=== PATIENT | female | born 1945 | race Caucasian/White ===

== ENCOUNTER 2016-08-03 13:04 | Day surgery (SDC) | payer MEDICARE, OTHER, SELFPAY | END 2016-08-03 15:51 | disposition home or self-care (01) | PROVIDERS: Family Provider Internal Medicine Adolescent Medicine; Visit Provider Internal Medicine Gastroenterology | DX: K59.00 Constipation, unspecified (principal); R10.31 Right lower quadrant pain; K57.30 Diverticulosis of large intestine without perforation or abscess without bleeding; K64.0 First degree hemorrhoids | CPT/HCPCS: 45378; 96365; 96366 ==

== ENCOUNTER → 2017-04-06 08:16 | Outpatient (CLI) | payer MEDICARE, OTHER, SELFPAY ==
[2017-04-06 14:08] LABS: Alanine Aminotransferase 26 U/L (12-78); Albumin Level 3.7 gm/dL (3.4-5.0); Alkaline Phosphatase 59 U/L (46-116); Anion Gap 10.4 mEq/L (5-15); Aspartate Amino Transferase 25 U/L (15-37); Bilirubin,Total 0.5 mg/dL (0.2-1.0); Blood Urea Nitrogen 15 mg/dL (7-18); Calcium 8.7 mg/dL (8.5-10.1); Carbon Dioxide 29 mmol/L (21.0-32.0); Chloride 108 mmol/L (98-107); Chol/HDL Ratio 2.3 (1-3.5); Cholesterol 173 mg/dL (140-200); Creatinine,Serum 1.03 mg/dL (0.55-1.02); Estimated Glomerular Filt Rate 53 ml/min (>60); GFR (African American) 64 ML/MIN (>60); Globulin 3.6 gm/dl (1.3-3.2); Glucose 87 mg/dL (74-106); HDL Cholesterol 74 mg/dL (29-89); LDL Cholesterol 86 mg/dL (0-130); Potassium 4.4 mmoL/L (3.5-5.1); Sodium 143 mmol/L (136-145); Thyroid Stimulating Hormone 20.86 uIU/ml (0.358-3.740); Total Protein,Serum 7.3 gm/dL (6.4-8.2); Triglycerides 63 mg/dL (30-200); VLDL Cholesterol 13 mg/dL (0-40)
[2017-04-06 14:11] LABS: Basophils % 0.8 % (0.1-2.0); Eosinophils # 0.3 K/mm3 (0.0-0.4); Eosinophils % 5.3 % (0.1-12.0); Hematocrit 39.6 % (37.0-47.0); Hemoglobin 13.1 g/dL (12.2-16.2); Lymphocytes # 1.5 K/mm3 (0.7-4.5); Lymphocytes % 31.9 K/mm3 (10-50); Mean Corpuscular Hemoglobin 29.8 pg (27.0-31.2); Mean Corpuscular Volume 90.3 fl (81-99); Mean Platelet Volume 7.8 fl (7.4-10.4); Monocytes # 0.4 K/mm3 (0.1-1.0); Monocytes % 9.1 % (1.7-9.3); Neutrophils # 2.5 K/mm3 (1.8-7.8); Neutrophils % 52.9 % (37.0-80.0); Platelet Count 292 K/mm3 (142-424); Red Blood Count 4.38 M/mm3 (4.20-5.40); Red Cell Distribution Width 12.3 % (11.5-17.5); White Blood Count 4.8 K/mm3 (4.8-10.8)
== END ==
PROVIDERS: PCP Internal Medicine Adolescent Medicine; Visit Provider Nurse Practitioner Family
DX: I25.10 Atherosclerotic heart disease of native coronary artery without angina pectoris (principal); I10 Essential (primary) hypertension; R07.2 Precordial pain; J32.9 Chronic sinusitis, unspecified; G47.31 Primary central sleep apnea; G47.33 Obstructive sleep apnea (adult) (pediatric)
CPT/HCPCS: 36415; 80053; 80061; 83735; 84443; 85025

== ENCOUNTER → 2017-07-12 09:19 | Outpatient (CLI) | payer MEDICARE, OTHER, SELFPAY ==
[2017-07-12 14:30] LABS: Basophils % 0.7 % (0.1-2.0); Eosinophils # 0.2 K/mm3 (0.0-0.4); Eosinophils % 4.5 % (0.1-12.0); Hematocrit 36.3 % (37.0-47.0); Lymphocytes # 1.8 K/mm3 (0.7-4.5); Lymphocytes % 33.5 K/mm3 (10-50); Mean Corpuscular HGB Conc 33.1 g/dL (31.8-35.4); Mean Corpuscular Hemoglobin 29.7 pg (27.0-31.2); Mean Corpuscular Volume 89.7 fl (81-99); Monocytes # 0.4 K/mm3 (0.1-1.0); Monocytes % 8.1 % (1.7-9.3); Neutrophils # 2.9 K/mm3 (1.8-7.8); Neutrophils % 53.2 % (37.0-80.0); Platelet Count 305 K/mm3 (142-424); Red Blood Count 4.04 M/mm3 (4.20-5.40); Red Cell Distribution Width 12.3 % (11.5-17.5); White Blood Count 5.4 K/mm3 (4.8-10.8)
[2017-07-12 14:40] LABS: Alanine Aminotransferase 20 U/L (12-78); Albumin Level 3.7 gm/dL (3.4-5.0); Alkaline Phosphatase 66 U/L (46-116); Anion Gap 14.4 mEq/L (5-15); Aspartate Amino Transferase 19 U/L (15-37); Bilirubin,Total 0.3 mg/dL (0.2-1.0); Blood Urea Nitrogen 18 mg/dL (7-18); Calcium 9.5 mg/dL (8.5-10.1); Carbon Dioxide 26 mmol/L (21.0-32.0); Chloride 105 mmol/L (98-107); Chol/HDL Ratio 2.8 (1-3.5); Cholesterol 161 mg/dL (140-200); Creatinine,Serum 1.01 mg/dL (0.55-1.02); Estimated Glomerular Filt Rate 54 ml/min (>60); GFR (African American) 65 ML/MIN (>60); Globulin 3.8 gm/dl (1.3-3.2); Glucose 89 mg/dL (74-106); HDL Cholesterol 58 mg/dL (29-89); LDL Cholesterol 88 mg/dL (0-130); Potassium 4.4 mmoL/L (3.5-5.1); Sodium 141 mmol/L (136-145); Thyroid Stimulating Hormone 1.92 uIU/ml (0.358-3.740); Total Protein,Serum 7.5 gm/dL (6.4-8.2); Triglycerides 77 mg/dL (30-200); VLDL Cholesterol 15 mg/dL (0-40)
[2017-07-13 15:16] LABS: Vitamin B12 1440 pg/mL (232-1245)
== END ==
PROVIDERS: Visit Provider Internal Medicine Adolescent Medicine
DX: I10 Essential (primary) hypertension (principal); E78.5 Hyperlipidemia, unspecified; E03.9 Hypothyroidism, unspecified
CPT/HCPCS: 36415; 80053; 80061; 82607; 84443; 85025

== ENCOUNTER → 2017-07-19 07:48 | Outpatient (CLI) | payer MEDICARE, OTHER, SELFPAY ==
--- NOTE | 2017-07-19 07:52 | US_ITS ---
US gallbladder HISTORY: ITS.REASON: RUQ PAIN Ordering PHYSICIAN: Flavio Fernandez MD PATIENT AGE: 71 years Comparison: None FINDINGS: PANCREAS: Unremarkable. No obvious mass or abnormal fluid collection. No ductal dilatation LIVER: No focal liver lesions demonstrated. Homogeneous echogenicity. No intrahepatic biliary ductal dilatation evident RIGHT KIDNEY: Unremarkable. Normal size and echogenicity. No hydronephrosis GALLBLADDER: No gallstones, gallbladder wall thickening, pericholecystic fluid, or biliary dilatation. There is a fold present in the fundus of the gallbladder is normal variant IMPRESSION: Negative gallbladder/right upper quadrant ultrasound
== END ==
PROVIDERS: Family Provider Internal Medicine Adolescent Medicine; PCP Internal Medicine Adolescent Medicine; Visit Provider Internal Medicine Adolescent Medicine
DX: R10.11 Right upper quadrant pain (principal)
CPT/HCPCS: 76705

== ENCOUNTER → 2017-09-07 13:15 | Outpatient (CLI) | payer MEDICARE, OTHER, SELFPAY ==
--- NOTE | 2017-09-07 13:45 | XR_ITS ---
XR hand RT min 3V HISTORY: And 18 ITS.REASON: PAIN ORDERING PHYSICIAN: Flavio Fernandez MD PATIENT AGE: 71 years COMPARISON: None FINDINGS: There are mild osteoarthritic changes of the first metacarpal carpal joint. No other significant anomalies are evident. IMPRESSION: Mild osteoarthritis of the first metacarpal carpal joint
--- NOTE | 2017-09-07 13:45 | XR_ITS ---
EXAM: XR cervical spine 5V HISTORY: Neck pain ORDERING PHYSICIAN: Flavio Fernandez MD PATIENT AGE: 71 years FINDINGS: Normal alignment. No fracture or dislocation. Moderate degenerative disc disease is present at C5-C6 with endplate spurring. There is mild right foraminal narrowing at that level. The C6 and C7 vertebral bodies appear partially fused. No significant degenerative change evident at that level. There are mild facet hypertrophic changes at C4 and C5 and there is mild prominence of the transverse processes bilaterally at C7 right greater than left. IMPRESSION: 1. Degenerative disc disease at C5-C6 with mild right foraminal narrowing 2. 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 3. Mild facet arthritic change
--- NOTE | 2017-09-07 13:45 | XR_ITS ---
XR hand LT min 3V HISTORY: And pain ITS.REASON: ANNITA ARTHRITIS PAIN ORDERING PHYSICIAN: Flavio Fernandez MD PATIENT AGE: 71 years COMPARISON: None FINDINGS: No erosive changes are evident. No fracture or dislocation. Moderate osteoarthritic changes are present at the first metacarpocarpal joint with some mild heterotopic bone formation laterally. IMPRESSION: Moderate osteoarthritic changes of the first metacarpal carpal joint
--- NOTE | 2017-09-07 13:45 | XR_ITS ---
XR shoulder RT min 2V HISTORY: ITS.REASON: RT SHOULDER JOINT PAIN ORDERING PHYSICIAN: Flavio Fernandez MD PATIENT AGE: 71 years Comparison: None FINDINGS: No fracture or dislocation. No lytic or blastic change. There is normal mineralization. There are mild osteoarthritic changes of the acromioclavicular joint. The glenohumeral joint has an unremarkable appearance. IMPRESSION: Mild osteoarthritis of the acromioclavicular joint. Minimal subacromial narrowing
[2017-09-07 13:55] LABS: Basophils # 0.1 K/mm3 (0-0.2); Basophils % 0.6 % (0.1-2.0); Eosinophils # 0.1 K/mm3 (0.0-0.4); Eosinophils % 1.4 % (0.1-12.0); Hematocrit 41.6 % (37.0-47.0); Hemoglobin 13.2 g/dL (12.2-16.2); Lymphocytes # 1.8 K/mm3 (0.7-4.5); Lymphocytes % 24.1 K/mm3 (10-50); Mean Corpuscular HGB Conc 31.8 g/dL (31.8-35.4); Mean Corpuscular Hemoglobin 28.7 pg (27.0-31.2); Mean Corpuscular Volume 90.1 fl (81-99); Mean Platelet Volume 7.2 fl (7.4-10.4); Monocytes # 0.5 K/mm3 (0.1-1.0); Monocytes % 6.4 % (1.7-9.3); Neutrophils # 5.1 K/mm3 (1.8-7.8); Neutrophils % 67.5 % (37.0-80.0); Platelet Count 339 K/mm3 (142-424); Red Blood Count 4.61 M/mm3 (4.20-5.40); Red Cell Distribution Width 12.7 % (11.5-17.5); White Blood Count 7.6 K/mm3 (4.8-10.8)
[2017-09-07 14:54] LABS: Alanine Aminotransferase 19 U/L (12-78); Albumin Level 3.7 gm/dL (3.4-5.0); Alkaline Phosphatase 66 U/L (46-116); Aspartate Amino Transferase 18 U/L (15-37); Bilirubin,Total 0.4 mg/dL (0.2-1.0); Blood Urea Nitrogen 24 mg/dL (7-18); Carbon Dioxide 25 mmol/L (21.0-32.0); Chloride 104 mmol/L (98-107); Creatinine,Serum 1.14 mg/dL (0.55-1.02); Estimated Glomerular Filt Rate 47 ml/min (>60); GFR (African American) 57 ML/MIN (>60); Globulin 3.8 gm/dl (1.3-3.2); Glucose 96 mg/dL (74-106); Sodium 137 mmol/L (136-145); Total Protein,Serum 7.5 gm/dL (6.4-8.2)
[2017-09-07 19:30] LABS: Ferritin 49 ng/mL (8-388)
[2017-09-09 06:04] LABS: Antinuclear Antibodies, IFA Negative (.)
== END ==
PROVIDERS: PCP Internal Medicine Adolescent Medicine; Visit Provider Internal Medicine Adolescent Medicine
DX: M25.511 Pain in right shoulder (principal); M54.2 Cervicalgia; M19.041 Primary osteoarthritis, right hand; M19.042 Primary osteoarthritis, left hand
CPT/HCPCS: 36415; 72050; 73030; 73130; 80053; 82728; 85025; 86038

== ENCOUNTER → 2017-09-20 14:18 | Outpatient (CLI) | payer MEDICARE, OTHER, SELFPAY ==
--- NOTE | 2017-09-20 14:20 | MR_ITS ---
MR cervical spine wo con, MR cervical spine wo con, MR 3-d myelogram/MRCP . COMPARISON: 1718 C-spine series 5 view.. TECHNIQUE: Sagittal STIR, T1, T2, axial T1 and T2. On 1.5T Siemens wide bore MRI. 3-D MR myelogram image set obtained & performed on MRI workstation. Additional sagittal thin section T2 weighted dataset obtained from this latter acquisition as well (---76 CPT) COMPARISON :Plain film Cervical spine series September 07, 2017 ---- . FINDINGS . Cranial cervical junction appears normal. Osseous spinal canal is generous but is narrowed by the just described below C2/3 disc intact C3/4. Moderate central disc protrusion. This does impinge upon and minimally effacing cervical cord at midline. C4/5 disc intact. Neural foramen patent C5-C6. Diffuse posterior osteophytic ridging. Additional Spurring and hard disc the right additionally indents effaces cervical cord to the right... Mild/moderate foraminal encroachment bilaterally right more so than left... C6/7. Fused vertebral bodies. 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 Mildly encroach upon the foramen bilaterally T1/2 Mild developing facet arthropathy bilaterally most evident superior right C-spine at C2/C3 C3/4 3-D MR myelogram image set demonstrates the mild indentation upon the anterior aspect thecal sac C5-C6 IMPRESSION 1. . 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 C5-C6 prominent cervical spondylosis and degenerative disc changes, most evident at this level..: .Diffuse disc/osteophyte features of with additional focal spurring/hard disc to the right. Features effaces the cervical cord most evident to the right of midline. .. Mild central canal stenosis, with Bilateral foraminal encroachment. Right greater than left .3. ...C3/4. Broad-based central disc protrusion which abuts and mildly effaces cervical cord at midline .
== END ==
PROVIDERS: Family Provider Internal Medicine Adolescent Medicine; PCP Internal Medicine Adolescent Medicine; Visit Provider Internal Medicine Adolescent Medicine
DX: M54.2 Cervicalgia (principal)
CPT/HCPCS: 72141; 76376

== ENCOUNTER → 2017-10-08 10:39 | Outpatient (POV) | payer MEDICARE, OTHER, SELFPAY ==
[2017-10-08 10:57] VITALS: BP 149/68; PULSE 66; RESP 18; O2SAT 97
--- NOTE | 2017-10-08 11:29 | HMH.PMCON ---
Assessment and Plan (1) Degenerative joint disease of cervical spine Current visit: Yes Status: Acute Category: Medical Code(s): M47.812 - Spondylosis without myelopathy or radiculopathy, cervical region (2) Cervical radiculopathy due to degenerative joint disease of spine Current visit: Yes Status: Chronic Category: Medical Code(s): M47.22 - Other spondylosis with radiculopathy, cervical region We will start her on prednisone 20 mg 1 tablet twice a day for 10 days. She is leaving for [place] this week. We will seek approval for her to come off Plavix for 7 days to get a cervical epidural steroid injection. We will do this when she gets back from her trip. If she has any further problems or questions she is to call us in the pain clinic. HPI - Data of Consult Patient: new to practice Consult date: 10/08/17 Requesting Physician: Leonid Cook MD Primary Care Provider: Flavio Fernandez MD Family Provider: Flavio Fernandez MD - Consult Narrative Reason for consult: Neck pain History of present illness: Ms. Sutton is a 72 year old female who has a long history of neck pain. She has multiple bone spurs throughout the cervical spine. She has had acute onset of neck pain with radiation to both shoulders over the last few days. She is currently on Plavix we cannot do an injection. She has difficulty with any flexion or extension and limited range of motion at this point. She does have a cervical MRI which does show degenerative changes with posterior osteophyte osteophytic spurring at C5-C6. There is severe degenerative changes at C5-C6. She also has bilateral foraminal encroachment right greater than left. It is thought that this is a source of her pain. She is currently on ibuprofen and Tylenol which is not giving her much bit. CC: Leonid Cook MD [facility] History I have reviewed the patient's past medical history: Yes Medical History: Reports:: Coronary Artery Disease, Hyperlipidemia, Hypertension, Valvular Heart Disease Denies:: Cancer, Diabetes Mellitus Type 1, Diabetes Mellitus Type 2, MRSA Other Medical History: Reports: Thyroid Disease Other Surgeries: Yes: Hysterectomy-Partial, Other (bladder tuck) Amputation: No Fractures: No - *Social History Alcohol Intake: never Occupational Status: retired - Psychiatric History Expresses thoughts of harming self/others: None Suicide Plan Description: No Plan *Family Hx:: Unable to obtain Review of Systems - *Musculoskeletal Reports limited joint movement Meds Home Medications Medication Instructions Recorded Confirmed Type Albuterol Sulfate [Proair 2 puffs IH BID 10/08/17 10/08/17 History Respiclick] Aspirin [Aspir 81] 81 mg PO DAILY 10/08/17 10/08/17 History Calcium Carbonate/Vitamin D3 1 each PO BID 10/08/17 10/08/17 History [Calcium 600-Vit D3 200 Tablet] Citalopram Hydrobromide [Celexa 20 mg PO DAILY 10/08/17 10/08/17 History 20mg Tablet] Clopidogrel Bisulfate [Plavix 75mg 75 mg PO DAILY 10/08/17 10/08/17 History Tab] Fluticasone Propionate [Flonase 2 spr NS DAILY 10/08/17 10/08/17 History 50mcg nasal spray 16gm] Lansoprazole [Prevacid] 30 mg PO BID 10/08/17 10/08/17 History Levocetirizine Dihydrochloride 5 mg PO DAILY 10/08/17 10/08/17 History Levothyroxine Sodium 112 mcg PO DAILY 10/08/17 10/08/17 History [Levothyroxine 112mcg (0.112mg) Tab] Meloxicam 7.5 mg PO DAILY PRN 10/08/17 10/08/17 History Metoprolol Succinate 25 mg PO DAILY 10/08/17 10/08/17 History Montelukast Sodium [Montelukast 10 mg PO HS 10/08/17 10/08/17 History 10mg Tab] [place]-3 Fatty Acids/Fish Oil [Fish 1 each PO BID 10/08/17 10/08/17 History Oil 1,000 mg Capsule] Pravastatin Sodium [Pravachol 40mg 40 mg PO DAILY 10/08/17 10/08/17 History Tablet] raNITIdine HCl [Ranitidine HCl] 150 mg PO BID 10/08/17 10/08/17 History Allergies Allergy/AdvReac Type Severity Reaction Status Date / Time cefdinir [From OMNICEF] Allergy Intermed
--- NOTE | 2017-10-08 11:33 | P.CONS_ITS ---
Assessment and Plan (1) Degenerative joint disease of cervical spine Current visit: Yes Status: Acute Category: Medical Code(s): M47.812 - Spondylosis without myelopathy or radiculopathy, cervical region (2) Cervical radiculopathy due to degenerative joint disease of spine Current visit: Yes Status: Chronic Category: Medical Code(s): M47.22 - Other spondylosis with radiculopathy, cervical region We will start her on prednisone 20 mg 1 tablet twice a day for 10 days. She is leaving for [place] this week. We will seek approval for her to come off Plavix for 7 days to get a cervical epidural steroid injection. We will do this when she gets back from her trip. If she has any further problems or questions she is to call us in the pain clinic. HPI - Data of Consult Patient: new to practice Consult date: 10/08/17 Requesting Physician: Leonid Cook MD Primary Care Provider: Flavio Fernandez MD Family Provider: Flavio Fernandez MD - Consult Narrative Reason for consult: Neck pain History of present illness: Ms. Sutton is a 72 year old female who has a long history of neck pain. She has multiple bone spurs throughout the cervical spine. She has had acute onset of neck pain with radiation to both shoulders over the last few days. She is currently on Plavix we cannot do an injection. She has difficulty with any flexion or extension and limited range of motion at this point. She does have a cervical MRI which does show degenerative changes with posterior osteophyte osteophytic spurring at C5-C6. There is severe degenerative changes at C5-C6. She also has bilateral foraminal encroachment right greater than left. It is thought that this is a source of her pain. She is currently on ibuprofen and Tylenol which is not giving her much bit. CC: Leonid Cook MD [facility] History I have reviewed the patient's past medical history: Yes Medical History: Reports:: Coronary Artery Disease, Hyperlipidemia, Hypertension , Valvular Heart Disease Denies:: Cancer, Diabetes Mellitus Type 1, Diabetes Mellitus Type 2, MRSA Other Medical History: Reports: Thyroid Disease Other Surgeries: Yes: Hysterectomy-Partial, Other (bladder tuck) Amputation: No Fractures: No - *Social History Alcohol Intake: never Occupational Status: retired - Psychiatric History Expresses thoughts of harming self/others: None Suicide Plan Description: No Plan *Family Hx:: Unable to obtain Review of Systems - *Musculoskeletal Reports limited joint movement Meds Home Medications Medication Instructions Recorded Confirmed Type Albuterol Sulfate [Proair 2 puffs IH BID 10/08/17 10/08/17 History Respiclick] Aspirin [Aspir 81] 81 mg PO DAILY 10/08/17 10/08/17 History Calcium Carbonate/Vitamin D3 1 each PO BID 10/08/17 10/08/17 History [Calcium 600-Vit D3 200 Tablet] Citalopram Hydrobromide [Celexa 20 mg PO DAILY 10/08/17 10/08/17 History 20mg Tablet] Clopidogrel Bisulfate [Plavix 75mg 75 mg PO DAILY 10/08/17 10/08/17 History Tab] Fluticasone Propionate [Flonase 2 spr NS DAILY 10/08/17 10/08/17 History 50mcg nasal spray 16gm] Lansoprazole [Prevacid] 30 mg PO BID 10/08/17 10/08/17 History Levocetirizine Dihydrochloride 5 mg PO DAILY 10/08/17 10/08/17 History Levothyroxine Sodium 112 mcg PO DAILY 10/08/17 10/08/17 History [Levothyroxine 112mcg (0.112mg) Tab] Meloxicam 7.5 mg PO DAILY PRN 10/08/17 10/08/17 History Metoprolol Succinate 25 mg PO
[2017-10-08 13:57] LABS: Alanine Aminotransferase 21 U/L (12-78); Albumin Level 3.6 gm/dL (3.4-5.0); Albumin/Globulin Ratio 0.9 (1.1-1.8); Alkaline Phosphatase 69 U/L (46-116); Anion Gap 13.5 mEq/L (5-15); Aspartate Amino Transferase 14 U/L (15-37); Bilirubin,Total 0.4 mg/dL (0.2-1.0); Blood Urea Nitrogen 16 mg/dL (7-18); Calcium 9.2 mg/dL (8.5-10.1); Carbon Dioxide 27 mmol/L (21.0-32.0); Chloride 102 mmol/L (98-107); Chol/HDL Ratio 2.9 (1-3.5); Cholesterol 206 mg/dL (140-200); Creatinine,Serum 1.11 mg/dL (0.55-1.02); Estimated Glomerular Filt Rate 48 ml/min (>60); GFR (African American) 58 ML/MIN (>60); Globulin 3.8 gm/dl (1.3-3.2); Glucose 79 mg/dL (74-106); HDL Cholesterol 71 mg/dL (29-89); LDL Cholesterol 115 mg/dL (0-130); Potassium 4.5 mmoL/L (3.5-5.1); Sodium 138 mmol/L (136-145); Thyroid Stimulating Hormone 3.84 uIU/ml (0.358-3.740); Total Protein,Serum 7.4 gm/dL (6.4-8.2); Triglycerides 102 mg/dL (30-200); VLDL Cholesterol 20 mg/dL (0-40)
== END ==
PROVIDERS: Nurse Practitioner Family; Family Provider Internal Medicine Adolescent Medicine; PCP Internal Medicine Adolescent Medicine; Visit Provider Anesthesiology
DX: M47.22 Other spondylosis with radiculopathy, cervical region (principal); Z79.899 Other long term (current) drug therapy; Z79.1 Long term (current) use of non-steroidal anti-inflammatories (NSAID)
CPT/HCPCS: 80053; 80061; 84443; 99202

== ENCOUNTER → 2017-11-29 10:37 | Outpatient (POV) | payer MEDICARE, OTHER, SELFPAY ==
[2017-11-29 12:22] VITALS: BP 125/73; PULSE 66; RESP 18; O2SAT 98; BMI 27.7
--- NOTE | 2017-11-29 12:33 | HMH.PAINSOAP ---
[facility] Pain Management SOAP Note Subjective:: Patient is a pleasant 72-year-old white female who presents today for follow-up after her cervical epidural steroid injection. Patient did get some relief. However her pain has returned and has seemingly worsened. Patient and I had a long discussion about plan of care. Patient would like to try a combination of injection/anti-inflammatory/physical therapy prior to getting a neurosurgical consultation. Patient rates her pain a 7 out of 10 today. ROS General: no recent weight change, no fever, no sleep disturbances Respiratory: no cough, no shortness of air, no recurring pulmonary infections Cardiovascular/Peripheral Vascular: No chest pain, No palpitations, no edema, no shortness of breath. Gastrointestinal: no incontinence, normal bowel movements reported Genitourinary: no incontinence Musculoskeletal: Neck pain, back pain Psychiatric: normal mood/ affect Neurological: [denies weakness in extremities], [denies balance issues] Objective:: Physical Exam General: Alert and oriented x3, no acute distress, pleasant and cooperative, [on room air] Lungs: Resps E/U, Symmetrical chest expansion, Eyes: PERRL Musculoskeletal: Flexion and extension of cervical spine somewhat guarded secondary to pain, deep tendon reflexes normal, strength in upper and lower extremities [5/5], slightly antalgic gait noted Neurological: speech clear, 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 Plan:: We will schedule a C5-C6 cervical epidural steroid injection for the patient. Patient is on Plavix however she has permission to come off of this. We will also schedule physical therapy for her along with prescribing her some Voltaren gel. If this does not work I believe a neurosurgical consultation would be advisable This note was dictated using voice recognition software and may contain errors or omissions
--- NOTE | 2017-11-29 12:36 | P.CONS_ITS ---
[facility] Pain Management SOAP Note Subjective:: Patient is a pleasant 72-year-old white female who presents today for follow-up after her cervical epidural steroid injection. Patient did get some relief. However her pain has returned and has seemingly worsened. Patient and I had a long discussion about plan of care. Patient would like to try a combination of injection/anti-inflammatory/physical therapy prior to getting a neurosurgical consultation. Patient rates her pain a 7 out of 10 today. ROS General: no recent weight change, no fever, no sleep disturbances Respiratory: no cough, no shortness of air, no recurring pulmonary infections Cardiovascular/Peripheral Vascular: No chest pain, No palpitations, no edema, no shortness of breath. Gastrointestinal: no incontinence, normal bowel movements reported Genitourinary: no incontinence Musculoskeletal: Neck pain, back pain Psychiatric: normal mood/ affect Neurological: [denies weakness in extremities], [denies balance issues] Objective:: Physical Exam General: Alert and oriented x3, no acute distress, pleasant and cooperative, [on room air] Lungs: Resps E/U, Symmetrical chest expansion, Eyes: PERRL Musculoskeletal: Flexion and extension of cervical spine somewhat guarded secondary to pain, deep tendon reflexes normal, strength in upper and lower extremities [5/5], slightly antalgic gait noted Neurological: speech clear, 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 Plan:: We will schedule a C5-C6 cervical epidural steroid injection for the patient. Patient is on Plavix however she has permission to come off of this. We will also schedule physical therapy for her along with prescribing her some Voltaren gel. If this does not work I believe a neurosurgical consultation would be advisable This note was dictated using voice recognition software and may contain errors or omissions
== END ==
PROVIDERS: Family Provider Internal Medicine Adolescent Medicine; PCP Internal Medicine Adolescent Medicine; Visit Provider Clinical Nurse Specialist Family Health
DX: M50.10 Cervical disc disorder with radiculopathy, unspecified cervical region (principal)
CPT/HCPCS: 99213

== ENCOUNTER → 2017-12-25 11:57 | Outpatient (CLI) | payer MEDICARE, OTHER, SELFPAY ==
[2017-12-25 12:00] LABS: Adenovirus F 40/41, stool Not Detected (NotDetected); Astrovirus Not Detected (NotDetected); Campylobacter Not Detected (NotDetected); Clostridium Difficile A/B, PCR Not Detected (NotDetected); Cryptosporidium Not Detected (NotDetected); Cyclospora Cayetanesis Not Detected (NotDetected); Entamoeba histolytica Not Detected (NotDetected); Enteropathogenic E coli Not Detected (NotDetected); Enterotoxigenic E coli Not Detected (NotDetected); Giardia lamblia Not Detected (NotDetected); Norovirus Not Detected (NotDetected); Plesimonas Shigalloides, PCR Not Detected (NotDetected); Rotavirus A Not Detected (NotDetected); Salmonella, PCR Not Detected (NotDetected); Sapovirus Not Detected (NotDetected); Shiga-like toxin E coli Not Detected (NotDetected); Shigella Enterovasive E coli Not Detected (NotDetected); Vibrio Cholerae Not Detected (NotDetected); Vibrio, PCR Not Detected (NotDetected); Yersinia Entercolitica, PCR Not Detected (NotDetected)
[2017-12-25 15:09] LABS: Enteroaggregative E coli Detected (NotDetected)
== END ==
PROVIDERS: PCP Nurse Practitioner Family; Visit Provider Nurse Practitioner Family
DX: K52.9 Noninfective gastroenteritis and colitis, unspecified (principal)
CPT/HCPCS: 87507

== ENCOUNTER 2017-12-30 10:00 | Outpatient (RCR) | payer MEDICARE, OTHER, SELFPAY ==
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
== END 2018-01-03 10:11 | disposition home or self-care (01) ==
LOC: PT 10:00
PROVIDERS: Family Provider Internal Medicine Adolescent Medicine; PCP Internal Medicine Adolescent Medicine; Visit Provider Clinical Nurse Specialist Family Health
DX: M54.2 Cervicalgia (principal)
CPT/HCPCS: 97014; 97110; 97140; 97163; G0283

== ENCOUNTER → 2018-01-03 14:16 | Outpatient (POV) | payer MEDICARE, OTHER, SELFPAY ==
[2018-01-03 14:34] VITALS: BP 122/74; PULSE 74; RESP 18; O2SAT 98; BMI 31.3
--- NOTE | 2018-01-04 08:06 | HMH.PAINSOAP ---
[facility] Pain Management SOAP Note Subjective:: Patient is a pleasant 72-year-old white female who presents today follow-up after cervical epidural steroid injection. Patient states she is doing very well and has no pain. Patient is continuing her physical therapy. Patient would like to follow-up on an as-needed basis. ROS General: no recent weight change, no fever, no sleep disturbances Respiratory: no cough, no shortness of air, no recurring pulmonary infections Cardiovascular/Peripheral Vascular: No chest pain, No palpitations, no edema, no shortness of breath. Gastrointestinal: no incontinence, normal bowel movements reported Genitourinary: no incontinence Musculoskeletal: Neck pain at times Psychiatric: normal mood/ affect, Neurological: [denies weakness in extremities], [denies balance issues] Objective:: Physical Exam General: Alert and oriented x3, no acute distress, pleasant and cooperative, [on room air] Lungs: Resps E/U, Symmetrical chest expansion, Eyes: PERRL Musculoskeletal: Flexion and extension of cervical spine somewhat guarded secondary to pain, deep tendon reflexes normal, strength in upper and lower extremities [5/5], normal gait noted Neurological: speech clear, logistics lead equal, no gross sensory deficits Assessment:: Degenerative disc disease cervical spinal cervical radiculopathy Plan:: We will follow-up with the patient on an as-needed basis. At this time patient is not having any pain is doing well. Patient is going to continue her therapy. This note was dictated using voice recognition software and may contain errors or omissions
== END ==
PROVIDERS: PCP Internal Medicine Adolescent Medicine; Visit Provider Clinical Nurse Specialist Family Health
DX: M50.10 Cervical disc disorder with radiculopathy, unspecified cervical region (principal)
CPT/HCPCS: 99213

== ENCOUNTER 2018-02-07 10:00 | Outpatient (RCR) | payer MEDICARE, OTHER, SELFPAY ==
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
== END 2018-02-14 10:54 | disposition home or self-care (01) ==
LOC: PT 10:00
PROVIDERS: Visit Provider Internal Medicine Adolescent Medicine
DX: M54.5 Low back pain (principal)
CPT/HCPCS: 97012; 97014; 97110; 97140; 97163; G0283

== ENCOUNTER → 2018-05-04 08:14 | Outpatient (CLI) | payer MEDICARE, OTHER, SELFPAY ==
[2018-05-04 14:09] LABS: Basophils % 0.9 % (0.1-2.0); Eosinophils # 0.2 K/mm3 (0.0-0.4); Eosinophils % 3.6 % (0.1-12.0); Hematocrit 38.9 % (37.0-47.0); Hemoglobin 13.1 g/dL (12.2-16.2); Lymphocytes # 1.4 K/mm3 (0.7-4.5); Lymphocytes % 29.8 % (10-50); Mean Corpuscular HGB Conc 33.7 g/dL (31.8-35.4); Mean Corpuscular Hemoglobin 29.7 pg (27.0-31.2); Mean Platelet Volume 8.3 fl (7.4-10.4); Monocytes # 0.3 K/mm3 (0.1-1.0); Neutrophils # 2.7 K/mm3 (1.8-7.8); Neutrophils % 58.7 % (37.0-80.0); Platelet Count 289 K/mm3 (142-424); Red Blood Count 4.42 M/mm3 (4.20-5.40); Red Cell Distribution Width 12.8 % (11.5-17.5); White Blood Count 4.7 K/mm3 (4.8-10.8)
[2018-05-04 14:31] LABS: Alanine Aminotransferase 19 U/L (12-78); Albumin Level 3.7 gm/dL (3.4-5.0); Albumin/Globulin Ratio 0.9 (1.1-1.8); Alkaline Phosphatase 63 U/L (46-116); Anion Gap 13.5 mEq/L (5-15); Aspartate Amino Transferase 14 U/L (15-37); Bilirubin,Total 0.6 mg/dL (0.2-1.0); Blood Urea Nitrogen 19 mg/dL (7-18); Calcium 9.2 mg/dL (8.5-10.1); Carbon Dioxide 26 mmol/L (21.0-32.0); Chloride 105 mmol/L (98-107); Chol/HDL Ratio 3.3 (1-3.5); Cholesterol 170 mg/dL (140-200); Creatinine,Serum 1.13 mg/dL (0.55-1.02); Estimated Glomerular Filt Rate 47 ml/min (>60); GFR (African American) 57 ML/MIN (>60); Globulin 3.9 gm/dl (1.3-3.2); Glucose 87 mg/dL (74-106); HDL Cholesterol 51 mg/dL (29-89); LDL Cholesterol 99 mg/dL (0-130); Potassium 4.5 mmoL/L (3.5-5.1); Sodium 140 mmol/L (136-145); Thyroid Stimulating Hormone 1.23 uIU/ml (0.358-3.740); Total Protein,Serum 7.6 gm/dL (6.4-8.2); Triglycerides 102 mg/dL (30-200); VLDL Cholesterol 20 mg/dL (0-40)
== END ==
PROVIDERS: PCP Internal Medicine Adolescent Medicine; Visit Provider Nurse Practitioner Family
DX: I25.118 Atherosclerotic heart disease of native coronary artery with other forms of angina pectoris (principal); E78.00 Pure hypercholesterolemia, unspecified
CPT/HCPCS: 36415; 80053; 80061; 84443; 85025

== ENCOUNTER → 2018-08-19 11:02 | Outpatient (POV) | payer MEDICARE, OTHER, SELFPAY ==
[2018-08-19 11:40] VITALS: BP 151/88; PULSE 75; RESP 18; O2SAT 95; BMI 30.9
--- NOTE | 2018-08-19 11:43 | P.CONS_ITS ---
[facility] Pain Management SOAP Note Subjective:: This patient is a pleasant 72-year-old white female who we previously saw for neck pain with cervical radicular symptoms. She previously had a cervical epidural steroid injection which gave her good relief of her pain symptoms for almost 6 months. Her pain is starting to return in her neck with radiation down her arm. She is currently on Plavix. I believe she is a candidate for repeat cervical epidural steroid injection. We will seek approval for repeat cervical epidural steroid injection and get approval for her to come off Plavix for 7 days prior to the injection. Objective:: Alert and oriented x3 no acute distress. Patient has limited range of motion of the cervical spine. Motor strength of the upper extremities is 5/5. There is no gross sensory deficit. Assessment:: Degenerative disc disease of the cervical spine with cervical radiculopathy symptoms Plan:: We will seek approval and plan on a cervical epidural steroid injection under fluoroscopy. This patient is to be off her Plavix for 7 days prior to this injection. I have encouraged her to take Tylenol and ibuprofen to help with her pain symptoms until her injection.
== END ==
PROVIDERS: PCP Internal Medicine Adolescent Medicine; Visit Provider Anesthesiology
DX: M50.10 Cervical disc disorder with radiculopathy, unspecified cervical region (principal)
CPT/HCPCS: 99212

== ENCOUNTER → 2018-09-26 14:41 | Outpatient (POV) | payer MEDICARE, OTHER, SELFPAY ==
[2018-09-26 14:48] VITALS: BP 141/71; PULSE 65; RESP 18; O2SAT 96; BMI 30.7
--- NOTE | 2018-09-27 08:28 | P.CONS_ITS ---
[facility] Pain Management SOAP Note Subjective:: Patient is a very pleasant 73-year-old white female who presents today for follow-up after cervical epidural steroid injection. She is doing extremely well would like to follow-up on an as-needed basis. She rates her pain a 2 out of 10. Her last cervical epidural steroid injection gave her relief for 6 months. Patient's right arm pain is fully resolved ROS General: no recent weight change, no fever, no sleep disturbances Respiratory: no cough, no shortness of air, no recurring pulmonary infections Cardiovascular/Peripheral Vascular: No chest pain, No palpitations, no edema, no shortness of breath. Gastrointestinal: no incontinence, normal bowel movements reported Genitourinary: no incontinence Musculoskeletal: Neck pain, arm pain Psychiatric: normal mood/ affect Neurological: [denies weakness in extremities], [denies balance issues] Objective:: Physical Exam General: Alert and oriented x3, no acute distress, pleasant and cooperative, [on room air] Lungs: Resps E/U, Symmetrical chest expansion, Eyes: PERRL Musculoskeletal: Flexion and extension of cervical spine somewhat guarded secondary to pain, deep tendon reflexes normal, strength in upper and lower extremities [5/5], normal gait noted Neurological: speech clear, try on baster equal, no gross sensory deficits Assessment:: 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 Dr. Cook has reviewed this note and agrees with this plan of care. This note was dictated using voice recognition software and may contain errors or omissions
== END ==
PROVIDERS: PCP Internal Medicine Adolescent Medicine; Visit Provider Clinical Nurse Specialist Family Health
DX: M50.10 Cervical disc disorder with radiculopathy, unspecified cervical region (principal)
CPT/HCPCS: 99212

== ENCOUNTER → 2018-12-19 08:50 | Outpatient (CLI) | payer MEDICARE, OTHER, SELFPAY ==
[2018-12-19 14:27] LABS: Basophils # 0.1 K/mm3 (0-0.2); Basophils % 1.3 % (0.1-2.0); Eosinophils # 0.1 K/mm3 (0.0-0.4); Eosinophils % 1.8 % (0.1-12.0); Hematocrit 38.7 % (37.0-47.0); Hemoglobin 12.3 g/dL (12.2-16.2); Lymphocytes % 31.8 % (10-50); Mean Corpuscular HGB Conc 31.8 g/dL (31.8-35.4); Mean Corpuscular Hemoglobin 29.8 pg (27.0-31.2); Mean Corpuscular Volume 93.7 fl (81-99); Mean Platelet Volume 8.2 fl (7.4-10.4); Monocytes # 0.5 K/mm3 (0.1-1.0); Monocytes % 8.5 % (1.7-9.3); Neutrophils # 3.6 K/mm3 (1.8-7.8); Neutrophils % 56.7 % (37.0-80.0); Platelet Count 339 K/mm3 (142-424); Red Blood Count 4.13 M/mm3 (4.20-5.40); Red Cell Distribution Width 12.5 % (11.5-17.5); White Blood Count 6.3 K/mm3 (4.8-10.8)
[2018-12-19 15:00] LABS: Alanine Aminotransferase 10 U/L (12-78); Albumin Level 3.6 gm/dL (3.4-5.0); Alkaline Phosphatase 53 U/L (46-116); Anion Gap 13.4 mEq/L (5-15); Aspartate Amino Transferase 12 U/L (15-37); Bilirubin,Total 0.5 mg/dL (0.2-1.0); Blood Urea Nitrogen 22 mg/dL (7-18); Calcium 9.3 mg/dL (8.5-10.1); Carbon Dioxide 26 mmol/L (21.0-32.0); Chloride 104 mmol/L (98-107); Chol/HDL Ratio 3.5 (1-3.5); Cholesterol 224 mg/dL (140-200); Creatinine,Serum 1.09 mg/dL (0.55-1.02); Estimated Glomerular Filt Rate 49 ml/min (>60); GFR (African American) 59 ML/MIN (>60); Globulin 3.6 gm/dl (1.3-3.2); Glucose 84 mg/dL (74-106); HDL Cholesterol 64 mg/dL (29-89); LDL Cholesterol 137 mg/dL (0-130); Potassium 4.4 mmoL/L (3.5-5.1); Sodium 139 mmol/L (136-145); Thyroid Stimulating Hormone 2.48 uIU/ml (0.358-3.740); Total Protein,Serum 7.2 gm/dL (6.4-8.2); Triglycerides 113 mg/dL (30-200); VLDL Cholesterol 23 mg/dL (0-40)
== END ==
PROVIDERS: PCP Internal Medicine Adolescent Medicine; Visit Provider Internal Medicine Adolescent Medicine
DX: Z00.00 Encounter for general adult medical examination without abnormal findings (principal); I10 Essential (primary) hypertension; E78.5 Hyperlipidemia, unspecified; E03.9 Hypothyroidism, unspecified
CPT/HCPCS: 36415; 80053; 80061; 84443; 85025

== ENCOUNTER → 2019-01-02 13:44 | Outpatient (POV) | payer MEDICARE, OTHER, SELFPAY ==
[2019-01-02 14:12] VITALS: BP 128/71; PULSE 82; RESP 18; O2SAT 98; BMI 29.8
--- NOTE | 2019-01-03 09:34 | HMH.PAINSOAP ---
[facility] Pain Management SOAP Note Subjective:: Patient is a pleasant 73-year-old white female who presents today for follow-up after her cervical epidural steroid injection. Overall doing extremely well rating her pain a 2 out of 10. Her typical relief lasts for 3 months. She would like to set up an appointment for a cervical epidural steroid injection before [place]. Patient is not on any anticoagulation therapy. Patient is continuing a home stretching program. She is on anti-inflammatories. ROS General: no recent weight change, no fever, no sleep disturbances Respiratory: no cough, no shortness of air, no recurring pulmonary infections Cardiovascular/Peripheral Vascular: No chest pain, No palpitations, no edema, no shortness of breath. Gastrointestinal: no new onset incontinence, normal bowel movements reported Genitourinary: no new onset incontinence Musculoskeletal: Neck pain Psychiatric: normal mood/ affect Neurological: [denies new onset weakness in extremities], [denies new onset balance issues] Objective:: Physical Exam General: Alert and oriented x3, no acute distress, pleasant and cooperative, [on room air] Lungs: Resps E/U, Symmetrical chest expansion, Eyes: PERRL Musculoskeletal: Flexion and extension of cervical spine somewhat guarded secondary to pain, deep tendon reflexes normal, strength in upper and lower extremities [5/5], slightly antalgic gait noted Neurological: speech clear, 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 Been instructed to call the office if she has any issues prior to her next appointment. Dr. Cook has reviewed this note and agrees with this plan of care. This note was dictated using voice recognition software and may contain errors or omissions [facility] History I have reviewed the patient's past medical history: Yes Medical History: Reports:: Coronary Artery Disease, Hyperlipidemia, Hypertension, Valvular Heart Disease Denies:: Cancer, Diabetes Mellitus Type 1, Diabetes Mellitus Type 2, MRSA, Seizures *Have you ever received a pneumonia vaccine?: No *Have you received a flu vaccine this season?: No Other Medical History: Reports: Thyroid Disease Other Surgeries: Yes: Hysterectomy-Partial, Other (bladder tuck) Amputation: No Fractures: No - *Social History Smoking Status: Never smoker Alcohol Intake: never *Occupational Status:: other Housing: house Household Members: none *Travel in the last 8 weeks: None Family Hx:: Unable to obtain
== END ==
PROVIDERS: PCP Internal Medicine Adolescent Medicine; Visit Provider Clinical Nurse Specialist Family Health
DX: M50.10 Cervical disc disorder with radiculopathy, unspecified cervical region (principal)
CPT/HCPCS: 99212

== ENCOUNTER → 2019-03-20 09:10 | Outpatient (POV) | payer MEDICARE, OTHER, SELFPAY ==
--- NOTE | 2019-03-20 12:48 | HMH.PAINSOAP ---
[facility] Pain Management SOAP Note Subjective:: Patient is a pleasant 73-year-old white female who presents today for follow-up after cervical epidural steroid injection she states that it is helped up to 80%. She rates her pain a 5 out of 10. 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 Patient and I discussed adding gabapentin at nighttime she is interested in pursuing this. ROS General: no recent weight change, no fever, no sleep disturbances Respiratory: no cough, no shortness of air, no recurring pulmonary infections Cardiovascular/Peripheral Vascular: No chest pain, No palpitations, no edema, no shortness of breath. Gastrointestinal: no new onset incontinence, normal bowel movements reported Genitourinary: no new onset incontinence Musculoskeletal: Neck pain, arm pain, shoulder pain Psychiatric: normal mood/ affect Neurological: [denies new onset weakness in extremities], [denies new onset balance issues] Objective:: Physical Exam General: Alert and oriented x3, no acute distress, pleasant and cooperative, [on room air] Lungs: Resps E/U, Symmetrical chest expansion, Eyes: PERRL Musculoskeletal: Flexion and extension of cervical spine somewhat guarded secondary to pain, deep tendon reflexes normal, strength in upper and lower extremities [5/5], slightly antalgic gait noted Neurological: 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 I will follow-up with the patient in 2 weeks to see if this was beneficial. We will also set her up for a C5-C6 cervical epidural steroid injection. Patient has had such good relief with this. Patient is continuing a home stretching program patient is also on Plavix but has permission to be off of it a week prior to the injection. Dr. Cook has reviewed this note and agrees with this plan of care. This note was dictated using voice recognition software and may contain errors or omissions [facility] History I have reviewed the patient's past medical history: Yes Medical History: Reports:: Coronary Artery Disease, Hyperlipidemia, Hypertension, Valvular Heart Disease Denies:: Cancer, Diabetes Mellitus Type 1, Diabetes Mellitus Type 2, MRSA, Seizures *Have you ever received a pneumonia vaccine?: No *Have you received a flu vaccine this season?: No Other Medical History: Reports: Thyroid Disease Other Surgeries: Yes: Hysterectomy-Partial, Other (bladder tuck) Amputation: No Fractures: No - *Social History Smoking Status: Never smoker Alcohol Intake: never *Occupational Status:: other Housing: house Household Members: none *Travel in the last 8 weeks: None Family Hx:: Unable to obtain
== END ==
PROVIDERS: PCP Internal Medicine Adolescent Medicine; Visit Provider Clinical Nurse Specialist Family Health
DX: M50.10 Cervical disc disorder with radiculopathy, unspecified cervical region (principal); I25.10 Atherosclerotic heart disease of native coronary artery without angina pectoris; E78.5 Hyperlipidemia, unspecified; I10 Essential (primary) hypertension; Z90.710 Acquired absence of both cervix and uterus

== ENCOUNTER → 2019-04-25 08:18 | Outpatient (CLI) | payer MEDICARE, OTHER, SELFPAY ==
[2019-04-25 13:54] LABS: Alanine Aminotransferase 12 U/L (12-78); Albumin Level 4.2 g/dl (3.5-5.0); Albumin/Globulin Ratio 1.4 (1.1-1.8); Alkaline Phosphatase 49 U/L (38-126); Anion Gap 10.3 mEq/L (5-15); Aspartate Amino Transferase 23 U/L (14-36); Bilirubin,Total 0.2 mg/dl (0.2-1.3); Blood Urea Nitrogen 19 mg/dl (7-17); Carbon Dioxide 28 mmol/L (22.0-30.0); Chloride 104 mmol/L (98-107); Chol/HDL Ratio 2.2 (1-3.5); Cholesterol 137 mg/dl (140-200); Estimated Glomerular Filt Rate 54 ml/min (>60); GFR (African American) 65 ML/MIN (>60); Globulin 3.1 g/dL (1.3-3.2); Glucose 86 mg/dl (74-100); HDL Cholesterol 61 mg/dl (40-60); Potassium 4.3 mmoL/L (3.5-5.1); Sodium 138 mmol/L (136-145); Total Protein,Serum 7.3 g/dl (6.3-8.2); Triglycerides 117 mg/dl (30-150); VLDL Cholesterol 23 mg/dL (0-40)
[2019-04-25 14:05] LABS: Direct LDL Cholesterol 51.67 mg/dL (100-129)
== END ==
PROVIDERS: PCP Nurse Practitioner Family; Visit Provider Nurse Practitioner Family
DX: Z00.00 Encounter for general adult medical examination without abnormal findings (principal); E03.9 Hypothyroidism, unspecified; I10 Essential (primary) hypertension
CPT/HCPCS: 36415; 80053; 80061; 84443

== ENCOUNTER → 2019-05-03 09:59 | Outpatient (CLI) | payer MEDICARE, OTHER, SELFPAY ==
--- NOTE | 2019-05-03 10:02 | CT_ITS ---
PROCEDURE: CT ABDOMEN W CON CLINICAL HISTORY: VENTRAL HERNIA Ventral hernia, abdominal pain COMPARISON: [facility] CT CHEST W/O CONTRAST from 04/30/2015 TECHNIQUE: 75 mL Optiray 350 IV Axial images obtained with sagittal and coronal reformats. All CT scans at the facility use one or more dose reduction, viz: automated exposure control, ma/kV adjustment per patient size (including targeted exams where dose is matched to indication, i.e. head), or iterative reconstruction technique. FINDINGS: Paraseptal emphysematous changes are present in both lung bases. There is patchy density in the lingula nonspecific. Coronary artery calcifications are present. There is a small to medium-sized hiatal hernia. The liver and gallbladder have an unremarkable appearance. Nodularity is present involving the left adrenal gland measuring 1.4 by 1.1 cm not significantly changed from 04/30/2015 consistent with an adenoma. There is a small triangular-shaped area of decreased attenuation within the spleen posteriorly nonspecific approximately 7 mm. No renal or ureteral calculi are evident. There is mild cortical scarring of both kidneys. There are scattered small periaortic lymph nodes. There is some minimal ectasia of both ureters. The distal ureters are not included on the study. There is a tiny umbilical hernia containing fat. No acute bony findings. IMPRESSION: No acute finding. Tiny umbilical hernia is noted containing fat. Other nonemergent findings as described above. Dictated by: Diego Sharp MD 05/03/2019 15:56 Electronically signed by Diego Sharp MD in [place] 05/03/2019 15:56
== END ==
PROVIDERS: PCP Nurse Practitioner Family; Visit Provider Nurse Practitioner Family
DX: K43.9 Ventral hernia without obstruction or gangrene (principal)
CPT/HCPCS: 74160; Q9967

== ENCOUNTER → 2019-07-05 10:01 | Outpatient (CLI) | payer MEDICARE, OTHER, SELFPAY ==
--- NOTE | 2019-07-05 10:25 | MM_ITS ---
PROCEDURE: MM DIG SCREENING MAMM BI W/CAD DIGITAL BREAST TOMOSYNTHESIS INCLUDED Patient Age:73Y CLINICAL INDICATION: SCREENING . The no hormones, no new complaints, noncontributory family history. COMPARISON: [facility] DIGITAL MAMM-SCREEN BILATERAL from 09/07/2011 DIGMAMMS MAMMOGRAM SCREEN-FIELD CONTACT PERSON N/C from 09/14/2012 [facility] DIG MAMM-SCREEN ANNITA from 07/23/2015 [facility] DIG MAMM-SCREEN ANNITA W/CAD from 07/24/2016 TECHNIQUE: Standard CC and MLO images were obtained. R2 CAD reviewed. Bilateral digital breast tomosynthesis included. FINDINGS: Low-density breast with generalized fatty replacement. No dominant or suspicious mass I breast but no significant change The Bilateral follow-up 1 year recommended IMPRESSION: . stable bilateral mammogram. No areas of concern . Bilateral follow-up 1 year recommended Low-density breast with generalized fatty replacement. BI-RAD Category: 1 Negative FOLLOW-UP: 1YR 1 Year Follow-up the the the the the the the (A letter has been sent to the patient regarding results of the study.) Dictated by: Juanito Martin MD 07/05/2019 13:10 Electronically signed by Juanito Martin MD in [place] 07/05/2019 13:10
[2019-07-06 15:10] LABS: Covid-19 Nasal PCR Sendout Lex NOT DETECTED
== END ==
PROVIDERS: Anesthesiology; PCP Nurse Practitioner Family; Visit Provider Nurse Practitioner Family
DX: Z01.818 Encounter for other preprocedural examination (principal); Z12.31 Encounter for screening mammogram for malignant neoplasm of breast
CPT/HCPCS: 77063; 77067; U0003

== ENCOUNTER 2019-07-07 10:29 | Day surgery (SDC) | payer MEDICARE, OTHER, SELFPAY ==
[2019-07-07 11:24] VITALS: BP 117/62; PULSE 61; RESP 18; TEMP 36.3; O2SAT 97; BMI 30.6
[2019-07-07 11:59] VITALS: BP 152/87; PULSE 85; RESP 18
[2019-07-07 12:00] VITALS: BP 158/85; PULSE 85; RESP 18; O2SAT 99
--- NOTE | 2019-07-07 12:01 | HMH.PMPROC ---
- Procedure Date: 07/07/19 Time: 12:01 Anesthesiologist:: Leonid Cook MD Complications:: None Pre-procedure Diagnosis:: Degenerative disc disease of the cervical spine with cervical radiculopathy symptoms Post-procedure Diagnosis:: Same Indications for Procedure:: This patient is a pleasant 73-year-old white female who we are treating for neck pain with cervical radiculopathy symptoms. She did very well with her last cervical epidural steroid injection with 80% relief in her pain symptoms. Her pain is starting to return in her neck and down her right arm. We will do a repeat cervical epidural steroid injection under fluoroscopy today. Procedure Details:: Cervical epidural steroid injection under fluoroscopy Informed consent was obtained and the risks and benefits of the procedure was explained to the patient. The patient was taken to the procedure room placed prone on the procedure table. The neck was prepped using ChloraPrep. The skin and subcutaneous tissues were anesthetized using lidocaine. I placed a 18-gauge epidural needle into the C5-C6 interspace and advanced using [id number] to air and fluoroscopic guidance. After confirmation of needle placement in the epidural space with dye, I injected 3 mL's lidocaine 1.5% and Depo-Medrol 80 mg. The patient tolerated the procedure well with no complications. Plan and Disposition:: We will follow-up with her in 2 weeks. Will reevaluate her symptoms at that time.
[2019-07-07 12:20] VITALS: BP 143/68; PULSE 58; RESP 20; O2SAT 97
== END 2019-07-07 12:20 | disposition home or self-care (01) ==
LOC: SC.PAINP 10:30
PROVIDERS: PCP Nurse Practitioner Family; Visit Provider Anesthesiology
DX: M50.10 Cervical disc disorder with radiculopathy, unspecified cervical region (principal); I10 Essential (primary) hypertension
CPT/HCPCS: 62321; J1040; Q9966

== ENCOUNTER → 2019-07-25 11:12 | Outpatient (POV) | payer MEDICARE, OTHER, SELFPAY ==
[2019-07-25 11:40] VITALS: BP 148/78; PULSE 55; RESP 18; O2SAT 98; BMI 29.9
--- NOTE | 2019-07-25 12:27 | HMH.PAINSOAP ---
[facility] Pain Management SOAP Note Subjective:: Patient is a pleasant 73-year-old white female who presents today for follow-up after her cervical epidural steroid injection. She rates her pain a 4-10 today but states is only because she had mowed the yard yesterday. Overall she is doing extremely well with 80% relief of her cervical radicular symptoms. Patient has good relief with these injections for about 2 to 3 months. She like to go ahead and schedule her next injection. She is on Plavix and is aware and has permission to come off prior to her injection therapy. ROS General: no recent weight change, no fever, no sleep disturbances Respiratory: no cough, no shortness of air, no recurring pulmonary infections Cardiovascular/Peripheral Vascular: No chest pain, No palpitations, no edema, no shortness of breath. Gastrointestinal: no new onset incontinence, normal bowel movements reported Genitourinary: no new onset incontinence Musculoskeletal: Neck pain, arm pain at times Psychiatric: normal mood/ affect Neurological: [denies new onset weakness in extremities], [denies new onset balance issues] Objective:: Physical Exam General: Alert and oriented x3, no acute distress, pleasant and cooperative, [on room air] Lungs: Resps E/U, Symmetrical chest expansion, Eyes: PERRL Musculoskeletal: Flexion and extension of cervical spine somewhat guarded secondary to pain, deep tendon reflexes normal, strength in upper and lower extremities [5/5], normal gait noted Neurological: 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 Patient understands she needs to be off of her Plavix prior to this. Patient's been instructed to call the office if she has any issues prior to her next appointment. Dr. Cook has reviewed this note and agrees with this plan of care. This note was dictated using voice recognition software and may contain errors or omissions [facility] History I have reviewed the patient's past medical history: Yes Medical History: Reports:: Coronary Artery Disease, Hyperlipidemia, Hypertension, Valvular Heart Disease Denies:: Cancer, Diabetes Mellitus Type 1, Diabetes Mellitus Type 2, MRSA, Seizures *Have you ever received a pneumonia vaccine?: Yes *Have you received a flu vaccine this season?: Yes Other Medical History: Reports: Thyroid Disease Other Surgeries: Yes: Hysterectomy-Partial, Other (bladder tuck) Amputation: No Fractures: No - *Social History Smoking Status: Never smoker Alcohol Intake: never *Occupational Status:: other Housing: house Household Members: none *Travel in the last 8 weeks: None Family Hx:: Unable to obtain
== END ==
PROVIDERS: PCP Internal Medicine Adolescent Medicine; Visit Provider Clinical Nurse Specialist Family Health
DX: M50.10 Cervical disc disorder with radiculopathy, unspecified cervical region (principal)
CPT/HCPCS: 99212

== ENCOUNTER 2019-09-29 08:54 | Day surgery (SDC) | payer MEDICARE, OTHER, SELFPAY ==
[2019-09-29 09:13] VITALS: BP 129/59; PULSE 62; RESP 18; TEMP 36.5; O2SAT 96; BMI 26.9
--- NOTE | 2019-09-29 09:45 | HMH.PMPROC ---
- Procedure Date: 09/29/19 Time: 09:46 Anesthesiologist:: Leonid Cook MD Complications:: None Pre-procedure Diagnosis:: Degenerative disc disease of cervical spine with cervical radiculopathy symptoms Post-procedure Diagnosis:: Same Indications for Procedure:: This patient is a pleasant 74-year-old white female who we are treating for neck pain with cervical radiculopathy symptoms. She has been off her Plavix for 1 week. She is done well with previous cervical epidural steroid injections with 80% relief in her pain symptoms. We will do a repeat cervical epidural steroid injection under fluoroscopy today. Procedure Details:: Cervical epidural steroid injection under fluoroscopy Informed consent was obtained and the risks and benefits of the procedure was explained to the patient. The patient was taken to the procedure room placed prone on the procedure table. The neck was prepped using ChloraPrep. The skin and subcutaneous tissues were anesthetized using lidocaine. I placed a 18-gauge epidural needle into the C5-C6 interspace and advanced using [id number] to air and fluoroscopic guidance. After confirmation of needle placement in the epidural space with dye, I injected 3 mL's lidocaine 1.5% and Depo-Medrol 80 mg. The patient tolerated the procedure well with no complications. Plan and Disposition:: We will follow-up with her in 2 weeks. Will reevaluate her symptoms at that time. She did have some increasing radicular symptoms into her right arm after the procedure. I assured her that this will be better over the next few hours.
[2019-09-29 09:48] VITALS: BP 138/75; PULSE 58; RESP 18; O2SAT 98
[2019-09-29 09:49] VITALS: BP 140/77; PULSE 62; RESP 18
[2019-09-29 10:00] VITALS: BP 125/68; PULSE 57; RESP 20; O2SAT 96
== END 2019-09-29 10:01 | disposition home or self-care (01) ==
LOC: SC.PAINP 08:56
PROVIDERS: PCP Internal Medicine Adolescent Medicine; Visit Provider Anesthesiology
DX: M50.10 Cervical disc disorder with radiculopathy, unspecified cervical region (principal); I10 Essential (primary) hypertension; J45.909 Unspecified asthma, uncomplicated; K75.9 Inflammatory liver disease, unspecified; F32.9 Major depressive disorder, single episode, unspecified; D64.9 Anemia, unspecified; Z90.710 Acquired absence of both cervix and uterus; Z87.448 Personal history of other diseases of urinary system; Z88.8 Allergy status to other drugs, medicaments and biological substances; Z79.82 Long term (current) use of aspirin; Z79.899 Other long term (current) drug therapy
CPT/HCPCS: 62321; J1040; Q9966

== ENCOUNTER → 2019-10-16 09:35 | Outpatient (POV) | payer MEDICARE, OTHER, SELFPAY ==
[2019-10-16 10:11] VITALS: BP 132/72; PULSE 85; RESP 18; TEMP 36.6; O2SAT 99; BMI 27.9
--- NOTE | 2019-10-16 10:49 | P.CONS_ITS ---
[facility] Pain Management SOAP Note Subjective:: Patient is a pleasant 74-year-old white female who we are treating for neck pain. Patient states that she is doing better since her last injection her she rates her pain a 5 out of 10. Patient wants to discuss other options in regards to pain management. I discussed potential differing injections and implantable therapies however she does seem to have arthritic type pains in her neck. Her radiculopathy has subsided. We discussed Voltaren gel use she would like to move forward with this. ROS General: no recent weight change, no fever, no sleep disturbances Respiratory: no cough, no shortness of air, no recurring pulmonary infections Cardiovascular/Peripheral Vascular: No chest pain, No palpitations, no edema, no shortness of breath. Gastrointestinal: no new onset incontinence, normal bowel movements reported Genitourinary: no new onset incontinence Musculoskeletal: Neck pain, arm pain Psychiatric: normal mood/ affect Neurological: [denies new onset weakness in extremities], [denies new onset balance issues] Objective:: Physical Exam General: Alert and oriented x3, no acute distress, pleasant and cooperative, [on room air] Lungs: Resps E/U, Symmetrical chest expansion, Eyes: PERRL Musculoskeletal: Flexion and extension of cervical spine somewhat guarded secondary to pain, deep tendon reflexes normal, strength in upper and lower extremities [5/5], slightly ntalgic gait noted Neurological: speech clear, 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 I will follow-up with her in 3 weeks reassess her symptoms at that time she has been instructed to call the office if she has any issues prior to her next appointment. Dr. Cook has reviewed this note and agrees with this plan of care. This note was dictated using voice recognition software and may contain errors or omissions [facility] History I have reviewed the patient's past medical history: Yes Medical History: Reports:: Coronary Artery Disease, Hyperlipidemia, Hypertension, Valvular Heart Disease Denies:: Cancer, Diabetes Mellitus Type 1, Diabetes Mellitus Type 2, MRSA, Seizures *Have you ever received a pneumonia vaccine?: Yes *Have you received a flu vaccine this season?: Yes Other Medical History: Reports: Anemia, Thyroid Disease Other Surgeries: Yes: Hysterectomy-Partial, Other (bladder tuck) Amputation: No Fractures: No - *Social History Smoking Status: Never smoker Alcohol Intake: never *Occupational Status:: other Housing: house Household Members: none *Travel in the last 8 weeks: None Family Hx:: Unable to obtain
== END ==
PROVIDERS: PCP Internal Medicine Adolescent Medicine; Visit Provider Clinical Nurse Specialist Family Health
DX: M50.10 Cervical disc disorder with radiculopathy, unspecified cervical region (principal)
CPT/HCPCS: 99212

== ENCOUNTER → 2019-11-09 10:13 | Outpatient (POV) | payer MEDICARE, OTHER, SELFPAY ==
[2019-11-09 10:44] VITALS: BP 132/77; PULSE 85; RESP 18; TEMP 36.8; O2SAT 98; BMI 28.7
--- NOTE | 2019-11-09 12:30 | HMH.PAINSOAP ---
[facility] Pain Management SOAP Note Subjective:: Patient is a 74-year-old white female who presents today for follow-up. She has been treated for chronic neck pain. Patient did undergo a cervical epidural steroid injection. She says that she feels that her last injection worsened her pain rather than help her pain. Patient is complaining primarily of right shoulder pain. She says she is also having bilateral hand pain that is waking her up at night. She was given Voltaren gel at her last visit, however, she says that she gets dizzy when putting this on her neck. Patient I did discuss the medication and I am unsure that it is actually the medication causing her to have numbness and tingling. She has tried putting the medication on her hands and says she did not develop any numbness, tingling, or dizziness with the medication when placed on her hands. She does report that it did give her some relief as well her hands. She does rate her pain a 7 out of 10 today. She does not have imaging of her shoulder. Patient says that her right shoulder pain is worse with movement of her right arm. Review of Systems General: No recent weight changes, no fever, no sleep disturbances Respiratory: No cough, no shortness of air, no recurring pulmonary infections Cardiovascular/peripheral vascular: No chest pain, no palpitations, no edema, no shortness of breath Gastrointestinal: No new onset incontinence, normal bowel movements reported Genitourinary: No new onset incontinence Musculoskeletal: Right shoulder pain, bilateral hand pain Psychiatric: Normal mood/affect Neurological: [Denies weakness in extremities], [denies balance issues] Objective:: Physical exam General: Alert and oriented x3, no acute distress, pleasant and cooperative, [on room air] Lungs: Respirations even and unlabored, symmetrical chest expansion Eyes: PERRL Musculoskeletal: Flexion and extension of cervical spine somewhat guarded secondary to pain, deep tendon reflexes normal, strength in upper and lower extremities [5/5], [abnormal gait noted] Neurological: 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 She has not had any imaging of her right shoulder. She did get some relief with the Voltaren gel to her bilateral hands. She still has some of the medication. I have advised her to continue to use medication on her hands. She does not want to proceed with any type of injective therapy until we get the results back from the CT scan. When she completes the imaging, we will see her back in the clinic to go over the CT scan and discuss a further plan of care. Patient has been instructed to contact clinic if she has any concerns before her next appointment. The patient and I specifically discussed risk factors for COVID19. These risks include, but are not limited to age greater than 60, heart or lung disease, diabetes, immunosuppression, and travel. We also discussed NSAIDs may worsen COVID19 infection or symptoms. Patient should not use NSAIDs to treat COVID19 signs or symptoms. Patient was also informed that any type of corticosteroid of any form (oral or injection) will decrease the patient's immune system response and may increase the likelihood of COVID19 infection and symptoms[address]. Cook has reviewed this note and agrees with this plan of care. This note was dictated using voice recognition software and make contain errors or omissions. [facility] History I have reviewed the patient's past medical history: Yes Medical History: Reports:: Coronary Artery Disease, Hyperlipidemia, Hypertension, Valvular Heart Disease Denies:: Cancer, Diabetes Mellitus Type 1, Diabetes Mellitus Type 2, MRSA, Seizures *Have you ever received a pneumonia vaccine?: Yes *Have you received a flu vaccine this season?: Yes Other Medical History: Reports: Anemia, Thyroid Disea
== END ==
PROVIDERS: PCP Internal Medicine Adolescent Medicine; Visit Provider Clinical Nurse Specialist Family Health
DX: M25.511 Pain in right shoulder (principal); M79.642 Pain in left hand; M79.641 Pain in right hand
CPT/HCPCS: 99212

== ENCOUNTER → 2019-11-14 09:19 | Outpatient (CLI) | payer MEDICARE, OTHER, SELFPAY ==
--- NOTE | 2019-11-14 09:22 | CT_ITS ---
PROCEDURE: CT SHOULDER RT WO CON CLINICAL HISTORY: RIGHT SHOULDER PAIN pain in r shoulder neck spurs right hand numbness drawing COMPARISON: CR SHOULDCMRT XR shoulder RT min 2V from 09/07/2017 TECHNIQUE: Axial images obtained with sagittal and coronal reformats. All CT scans at the facility use one or more dose reduction, viz: automated exposure control, ma/kV adjustment per patient size (including targeted exams where dose is matched to indication, i.e. head), or iterative reconstruction technique. FINDINGS: No acute fracture or dislocation is evident. Are mild hypertrophic changes of the acromioclavicular joint with minimal periarticular calcification. No significant subacromial stenosis. There are minimal osteoarthritic changes of the AC joint and acromioclavicular joint. No abnormal fluid collections are evident. Cannot adequately evaluate the integrity of the rotator cuff without intra-articular contrast. No soft tissue masses or bony destructive lesions evident. 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 Cannot adequately evaluate the integrity of the rotator cuff without intra-articular contrast Dictated by: Diego Sharp MD 11/15/2019 13:01 Diego Sharp MD in [place] 11/15/2019 13:01
== END ==
PROVIDERS: PCP Internal Medicine Adolescent Medicine; Visit Provider Clinical Nurse Specialist Family Health
DX: M25.511 Pain in right shoulder (principal)
CPT/HCPCS: 73200

== ENCOUNTER → 2019-11-20 09:14 | Outpatient (POV) | payer MEDICARE, OTHER, SELFPAY ==
[2019-11-20 09:41] VITALS: BP 132/85; PULSE 74; RESP 18; TEMP 36.8; O2SAT 98; BMI 27.4
--- NOTE | 2019-11-20 09:52 | HMH.PAINSOAP ---
[facility] Pain Management SOAP Note Subjective:: Patient is a pleasant 74-year-old white female who presents today for follow-up after a right shoulder CT. Patient rates her pain today a 5 out of 10 mostly in her right shoulder. Patient has difficulty with raising it. Her imaging did show AC arthritis along with arthritis in the joint. Patient is interested in getting some injections in this area. Patient is utilizing Voltaren gel which does help somewhat. ROS General: no recent weight change, no fever, no sleep disturbances Respiratory: no cough, no shortness of air, no recurring pulmonary infections Cardiovascular/Peripheral Vascular: No chest pain, No palpitations, no edema, no shortness of breath. Gastrointestinal: no new onset incontinence, normal bowel movements reported Genitourinary: no new onset incontinence Musculoskeletal: Right shoulder pain, neck pain, arm pain Psychiatric: normal mood/ affect Neurological: [denies new onset weakness in extremities], [denies new onset balance issues] Objective:: Physical Exam General: Alert and oriented x3, no acute distress, pleasant and cooperative, [on room air] Lungs: Resps E/U, Symmetrical chest expansion, Eyes: PERRL Musculoskeletal: Flexion and extension of cervical spine somewhat guarded secondary to pain, deep tendon reflexes normal, strength in upper and lower extremities [5/5], antalgic gait noted he Neurological: speech clear, junior oracle dba equal, no gross sensory deficits Assessment:: Degenerative disc disease cervical spine cervical radiculopathy right shoulder osteoarthritis right AC osteoarthritis Plan:: We will plan a right AC joint and right intra-articular shoulder joint injection for the patient given her symptomology I do believe this would benefit her. Dr. Cook has reviewed this note and agrees with this plan of care. This note was dictated using voice recognition software and may contain errors or omissions [facility] History I have reviewed the patient's past medical history: Yes Medical History: Reports:: Coronary Artery Disease, Hyperlipidemia, Hypertension, Valvular Heart Disease Denies:: Cancer, Diabetes Mellitus Type 1, Diabetes Mellitus Type 2, MRSA, Seizures *Have you ever received a pneumonia vaccine?: Yes *Have you received a flu vaccine this season?: Yes Other Medical History: Reports: Anemia, Thyroid Disease Other Surgeries: Yes: Hysterectomy-Partial, Other (bladder tuck) Amputation: No Fractures: No - *Social History Smoking Status: Never smoker Alcohol Intake: never *Occupational Status:: other Housing: house Household Members: none *Travel in the last 8 weeks: None Family Hx:: Unable to obtain
== END ==
PROVIDERS: PCP Internal Medicine Adolescent Medicine; Visit Provider Clinical Nurse Specialist Family Health
DX: M50.10 Cervical disc disorder with radiculopathy, unspecified cervical region (principal); M19.011 Primary osteoarthritis, right shoulder
CPT/HCPCS: 99212

== ENCOUNTER 2019-12-01 09:56 | Day surgery (SDC) | payer MEDICARE, OTHER, SELFPAY ==
[2019-12-01 10:04] VITALS: BP 129/87; PULSE 69; RESP 18; TEMP 36.1; O2SAT 95; BMI 28.3
--- NOTE | 2019-12-01 10:43 | HMH.PMPROC ---
- Procedure Date: 12/01/19 Time: 10:43 Anesthesiologist:: Leonid Cook MD Complications:: None Pre-procedure Diagnosis:: Right shoulder pain with right AC joint arthritis and degenerative changes throughout the right shoulder Post-procedure Diagnosis:: Same Indications for Procedure:: This patient is a pleasant 74-year-old white female who we are treating for AC joint arthritis in the right shoulder. She does have degenerative changes we will do a right shoulder injection today with suprascapular nerve block. Procedure Details:: Right shoulder AC joint injection with suprascapular nerve block Informed consent was obtained and the risk and benefits of the procedure were explained to the patient. Patient was taken the procedure room. The right shoulder was prepped using ChloraPrep. A 25-gauge needle was used to inject 10 mL bupivacaine 0.25% and Depo-Medrol 40 mg into the acromioclavicular joint as well as over the suprascapular nerve on the right side. Patient tolerated the procedure well with no complications. Plan and Disposition:: We will follow-up with her in 2 weeks. Will reevaluate symptoms at that time.
[2019-12-01 10:46] VITALS: BP 125/52; PULSE 85
[2019-12-01 10:47] VITALS: BP 128/59; PULSE 86; RESP 18; O2SAT 98
[2019-12-01 10:53] VITALS: BP 136/80; PULSE 58; RESP 18; O2SAT 95
== END 2019-12-01 10:54 | disposition home or self-care (01) ==
PROVIDERS: PCP Internal Medicine Adolescent Medicine; Visit Provider Anesthesiology
DX: M19.011 Primary osteoarthritis, right shoulder (principal); I10 Essential (primary) hypertension; Z88.1 Allergy status to other antibiotic agents; I25.10 Atherosclerotic heart disease of native coronary artery without angina pectoris; E78.5 Hyperlipidemia, unspecified; J45.909 Unspecified asthma, uncomplicated; Z79.82 Long term (current) use of aspirin; Z79.899 Other long term (current) drug therapy
CPT/HCPCS: 20610; 77002; J1040

== ENCOUNTER → 2019-12-21 09:11 | Outpatient (POV) | payer MEDICARE, OTHER, SELFPAY ==
[2019-12-21 09:13] VITALS: BP 122/78; PULSE 79; RESP 18; O2SAT 98; BMI 28.1
--- NOTE | 2019-12-21 09:45 | HMH.PAINSOAP ---
[facility] Pain Management SOAP Note Subjective:: Patient is a 74-year-old white female who presents today for follow-up after a right shoulder injection. She is being treated for chronic right AC joint arthritis and degenerative changes throughout her right shoulder. Patient has 0 out of 10 pain today. She says she is doing excellent following her injection. She does report to have had some pain initially after the injection up to 3 days. She says gradually after the third day her pain became better. She says she is much more functional and able to use her arm without pain. Review of Systems General: No recent weight changes, no fever, no sleep disturbances Respiratory: No cough, no shortness of air, no recurring pulmonary infections Cardiovascular/peripheral vascular: No chest pain, no palpitations, no edema, no shortness of breath Gastrointestinal: No new onset incontinence, normal bowel movements reported Genitourinary: No new onset incontinence Musculoskeletal: Denies right shoulder pain Psychiatric: Normal mood/affect Neurological: [Denies weakness in extremities], [denies balance issues] Objective:: Physical exam General: Alert and oriented x3, no acute distress, pleasant and cooperative, [on room air] Lungs: Respirations even and unlabored, symmetrical chest expansion Eyes: PERRL Musculoskeletal: Flexion and extension of spine normal, deep tendon reflexes normal, strength in upper and lower extremities [5/5], [abnormal gait noted] Neurological: Speech clear, fisheries officer equal, no gross sensory deficit Assessment:: Right shoulder pain with right AC joint arthritis and degenerative changes throughout right shoulder Plan:: Overall, the patient is doing well following her injection. Her pain is a 0 out of 10 today. The patient would like to follow-up with us as needed. She has been instructed to contact clinic if she has any concerns in the future. The patient and I specifically discussed risk factors for COVID19. These risks include, but are not limited to age greater than 60, heart or lung disease, diabetes, immunosuppression, and travel. We also discussed NSAIDs may worsen COVID19 infection or symptoms. Patient should not use NSAIDs to treat COVID19 signs or symptoms. Patient was also informed that any type of corticosteroid of any form (oral or injection) will decrease the patient's immune system response and may increase the likelihood of COVID19 infection and symptoms[address] Dr. Cook has reviewed this note and agrees with this plan of care. This note was dictated using voice recognition software and make contain errors or omissions. [facility] History I have reviewed the patient's past medical history: Yes Medical History: Reports:: Coronary Artery Disease, Hyperlipidemia, Hypertension, Valvular Heart Disease Denies:: Cancer, Diabetes Mellitus Type 1, Diabetes Mellitus Type 2, MRSA, Seizures *Have you ever received a pneumonia vaccine?: Yes *Have you received a flu vaccine this season?: Yes Other Medical History: Reports: Anemia, Thyroid Disease. Denies: Blood Transfusion Reaction Other Surgeries: Yes: Hysterectomy-Partial, Other (bladder tuck) Amputation: No Fractures: No - *Social History Smoking Status: Never smoker Alcohol Intake: never *Occupational Status:: other Housing: house Household Members: spouse *Travel in the last 8 weeks: None Family Hx:: Unable to obtain
== END ==
PROVIDERS: PCP Internal Medicine Adolescent Medicine; Visit Provider Clinical Nurse Specialist Family Health
DX: M19.011 Primary osteoarthritis, right shoulder
CPT/HCPCS: 99212

== ENCOUNTER → 2020-07-12 10:54 | Outpatient (CLI) | payer MEDICARE, OTHER, SELFPAY ==
--- NOTE | 2020-07-12 10:54 | MM_ITS ---
PROCEDURE INFORMATION: Exam: MG Screening 3D Mammography Exam date and time: 07/12/2020 10:54 AM Age: 74 years old Clinical indication: Encounter for screening mammogram for malignant neoplasm of breast; Additional info: Routine screening mammogram TECHNIQUE: Imaging protocol: Screening tomosynthesis and 2D mammography including computer-aided detection (CAD) when performed. COMPARISON: 1. MG MM DIG SCREENING MAMM BI W/CAD 07/05/2019 10:26 AM 2. MG DMSB DIG MAMM-SCREEN ANNITA W/CAD 07/24/2016 3:46 PM 3. MG DMSB DIG MAMM-SCREEN ANNITA 07/23/2015 4:50 PM FINDINGS: MAMMOGRAPHY: Breast composition: The breasts are almost entirely fatty. Mass: No new suspicious masses. Architectural distortion: No suspicious distortion. Calcifications: No suspicious calcifications. Asymmetric density: None. Skin thickening: None. Axillary adenopathy: None. IMPRESSION: No mammographic evidence of malignancy. Annual screening is recommended unless otherwise clinically indicated. ASSESSMENT: BI-RADS Category 1: Negative
== END ==
PROVIDERS: PCP Internal Medicine Adolescent Medicine; Visit Provider Nurse Practitioner Obstetrics & Gynecology
DX: Z12.31 Encounter for screening mammogram for malignant neoplasm of breast (principal)
CPT/HCPCS: 77063; 77067

== ENCOUNTER → 2020-08-26 18:08 | Outpatient (CLI) | payer MEDICARE, OTHER, SELFPAY ==
[2020-08-26 19:08] LABS: Alanine Aminotransferase 10 U/L (12-78); Albumin Level 4.3 g/dl (3.5-5.0); Albumin/Globulin Ratio 1.3 (1.1-1.8); Alkaline Phosphatase 63 U/L (38-126); Anion Gap 12.8 mEq/L (5-15); Aspartate Amino Transferase 25 U/L (14-36); Bilirubin,Total 0.7 mg/dl (0.2-1.3); Blood Urea Nitrogen 17 mg/dl (7-17); Calcium 9.1 mg/dl (8.4-10.2); Carbon Dioxide 25 mmol/L (22.0-30.0); Chloride 103 mmol/L (98-107); Chol/HDL Ratio 2.8 (1-3.5); Cholesterol 139 mg/dl (140-200); Estimated Glomerular Filt Rate 48 ml/min (>60); GFR (African American) 58 ML/MIN (>60); Globulin 3.2 g/dL (1.3-3.2); Glucose 88 mg/dl (74-100); HDL Cholesterol 49 mg/dl (40-60); Potassium 4.8 mmoL/L (3.5-5.1); Sodium 136 mmol/L (136-145); Total Protein,Serum 7.5 g/dl (6.3-8.2); Triglycerides 157 mg/dl (30-150); VLDL Cholesterol 31 mg/dL (0-40)
[2020-08-26 19:19] LABS: Direct LDL Cholesterol 48.63 mg/dL (100-129)
[2020-08-26 19:38] LABS: Thyroid Stimulating Hormone 0.14 uIU/mL (0.465-4.68)
== END ==
PROVIDERS: Visit Provider Internal Medicine Adolescent Medicine
DX: I10 Essential (primary) hypertension (principal); E03.9 Hypothyroidism, unspecified
CPT/HCPCS: 80053; 80061; 84443

== ENCOUNTER → 2020-12-20 17:49 | Outpatient (CLI) | payer MEDICARE, OTHER, SELFPAY ==
[2020-12-20 18:12] LABS: Basophils # 0.1 K/mm3 (0-0.2); Basophils % 1.1 % (0.1-2.0); Eosinophils # 0.1 K/mm3 (0.0-0.4); Eosinophils % 1.7 % (0.1-12.0); Hematocrit 40.8 % (37.0-47.0); Lymphocytes # 1.7 K/mm3 (0.7-4.5); Lymphocytes % 30.8 % (10-50); Mean Corpuscular HGB Conc 31.8 g/dL (31.8-35.4); Mean Corpuscular Hemoglobin 29.6 pg (27.0-31.2); Mean Corpuscular Volume 92.9 fl (81-99); Monocytes # 0.5 K/mm3 (0.1-1.0); Monocytes % 8.3 % (1.7-9.3); Neutrophils # 3.2 K/mm3 (1.8-7.8); Neutrophils % 58.1 % (37.0-80.0); Platelet Count 382 K/mm3 (142-424); Red Blood Count 4.39 M/mm3 (4.20-5.40); Red Cell Distribution Width 12.9 % (11.5-17.5); White Blood Count 5.6 K/mm3 (4.8-10.8)
[2020-12-20 18:17] LABS: Alanine Aminotransferase 11 U/L (12-78); Albumin Level 3.9 g/dl (3.5-5.0); Albumin/Globulin Ratio 1.1 (1.1-1.8); Alkaline Phosphatase 62 U/L (38-126); Anion Gap 13.4 mEq/L (5-15); Aspartate Amino Transferase 21 U/L (14-36); Bilirubin,Total 0.3 mg/dl (0.2-1.3); Blood Urea Nitrogen 14 mg/dl (7-17); Calcium 9.2 mg/dl (8.4-10.2); Carbon Dioxide 26 mmol/L (22.0-30.0); Chloride 106 mmol/L (98-107); Chol/HDL Ratio 2.3 (1-3.5); Cholesterol 131 mg/dl (140-200); Estimated Glomerular Filt Rate 70 ml/min (>60); GFR (African American) 84 ML/MIN (>60); Globulin 3.4 g/dL (1.3-3.2); Glucose 93 mg/dl (74-100); HDL Cholesterol 56 mg/dl (40-60); Potassium 4.4 mmoL/L (3.5-5.1); Sodium 141 mmol/L (136-145); Total Protein,Serum 7.3 g/dl (6.3-8.2); Triglycerides 113 mg/dl (30-150); VLDL Cholesterol 23 mg/dL (0-40)
[2020-12-20 18:28] LABS: Direct LDL Cholesterol 44.89 mg/dL (100-129)
[2020-12-20 18:46] LABS: Thyroid Stimulating Hormone 0.05 uIU/mL (0.465-4.68)
== END ==
PROVIDERS: Visit Provider Nurse Practitioner Family
DX: Z00.00 Encounter for general adult medical examination without abnormal findings (principal); I10 Essential (primary) hypertension; E03.9 Hypothyroidism, unspecified; Z86.79 Personal history of other diseases of the circulatory system; Z86.39 Personal history of other endocrine, nutritional and metabolic disease
CPT/HCPCS: 80053; 80061; 84443; 85025

== ENCOUNTER → 2021-01-06 09:08 | Outpatient (CLI) | payer MEDICARE, OTHER, SELFPAY ==
--- NOTE | 2021-01-06 09:15 | XR_ITS ---
PROCEDURE: XR DEXA AXIAL SKELETON CLINICAL HISTORY: POST MENOAPUSAL COMPARISON: No exams were available for comparison FINDINGS: The right hip BMD is 0.720 with a T-score of -1.2. The left hip BMD is 0.711 with a T-score of -1.9. The lumbar spine BMD is 1.005 with a T-score of -0.4. IMPRESSION: This patient is considered osteopenic according to the World Health Organization criteria. Bone density is between 10 and 25 percent below young normal. Fracture risk is moderate. Treatment is advised. Based on these results a follow-up exam is recommended in 2 year. Dictated by: Diego Sharp MD 01/06/2021 13:08 Diego Sharp MD in [place] 01/06/2021 13:08
== END ==
PROVIDERS: PCP Internal Medicine Adolescent Medicine; Visit Provider Nurse Practitioner Family
DX: Z13.820 Encounter for screening for osteoporosis (principal); Z78.0 Asymptomatic menopausal state
CPT/HCPCS: 77080

== ENCOUNTER → 2021-07-21 15:48 | Outpatient (CLI) | payer MEDICARE, OTHER, SELFPAY ==
--- NOTE | 2021-07-21 15:48 | MM_ITS ---
PROCEDURE INFORMATION: Exam: MG Bilateral Screening 3D Mammography Exam date and time: 07/21/2021 3:57 PM Age: 75 years old Clinical indication: Screening examination. No family history of breast cancer. TECHNIQUE: Imaging protocol: Bilateral Screening tomosynthesis and 2D mammography including computer-aided detection (CAD) when performed. COMPARISON: 1. MG MM DIG SCREENING MAMM BI W/CAD 07/12/2020 10:58 AM 2. MG MM DIG SCREENING MAMM BI W/CAD 07/05/2019 10:26 AM 3. MG DMSB DIG MAMM-SCREEN ANNITA W/CAD 07/24/2016 3:46 PM 4. MG DMSB DIG MAMM-SCREEN ANNITA 07/23/2015 4:50 PM FINDINGS: MAMMOGRAPHY: Breast composition: The breasts are almost entirely fatty. Mass: None. Architectural distortion: None. Calcifications: No suspicious calcifications. Asymmetric density: None. Skin thickening: None. Axillary adenopathy: None. IMPRESSION: No mammographic evidence of malignancy. Annual screening is recommended unless otherwise clinically indicated. ASSESSMENT: BI-RADS Category 1: Negative
== END ==
PROVIDERS: PCP Internal Medicine Adolescent Medicine; Visit Provider Nurse Practitioner Obstetrics & Gynecology
DX: Z12.31 Encounter for screening mammogram for malignant neoplasm of breast (principal)
CPT/HCPCS: 77063; 77067

== ENCOUNTER → 2021-09-03 07:14 | Outpatient (CLI) | payer MEDICARE, OTHER, SELFPAY | PROVIDERS: PCP Family Medicine; Visit Provider Family Medicine | DX: N39.0 Urinary tract infection, site not specified (principal); B96.20 Unspecified Escherichia coli [E. coli] as the cause of diseases classified elsewhere | CPT/HCPCS: 87086; 87088; 87186 ==

== ENCOUNTER → 2022-06-22 23:26 | Outpatient (CLI) | payer MEDICARE, OTHER, SELFPAY ==
[2022-06-22 17:40] LABS: Basophils # 0.1 K/mm3 (0-0.2); Basophils % 0.8 % (0.1-2.0); Eosinophils # 0.1 K/mm3 (0.0-0.4); Eosinophils % 1.6 % (0.1-12.0); Hematocrit 39.5 % (37.0-47.0); Hemoglobin 12.8 g/dL (12.2-16.2); Lymphocytes # 2.1 K/mm3 (0.7-4.5); Lymphocytes % 26.6 % (10-50); Mean Corpuscular HGB Conc 32.5 g/dL (31.8-35.4); Mean Corpuscular Hemoglobin 29.1 pg (27.0-31.2); Mean Corpuscular Volume 89.6 fl (81-99); Mean Platelet Volume 8.5 fl (7.4-10.4); Monocytes # 0.6 K/mm3 (0.1-1.0); Monocytes % 7.6 % (1.7-9.3); Neutrophils # 4.9 K/mm3 (1.8-7.8); Neutrophils % 63.4 % (37.0-80.0); Platelet Count 344 K/mm3 (142-424); Red Blood Count 4.41 M/mm3 (4.20-5.40); Red Cell Distribution Width 13.7 % (11.5-17.5); White Blood Count 7.8 K/mm3 (4.8-10.8)
[2022-06-22 17:43] LABS: Alanine Aminotransferase 14 U/L (12-78); Albumin Level 4.2 g/dl (3.5-5.0); Albumin/Globulin Ratio 1.1 (1.1-1.8); Alkaline Phosphatase 50 U/L (38-126); Anion Gap 10.5 mEq/L (5-15); Aspartate Amino Transferase 24 U/L (14-36); Bilirubin,Total 0.5 mg/dl (0.2-1.3); Blood Urea Nitrogen 20 mg/dl (7-17); Calcium 8.7 mg/dl (8.4-10.2); Carbon Dioxide 26 mmol/L (22.0-30.0); Chloride 106 mmol/L (98-107); Chol/HDL Ratio 3.2 (1-3.5); Cholesterol 174 mg/dl (140-200); Estimated Glomerular Filt Rate 48 ml/min (>60); GFR (African American) 58 ML/MIN (>60); Globulin 3.7 g/dL (1.3-3.2); Glucose 96 mg/dl (74-100); HDL Cholesterol 54 mg/dl (40-60); Potassium 4.5 mmoL/L (3.5-5.1); Sodium 138 mmol/L (136-145); Total Protein,Serum 7.9 g/dl (6.3-8.2); Triglycerides 106 mg/dl (30-150); VLDL Cholesterol 21 mg/dL (0-40)
[2022-06-22 17:54] LABS: Direct LDL Cholesterol 73.71 mg/dL (100-129)
[2022-06-22 18:13] LABS: Thyroid Stimulating Hormone 4.96 uIU/mL (0.465-4.68)
== END ==
PROVIDERS: PCP Family Medicine; Visit Provider Family Medicine
DX: I10 Essential (primary) hypertension (principal); E03.9 Hypothyroidism, unspecified; Z00.00 Encounter for general adult medical examination without abnormal findings
CPT/HCPCS: 80053; 80061; 84443; 85025

== ENCOUNTER → 2022-07-31 10:29 | Outpatient (CLI) | payer MEDICARE, OTHER, SELFPAY ==
--- NOTE | 2022-07-31 10:30 | MM_ITS ---
PROCEDURE INFORMATION: Exam: MG Bilateral Screening 3D Mammography Exam date and time: 07/31/2022 10:29 AM Age: 76 years old Clinical indication: Screening. No family history of breast cancer. TECHNIQUE: Imaging protocol: Bilateral Screening tomosynthesis and 2D mammography including computer-aided detection (CAD) when performed. COMPARISON: 1. MG MM DIG SCREENING MAMM BI W/CAD 07/21/2021 3:57 PM 2. MG MM DIG SCREENING MAMM BI W/CAD 07/12/2020 10:58 AM 3. MG MM DIG SCREENING MAMM BI W/CAD 07/05/2019 10:26 AM 4. MG DMSB DIG MAMM-SCREEN ANNITA W/CAD 07/24/2016 3:46 PM FINDINGS: MAMMOGRAPHY: Breast composition: The breasts are almost entirely fatty. Mass: None. Architectural distortion: None. Calcifications: No suspicious calcifications. Asymmetric density: None. Skin thickening: None. Axillary adenopathy: None. IMPRESSION: No mammographic evidence of malignancy. Annual screening is recommended unless otherwise clinically indicated. ASSESSMENT: BI-RADS Category 1: Negative
== END ==
PROVIDERS: PCP Family Medicine; Visit Provider Nurse Practitioner Obstetrics & Gynecology
DX: Z12.31 Encounter for screening mammogram for malignant neoplasm of breast (principal)
CPT/HCPCS: 77063; 77067

== ENCOUNTER 2022-09-01 19:26 | Inpatient (IN) | payer MEDICARE, OTHER, SELFPAY ==
[2022-09-01] VITALS (8 sets, daily range): BP systolic 101–116; BP diastolic 51–60; PULSE 62–70; RESP 16–20; TEMP 36.7; O2SAT 92–95; BMI 28.1; BMI 28.2
--- NOTE | 2022-09-01 19:46 | ECG_ITS ---
APPROVED REPORT Exam: Resting ECG HR:68 bpm ECG Measurements Heart Rate 68 AXES MO 191 P 19 QRSd 88 QRS -2 QT 374 T 15 QTc 392 Conclusion SINUS RHYTHM NONSPECIFIC T-WAVE ABNORMALITY BORDERLINE ECG UNCONFIRMED REPORT Electronically signed by : Flavio Fernandez MD 09/03/2022 21:19:12
--- NOTE | 2022-09-01 19:47 | XR_ITS ---
PROCEDURE INFORMATION: Exam: XR Chest Exam date and time: 09/01/2022 8:12 PM Age: 76 years old Clinical indication: Other: Weakness TECHNIQUE: Imaging protocol: Radiologic exam of the chest. Views: 1 view. COMPARISON: CR Chest 10/02/2018 8:19 PM FINDINGS: Lungs: Volumes are moderately diminished, greater on the right where the right hemidiaphragm. There is a new hazy opacity involving the inferolateral left lower lobe with blunting of the left lateral costophrenic angle. Pleural spaces: No right effusion. Small left effusion is new. Negative for pneumothorax. Heart/Mediastinum: Heart/. Mediastinum: Borderline heart pulmonary vasculature is within range of normal.. Calcified paratracheal lymph nodes indicate prior granulomatous disease Bones/joints: There is no evidence of acute fracture. Degenerative changes involve the AC joints bilaterally. IMPRESSION: New left lower lobe pleuroparenchymal opacities suggesting pleuroparenchymal process. Correlate clinically. Findings could reflect pneumonia with parapneumonic effusion. Recommend short-term follow-up to ensure resolution. Postobstructive atelectasis not excluded.
--- NOTE | 2022-09-01 19:47 | XR_ITS ---
PROCEDURE INFORMATION: Exam: XR Pelvis Exam date and time: 09/01/2022 8:12 PM Age: 76 years old Clinical indication: Other: Weakness; Additional info: Possible fall TECHNIQUE: Imaging protocol: Radiologic exam of the pelvis. Views: 1 or 2 view. COMPARISON: CT ABDOMEN W CON 05/03/2019 10:19 AM FINDINGS: Bones/joints: There is no evidence of acute fracture or dislocation. There are mild degenerative changes of the sacroiliac joints. There is mild diffuse osteopenia. Enthesopathic changes involve the iliac crests bilaterally. Mild degenerative changes involve the lumbosacral spine. Soft tissues: No significant soft tissue edema. No subcutaneous emphysema or radiopaque foreign bodies. IMPRESSION: No acute posttraumatic osseous injury.
[2022-09-01 19:55] LABS: Basophils % 0.2 % (0.1-2.0); Eosinophils % 0.3 % (0.1-12.0); Hematocrit 34.2 % (37.0-47.0); Hemoglobin 11.1 g/dL (12.2-16.2); Lymphocytes # 0.8 K/mm3 (0.7-4.5); Lymphocytes % 7.5 % (10-50); Mean Corpuscular HGB Conc 32.4 g/dL (31.8-35.4); Mean Corpuscular Hemoglobin 28.4 pg (27.0-31.2); Mean Corpuscular Volume 87.5 fl (81-99); Mean Platelet Volume 7.7 fl (7.4-10.4); Monocytes # 0.7 K/mm3 (0.1-1.0); Monocytes % 6.6 % (1.7-9.3); Neutrophils # 8.9 K/mm3 (1.8-7.8); Neutrophils % 85.5 % (37.0-80.0); Platelet Count 284 K/mm3 (142-424); Red Blood Count 3.91 M/mm3 (4.20-5.40); Red Cell Distribution Width 13.2 % (11.5-17.5); White Blood Count 10.4 K/mm3 (4.8-10.8)
[2022-09-01 19:57] LABS: Alanine Aminotransferase 16 U/L (12-78); Alkaline Phosphatase 53 U/L (38-126); Anion Gap 15.1 mEq/L (5-15); Aspartate Amino Transferase 29 U/L (14-36); Bilirubin,Total 0.7 mg/dl (0.2-1.3); Blood Urea Nitrogen 23 mg/dl (7-17); Calcium 8.2 mg/dl (8.4-10.2); Carbon Dioxide 22 mmol/L (22.0-30.0); Chloride 97 mmol/L (98-107); Creatine Kinase 119 U/L (30-135); Creatinine Clearance Estimated 42 mL/min (50-200); Estimated Glomerular Filt Rate 40 ml/min (>60); GFR (African American) 48 ML/MIN (>60); Globulin 3.9 g/dL (1.3-3.2); Glucose 138 mg/dl (74-100); Magnesium 1.9 mg/dl (1.6-2.3); Potassium 4.1 mmoL/L (3.5-5.1); Sodium 130 mmol/L (136-145); Total Protein,Serum 7.9 g/dl (6.3-8.2)
[2022-09-01 20:06] LABS: MANUAL DIFFERENTIAL MANUAL DIFFERENTIAL (MANUAL DIFF)
[2022-09-01 20:14] LABS: Troponin I < 0.01 ng/ml (0.00-0.034)
--- NOTE | 2022-09-01 20:19 | PC.NURSE ---
Pt returned from RAD via stretcher
[2022-09-01 20:32] LABS: Lymphocytes % 14 % (10-50); Monocytes % 2 % (2-9); Neutrophils % 83 % (42-76); Platelet Estimate Normal; RBC Morphology Normal; Total Cells Counted 100
--- NOTE | 2022-09-01 20:53 | PC.NURSE ---
Pt ambulatory to bathroom x1 person assist. Urine sample collected at this time.
[2022-09-01 20:55] LABS: Microscopic, Urine URINE MICROSCOPIC (MICROSCOPIC)
--- NOTE | 2022-09-01 21:00 | HMH.EDWEAK ---
Discharge Plan Disposition Patient Disposition: Admitted Chief Complaint: Weakness Prescriptions Prescriptions: No Action omega-3 fatty acids-fish oil 300 mg-500 mg capsule 300-500 mg capsule 1 cap PO BID albuterol sulfate [Ventolin HFA] 90 mcg/actuation HFA aerosol inhaler 2 puff IH Q4-6H PRN (Reason: bronchospasm) 90 Days Qty: 6.7 0RF lansoprazole 30 mg capsule,delayed release(DR/EC) 30 mg PO DAILY 90 Days Qty: 90 0RF gabapentin 100 mg capsule 100 mg PO DAILY Qty: 90 1RF alendronate 35 mg tablet 35 mg PO WEEKLY 90 Days Qty: 13 0RF levothyroxine 112 mcg tablet 112 mcg PO DAILY 90 Days Qty: 90 0RF citalopram 20 mg tablet See Rx Instructions .ROUTE .COMPLEX Qty: 90 0RF Dose Instruction: TAKE 1 TABLET DAILY Rx Instructions: TAKE 1 TABLET DAILY montelukast 10 mg tablet See Rx Instructions .ROUTE .COMPLEX Qty: 90 0RF Dose Instruction: TAKE 1 TABLET NIGHTLY AT BEDTIME FOR ALLERGIES Rx Instructions: TAKE 1 TABLET NIGHTLY AT BEDTIME FOR ALLERGIES metoprolol succinate 25 mg tablet extended release 24 hr See Rx Instructions .ROUTE .COMPLEX Qty: 45 0RF Dose Instruction: TAKE 1/2 TABLET DAILY FOR BLOOD PRESSURE Rx Instructions: TAKE 1/2 TABLET DAILY FOR BLOOD PRESSURE clopidogrel 75 mg tablet See Rx Instructions .ROUTE .COMPLEX Qty: 90 0RF Dose Instruction: TAKE 1 TABLET DAILY FOR BLOOD THINNER Rx Instructions: TAKE 1 TABLET DAILY FOR BLOOD THINNER isosorbide mononitrate 30 mg tablet extended release 24 hr See Rx Instructions .ROUTE .COMPLEX Qty: 90 0RF Dose Instruction: TAKE 1 TABLET DAILY Rx Instructions: TAKE 1 TABLET DAILY turmeric root extract 500 MG capsule 500 mg PO DAILY diclofenac sodium 100 GM gel 100 g TP TID PRN (Reason: pain) Qty: 1 1RF calcium carbonate-vitamin D3 1 EACH tablet 1 each PO BID aspirin 81 MG tablet,delayed release (DR/EC) 81 mg PO DAILY Referrals Follow up/Referrals: Osvaldo Ozuna MD [Primary Care Provider] - See instructions Clinical Impressions Clinical Impression: Acute UTI (urinary tract infection), Acute delirium Discharge ED Provider: Елена (ED)[facility] General Chief complaint: Weakness Stated complaint: Weakness Time Seen by Provider: 09/01/22 20:45 Mode of Arrival: EMS Source of Information: Patient and EMS Limitations: No Limitations Description of Symptoms (Recalled from ER Triage Doc. by RN): pt arrives EMS from home, where family found the pt on the floor. pt reports she did not fall but she was very lethargic and sat down and went to sleep. pt denies any pain. pt states she has been really weak over the last three days. pt c/o excessive thirst, diarrhea, and chills. pt states she was treated one week ago for a UTI. pts FS is 142. pt was given 4mg of zofran in route. History of Present Illness HPI Narrative: pt found on floor by family around 1700 did not known how she got there but aware of her being at [facility]- reports fever/chills yesterday and diarrhea and treated for uti last week MD Complaint: generalized weakness Onset (ago): hour(s) Duration: intermittent Location: generalized Migration: none Severity: moderate Related Data Home Medications Medication Instructions Recorded Confirmed aspirin 81 mg tablet,delayed 81 mg PO DAILY heart health 10/08/17 07/20/22 release calcium carbonate 600 mg-vitamin 1 each PO BID Supplement 10/08/17 07/20/22 D3 5 mcg (200 unit) tablet turmeric root extract 500 mg 500 mg PO DAILY Supplement 09/29/19 07/20/22 capsule omega-3 fatty acids-fish oil 300 1 cap PO BID 09/02/21 07/20/22 mg-500 mg capsule (Fish Oil) alendronate 35 mg tablet 35 mg PO WEEKLY osteoporosis 09/01/22 09/01/22 citalopram 20 mg tablet See Rx Instructions .Route 09/01/22 09/01/22 .COMPLEX Depression clopidogrel 75 mg tablet See Rx Instructions .Route 09/01/22 09/01/22 .COM
[2022-09-01 21:02] LABS: Appearance,Urine CLOUDY (Clear); Blood, Urine 2+ (Negative); Color,Urine DK YELLOW (Yellow); Glucose,Urine (UA) Negative (Negative); Ketones,Urine Negative (Negative); Leukocyte Esterase,Urine 2+ (Negative); Nitrate,Urine POSITIVE (Negative); PH,Urine 5.5 (5.0-8.5); Protein,Urine 1+ (Negative)
--- NOTE | 2022-09-01 21:02 | PC.NURSE ---
Dr. Christiansen at BS.
[2022-09-01 21:04] LABS: Bilirubin,Urine 1+ (Negative)
[2022-09-01 21:06] LABS: Bacteria,Urine 2+ /lpf; WBC,Urine TNTC #/hpf (0-3)
--- NOTE | 2022-09-01 21:09 | CT_ITS ---
PROCEDURE INFORMATION: Exam: CT Chest Without Contrast; Diagnostic Exam date and time: 09/01/2022 9:28 PM Age: 76 years old Clinical indication: Other: Abnormal chest xray; Additional info: Abn cxr TECHNIQUE: Imaging protocol: Diagnostic computed tomography of the chest without contrast. Radiation optimization: All CT scans at this facility use at least one of these dose optimization techniques: automated exposure control; mA and/or kV adjustment per patient size (includes targeted exams where dose is matched to clinical indication); or iterative reconstruction. REPORTING DATA: Count of CT and Cardiac NM exams in prior 12 months: This patient has received 0 known CTs and 0 known cardiac nuclear medicine studies in the 12 months prior to the current study. COMPARISON: CR XR CHEST PORTABLE 09/01/2022 8:12 PM FINDINGS: Lungs: Centrilobular and paraseptal emphysema. Small right upper lobe calcified granuloma. 5.5 mm right apical pleural-based solid pulmonary nodule. Few additional scattered smaller micro nodules. Lower lobe predominant subpleural reticulation. Posterior dependent and subsegmental atelectasis. No focal airspace consolidation. Pleural spaces: Unremarkable. No pneumothorax. No pleural effusion. Heart: Unremarkable. No cardiomegaly. No pericardial effusion. Coronary arteries: Heavy coronary artery calcifications. Lymph nodes: Calcified right paratracheal and right hilar lymph nodes compatible with sequela from prior granulomatous process. Vasculature: Mild to moderate atherosclerotic changes of the thoracic aorta without aneurysmal dilatation. Diaphragm: Moderate to large hiatal hernia. Pancreas: Fatty infiltrative changes of the pancreas. Adrenal glands: Nodular thickening of the left adrenal gland measuring less than 10 Hounsfield units suggestive of the presence of lipid rich adrenal adenomas. Bones/joints: Unremarkable. No acute fracture. Soft tissues: Unremarkable. IMPRESSION: 1. No acute pulmonary findings. 2. Pulmonary emphysema. Lower lobe predominant subpleural reticulation may indicate concurrent interstitial lung disease. 3. Several scattered micronodules measuring up to 5.5 mm. For patients at low risk (minimal or absent history of smoking and of other known risk factors), no routine follow-up is indicated. For patients at high risk (history of smoking or of other known risk factors), consider optional CT Chest at 12 months. (Reference: Morena) COMMENTS: Consistent with the [employer]'s Incidental Findings Committee white paper (J Am Robert Radiol 2017): For any incidental adrenal lesion greater than or equal to 1 cm but less than or equal to 4 cm classified in this report as benign, likely benign, or containing fat (including classification as an adenoma or myelolipoma), no follow-up imaging is recommended per consensus recommendations based on imaging criteria. Further lab evaluation could be pursued if warranted based on clinical findings. REFERENCES: Morena Garcia, et al. Guidelines for Management of Incidental Pulmonary Nodules Detected on CT Images: From the Fleischner Society 2017. Radiology. 2017;284(1):228-243.
--- NOTE | 2022-09-01 21:10 | PC.NURSE ---
verbal orders received, orders placed.
--- NOTE | 2022-09-01 21:12 | PC.NURSE ---
covid swab sent to lab
--- NOTE | 2022-09-01 21:16 | PC.NURSE ---
Cultures and lactic obtained and sent to lab
[2022-09-01 21:17] LABS: Coronavirus 19, PCR Not Detected (NotDetected); Influenza A, PCR Not Detected (NotDetected); Influenza B, PCR Not Detected (NotDetected)
--- NOTE | 2022-09-01 21:17 | PC.NURSE ---
s/w hospitalist for admission
--- NOTE | 2022-09-01 21:20 | PC.NURSE ---
Pt provided with bottle of water
--- NOTE | 2022-09-01 21:20 | PC.NURSE ---
PATIENT ADMITTED TO 202 OBSERVATION TO SERVICE OF HOSPITALIST WITH DX OF UTI.
--- NOTE | 2022-09-01 21:25 | PC.NURSE ---
Pt gone to RAD for CT
[2022-09-01 21:31] LABS: Lactic Acid 1.2 mmol/L (0.7-2.1)
[2022-09-01 21:32] LABS: NT Pro Brain Natriuretic Pep. 823 pg/mL (0-450)
--- NOTE | 2022-09-01 21:32 | PC.NURSE ---
Pt returned from RAD
--- NOTE | 2022-09-01 21:46 | PC.NURSE ---
Hospitalist at bedside
[2022-09-01 21:48] LABS: T4 (Thyroxine) 7.2 ug/dl (5.53-11.0)
[2022-09-01 22:02] LABS: Thyroid Stimulating Hormone 9.68 uIU/mL (0.465-4.68)
--- NOTE | 2022-09-01 22:26 | EXP.HP ---
History of Present Illness *Admission Date: 09/01/22 *Reason for visit:: Weakness. UTI *History of present illness: This is a 76 years old female with past medical history of hypertension, hypothyroidism, DAVID, osteoporosis, chronic pain, cervical radiculopathy, and chronic UTI, that has arrives via EMS from home, where family found her on the floor. pt reported she cannot recall if she did did fall but denies any pain, she stated was very lethargic and sat down and went to sleep, however cannot confirm this. pt stated she has been really weak over the last three days. pt c/o excessive thirst, diarrhea, and chills. She does report having fever yesterday, she took some Tylenol, pt states she was treated one week ago for a UTI. Daughter found her on this afternoon and called EMS. At ER pts FS is 142. Patient is alert and oriented x4 able to communicate. Denies any symptoms. Initial evaluation including UA chest and pelvic x-ray, CT of the chest. Findings discussed with the ER doctor. Concerning for complicated UTI. Vital signs are stable, afebrile. Patient will be admitted for further management and treatment. [facility] Disclaimer: The information contained in this section may have been updated after the patient was seen, as this information can be updated by other users. Medical History (Updated 09/01/22 @ 23:10 by Christian Verdin APRN) Acute cystitis with hematuria Angina at rest Cervical radiculopathy due to degenerative joint disease of spine Degenerative joint disease of cervical spine Hypothyroidism (acquired) DAVID (obstructive sleep apnea) Osteopenia after menopause Urinary urgency Surgical History History of appendectomy History of bladder surgery History of hysterectomy History of removal of ovarian cyst Previous back surgery Family History Mother Stroke Social History Smoking Status: Never smoker second hand exposure: No alcohol intake: never substance use type: denies use current occupational status: other Travel in the last 8 weeks: Outside the [facility] ([place]) household members: spouse housing: house current occupational exposures/hazards: No caffeine: Yes Review of Systems Review of Systems Review of systems:: pertinent systems reviewed and negative unless documented below Meds Home Medications and Allergies Home Medications Medication Instructions Recorded Confirmed Type aspirin 81 mg tablet,delayed 81 mg PO DAILY heart health 10/08/17 09/01/22 History release calcium carbonate 600 mg-vitamin 1 each PO BID Supplement 10/08/17 09/01/22 History D3 5 mcg (200 unit) tablet gabapentin 100 mg capsule 100 mg PO DAILY Pain #90 caps 05/20/22 09/01/22 Rx levothyroxine 112 mcg tablet 112 mcg PO DAILY hypothyroid 90 08/28/22 09/01/22 Rx days #90 tabs alendronate 35 mg tablet 35 mg PO WEEKLY osteoporosis 09/01/22 09/01/22 History citalopram 20 mg tablet 20 mg PO DAILY Depression 09/01/22 09/02/22 History clopidogrel 75 mg tablet 75 mg PO DAILY 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 09/01/22 09/02/22 History isosorbide mononitrate 30 mg 30 mg PO DAILY Hypertension 09/01/22 09/02/22 History tablet,extended release 24 hr lansoprazole 30 mg capsule,delayed 30 mg PO DAILY Acid Reflux 09/01/22 09/01/22 History release metoprolol succinate 25 mg 12.5 mg PO DAILY Hypertension 09/01/22 09/02/22 History tablet,extended release 24 hr montelukast 10 mg tablet 10 mg PO HS allergies 09/01/22 09/02/22 History albuterol sulfate 90 mcg/actuation 2 puff inhalation Q4HP PRN 09/02/22 09/02/22 History aerosol inhaler (Ventolin HFA) Shortness Of Breath New Prescriptions to Start Prescriptions: Allergies Allergy/AdvReac Type Severity Reaction Status Date / Time cefdinir [From [employer]] Allergy Intermediate I-RASH Verified 05
--- NOTE | 2022-09-01 22:44 | PC.NURSE ---
PT ARRIVED TO FLOOR AT THIS TIME
[2022-09-01 23:37] LABS: Troponin I < 0.01 ng/ml (0.00-0.034)
[2022-09-02 02:44] LABS: Troponin I 0.03 ng/ml (0.00-0.034)
[2022-09-02 04:00] VITALS: BP 109/55; PULSE 92; RESP 20; TEMP 37.3; O2SAT 90; BMI 28.2
[2022-09-02 06:24] LABS: Basophils % 0.1 % (0.1-2.0); Eosinophils % 0.1 % (0.1-12.0); Hematocrit 31.8 % (37.0-47.0); Hemoglobin 10.2 g/dL (12.2-16.2); Lymphocytes # 0.8 K/mm3 (0.7-4.5); Mean Corpuscular HGB Conc 32.1 g/dL (31.8-35.4); Mean Corpuscular Hemoglobin 27.9 pg (27.0-31.2); Mean Corpuscular Volume 86.9 fl (81-99); Mean Platelet Volume 7.9 fl (7.4-10.4); Monocytes # 0.9 K/mm3 (0.1-1.0); Monocytes % 6.8 % (1.7-9.3); Neutrophils # 10.9 K/mm3 (1.8-7.8); Platelet Count 243 K/mm3 (142-424); Red Blood Count 3.66 M/mm3 (4.20-5.40); Red Cell Distribution Width 13.2 % (11.5-17.5); White Blood Count 12.6 K/mm3 (4.8-10.8)
[2022-09-02 06:27] LABS: MANUAL DIFFERENTIAL MANUAL DIFFERENTIAL (MANUAL DIFF)
[2022-09-02 06:34] LABS: Alanine Aminotransferase 14 U/L (12-78); Albumin Level 3.3 g/dl (3.5-5.0); Alkaline Phosphatase 50 U/L (38-126); Anion Gap 12.2 mEq/L (5-15); Aspartate Amino Transferase 26 U/L (14-36); Bilirubin,Total 0.6 mg/dl (0.2-1.3); Blood Urea Nitrogen 18 mg/dl (7-17); Calcium 7.6 mg/dl (8.4-10.2); Carbon Dioxide 20 mmol/L (22.0-30.0); Chloride 102 mmol/L (98-107); Creatinine Clearance Estimated 46 mL/min (50-200); Estimated Glomerular Filt Rate 43 ml/min (>60); GFR (African American) 53 ML/MIN (>60); Globulin 3.4 g/dL (1.3-3.2); Glucose 128 mg/dl (74-100); Potassium 3.2 mmoL/L (3.5-5.1); Sodium 131 mmol/L (136-145); Total Protein,Serum 6.7 g/dl (6.3-8.2)
[2022-09-02 06:51] LABS: Anisocytosis 1+; Hypochromasia 1+; Lymphocytes % 8 % (10-50); Monocytes % 3 % (2-9); Neutrophils % 89 % (42-76); Platelet Estimate Normal; Total Cells Counted 100
--- NOTE | 2022-09-02 07:26 | HMH.PHAINT1 ---
Pharmacy Intervention Comments: MEDICATION RECONCILIATION COMPLETED ON PATIENT USING EXTERNAL FILL HISTORY FROM PHARMACY AND LIST FROM PCP OFFICE. -TRANG KOEHLER, EUGENIAD
[2022-09-02 07:37] VITALS: BP 122/55; PULSE 77; RESP 17; TEMP 36.7; O2SAT 91
--- NOTE | 2022-09-02 09:22 | EXP.ACUTE.PN ---
Subjective *Date: 09/02/22 *Time: 13:04 Interval history: Patient feeling little bit better this morning. Does not fully remember why she is at the hospital. Tolerating p.o. intake. In the bedside chair on exam. No fever. Complains of urgency and frequency of urination prior to admission Medical Exam Vital signs and Labs for Last 24 Hours: Vital Signs Temp Pulse Pulse Resp BP BP Pulse Ox 09/02/22 07:37 98.1 F 77 17 122/55 L 91 L 09/02/22 04:00 99.2 F 92 H 20 109/55 L 90 L 09/01/22 23:34 98.1 F 65 20 107/56 L 92 L 09/01/22 23:10 98.1 F 69 16 101/58 L 09/01/22 21:39 66 107/57 L 94 L 09/01/22 21:00 62 107/54 L 95 09/01/22 20:30 62 106/56 L 94 L 09/01/22 20:00 69 109/51 L 93 L 09/01/22 19:30 67 114/60 93 L 09/01/22 19:34 98.1 F 70 16 116/52 L 93 L Intake and Output 09/01/22 09/02/22 09/02/22 23:59 07:59 15:59 Intake Total 1000 / 1000 992 / 992 Balance 1000 / 1000 992 / 992 Intake: Intake, Oral Amount 240 / 240 Intake, Total IV Amount 1000 / 1000 752 / 752 0.9 % Sodium Chloride 1000ML 1, 752 / 752 000 ml @ 125 mls/hr IV .Q8H [facility] Rx#:[id number] Other: Weight 75.024 kg 75.024 kg Patient Weight 09/02/22 23:59 Weight 75.024 kg Laboratory Results - last 24 hr 09/01/22 19:30: WBC 10.4, RBC 3.91 L, Hgb 11.1 L, Hct 34.2 L, MCV 87.5, MCH 28.4, MCHC 32.4, RDW 13.2, Plt Count 284, MPV 7.7, Neut % (Auto) 85.5 H, Lymph % (Auto) 7.5 L, [place] % (Auto) 6.6, Eos % (Auto) 0.3, Baso % (Auto) 0.2, Neut # (Auto) 8.9 H, Lymph # (Auto) 0.8, [place] # (Auto) 0.7, Eos # (Auto) 0.0, Baso # (Auto) 0.0, Total Counted 100, Neutrophils % (Manual) 83 H, Band Neutrophils % 1.0, Lymphocytes % (Manual) 14, Monocytes % (Manual) 2, Platelet Estimate Normal, RBC Morphology Normal, Sodium 130 L, Potassium 4.1, Chloride 97 L, Carbon Dioxide 22, Anion Gap 15.1 H, BUN 23 H, Creatinine 1.30 H, Estimated Creat Clear 42, Estimated GFR 40 L, Est GFR ( Amer) 48 L, Glucose 138 H, Calcium 8.2 L, Magnesium 1.9, Total Bilirubin 0.7, AST 29, ALT 16, Alkaline Phosphatase 53, Total Creatine Kinase 119, Troponin I < 0.01, NT-Pro-B Natriuret Pep 823 H, Total Protein 7.9, Albumin 4.0, Globulin 3.9 H, Albumin/Globulin Ratio 1.0 L, TSH 9.68 H, Thyroxine (T4) 7.2 09/01/22 20:50: Urine Color Dk yellow, Urine Appearance Cloudy, Urine pH 5.5, Ur Specific [place] 1.020, Urine Protein 1+, Urine Glucose (UA) Negative, Urine Ketones Negative, Urine Blood 2+, Urine Nitrate Positive, Urine Bilirubin 1+ A, Urine Urobilinogen 2.0, Ur Leukocyte Esterase 2+ A, Urine RBC 10-20, Urine WBC Tntc, Ur Squamous Epith Cells 3-5, Urine Bacteria 2+ 09/01/22 21:10: SARS-CoV-2 (PCR) Not detected, Influenza A Untype (PCR) Not detected, Influenza Type B (PCR) Not detected 09/01/22 21:14: Lactate 1.2 09/01/22 22:58: Troponin I < 0.01 09/02/22 02:20: Troponin I 0.03 09/02/22 06:00: WBC 12.6 H, RBC 3.66 L, Hgb 10.2 L, Hct 31.8 L, MCV 86.9, MCH 27.9, MCHC 32.1, RDW 13.2, Plt Count 243, MPV 7.9, Neut % (Auto) 87.0 H, Lymph % (Auto) 6.0 L, [place] % (Auto) 6.8, Eos % (Auto) 0.1, Baso % (Auto) 0.1, Neut # (Auto) 10.9 H, Lymph # (Auto) 0.8, [place] # (Auto) 0.9, Eos # (Auto) 0.0, Baso # (Auto) 0.0, Total Counted 100, Neutrophils % (Manual) 89 H, Lymphocytes % (Manual) 8 L, Monocytes % (Manual) 3, Platelet Estimate Normal, Hypochromasia 1+, Anisocytosis 1+, Sodium 131 L, Potassium 3.2 L D, Chloride 102, Carbon Dioxide 20 L, Anion Gap 12.2, BUN 18 H, Creatinine 1.20 H, Estimated Creat Clear 46, Estimated GFR 43 L, Est GFR ( Amer) 53 L, Glucose 128 H, Calcium 7.6 L, Total Bilirubin 0.6, AST 26, ALT 14, Alkaline Phosphatase 50, Total Protein 6.7, Albumin 3.3 L D, Globulin 3.4 H, Albumin/Globulin Ratio 1.0 L I & O for Labs for Last 24 Hours: Intake & Output 08/30/22 08/31/22 09/01/22 09/02/22 23:59 23:59 23:59 23:59 Intake Total 1000 / 1000 992 / 992 Balance 1000 / 999 992 / 992 Weight 75.024 kg 75.024
--- NOTE | 2022-09-02 09:47 | HMH.PTEV ---
Physical Therapy Evaluation Rehab PT IP Evaluation Start: 09/02/22 07:04 Freq: ONCE Status: Active Protocol: Document 09/02/22 09:30 JENNIFFER (Rec: 09/02/22 09:46 JENNIFFER [id number]) Subjective/History History History Pt is a 76 y/o female who arrived to [facility] via EMS from home on 09/01/22 where family found her on the floor. Pt reported she cannot recall if she did did fall but denies any pain, she stated was very lethargic and sat down and went to sleep, however cannot confirm this.Initial evaluation including UA chest and pelvic x-ray, CT of the chest. Findings discussed with the ER doctor. Concerning for complicated UTI . Vital signs are stable, afebrile. Medical History: hypertension, hypothyroidism, DAVID, osteoporosis, chronic pain, cervical radiculopathy, & chronic UTI Subjective Subjective Pt reports she lives alone in a single-story home without steps to enter. Pt reports she has family close by that come and check on her often. Pt reports prior to hospitalization she was independent with all ADLs and ambulation. Pt states she has a cane and a walker at home but does not use them. Pt reports she is unsure if she fell at home. Pt states I still feel weak. Rehab PT IP Eval Objective Appearance Patient Behavior Appropriate,Cooperative Patient Orientation Person,Place,Name,Birthday, Situation Difficulty following instructions none Speech Pattern Clear,Appropriate,Coherent Ambulation Patient Able to Ambulate Yes Ambulation Observation IP General Gait Pattern Observation Wide Based Gait Ambulation Distance (feet) 35 Ambulation Assistive Device None Ambulation Ability Contact Guard/Hand Hold Balance Ability to Arise Able, uses arms to help Sittin
--- NOTE | 2022-09-02 09:58 | HMH.OTEV ---
OT Inpatient Evaluation Rehab OT IP Evaluation Start: 09/02/22 07:04 Freq: ONCE Status: Active Protocol: Document 09/02/22 09:52 [facility] (Rec: 09/02/22 09:58 [facility] [id number]) Rehab OT IP Assessment Subjective History Pt oriented x4 on arrival. Pt agreeable to engage in therapy evaluation. Pt admitted on 09/01/22 due to UTI. Prior to being in the hospital, pt lived at home alone. Pt claims she is independent with all ADLs and IADLs. Pt does not use a walker or a cane during ambulation. Pt still drives. Pt has a past medical history of: Acute cystitis with hematuria Angina at rest Cervical radiculopathy due to degenerative joint disease of spine Degenerative joint disease of cervical spine Hypothyroidism (acquired) DVAID (obstructive sleep apnea) Osteopenia after menopause Urinary urgency Subjective I just feel a little weak now . Objective Patient Orientation Person,Place,Birthday Upper Extremity Gross ROM WFL Bed Mobility bed mobility-scooting,bed mobility - supine/sit,bed mobility - rolling Assist Level Supervision/Stand by Transfer Training Sit/Stand Transfer Assist Level Supervision/Stand by Chair Transfer Ability Supervision/Stand by Chair Transfer Technique Sit to/from Ambulatory Chair Transfer Assistive Devices None Lower Body Dressing Ability Standby Assistance Rehab OT IP prob,goals,plan Problems Date of Evaluation: 09/02/22 Rehab Potential Rehab Potential Innapropriate for Skilled Therapy Discharge Plan OT Discharge Plan At this time, pt appears to be at her baseline with functional transfers and ADL independence. Pt can return home once medically stable per physician. Home health evaluation as needed. Eval Complex
[2022-09-02 11:21] LABS: Adenovirus F 40/41, stool Not Detected (NotDetected); Astrovirus Not Detected (NotDetected); Campylobacter Not Detected (NotDetected); Clostridium Difficile A/B, PCR Not Detected (NotDetected); Cryptosporidium Not Detected (NotDetected); Cyclospora Cayetanesis Not Detected (NotDetected); Entamoeba histolytica Not Detected (NotDetected); Enteroaggregative E coli Not Detected (NotDetected); Enteropathogenic E coli Not Detected (NotDetected); Enterotoxigenic E coli Not Detected (NotDetected); Giardia lamblia Not Detected (NotDetected); Norovirus Not Detected (NotDetected); Plesimonas Shigalloides, PCR Not Detected (NotDetected); Rotavirus A Not Detected (NotDetected); Salmonella, PCR Not Detected (NotDetected); Sapovirus Not Detected (NotDetected); Shiga-like toxin E coli Not Detected (NotDetected); Shigella Enterovasive E coli Not Detected (NotDetected); Vibrio Cholerae Not Detected (NotDetected); Vibrio, PCR Not Detected (NotDetected); Yersinia Entercolitica, PCR Not Detected (NotDetected)
[2022-09-02 15:29] VITALS: BP 103/53; PULSE 61; RESP 17; TEMP 36.6; O2SAT 92
--- NOTE | 2022-09-02 15:53 | PC.NURSE ---
A&OX4. TOLERATING RA WELL. PT UP WITH STANDBY ASSIST TO CHAIR AND BATHROOM, DOING VERY WELL. PT HAS HAD ADEQUATE U/O AND STOOL SAMPLE WAS COLLECTED WELL. PT HAS C/O FEELING VERY TIRED, HAS RESTED T/O SHIFT. FAMILY HAS BEEN IN AND OUT. HOME MEDS LOCKED IN DRAWER. NO C/O DIZZINESS OR PAIN NOTED THUS FAR. VSS.
[2022-09-02 20:00] VITALS: BP 96/50; PULSE 66; RESP 18; TEMP 36.6; O2SAT 90
[2022-09-03 04:00] VITALS: BP 140/54; PULSE 82; RESP 18; TEMP 37.6; O2SAT 92; BMI 29.2
[2022-09-03 06:27] LABS: Anion Gap 10.9 mEq/L (5-15); Blood Urea Nitrogen 16 mg/dl (7-17); Calcium 7.6 mg/dl (8.4-10.2); Carbon Dioxide 21 mmol/L (22.0-30.0); Chloride 109 mmol/L (98-107); Creatinine Clearance Estimated 52 mL/min (50-200); Estimated Glomerular Filt Rate 48 ml/min (>60); GFR (African American) 58 ML/MIN (>60); Glucose 121 mg/dl (74-100); Potassium 3.9 mmoL/L (3.5-5.1); Sodium 137 mmol/L (136-145)
[2022-09-03 06:38] LABS: Basophils % 0.2 % (0.1-2.0); Eosinophils % 0.3 % (0.1-12.0); Hematocrit 31.7 % (37.0-47.0); Hemoglobin 10.3 g/dL (12.2-16.2); Lymphocytes % 13.7 % (10-50); Mean Corpuscular HGB Conc 32.4 g/dL (31.8-35.4); Mean Corpuscular Hemoglobin 28.3 pg (27.0-31.2); Mean Corpuscular Volume 87.2 fl (81-99); Mean Platelet Volume 8.1 fl (7.4-10.4); Monocytes # 0.6 K/mm3 (0.1-1.0); Monocytes % 7.5 % (1.7-9.3); Neutrophils # 5.8 K/mm3 (1.8-7.8); Neutrophils % 78.2 % (37.0-80.0); Platelet Count 241 K/mm3 (142-424); Red Blood Count 3.64 M/mm3 (4.20-5.40); Red Cell Distribution Width 13.2 % (11.5-17.5); White Blood Count 7.5 K/mm3 (4.8-10.8)
[2022-09-03 07:53] VITALS: BP 157/88; PULSE 88; RESP 22; TEMP 37; O2SAT 93
[2022-09-03 08:00] VITALS: O2SAT 97
--- NOTE | 2022-09-03 09:58 | EXP.ACUTE.PN ---
Subjective *Date: 09/03/22 *Time: 11:04 Interval history: Patient stable this morning. Having some heartburn. No dima emesis. No diarrhea. Improved alertness. Afebrile and on room air. Medical Exam Vital signs and Labs for Last 24 Hours: Vital Signs Temp Pulse Resp BP Pulse Ox 09/03/22 08:00 97 09/03/22 07:53 98.6 F 88 22 157/88 H 93 L 09/03/22 04:00 99.6 F 82 18 140/54 L 92 L 09/02/22 20:00 97.9 F 66 18 96/50 L 90 L 09/02/22 15:29 97.9 F 61 17 103/53 L 92 L Intake and Output 09/02/22 09/03/22 09/03/22 23:59 07:59 15:59 Intake Total 240 / 1472 1625 / 1625 Output Total 1 / 600 / 800 200 / 800 Balance 239 / 1471 1025 / 825 -200 / 825 Intake: Intake, Oral Amount 240 / 720 240 / 240 Intake, Total IV Amount 1385 / 1385 0.9 % Sodium Chloride 1000ML 1, 1385 / 1385 000 ml @ 125 mls/hr IV .Q8H [facility] Rx#:[id number] Output: Output, Urine Amount / 600 / 800 200 / 800 Other: Number of Unmeasured Voids 200 Number of Bowel Movements 1 1 Weight 77.564 kg Patient Weight 09/03/22 23:59 Weight 77.564 kg Laboratory Results - last 24 hr 09/01/22 20:50: Urine Color Dk yellow, Urine Appearance Cloudy, Urine pH 5.5, Ur Specific [place] 1.020, Urine Protein 1+, Urine Glucose (UA) Negative, Urine Ketones Negative, Urine Blood 2+, Urine Nitrate Positive, Urine Bilirubin 1+ A, Urine Urobilinogen 2.0, Ur Leukocyte Esterase 2+ A, Urine RBC 10-20, Urine WBC Tntc, Ur Squamous Epith Cells 3-5, Urine Bacteria 2+ 09/02/22 11:15: Stl Aeromonas (PCR) Not detected, Stl C. cayetanensis PCR Not detected, Stool Rotavirus (PCR) Not detected, Stl Adenov F 40/41 PCR Not detected, Stool Astrovirus (PCR) Not detected, Stool Campylobacter PCR Not detected, Stl C.difficile Tox PCR Not detected, Stool Cryptosporidium PCR Not detected, Stl E.coli Shiga Tox PCR Not detected, Stool E coli O157 PCR Not detected, Stl Enterotoxigenic E PCR Not detected, Stool EPEC (PCR) Not detected, Stool EAEC (PCR) Not detected, Stl E. histolytica PCR Not detected, Stool Giardia Lamblia PCR Not detected, Stool Salmonella PCR Not detected, Stool Sapovirus (PCR) Not detected, Stl P. shigelloides PCR Not detected, Stl Shigella/EIEC PCR Not detected, St Y.enterocolitica PCR Not detected, Stool Vibrio (PCR) Not detected, Stl Vibrio cholerae PCR Not detected, Stl Norovirus GI/GII PCR Not detected 09/03/22 05:53: WBC 7.5 D, RBC 3.64 L, Hgb 10.3 L, Hct 31.7 L, MCV 87.2, MCH 28.3, MCHC 32.4, RDW 13.2, Plt Count 241, MPV 8.1, Neut % (Auto) 78.2, Lymph % (Auto) 13.7, [place] % (Auto) 7.5, Eos % (Auto) 0.3, Baso % (Auto) 0.2, Neut # (Auto) 5.8, Lymph # (Auto) 1.0, [place] # (Auto) 0.6, Eos # (Auto) 0.0, Baso # (Auto) 0.0, Sodium 137, Potassium 3.9 D, Chloride 109 H, Carbon Dioxide 21 L, Anion Gap 10.9, BUN 16, Creatinine 1.10 H, Estimated Creat Clear 52, Estimated GFR 48 L, Est GFR ( Amer) 58 L, Glucose 121 H, Calcium 7.6 L I & O for Labs for Last 24 Hours: Intake & Output 08/31/22 09/01/22 09/02/22 09/03/22 23:59 23:59 23:59 23:59 Intake Total 1000 / 1000 1472 / 1472 1625 / 1625 Output Total 800 / 800 Balance 1000 / 1000 1471 / 1471 825 / 825 Weight 75.024 kg 75.024 kg 77.564 kg Microbiology Reports for the Last 24 Hours: Microbiology 09/01/22 21:14 Blood Blood Culture - Preliminary Gram Negative Rods 09/01/22 21:14 Blood Blood Culture - Preliminary Gram Negative Rods 09/01/22 20:50 Urine,Clean Catch Urine Culture - Preliminary Gram Negative Rods Constitutional: Present no acute distress and average body habitus Head: Present atraumatic and normocephalic ENT: Present normal exam Neck: Present normal inspection Respiratory: Present normal respiratory effort; Absent rhonchi, wheezes or crackles Cardiac: Present Reg Rate and Rhythm GI: Present tenderness (Epigastric) and normal bowel sounds; Absent
--- NOTE | 2022-09-03 10:44 | SW/DCPLANNER ---
Addendum entered by Deanna Funes 09/07/22 09:39: Susy aranda/ [facility] stated that services will begin today 09/07/22. Addendum entered by Deanna Funes 09/04/22 09:16: Patient information/order has been faxed to [facility]. Original Note: I spoke with this patient regarding plans once medically stable for discharge. PT/OT evaluated patient yesterday and stated she is safe to return home. At this time once patient is medically stable for discharge she prefers to return home w/ home health services through [facility]. I will arrange home health at time of discharge. Discharge date is unknown at this time.
--- NOTE | 2022-09-03 11:17 | PC.NURSE ---
TECH NOTE; PT AMBULATED HALF LENGTH OF THE HALLWAY TWICE, ACTIVITY TOLERATED WELL. K DEEPTHI, SRNA
--- NOTE | 2022-09-03 11:29 | HMH.IPREAS ---
Rehab IP Re-assessment Rehab IP Re-assessment Start: 09/03/22 11:25 Freq: Status: Active Protocol: Document 09/03/22 11:26 PHORNE (Rec: 09/03/22 11:29 PHORNE [id number]) E-signed By Florencio Colon, PT Subjective Subjective Subjective Pt is a 76 y/o female who arrived to [facility] via EMS from home on 09/01/22 where family found her on the floor. Pt reported she cannot recall if she did did fall but denies any pain, she stated was very lethargic and sat down and went to sleep, however cannot confirm this.Initial evaluation including UA chest and pelvic x-ray, CT of the chest. Findings discussed with the ER doctor. Concerning for complicated UTI . Vital signs are stable, afebrile. Pt states, That medicine they gave me is making me go to the bathroom all the time. Pt reports feeling weak currently, but agrees to ambulation. Rehab IP PT Reassessment Eval Objective Appearance Patient Behavior Appropriate Patient Orientation Person,Place,Birthday Difficulty following instructions none Speech Pattern Clear,Appropriate,Coherent Ambulation Patient Able to Ambulate Yes Ambulation Observation IP General Gait Pattern Observation No Deviations/Normal Ambulation Distance (feet) 150 Ambulation Assistive Device Rolling Walker Ambulation Ability Independent Balance Ability to Arise Able, uses arms to help Sitting Balance Steady, safe Standing Balance Steady, wide stance Dynamic Sitting Balance Ability Good Dynamic Standing Balance Ability Good Transfers Bed Transfer Ability Independent Chair Transfer Ability Independent Sit to Stand Bed Transfer Ability Independent Sit to Stand Chair Transfer Ability Independent ROM All Extremities PT ROM Status WFL MMT All Extremities PT MMT WFL Rehab IP PT Reassessment of problems, goals, plan Problems Date of Evaluation: 09/03/22 Discharge Plan PT Discharge Plan Pt remains at baseline for all mobility at this time despite reporting feeling weak. She
[2022-09-03 11:35] VITALS: BMI 29.2
[2022-09-03 15:28] VITALS: BP 107/57; PULSE 68; RESP 18; TEMP 37.2; O2SAT 92
[2022-09-03 20:00] VITALS: BP 114/57; PULSE 68; RESP 18; TEMP 36.7; O2SAT 95
--- NOTE | 2022-09-03 22:23 | PC.NURSE ---
pt stated she took a shower today and doesn't want another one this evening. bed alarm turned off and pt educated to use call light for assistance getting up or needing to ambulate to the bathroom, assist x1. last bm per pt was 09/03/22. A&Ox4. RA. took pills whole. has home meds in drawer. 20g LAC patent. tolerated IV abx well. pt now resting in bed watching tv.
[2022-09-04 04:00] VITALS: BP 140/70; PULSE 67; RESP 18; TEMP 37.3; O2SAT 94; BMI 29.5
--- NOTE | 2022-09-04 06:01 | PC.NURSE ---
pt up in recliner for breakfast.
[2022-09-04 06:27] LABS: Basophils % 0.5 % (0.1-2.0); Eosinophils # 0.1 K/mm3 (0.0-0.4); Eosinophils % 1.1 % (0.1-12.0); Hematocrit 33.4 % (37.0-47.0); Lymphocytes # 1.2 K/mm3 (0.7-4.5); Lymphocytes % 21.1 % (10-50); Mean Corpuscular HGB Conc 32.9 g/dL (31.8-35.4); Mean Corpuscular Hemoglobin 28.5 pg (27.0-31.2); Mean Corpuscular Volume 86.7 fl (81-99); Mean Platelet Volume 7.7 fl (7.4-10.4); Monocytes # 0.5 K/mm3 (0.1-1.0); Monocytes % 8.2 % (1.7-9.3); Neutrophils # 4.1 K/mm3 (1.8-7.8); Neutrophils % 69.1 % (37.0-80.0); Platelet Count 292 K/mm3 (142-424); Red Blood Count 3.85 M/mm3 (4.20-5.40); Red Cell Distribution Width 13.4 % (11.5-17.5); White Blood Count 5.9 K/mm3 (4.8-10.8)
[2022-09-04 06:34] LABS: Alanine Aminotransferase 18 U/L (12-78); Albumin Level 3.5 g/dl (3.5-5.0); Albumin/Globulin Ratio 0.9 (1.1-1.8); Alkaline Phosphatase 47 U/L (38-126); Anion Gap 8.5 mEq/L (5-15); Aspartate Amino Transferase 31 U/L (14-36); Bilirubin,Total 0.4 mg/dl (0.2-1.3); Blood Urea Nitrogen 12 mg/dl (7-17); Calcium 7.9 mg/dl (8.4-10.2); Carbon Dioxide 25 mmol/L (22.0-30.0); Chloride 108 mmol/L (98-107); Creatinine Clearance Estimated 48 mL/min (50-200); Estimated Glomerular Filt Rate 43 ml/min (>60); GFR (African American) 53 ML/MIN (>60); Globulin 3.8 g/dL (1.3-3.2); Glucose 100 mg/dl (74-100); Potassium 3.5 mmoL/L (3.5-5.1); Sodium 138 mmol/L (136-145); Total Protein,Serum 7.3 g/dl (6.3-8.2)
--- NOTE | 2022-09-04 07:09 | EXP.DC.SUM ---
General Admission date:: 09/02/22 Discharge date: 09/04/22 HPI HPI HPI: This is a 76 years old female with past medical history of hypertension, hypothyroidism, DAVID, osteoporosis, chronic pain, cervical radiculopathy, and chronic UTI, that has arrives via EMS from home, where family found her on the floor. pt reported she cannot recall if she did did fall but denies any pain, she stated was very lethargic and sat down and went to sleep, however cannot confirm this. pt stated she has been really weak over the last three days. pt c/o excessive thirst, diarrhea, and chills. She does report having fever yesterday, she took some Tylenol, pt states she was treated one week ago for a UTI. Daughter found her on this afternoon and called EMS. At ER pts FS is 142. Patient is alert and oriented x4 able to communicate. Denies any symptoms. Initial evaluation including UA chest and pelvic x-ray, CT of the chest. Findings discussed with the ER doctor. Concerning for complicated UTI. Vital signs are stable, afebrile. Patient will be admitted for further management and treatment. Hospital Course Hospital Course Hospital Course: Ms. Sutton is a 76 years old female with past medical history of hypertension, hypothyroidism, DAVID, osteoporosis, chronic pain, cervical radiculopathy, and chronic UTI, that has arrives via EMS from home, where family found her on the floor. Found to have UTI complicated by confusion/encephalopathy and hyponatremia. Blood cultures returned positive for E. coli bacteremia. We will transition oral antibiotics to complete 10-day course. Stable for discharge home. Back to baseline function. PT evaluated during admission, patient is back to independent level of function. Problems addressed as follows: -Gram-negative bacteremia -Complicated UTI Complicated acute urinary tract infection with fever, without organ dysfunction on presentation. Cultures were obtained. Blood culture returned positive for E. coli. Urine culture positive for same pathogen. Both sensitive to levofloxacin. Given bacteremia with gram-negative rods, will complete 10 days of antibiotic therapy renally dosed. Defervescence of symptoms during hospitalization. Stable for discharge home. No fever since day of admission. -Heart failure with preserved ejection fraction -Hypertension Slightly elevated BNP on admission. Obtained echo showing preserved action fraction and grade 2 diastolic dysfunction. Responded well to diuretics while she was admitted. Plan to continue her home metoprolol, isosorbide, Plavix and aspirin. We will add Lasix 40 mg daily to maintain euvolemic fluid status. Will need repeat CBC and CMP in 1 week. -CKD: Chronic kidney disease stage III. Creatinine was 1.1 to 1.3 for the last 3 months. Remained at baseline during hospitalization. -Hypothyroidism: TSH elevated at 9.6 on admission. Increased her levothyroxine from 112mcg to 125 mcg. Plan to continue levothyroxine to 125 mcg daily -Mild anemia: Hemoglobin stable during admission. Hemoglobin 10.3 most likely related to chronic kidney disease. -Chronic pain; cervical radiculopathy, osteopenia: Continue home calcium supplement -GERD: Protonix 40 mg daily Stable for discharge home with close follow-up and labs in the coming week. Exam Data for Last 24 hours Vital signs and Labs for Last 24 Hours: Temp Pulse Resp BP Pulse Ox O2 Del Method O2 Flow Rate 99.2 F 67 18 140/70 94 L Room Air 97 09/04/22 04:00 09/04/22 04:00 09/04/22 04:00 09/04/22 04:00 09/04/22 04:00 09/04/22 06:16 09/03/22 10:34 Laboratory Results - last 24 hr 09/04/22 06:08: WBC 5.9, RBC 3.85 L, Hgb 11.0 L, Hct 33.4 L, MCV 86.7, MCH 28.5, MCHC 32.9, RDW 13.4, Plt Count 292, MPV 7.7, Neut % (Auto) 69.1, Lymph % (Auto) 21.1, [place] % (Auto) 8.2, Eos % (Auto) 1.1, Baso % (Auto) 0.5, Neut # (Auto) 4.1, Lymph # (Auto) 1.2, [place] # (Auto) 0.5, Eos # (Auto) 0.1, Baso # (Auto) 0.0, Sodium 138, Potassium 3.5,
[2022-09-04 07:54] VITALS: O2SAT 97
[2022-09-04 08:00] VITALS: BP 136/69; PULSE 74; RESP 18; TEMP 36.7; O2SAT 95
--- NOTE | 2022-09-04 08:36 | PC.NURSE ---
COURTESY TECH NOTE; ROUNDED ON PT 0730, PT DENIED NEED FOR DRINK. ASSISTED PT TO RESTROOM STANDBY ASSIST, ACTIVITY TOLERATED WELL, ASSISTED PT TO REPOSITION IN CHAIR. CALL LIGHT WITHIN REACH, NO FURTHER REQUESTS AT THIS TIME NURY LERMA
--- NOTE | 2022-09-04 09:41 | HMH.PHAINT1 ---
Pharmacy Intervention Comments: Patient discharged and counseled on new medication and medication change. - Furosemide 40mg ( told to watch for increase in urination frequency ) - Levofloxacin 750mg ( told to watch for nausea and diarrhea ) - Switch from levothyroxine 112mcg to the 125mcg ( told to monitor for any changes in appetite, increased heart rate, and tremors )
--- NOTE | 2022-09-07 12:59 | CARE MANAGER ---
Spoke with patient for post-discharge phone interview, no issues noted at this time.
== END 2022-09-04 10:02 | disposition home or self-care (01) | DRG 690 ==
LOC: ER 21:21 → 2ND 21:26
PROVIDERS: Nurse Practitioner Family; Admitting Provider Internal Medicine Adolescent Medicine; Emergency Provider Emergency Medicine; PCP Family Medicine; Visit Provider Internal Medicine Adolescent Medicine
DX: N39.0 Urinary tract infection, site not specified (principal); E87.1 Hypo-osmolality and hyponatremia; I13.0 Hypertensive heart and chronic kidney disease with heart failure and stage 1 through stage 4 chronic kidney disease, or unspecified chronic kidney disease; I50.30 Unspecified diastolic (congestive) heart failure; R78.81 Bacteremia; R29.6 Repeated falls; R79.89 Other specified abnormal findings of blood chemistry; N18.31 Chronic kidney disease, stage 3a; E03.9 Hypothyroidism, unspecified; D63.1 Anemia in chronic kidney disease; M47.22 Other spondylosis with radiculopathy, cervical region; M85.80 Other specified disorders of bone density and structure, unspecified site; K21.9 Gastro-esophageal reflux disease without esophagitis; G47.33 Obstructive sleep apnea (adult) (pediatric); I12.9 Hypertensive chronic kidney disease with stage 1 through stage 4 chronic kidney disease, or unspecified chronic kidney disease; G89.29 Other chronic pain
CPT/HCPCS: 36415; 71045; 71250; 72170; 80048; 80053; 81001; 82550; 83605; 83735; 83880; 84436; 84443; 84484; 85007; 85025; 87040; 87077; 87086; 87088; 87186; 87507; 87636; 93005; 93041; 93306; 97161; 97164; 97165; 99285; G0378; J1956

== ENCOUNTER 2022-11-13 22:19 | Emergency (ER) | payer MEDICARE, OTHER, SELFPAY ==
[2022-11-13 22:21] VITALS: BP 145/68; PULSE 86; RESP 16; TEMP 36.8; O2SAT 96; BMI 27.9
--- NOTE | 2022-11-13 22:34 | ECG_ITS ---
APPROVED REPORT Exam: Resting ECG HR:79 bpm ECG Measurements Heart Rate 79 AXES MS 175 P 37 QRSd 81 QRS 14 QT 280 T 34 QTc 314 Conclusion SINUS RHYTHM NONSPECIFIC T-WAVE ABNORMALITY BORDERLINE ECG UNCONFIRMED REPORT Electronically signed by : Flavio Fernandez MD 11/15/2022 15:07:47
--- NOTE | 2022-11-13 22:39 | XR_ITS ---
PROCEDURE INFORMATION: Exam: XR Chest Exam date and time: 11/13/2022 11:03 PM Age: 77 years old Clinical indication: Shortness of breath; Additional info: SOA TECHNIQUE: Imaging protocol: Radiologic exam of the chest. Views: 1 view. COMPARISON: CT CHEST WO CON 09/01/2022 9:28 PM FINDINGS: Lungs: Unremarkable. No consolidation. Pleural spaces: Unremarkable. No pleural effusion. No pneumothorax. Heart/Mediastinum: Mild cardiomegaly. Bones/joints: Unremarkable. IMPRESSION: No acute radiographic findings identified.
[2022-11-13 22:47] LABS: Basophils % 0.5 % (0.1-2.0); Eosinophils # 0.1 K/mm3 (0.0-0.4); Hematocrit 36.9 % (37.0-47.0); Hemoglobin 11.9 g/dL (12.2-16.2); Lymphocytes % 20.2 % (10-50); Mean Corpuscular HGB Conc 32.3 g/dL (31.8-35.4); Mean Corpuscular Hemoglobin 27.5 pg (27.0-31.2); Mean Platelet Volume 7.7 fl (7.4-10.4); Monocytes # 0.9 K/mm3 (0.1-1.0); Monocytes % 9.4 % (1.7-9.3); Neutrophils # 6.8 K/mm3 (1.8-7.8); Neutrophils % 69.1 % (37.0-80.0); Platelet Count 339 K/mm3 (142-424); Red Blood Count 4.34 M/mm3 (4.20-5.40); White Blood Count 9.8 K/mm3 (4.8-10.8)
[2022-11-13 22:49] LABS: Chloride 100 mmol/L (98-107); Potassium 3.6 mmoL/L (3.5-5.1); Sodium 132 mmol/L (136-145)
[2022-11-13 22:52] LABS: Alanine Aminotransferase 17 U/L (12-78); Alkaline Phosphatase 59 U/L (38-126); Anion Gap 12.6 mEq/L (5-15); Aspartate Amino Transferase 26 U/L (14-36); Bilirubin,Total 0.9 mg/dl (0.2-1.3); Blood Urea Nitrogen 8 mg/dl (7-17); Carbon Dioxide 23 mmol/L (22.0-30.0); Creatinine Clearance Estimated 53 mL/min (50-200); Estimated Glomerular Filt Rate 60 ml/min (>60); GFR (African American) 73 ML/MIN (>60)
[2022-11-13 22:53] LABS: Calcium 9.6 mg/dl (8.4-10.2); Glucose 122 mg/dl (74-100); Lactic Acid 0.8 mmol/L (0.7-2.1)
[2022-11-13 23:05] LABS: Troponin I < 0.01 ng/ml (0.00-0.034)
--- NOTE | 2022-11-13 23:07 | CT_ITS ---
PROCEDURE INFORMATION: Exam: CTA Abdomen and Pelvis With Contrast Exam date and time: 11/13/2022 11:26 PM Age: 77 years old Clinical indication: Abdominal pain; Acute; Additional info: Abd pain radiating to back TECHNIQUE: Imaging protocol: Computed tomographic angiography of the abdomen and pelvis with contrast. Exam focused on the arteries. 3D rendering (Not supervised by radiologist): MIP and/or 3D reconstructed images were created by the technologist. Radiation optimization: All CT scans at this facility use at least one of these dose optimization techniques: automated exposure control; mA and/or kV adjustment per patient size (includes targeted exams where dose is matched to clinical indication); or iterative reconstruction. Contrast material: ISOVUE; Contrast volume: 100 ml; Contrast route: INTRAVENOUS (IV); REPORTING DATA: Count of CT and Cardiac NM exams in prior 12 months: This patient has received [address] and 0 known cardiac nuclear medicine studies in the 12 months prior to the current study. COMPARISON: CT ABDOMEN W CON 05/03/2019 10:19 AM FINDINGS: Aorta: No aortic aneurysm. No aortic dissection. Atherosclerotic calcification. Celiac trunk and mesenteric arteries: No occlusion. Approximately 50% stenosis along ostium with poststenotic dilatation. No significant superior mesenteric arterial stenosis. Atherosclerotic calcification at origin. Renal arteries: No occlusion or significant stenosis. Atherosclerotic calcification at origin. Right iliac arteries: No occlusion or significant stenosis. Atherosclerotic calcification. Left iliac arteries: No occlusion or significant stenosis. Atherosclerotic calcification. Liver: Mild fatty liver infiltration. Gallbladder and bile ducts: Unremarkable. No calcified stones. No ductal dilation. Pancreas: Unremarkable. No mass. No ductal dilation. Spleen: Unremarkable. No splenomegaly. Adrenal glands: Unremarkable. No mass. Kidneys and ureters: Unremarkable. No solid mass. No hydronephrosis. Stomach and bowel: Sigmoid colonic diverticula without pericolonic fat stranding. Appendix: No evidence of appendicitis. Intraperitoneal space: Unremarkable. No free air. No significant fluid collection. Lymph nodes: Unremarkable. No enlarged lymph nodes. Urinary bladder: Eccentrically thickened anterior urinary bladder wall with mild pericystic fat stranding (series 3 image 12). Reproductive: Unremarkable as visualized. Bones/joints: No acute fracture. Soft tissues: Unremarkable. IMPRESSION: 1. 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 2. Eccentric anterior urinary bladder wall thickening with focal pericystic fat stranding suggesting focal cystitis. Can not exclude eccentric urinary bladder wall mass. 3. Mild fatty liver infiltration. 4. Sigmoid colonic diverticulosis.
--- NOTE | 2022-11-13 23:07 | CT_ITS ---
PROCEDURE INFORMATION: Exam: CTA Chest With Contrast Exam date and time: 11/13/2022 11:26 PM Age: 77 years old Clinical indication: Pain; Chest pressure; Additional info: Chest pain radiating to back TECHNIQUE: Imaging protocol: Computed tomographic angiography of the chest with contrast. Exam focused on the arteries. 3D rendering (Not supervised by radiologist): MIP and/or 3D reconstructed images were created by the technologist. Radiation optimization: All CT scans at this facility use at least one of these dose optimization techniques: automated exposure control; mA and/or kV adjustment per patient size (includes targeted exams where dose is matched to clinical indication); or iterative reconstruction. Contrast material: ISOVUE; Contrast volume: 100 ml; Contrast route: INTRAVENOUS (IV); REPORTING DATA: Count of CT and Cardiac NM exams in prior 12 months: This patient has received [address] and 0 known cardiac nuclear medicine studies in the 12 months prior to the current study. COMPARISON: CT CHEST WO CON 09/01/2022 9:28 PM FINDINGS: Pulmonary arteries: Normal. No pulmonary emboli. Aorta: Atherosclerotic calcification of thoracic aorta. No aortic dissection. No aortic aneurysm. Lungs: Underlying interstitial lung markings. Underlying mild bronchiectasis. Underlying paraseptal emphysematous changes with prominent bullae in both posterior lower lobes. Pleural spaces: Unremarkable. No pneumothorax. No pleural effusion. Heart: Unremarkable. No cardiomegaly. No pericardial effusion. Coronary arteries: Atherosclerotic calcification of coronary arteries. Lymph nodes: Enlarged mediastinal and perihilar lymph nodes. Largest discrete mediastinal lymph node measures 2.1 x 2.8 cm in subcarinal region. Left perihilar lymph measures up to 1.1 x 1.6 cm. Right perihilar lymph node measures up to 1.5 x 1.6 cm. No axillary lymphadenopathy. Diaphragm: Moderate to moderately large hiatal hernia. Bones/joints: Unremarkable. No acute fracture. Soft tissues: Unremarkable. IMPRESSION: 1. No central or segmental pulmonary embolism by CT criteria. 2. Etiology indeterminate mediastinal and perihilar lymphadenopathy. 3. Underlying emphysematous changes. 4. Hiatal hernia.
--- NOTE | 2022-11-13 23:27 | HMH.EDGENADL ---
Discharge Plan Disposition Patient Disposition: Home, Self-Care Condition: Good Prescriptions Prescriptions: No Action sulfamethoxazole-trimethoprim 400-80 mg tablet 1 tab PO BID cranberry extract 250 mg capsule 250 mg PO DAILY Rx Instructions: administer with a meal cholecalciferol (vitamin D3) [Vitamin D3] 25 mcg (1,000 unit) capsule 25 mcg PO DAILY bisacodyl [Dulcolax (bisacodyl)] 5 mg tablet,delayed release (DR/EC) 5 mg PO HS PRN alprazolam [Xanax] 0.25 mg tablet 0.25 - 0.75 mg PO TID PRN (Reason: anxiety) Qty: 90 0RF gabapentin 100 mg capsule 100 mg PO DAILY Qty: 90 1RF ondansetron 4 mg tablet,disintegrating 4 mg PO BID PRN (Reason: nausea and vomiting) 5 Days Qty: 10 2RF lansoprazole 30 mg capsule,delayed release(DR/EC) 30 mg PO BID 30 Days Qty: 60 2RF levothyroxine [Synthroid] 125 mcg tablet 125 mcg PO DAILYDM 90 Days Qty: 90 0RF isosorbide mononitrate 30 mg tablet extended release 24 hr 30 mg PO DAILY clopidogrel 75 mg tablet 75 mg PO DAILY alendronate 35 mg tablet 35 mg PO WEEKLY citalopram 20 mg tablet 20 mg PO DAILY montelukast 10 mg tablet 10 mg PO HS metoprolol succinate 25 mg tablet extended release 24 hr 12.5 mg PO DAILY albuterol sulfate [Ventolin HFA] 90 mcg/actuation HFA aerosol inhaler 2 puff IH Q4HP PRN (Reason: Shortness Of Breath) furosemide 40 mg Tablet 40 mg PO DAILY 30 Days Qty: 30 0RF aspirin 81 MG tablet,delayed release (DR/EC) 81 mg PO DAILY Referrals Follow up/Referrals: Osvaldo Ozuna MD [Primary Care Provider] - See instructions Activity Restrictions/Add. Instructions Additional Instructions/Restrictions: Please follow-up with your primary care provider. Please return to the emergency department if you develop any new or worsening symptoms or become concerned for your health. Your CT scan showed some enlarged lymph nodes in the chest. I am not certain what the cause of these lymph nodes are, we do not see any obvious infection or mass as the cause. I recommend that you have repeat imaging in the future to follow this up. Clinical Impressions Clinical Impression: Abdominal pain, Weakness, Lymph nodes enlarged, Celiac artery stenosis Discharge ED Provider: Hola Gonzalez General Adult HPI General Chief complaint: Weakness Stated complaint: cough,congestion, back pain Time Seen by Provider: 11/13/22 22:58 Mode of Arrival: Wheelchair Source of Information: Patient Limitations: No Limitations Description of Symptoms (Recalled from ER Triage Doc. by RN): pt states on wednesday she had vomitting and diaherra. today pt began SOA and coughing and episodes of chest tightness radiating to back. History of Present Illness HPI narrative: 77-year-old female history of GERD, frequent UTIs, hypertension presents with multiple complaints. She reports that she feels generally weak and had onset of epigastric pain/nausea with pain radiating to back this morning. She reports that she had some nausea, vomiting, diarrhea earlier this week but has not had the symptoms for the last few days. She reports no active chest pain at the moment. Reports no cardiac history. She denies any current urinary symptoms. She reports that she has had multiple episodes of UTI and bacteremia as result. She has been on Bactrim for UTI prophylaxis for the last month or so and was just taken off of that medication yesterday. Patient also reports mild congestion and cough for the last couple of days with elevated temperature, no true fever. Related Data Home Medications Medication Instructions Recorded Confirmed aspirin 81 mg tablet,delayed 81 mg PO DAILY heart health 10/08/17 10/07/22 release alendronate 35 mg tablet 35 mg PO WEEKLY osteoporosis 09/01/22 10/07/22 citalopram 20 mg tablet 20 mg PO DAILY Depression 09/01/22 10/07/22 clopidogrel 75 mg tablet 75 mg PO DAILY platelet inhibitor
[2022-11-13 23:28] LABS: Lipase 59 U/L (23-300); Magnesium 1.7 mg/dl (1.6-2.3)
[2022-11-13 23:41] LABS: Troponin I < 0.01 ng/ml (0.00-0.034)
[2022-11-14] VITALS: BP 131/73; PULSE 76; RESP 22; O2SAT 90
--- NOTE | 2022-11-14 00:12 | PC.NURSE ---
Pt up and ambulated with minimal assistance to the bathroom. CR
[2022-11-14 00:30] VITALS: BP 137/82; PULSE 80; RESP 24; O2SAT 91
--- NOTE | 2022-11-14 00:30 | PC.NURSE ---
in room talking with patient at this time
[2022-11-14 00:54] LABS: Appearance,Urine CLEAR (Clear); Bilirubin,Urine Negative (Negative); Blood, Urine 1+ (Negative); Color,Urine YELLOW (Yellow); Glucose,Urine (UA) Negative (Negative); Ketones,Urine Negative (Negative); Leukocyte Esterase,Urine 1+ (Negative); Microscopic, Urine URINE MICROSCOPIC (MICROSCOPIC); Nitrate,Urine Negative (Negative); Protein,Urine Negative (Negative); Specific Gravity, Urine <= 1.005 (1.005-1.030); Urobilinogen,Urine 0.2 EU/dl (0.2)
[2022-11-14 01:00] VITALS: BP 115/67; PULSE 71; RESP 20; O2SAT 96
[2022-11-14 01:09] LABS: Bacteria,Urine Trace /lpf; Squamous Epithelial Cell,Urine Occasional #/hpf (0-5); WBC,Urine Occasional #/hpf (0-3)
--- NOTE | 2022-11-14 01:24 | PC.NURSE ---
in room talking with patient at this time.
[2022-11-14 01:44] VITALS: BP 115/59; PULSE 69; RESP 18; TEMP 36.6; O2SAT 97
== END 2022-11-14 01:40 | disposition home or self-care (01) ==
PROVIDERS: Emergency Medicine; Emergency Provider Emergency Medicine; PCP Family Medicine
DX: R10.13 Epigastric pain (principal); R07.89 Other chest pain; R53.1 Weakness; M54.9 Dorsalgia, unspecified; I77.4 Celiac artery compression syndrome; E03.9 Hypothyroidism, unspecified; G47.33 Obstructive sleep apnea (adult) (pediatric); M85.80 Other specified disorders of bone density and structure, unspecified site
CPT/HCPCS: 71045; 71275; 74174; 80053; 81001; 83605; 83690; 83735; 84484; 85025; 87040; 87086; 93005; 96374; 96375; 99285; J2405; Q9967

== ENCOUNTER 2023-06-25 16:40 | Outpatient (CLI) | payer MEDICARE, OTHER, SELFPAY ==
[2023-06-25 16:54] LABS: Basophils # 0.1 K/mm3 (0-0.2); Basophils % 1.7 % (0.1-2.0); Eosinophils # 0.3 K/mm3 (0.0-0.4); Eosinophils % 6.6 % (0.1-12.0); Hematocrit 37.1 % (37.0-47.0); Hemoglobin 11.7 g/dL (12.2-16.2); Lymphocytes # 1.6 K/mm3 (0.7-4.5); Lymphocytes % 30.4 % (10-50); Mean Corpuscular HGB Conc 31.5 g/dL (31.8-35.4); Mean Corpuscular Hemoglobin 27.8 pg (27.0-31.2); Mean Corpuscular Volume 88.4 fl (81-99); Mean Platelet Volume 8.6 fl (7.4-10.4); Monocytes # 0.4 K/mm3 (0.1-1.0); Monocytes % 8.5 % (1.7-9.3); Neutrophils # 2.7 K/mm3 (1.8-7.8); Neutrophils % 52.9 % (37.0-80.0); Platelet Count 316 K/mm3 (142-424); Red Blood Count 4.19 M/mm3 (4.20-5.40); Red Cell Distribution Width 13.8 % (11.5-17.5); White Blood Count 5.1 K/mm3 (4.8-10.8)
[2023-06-25 17:57] LABS: Chol/HDL Ratio 3.4 (1-3.5); Cholesterol 211 mg/dl (140-200); HDL Cholesterol 62 mg/dl (40-60); Magnesium 1.9 mg/dl (1.6-2.3); Triglycerides 102 mg/dl (30-150); VLDL Cholesterol 20 mg/dL (0-40)
[2023-06-25 18:08] LABS: Direct LDL Cholesterol 97.68 mg/dL (100-129)
[2023-06-25 18:16] LABS: Free T4 (Free Thyroxine) 1.95 ng/dl (0.78-2.19)
[2023-06-25 18:28] LABS: Thyroid Stimulating Hormone 0.23 uIU/mL (0.465-4.68)
[2023-06-25 19:04] LABS: Vitamin B12 253 pg/mL (239-931)
[2023-07-05 15:31] LABS: 1,25 Dihydroxy Vitamin D 27 pg/mL (.); 1,25-Dihydroxy, Vitamin D-2 <10 pg/mL (.); 1,25-Dihydroxy, Vitamin D-3 27 pg/mL (.)
== END 2023-06-25 23:59 | disposition home or self-care (01) ==
LOC: LAB.DROPOF 16:41
PROVIDERS: PCP Family Medicine; Visit Provider Family Medicine
DX: E55.9 Vitamin D deficiency, unspecified (principal); R53.83 Other fatigue; I10 Essential (primary) hypertension; E78.5 Hyperlipidemia, unspecified; Z68.29 Body mass index [BMI] 29.0-29.9, adult
CPT/HCPCS: 80061; 82607; 82652; 82746; 83735; 84439; 84443; 85025

== ENCOUNTER 2023-08-09 18:56 | Outpatient (CLI) | payer MEDICARE, OTHER, SELFPAY ==
[2023-08-09 20:49] LABS: Thyroid Stimulating Hormone 2.25 uIU/mL (0.465-4.68)
== END 2023-08-09 23:59 | disposition home or self-care (01) ==
LOC: LAB.DROPOF 18:59
PROVIDERS: PCP Family Medicine; Visit Provider Family Medicine
DX: E03.9 Hypothyroidism, unspecified (principal)
CPT/HCPCS: 84443

== ENCOUNTER 2023-08-13 14:25 | Outpatient (CLI) | payer MEDICARE, OTHER, SELFPAY ==
--- NOTE | 2023-08-13 14:26 | MM_ITS ---
PROCEDURE INFORMATION: Exam: MG Bilateral Screening 3D Mammography Exam date and time: 08/13/2023 2:15 PM Age: 77 years old Clinical indication: Screening. No family history of breast cancer. TECHNIQUE: Imaging protocol: Bilateral Screening tomosynthesis and 2D mammography including computer-aided detection (CAD) when performed. COMPARISON: 1. MG MM DIG SCREENING MAMM BI W/CAD 07/31/2022 10:29 AM 2. MG MM DIG SCREENING MAMM BI W/CAD 07/21/2021 3:57 PM 3. MG MM DIG SCREENING MAMM BI W/CAD 07/12/2020 10:58 AM 4. MG MM DIG SCREENING MAMM BI W/CAD 07/05/2019 10:26 AM FINDINGS: MAMMOGRAPHY: Breast composition: The breasts are almost entirely fatty. Mass: None. Architectural distortion: None. Calcifications: No suspicious calcifications. Asymmetric density: None. Skin thickening: None. Axillary adenopathy: None. IMPRESSION: No mammographic evidence of malignancy. Annual screening is recommended unless otherwise clinically indicated. ASSESSMENT: BI-RADS Category 1: Negative
== END 2023-08-13 23:59 | disposition home or self-care (01) ==
LOC: RAD 14:26
PROVIDERS: PCP Family Medicine; Visit Provider Family Medicine
DX: Z12.31 Encounter for screening mammogram for malignant neoplasm of breast (principal)
CPT/HCPCS: 77063; 77067

== ENCOUNTER 2023-11-10 10:10 | Outpatient (CLI) | payer MEDICARE, OTHER, SELFPAY ==
[2023-11-10 17:19] LABS: Thyroid Stimulating Hormone 3.52 uIU/mL (0.465-4.68)
== END 2023-11-10 23:59 | disposition home or self-care (01) ==
LOC: LAB.DROPOF 11-11 09:14
PROVIDERS: PCP Family Medicine; Visit Provider Family Medicine
DX: E05.90 Thyrotoxicosis, unspecified without thyrotoxic crisis or storm (principal)
CPT/HCPCS: 84443

== ENCOUNTER 2023-12-10 08:47 | Outpatient (CLI) | payer MEDICARE, OTHER, SELFPAY ==
--- NOTE | 2023-12-10 08:47 | FL_ITS ---
FINAL REPORT CLINICAL HISTORY: difficulty swallowing pills get caught in throat lots of drainage sleeps with cpap dap:773.16 uGym 54.23 mGy 1:36 min FINDINGS: ESOPHAGRAM HISTORY: Difficulty swallowing PROCEDURE: The patient ingested barium. Spot and overhead films were obtained. FINDINGS: There is marked esophageal dysmotility. There is gastroesophageal reflux to the mid esophagus. There is a large hiatal hernia. There is narrowing above the level of the hiatal hernia but a barium tablet passes through this without delay. IMPRESSION: 1. Large hiatal hernia. 2. Marked esophageal dysmotility and gastroesophageal reflux. 3. Mild narrowing of the distal esophagus just above the level of the hiatal hernia but a 13 mm barium tablet passes through this region. Fluoroscopy time: 1 minute 36 seconds Radiation exposure in Reference air Kerma: 54.23 mGy Fluoro dose: 773.16 DAP in uGym2 Films reviewed , interpreted and dictated by Dr. Eduardo Transcribed by Eh Draper PA-C. Reviewed, Interpreted and Dictated by Alvarado Eduardo III, MD Transcribed by DAVID Khalil Authenticated and [facility]
--- NOTE | 2023-12-10 08:47 | CT_ITS ---
FINAL REPORT TECHNIQUE: Thin section axial CT images of the facial bones and sinuses were obtained without contrast. Coronal reformatted images were also obtained.This study was performed with techniques to keep radiation doses as low as reasonably achievable, (ALARA). Individualized dose reduction techniques using automated exposure control or adjustment of mA and/or kV according to the patient''''s size were employed. CLINICAL HISTORY: hx sinus surgery FINDINGS: There is mild mucosal thickening in the maxillary sinuses. No fluid levels are identified. The ostiomeatal units have an unremarkable appearance. There is no significant deviation of the nasal septum. No fracture or acute bony abnormality is identified. IMPRESSION: Maxillary sinus disease. Reviewed, Interpreted and Dictated by Alvarado Eduardo III, MD Transcribed by Roshni Pittman Authenticated and [facility]
[2023-12-10] MEDS: BARIUM SULFATE (E-Z-HD 340GM);135ML BOTTLE 135 ML PO (09:18)
[2023-12-10] MEDS: BARIUM SULFATE(LIQUID E-Z-PAQUE);355ML BOTTLE 355 ML PO (09:18)
== END 2023-12-10 23:59 | disposition home or self-care (01) ==
LOC: RAD 08:47
PROVIDERS: PCP Family Medicine; Visit Provider Nurse Practitioner
DX: R09.81 Nasal congestion (principal); R13.10 Dysphagia, unspecified
CPT/HCPCS: 70486; 74220

== ENCOUNTER 2024-02-09 10:47 | Day surgery (SDC) | payer MEDICARE, OTHER, SELFPAY ==
[2024-02-09 11:14] VITALS: BP 135/70; PULSE 52; RESP 18; TEMP 36.2; O2SAT 96; BMI 28.1
[2024-02-09] MEDS: LACTATED RINGERS 1000ML 1,000 ML 25 ML IV (11:25)
--- NOTE | 2024-02-09 12:20 | EXP.HP ---
History of Present Illness *Admission Date: 02/09/24 *Reason for visit:: Swallowing difficulty *History of present illness: Mrs. Sutton is an 78-year-old female who is here for diagnostic/therapeutic upper endoscopy secondary to dysphagia. The examination is deemed medically necessary for EGD. The patient has been seen, interviewed and examined prior to the procedure by both myself and the anesthesia provider. [facility] Disclaimer: The information contained in this section may have been updated after the patient was seen, as this information can be updated by other users. Medical History Esophageal dysmotility Hiatal hernia Maxillary sinusitis Cough Sinus congestion Dry mouth DAVID (obstructive sleep apnea) Hypothyroidism (acquired) Angina at rest Acute cystitis with hematuria Osteopenia after menopause Urinary urgency Cervical radiculopathy due to degenerative joint disease of spine Degenerative joint disease of cervical spine Surgical History History of sinus surgery History of appendectomy History of removal of ovarian cyst History of bladder surgery Previous back surgery History of hysterectomy Family History (Updated 02/09/24 @ 11:16 by Ariana Kenney RN) Mother Stroke Other Cancer Heart attack Social History (Updated 02/09/24 @ 11:17 by Ariana Kenney RN) Smoking Status: Never smoker second hand exposure: No alcohol intake: never substance use type: denies use current occupational status: retired Travel in the last 8 weeks: None ([place]) household members: spouse housing: house current occupational exposures/hazards: No caffeine: No Other Medical History Have you received the Flu Vaccine for this season: No Have you received the Pneumonia Vaccine: Yes Review of Systems Review of Systems Review of systems (narrative): Negative *Cardiovascular Comments: Negative *Gastrointestinal Comments: Negative *Genitourinary Comments: Negative *Musculoskeletal Comments: Negative *Neurologic Comments: Negative Meds Home Medications and Allergies Home Medications ?Medication ?Instructions ?Recorded ?Confirmed ?Type aspirin 81 mg tablet,delayed 81 mg PO DAILY heart health 10/08/17 02/09/24 History release albuterol sulfate 90 mcg/actuation 2 puff inhalation Q4HP PRN 09/02/22 02/09/24 History aerosol inhaler (Ventolin HFA) Shortness Of Breath bisacodyl 5 mg tablet,delayed 5 mg PO HS PRN . 10/07/22 02/09/24 History release (Dulcolax (bisacodyl)) cholecalciferol (vitamin D3) 25 25 mcg PO DAILY 10/07/22 02/09/24 History mcg (1,000 unit) capsule (Vitamin D3) cranberry extract 250 mg capsule 250 mg PO DAILY 10/07/22 02/09/24 History triamcinolone acetonide 0.1 % 1 applic topical DAILY itching #60 11/16/22 02/09/24 Rx lotion mL ondansetron 4 mg disintegrating 4 mg PO BID PRN nausea and 02/16/23 02/09/24 Rx tablet vomiting 5 days #10 tabs nitroglycerin 0.4 mg sublingual 0.4 mg buccal DAILY PRN CHEST PAIN 06/25/23 02/09/24 History tablet clopidogrel 75 mg tablet 75 mg PO DAILY platelet inhibitor 10/20/23 02/09/24 Rx #90 tabs levothyroxine 125 mcg tablet See Rx Instructions .Route 10/20/23 02/09/24 Rx .COMPLEX #90 tabs levocetirizine 5 mg tablet (Xyzal) 5 mg PO DAILY #30 tabs 12/14/23 02/09/24 Rx citalopram 20 mg tablet (Celexa) 40 mg (2 x 20 mg) PO DAILY 90 days 01/24/24 02/09/24 Rx #180 tabs isosorbide mononitrate 30 mg 30 mg PO DAILY Hypertension 90 01/24/24 02/09/24 Rx tablet,extended release 24 hr days #90 tabs metoprolol succinate 25 mg 12.5 mg (1/2 x 25 mg) PO DAILY 01/24/24 02/09/24 Rx tablet,extended release 24 hr Hypertension 90 days #45 tabs New Prescriptions to Start Prescriptions: Allergies Allergy/AdvReac Type Severity Reaction Status Date / Time cefdinir (From OMNICEF) Allergy Intermediate I-RASH Verified 02/09/24 11:08 sulfamethoxazole (From Allergy Rash Verified 02/09/24 11:08 ) trimethoprim (From ) Allergy Rash Verified 02/09/24 11:08 Exam Data for Last 24 hours Vital signs and Labs for Last 24 Hours: Temp Pulse Resp BP Pulse Ox O2 Del Method 97.2 F L 52 L 18 135/70 96 Room Air 02/09/24 11:14 02/09/24 11:14 02/09/24 11:14 02/09/24 11:14 02/09/24 11:14 02/09/24 11:14 I & O for Last 24 hours: Intake & Output 02/06/24 02/07/24 02/08/24 02/09/24 23:59 23:59 23:59 23:59 Weight 164 lb *Routine HEENT Exam Head: Present normocephalic Eye: Present EOMI and PERRL ENT: Present mucous membranes moist *Routine Neck Exam Neck: Present supple *Routine Respiratory Exam Respiratory: Present CTA bilaterally *Routine Cardiovascular Exam Cardiovascular: Present RRR *Routine Abdominal Exam Abdominal: Present soft and normoactive bowel sounds; Absent tenderness *Routine Rectal Exam Rectal:: deferred *Routine Genitalia Exam Genitalia:: deferred *Routine Extremities Exam Extremities: Absent cyanosis, clubbing or edema *Routine Skin Exam Skin: Present warm; Absent rash *Routine Neurological Exam Neurological: Present alert and oriented X3 Assessment and Plan *Assessment and plan (1) Dysphagia: Status: Acute Qualifiers: Dysphagia type: unspecified Qualified Code(s): R13.10 - Dysphagia, unspecified Category: Medical Code(s): R13.10 - Dysphagia, unspecified (2) Hiatal hernia: Status: Acute Category: Medical Code(s): K44.9 - Diaphragmatic hernia without obstruction or gangrene (3) Large hiatal hernia: Status: Acute Category: Medical Code(s): K44.9 - Diaphragmatic hernia without obstruction or gangrene Plan A/P: 1. Dysphagia with GERD. Her barium swallow showed a large hiatal hernia and the dysphagia with barium findings is the preprocedural diagnosis. The patient will be anesthetized/sedated using MAC sedation. The patient has been seen and examined. Cardiac and lung assessment prior to the examination is stable. Proceed with planned diagnostic EGD
[2024-02-09 12:26] VITALS: O2SAT 96
--- NOTE | 2024-02-09 12:43 | HMH.PROCNOTE ---
[facility] Procedure Note Date: 02/09/24 Time: 12:48 Procedure Note:: Upper Endoscopy Procedure Report: Esophagogastroduodenoscopy with cold biopsies and TTS balloon dilation Endoscopost: Troy Barbour II, MD Referring Physician: Osvaldo Ozuna MD Date of Procedure: February 09, 2024 Equipment: Olympus GIF 190 standard upper endoscope Sedation: MAC sedation Indications: Mrs. Sutton is an 78-year-old female with dysphagia to mostly solids but sometimes to liquids. She does get bloating, belching, gassiness and upper abdominal discomfort. She does report some hoarseness and coughing. She reports early satiety. She is on omeprazole twice daily. She did see ENT and had a barium swallow which showed a large hiatal hernia with esophageal dysmotility. A barium tablet at that time passed readily into the stomach. There appeared to be some narrowing of the distal esophagus. She has never had an upper endoscopy. She does report chronic constipation and takes MiraLAX as needed. Procedure: Prior to the procedure, a history and physical exam was performed, and patient's medications and allergies were reviewed. The risks, benefits and alternatives of the sedation and procedure were discussed with the patient. All questions were answered and informed consent was obtained. The patient was brought to the procedure room. Patient identification and proposed procedure were verified by the physician and the nurse. The patient was placed in a left lateral decubitus position and the scope was passed under direct vision. Throughout the procedure, the patient's blood pressure, pulse, and oxygen saturations were monitored continuously. The upper GI endoscopy was accomplished without difficulty. The patient tolerated the procedure well. Findings: The scope was passed directly into the upper esophagus and advanced to the third portion of the duodenum. The post bulbar duodenum and duodenal bulb were normal with normal mucosa and conniventes. The scope was withdrawn through a normal duodenal bulb and pylorus into the stomach. There was some mild linear reactive gastropathy of the antrum and body. The body and fundus were normal. Upon retroflexion there was a large hiatal hernia with paraesophageal component to this hiatal hernia. The diaphragmatic hiatus was at 39 cm from the incisors. The top of the gastric folds and Z-line were at 31 cm from the incisors leaving an 8 cm hiatal hernia/paraesophageal hernia. The scope was then withdrawn into the esophagus. There was no evidence of reflux esophagitis or Ordoñez's. There was no Schatzki's ring or stricturing. There were strong tertiary contractions and evidence of moderate esophageal dysmotility. The entire esophagus was dilated to 60 Upper Sorbian/20 mm with a TTS hydrostatic balloon. There was only some resistance at the cricopharyngeus. The remainder of the esophageal mucosa was normal. Impression: 1. Cricopharyngeal spasm status post dilation to 20 mm 2. Large hiatal hernia (8 cm)/paraesophageal hernia with nonerosive GERD and moderate esophageal dysmotility 3. Mild linear reactive gastropathy Plan: I will follow-up the biopsies. Certainly if her dyspepsia and swallowing difficulties persist, I would consider minimally invasive repair of the hiatal hernia. A paraesophageal hernia refers to larger portions of the stomach that are pushed up into the chest. Sometimes with paraesophageal hernia, there is torsion of the stomach with resulting stomach obstruction (i.e. gastric volvulus) which can lead to a medical emergency. The stomach may turn or twist, causing very bad pain. Not all paraesophageal hernias need to be repaired but we recommend surgical repair when persons have ongoing dyspeptic symptoms because of the potential for increased risk. I would recommend that she continue a fiber bowel regimen on a long-term daily maintenance basis. We will discuss additional treatment options.
[2024-02-09 12:46] VITALS: BP 90/56; PULSE 51; RESP 16; TEMP 36.4; O2SAT 92
[2024-02-09 12:56] VITALS: BP 97/56; PULSE 56; RESP 16; O2SAT 93
[2024-02-09 13:05] VITALS: BP 113/73; PULSE 53; RESP 16; O2SAT 94
[2024-02-09 13:16] VITALS: BP 137/74; PULSE 56; RESP 16; O2SAT 95
== END 2024-02-09 13:21 | disposition home or self-care (01) ==
PROVIDERS: PCP Family Medicine; Visit Provider Internal Medicine Gastroenterology
PROC: 0DJ08ZZ Inspection of Upper Intestinal Tract, Via Natural or Artificial Opening Endoscopic (ICD-10-PCS; CPT 43235; principal; 2024-02-09 12:30)
DX: R13.10 Dysphagia, unspecified (principal); K44.9 Diaphragmatic hernia without obstruction or gangrene; R10.10 Upper abdominal pain, unspecified; R68.81 Early satiety; K22.4 Dyskinesia of esophagus; K31.9 Disease of stomach and duodenum, unspecified; K21.9 Gastro-esophageal reflux disease without esophagitis; J39.2 Other diseases of pharynx
CPT/HCPCS: 43239; 43249; 88305; C1726; J7120

== ENCOUNTER 2024-05-22 13:55 | Outpatient (CLI) | payer MEDICARE, OTHER, SELFPAY | END 2024-05-22 23:59 | disposition home or self-care (01) | LOC: LAB.DROPOF 05-24 13:56 | PROVIDERS: PCP Family Medicine; Visit Provider Family Medicine | DX: Z11.4 Encounter for screening for human immunodeficiency virus [HIV] (principal); Z11.59 Encounter for screening for other viral diseases | CPT/HCPCS: 86803; 87389 ==

== ENCOUNTER 2024-05-22 17:49 | Outpatient (CLI) | payer MEDICARE, OTHER, SELFPAY ==
[2024-05-22 20:02] LABS: Basophils # 0.1 K/mm3 (0-0.2); Eosinophils # 0.2 K/mm3 (0.0-0.4); Eosinophils % 2.9 % (0.1-12.0); Hematocrit 40.1 % (37.0-47.0); Lymphocytes # 2.4 K/mm3 (0.7-4.5); Lymphocytes % 29.1 % (10-50); Mean Corpuscular HGB Conc 32.4 g/dL (31.8-35.4); Mean Corpuscular Hemoglobin 28.9 pg (27.0-31.2); Mean Corpuscular Volume 89.1 fl (81-99); Mean Platelet Volume 10.1 fl (7.4-10.4); Monocytes # 0.8 K/mm3 (0.1-1.0); Neutrophils # 4.8 K/mm3 (1.8-7.8); Neutrophils % 57.5 % (37.0-80.0); Platelet Count 346 K/mm3 (142-424); Red Cell Distribution Width 13.2 % (11.5-17.5); White Blood Count 8.3 K/mm3 (4.8-10.8)
[2024-05-22 20:48] LABS: Albumin Level 4.6 g/dl (3.5-5.0); Chloride 104 mmol/L (98-107); Potassium 5.3 mmoL/L (3.5-5.1); Sodium 133 mmol/L (136-145)
[2024-05-22 20:51] LABS: Alanine Aminotransferase 15 U/L (12-78); Albumin/Globulin Ratio 1.3 (1.1-1.8); Alkaline Phosphatase 56 U/L (38-126); Anion Gap 12.3 mEq/L (5-15); Aspartate Amino Transferase 27 U/L (14-36); Bilirubin,Total 0.8 mg/dl (0.2-1.3); Blood Urea Nitrogen 18 mg/dl (7-17); Calcium 10.1 mg/dl (8.4-10.2); Carbon Dioxide 22 mmol/L (22.0-30.0); Estimated Glomerular Filt Rate 48 ml/min (>60); GFR (African American) 58 ML/MIN (>60); Globulin 3.5 g/dL (1.3-3.2); Glucose 94 mg/dl (74-100); Total Protein,Serum 8.1 g/dl (6.3-8.2)
[2024-05-22 21:14] LABS: HIV Combo NEGATIVE (Negative)
[2024-05-22 21:38] LABS: Hepatitis C Ab Qual. W/ RFX NEGATIVE (Negative)
[2024-05-23 11:14] LABS: Chol/HDL Ratio 3.1 (1-3.5); Cholesterol 155 mg/dl (140-200); HDL Cholesterol 50 mg/dl (40-60); Triglycerides 142 mg/dl (30-150); VLDL Cholesterol 28 mg/dL (0-40)
[2024-05-23 14:46] LABS: Free T4 (Free Thyroxine) 1.68 ng/dl (0.78-2.19)
[2024-06-03 02:20] LABS: 1,25 Dihydroxy Vitamin D 28 pg/mL (.); 1,25-Dihydroxy, Vitamin D-2 <10 pg/mL (.); 1,25-Dihydroxy, Vitamin D-3 27 pg/mL (.)
== END 2024-05-22 23:59 | disposition home or self-care (01) ==
LOC: LAB.DROPOF 17:50
PROVIDERS: Family Medicine; PCP Nurse Practitioner Family; Visit Provider Nurse Practitioner Family
DX: E03.9 Hypothyroidism, unspecified (principal); I25.10 Atherosclerotic heart disease of native coronary artery without angina pectoris; E55.9 Vitamin D deficiency, unspecified
CPT/HCPCS: 80053; 80061; 82652; 84439; 84443; 85025; 86803; 87389

== ENCOUNTER 2024-07-03 12:31 | Outpatient (CLI) | payer MEDICARE, OTHER, SELFPAY ==
--- OUTSIDE RECORDS SUMMARY | 2024-07-03 12:32 | XMS_ITS | Data Portability ---
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 Plan of Treatment Reminders Order Date Submit Date Provider Last Modified By Organization Details Last Modified Time Details Appointments None recorded. Lab urinalysis panel, auto 2022 023 [facility], [address], [place], [address], 3 17:22:54 urinalysis panel, auto 2022 023 [facility], [address], [address], [place], [address], 3 09:50:50 urinalysis panel, auto 2022 023 [facility], [address], [address], [place], [address], 3 10:19:34 Referral None recorded. Procedures None recorded. Surgeries None recorded. Imaging None recorded. Medication Orders Bactrim 400 mg-80 mg tablet 2022 023 [facility], [address] [place], [address], 3 09:51:42 Bactrim 400 mg-80 mg tablet 2022 023 [facility], [address] [place], [address], 3 10:20:14 Patient TargetsNo targets recorded. Patient InstructionsNo instructions recorded. Reason for Referral None Reported. Results Created Date Observation Date Name Description Value Unit Range Abnormal Flag Note LastModifiedBy Organization Detail LastModifiedTime 09/16/19 23 09/15/2022 urina lysis panel , auto Unknown Analyte Clean Catch Not Available [facility] [address] [place] [address] [address], [place], [address], 09/15/2022 10:09:17 09/16/19 23 09/15/2022 urina lysis panel , auto Unknown Analyte Yellow Not Available [facility] [address], [place], [address], 09/15/2022 10:09:17 09/16/19 23 09/15/2022 urina lysis panel , auto Unknown Analyte Clear Not Available [facility] [address], [place], [address], 09/15/2022 10:09:17 09/16/19 23 09/15/2022 urina lysis panel , auto Unknown Analyte 1.010 Not Available [facility] [address] [place] [address] [address], [address], 09/15/2022 10:09:17 09/16/19 23 09/15/2022 urina lysis panel , auto Unknown Analyte 6.0 Not Available [facility] [address], [place], [address], 09/15/2022 10:09:17 09/16/19 23 09/15/2022 urina lysis panel , auto Unknown Analyte Negati ve Not Available [facility] [address], [place], [address], 09/15/2022 10:09:17 09/16/19 23 09/15/2022 urina lysis panel , auto Unknown Analyte Negati ve Not Available [facility] [address], [place], [address], 09/15/2022 10:09:17 09/16/19 23 09/15/2022 urina lysis panel , auto Unknown Analyte Negati ve Not Available [facility] [address], [place], [address], 09/15/2022 10:09:17 09/16/19 23 09/15/2022 urina lysis panel , auto Unknown Analyte Normal Not Available [facility] [address], [place], [address], 09/15/2022 10:09:17 09/16/19 23 09/15/2022 urina lysis panel , auto Unknown Analyte Negati ve Not Available [facility] [address], [place], [address], 09/15/2022 10:09:17 09/16/19 23 09/15/2022 urina lysis panel , auto Unknown Analyte Normal Not Available [facility] [address], [place], [address], 09/15/2022 10:09:17 09/16/19 23 09/15/2022 urina lysis panel , auto Unknown Analyte Negati ve Not Available [facility] [address], [place], [address], 09/15/2022 10:09:17 09/16/19 23 09/15/2022 urina lysis panel , auto Unknown Analyte Negati ve Not Available [facility] [address], [place], [address], 09/15/2022 10:09:17 10/15/19 23 10/14/2022 urina lysis panel , auto Unknown Analyte Clean Catch Not Available [facility] [address], [place], [address], 10/14/2022 09:37:57 10/15/19 23 10/14/2022 urina lysis panel , auto Unknown Analyte Yellow Not Available [facility] [address], [place], [address], 10/14/2022 09:37:57 10/15/19 23 10/14/2022 urina lysis panel , auto Unknown Analyte Clear Not Available [facility] [address], [place], [address], 10/14/2022 09:37:57 10/15/19 23 10/14/2022 urina lysis panel , auto Unknown Analyte 1.010 Not Available [facility] [address], [place], [address], 10/14/2022 09:37:57 10/15/19 23 10/14/2022 urina lysis panel , auto Unknown Analyte 6.0 Not Available [facility] [address], [place], [address], 10/14/2022 09:37:57 10/15/19 23 10/14/2022 urina lysis panel , auto Unknown Analyte Negati ve Not Available [facility] [address], [place], [address], 10/14/2022 09:37:57 10/15/1910/14/2022 urina lysis panel , auto Unknown Analyte Negati ve Not Available [facility] [address], [place], [address], 10/14/2022 09:37:57 10/15/19 23 10/14/2022 urina lysis panel , auto Unknown Analyte Negati ve Not Available [facility] [address], [place], [address], 10/14/2022 09:37:57 10/15/19 23 10/14/2022 urina lysis panel , auto Unknown Analyte Normal Not Available [facility] [address], [place], [address], 10/14/2022 09:37:57 10/15/19 23 10/14/2022 urina lysis panel , auto Unknown Analyte Negati ve Not Available [facility] [address], [place], [address], 10/14/2022 09:37:57 10/15/19 23 10/14/2022 urina lysis panel , auto Unknown Analyte Normal Not Available [facility] [address], [place], [address], 10/14/2022 09:37:57 10/15/19 23 10/14/2022 urina lysis panel , auto Unknown Analyte Negati ve Not Available [facility] [address], [place], [address], 10/14/2022 09:37:57 10/15/1910/14/2022 urina lysis panel , auto Unknown Analyte Negati ve Not Available [facility] [address], [place], [address], 10/14/2022 09:37:57 11/13/1911/12/2022 urina lysis panel , auto Unknown Analyte Clean Catch Not Available [facility] [address], [place], [address], 11/12/2022 17:08:25 11/13/19 23 11/12/2022 urina lysis panel , auto Unknown Analyte Yellow Not Available [facility] [address], [place], [address], 11/12/2022 17:08:25 11/13/19 23 11/12/2022 urina lysis panel , auto Unknown Analyte Clear Not Available [facility] [address], [place], [address], 11/12/2022 17:08:25 11/13/19 23 11/12/2022 urina lysis panel , auto Unknown Analyte 1.010 Not Available [facility] [address], [place], [address], 11/12/2022 17:08:25 11/13/19 23 11/12/2022 urina lysis panel , auto Unknown Analyte 1.003- 1.035 Not Available [facility] [address], [place], [address], 11/12/2022 17:08:25 11/13/19 23 11/12/2022 urina lysis panel , auto Unknown Analyte 6.0 Not Available [facility] [address], [place], [address], 11/12/2022 17:08:25 11/13/19 23 11/12/2022 urina lysis panel , auto Unknown Analyte 5.0-8. 0 Not Available [facility] [address], [place], [address], 11/12/2022 17:08:25 11/13/19 23 11/12/2022 urina lysis panel , auto Unknown Analyte Negati ve Not Available [facility] [address], [place], [address], 11/12/2022 17:08:25 11/13/19 23 11/12/2022 urina lysis panel , auto Unknown Analyte Negati ve Not Available [facility] [address], [place], [address], 11/12/2022 17:08:25 11/13/19 23 11/12/2022 urina lysis panel , auto Unknown Analyte Negati ve Not Available [facility] [address], [place], [address], 11/12/2022 17:08:25 11/13/19 23 11/12/2022 urina lysis panel , auto Unknown Analyte Negati ve Not Available [facility] [address], [place], [address], 11/12/2022 17:08:25 11/13/19 23 11/12/2022 urina lysis panel , auto Unknown Analyte Negati ve Not Available [facility] [address], [place], [address], 11/12/2022 17:08:25 11/13/19 23 11/12/2022 urina lysis panel , auto Unknown Analyte Negati ve Not Available [facility] [address], [place], [address], 11/12/2022 17:08:25 11/13/19 23 11/12/2022 urina lysis panel , auto Unknown Analyte Normal Not Available [facility] [address], [place], [address], 11/12/2022 17:08:25 11/13/19 23 11/12/2022 urina lysis panel , auto Unknown Analyte Normal Not Available [facility] [address], [place], [address], 11/12/2022 17:08:25 11/13/19 23 11/12/2022 urina lysis panel , auto Unknown Analyte Negati ve Not Available [facility] [address], [place], [address], 11/12/2022 17:08:25 11/13/19 23 11/12/2022 urina lysis panel , auto Unknown Analyte Negati ve Not Available [facility] [address], [place], [address], 11/12/2022 17:08:25 11/13/19 23 11/12/2022 urina lysis panel , auto Unknown Analyte Normal Not Available [facility] [address], [place], [address], 11/12/2022 17:08:25 11/13/19 23 11/12/2022 urina lysis panel , auto Unknown Analyte Normal 1 mg/dl Not Available [facility] [address], [place], [address], 11/12/2022 17:08:25 11/13/19 23 11/12/2022 urina lysis panel , auto Unknown Analyte Negati ve Not Available [facility] [address], [place], [address], 11/12/2022 17:08:25 11/13/19 23 11/12/2022 urina lysis panel , auto Unknown Analyte Negati ve Not Available [facility] [address], [place], [address], 11/12/2022 17:08:25 11/13/19 23 11/12/2022 urina lysis panel , auto Unknown Analyte Negati ve Not Available [facility] [address], [place], [address], 11/12/2022 17:08:25 11/13/19 23 11/12/2022 urina lysis panel , auto Unknown Analyte Negati ve Not Available [facility] [address], [place], [address], 11/12/2022 17:08:25 Result Notes None recorded. Problems No Known Problems Procedures Surgical History Date Name Laterality Status Provider Name and Address Organization Details Recorded Time 09/16/19 23 Post Void Residual; Catheter completed Vanna Kohli [facility] 09/15/2022 10:09:27 Hysterectomy completed Vanna Kohli [facility] 09/15/2022 10:07:17 Tubal Ligation completed Vanna Kohli [facility] 09/15/2022 10:07:26 Neck Surgery completed Vanna Kohli [facility] 09/15/2022 10:07:33 Imaging Results None recorded. Procedure Notes None recorded. Medical Equipment None Reported. Allergies Allergen ID Allergen Name Allergen Category Reaction Reaction Severity Criticality Documentation Date Start Date Code Code System Note Provider Name and Address Organization Details Recorded Time 667843 Omnicef medicatio n Not available Not available Not available 09/15/2022 17457 RxNorm Vanna Kohli [facility] 10:05:39 Medications Name Sig Start Date Stop Date Status Note LastModified by Organization Details LastModified Time furosemide 40 mg tablet Take 1 tablet every day by oral route. active Not Available Not Available No t Available citalopram 40 mg tablet Take 1 tablet every day by oral route. active Not Available Not Available No t Available isosorbide mononitrate ER 30 mg tablet,exte nded release 24 hr Take 1 tablet every day by oral route. active Not Available Not Available No t Available clopidogrel 75 mg tablet Take 1 tablet every day by oral route. active Not Available Not Available No t Available alprazolam 0.25 mg tablet Take 1 tablet 3 times a day by oral route as needed. active Not Available Not Available No t Available citalopram 20 mg tablet Take 1 tablet every day by oral route. 10/14 completed Not Available Not Available Not Available Bactrim 400 mg-80 mg tablet Take 1 tablet every day by oral route. 2022 active Not Available Not Available Not Avai lable Vitamin D3 25 mcg (1,000 unit) capsule Take 1 capsule every day by oral route. active Not Available Not Available No t Available Angel Low Dose Aspirin active Not Available Not Available Not Available levothyroxi ne 125 mcg capsule Take 1 capsule every day by oral route. active Not Available Not Available No t Available metoprolol succinate ER 25 mg capsule sprinkle, ext. release 24 hr Take 0.5 capsules every day by oral route. active Not Available Not Available No t Available Vitals Date Recorded Body height Body mass index (BMI) Body weight Provider Name and Address Organization Details Last Updated DateTime 09/15/2022 162.56 cm 27.6 kg/m2 34315.37 g Vanna Kohli [facility] 09/15/2022 09:53:37 Date Recorded Body height Body mass index (BMI) Body weight Provider Name and Address Organization Details Last Updated DateTime 10/14/2022 162.56 cm 27.6 kg/m2 07042.37 g Vanna Kohli [facility] 10/14/2022 09:36:46 Date Recorded Body height Body mass index (BMI) Body weight Provider Name and Address Organization Details Last Updated DateTime 11/12/2022 162.56 cm 27.6 kg/m2 14536.37 g Celeste Pierre [facility] 11/12/2022 17:08:18 Social History Question Answer Notes LastModified by Organizat ion Details LastModified Time Tobacco Smoking Status Never Smoker Vanna Kohli [facility] 09/15/2022 10:06:46 What Is Your Level Of Alcohol Consumption? None [email or web address] Information not available 09/15/2022 Are You Currently Employed? No Retired [email or web address] Information not available 09/15/2022 What Is Your Relationship Status? [email or web address] Information not available 09/15/2022 Has Tobacco Cessation Counseling Been Provided? No Information not available 09/15/2022 Do You Or Have You Ever Used Any Other Forms Of Tobacco Or Nicotine? No [email or web address] Information not available 09/15/2022 Sex: Unknown Functional Status None recorded. Mental Status None recorded. Family History Nothing Reported. Medical History Condition Response Depression Y Anxiety Disorder Y Asthma Y Hepatitis Y Allergies/Hayfever Y False Teeth Y Anemia Y Sleep Apnea Y Heart Disease Y Gynecological HistoryNo gynecological history recorded. Obstetrics History GPAL:G 0 P 0 0 0 0 Past Encounters Encounter ID Performer Location Encounter Start Date Encounter Closed Date Diagnosis/Indication Diagnosis SNOMED-CT Code Diagnosis ICD10 Code Diagnosis Note [id number] QM[place] [address] 06/01/2016 14:36:52 06/01/2016 14:36:52 [id number] WALI GALAN MD [facility] [address] [address] 09/15/2022 09:13:14 09/15/2022 10:15:33 Recurrent urinary tract infection 900605870 N39.0 [id number] WALI GALAN MD [facility] [address] [place] [address] 10/14/2022 09:09:02 10/14/2022 09:35:01 Recurrent urinary tract infection 111518758 N39.0 [id number] WALI GALAN MD [facility] [address] [facility] [address] [address] 11/12/2022 16:54:44 11/13/2022 05:04:49 Urinary tract infectious disease 32227103 N39.0 Health Concerns Section Related Observation LastModified by Organization Detai ls LastModified Time None Recorded Concern Status LastModified by Organization Details LastModified Time None Recorded Advance Directives Directive None Recorded Payers Encounter Date Sequence Insurance Name Policy Number Policy Villegas Covered Member ID Villegas Member ID Guarantor Name 09/15/2022 1 MEDICARE-[employer] (MEDICARE) Macey Rush Herman [id number] 2 Macey Rush Herman 10/14/2022 1 [place] Macey S Herman [id number] 2 Macey Rush Herman 11/12/2022 1 [place] Macey Sutton [id number] 2 Macey Sutton Notes Date Note Type Note Provider Name and Address Organization Details Recorded Time 09/15/2022 text/html 77-year-old femtomeka martinez who was recently hospitalized for urosepsis. Has been having problems with recurrent urinary tract infections during the last few years. This time she presented with passing out and a lot of confusion. Sometimes she gets some dysuria. There is been no gross hematuria. She voids with a good stream and feels like she empties her bladder completely. CT scan in the hospital was normal. Postvoid residual is 50 mL and the urine is clear today. We will try to suppress this with low-dose antibiotics WALI GALAN MD [address] [place] [address], [address], [facility] 09/15/2022 10:20:36 10/14/2022 text/html She has been taking the Bactrim twice daily. She is asymptomatic. There is no sign of recurrent bladder infection. There is no back or abdominal pain. There is no hematuria or dysuria. She is emptying her bladder without any difficulty. We will cut this back to a daily dose WALI GALAN MD [address] [place] [address] [place], [address], [facility] 10/14/2022 09:51:10 11/12/2022 text/html She has been taking 1 antibiotic daily. She is asymptomatic. She does not have any dysuria. There is no back or abdominal pain. There is no frequency or urgency she has been having little bit of itching periodically and wonders if it could be from the antibiotic. There is no rash. We will stop the medication at this time. If the symptoms return we will give her something besides Bactrim MD [place], [address], [facility] 11/12/2022 17:23:11 OBGyn Episode No OBEpisode recorded.
[2024-07-03 12:44] LABS: Adenovirus F 40/41, stool Not Detected (NotDetected); Astrovirus Not Detected (NotDetected); Campylobacter Not Detected (NotDetected); Clostridium Difficile A/B, PCR Not Detected (NotDetected); Cryptosporidium Not Detected (NotDetected); Cyclospora Cayetanesis Not Detected (NotDetected); Entamoeba histolytica Not Detected (NotDetected); Enteroaggregative E coli Not Detected (NotDetected); Enteropathogenic E coli Not Detected (NotDetected); Enterotoxigenic E coli Not Detected (NotDetected); Giardia lamblia Not Detected (NotDetected); Norovirus Not Detected (NotDetected); Plesimonas Shigalloides, PCR Not Detected (NotDetected); Rotavirus A Not Detected (NotDetected); Salmonella, PCR Not Detected (NotDetected); Sapovirus Not Detected (NotDetected); Shiga-like toxin E coli Not Detected (NotDetected); Shigella Enterovasive E coli Not Detected (NotDetected); Vibrio Cholerae Not Detected (NotDetected); Vibrio, PCR Not Detected (NotDetected); Yersinia Entercolitica, PCR Not Detected (NotDetected)
== END 2024-07-03 23:59 | disposition home or self-care (01) ==
LOC: LAB 12:31
PROVIDERS: PCP Family Medicine; Visit Provider Nurse Practitioner Family
DX: K52.9 Noninfective gastroenteritis and colitis, unspecified (principal); R19.4 Change in bowel habit; R15.2 Fecal urgency; R15.9 Full incontinence of feces
CPT/HCPCS: 87506

== ENCOUNTER 2024-08-28 10:39 | Outpatient (CLI) | payer MEDICARE, OTHER, SELFPAY ==
[2024-08-28 19:45] LABS: Basophils # 0.1 K/mm3 (0-0.2); Basophils % 1.1 % (0.1-2.0); Eosinophils # 0.2 Kmm3 (0.0-0.4); Hematocrit 37.3 % (37.0-47.0); Immature Granulocytes # 0.04 10^3uL; Immature Granulocytes % 0.6 %; Lymphocytes # 1.8 K/mm3 (0.7-4.5); Lymphocytes % 27.4 % (10-50); Mean Corpuscular HGB Conc 32.2 g/dL (31.8-35.4); Mean Corpuscular Hemoglobin 28.6 pg (27.0-31.2); Mean Platelet Volume 10.1 fl (7.4-10.4); Monocytes # 0.6 K/mm3 (0.1-1.0); Monocytes % 9.7 % (1.7-9.3); Neutrophils # 3.8 K/mm3 (1.8-7.8); Neutrophils % 58.2 % (37.0-80.0); Nucleated Red Blood Cells # 0 10^3/uL; Nucleated Red Blood Cells % 0 %; Platelet Count 317 K/mm3 (142-424); Red Blood Count 4.19 M/mm3 (4.20-5.40); Red Cell Distribution Width 13.9 % (11.5-17.5); Red Cell Distribution Width-SD 45.1 fL; White Blood Count 6.6 K/mm3 (4.8-10.8)
[2024-08-28 20:39] LABS: Albumin Level 4.3 g/dl (3.5-5.0); Chloride 101 mmol/L (98-107); Potassium 5.2 mmoL/L (3.5-5.1); Sodium 137 mmol/L (136-145)
[2024-08-28 20:41] LABS: Blood Urea Nitrogen 15 mg/dl (7-17); Estimated Glomerular Filt Rate 53 ml/min (>60); GFR (African American) 65 ML/MIN (>60)
[2024-08-28 20:42] LABS: Alanine Aminotransferase 13 U/L (12-78); Albumin/Globulin Ratio 1.2 (1.1-1.8); Alkaline Phosphatase 52 U/L (38-126); Aspartate Amino Transferase 28 U/L (14-36); Bilirubin,Total 0.5 mg/dl (0.2-1.3); Globulin 3.6 g/dL (1.3-3.2); Glucose 66 mg/dl (74-100); Total Protein,Serum 7.9 g/dl (6.3-8.2)
[2024-08-28 20:59] LABS: Anion Gap 16.2 mEq/L (5-15)
[2024-08-28 21:00] LABS: Carbon Dioxide 25 mmol/L (22.0-30.0)
--- OUTSIDE RECORDS SUMMARY | 2024-08-30 10:44 | XMS_ITS | Clinical Summary ---
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 Name Role Phone Osvaldo Ozuna MD Primary Care Provider Reina vailable Social History Tobacco Use Types Packs/Day Years Used Date Smoking Tobacco: Never Assessed Comments Unknown Sex and Gender Information Value Date Recorded Sex Assigned at Not on file Legal Sex Female 8:22 PM EDT Gender Identity Not on file Sexual Orientation Not on file Last Filed Vital Signs Vital Sign Reading Time Taken Comments Blood Pressure 107/57 09/02/2022 8:12 AM EDT Pulse - - Temperature - - Respiratory Rate - - Oxygen Saturation - - Inhaled Oxygen Concentration - - Weight 74.8 kg (165 lb) 09/02/2022 8:12 AM EDT Height 162.6 cm (5' 4 ) 09/02/2022 8:12 AM EDT Body Mass Index 28.32 09/02/2022 8:12 AM EDT Plan of Treatment Health Maintenance Due Date Last Done Comments [facility]-Bone Density Scan 1943 [facility]-Depression Screening 1945 [facility]-Infant/Child/Adol SDOH Screenings 1945 [facility]- SDOH Screenings 09/08/1961 [facility]-Adult SDOH Screenings 09/08/1961 [facility]-DTaP,Tdap,and Td Vaccines (1 - Tdap) 09/08/1962 [facility]-Zoster Vaccines (1 of 2) 09/08/1993 [facility]-RSV Vaccine: 60+ Years or (1 - 1-dose 75+ series) 09/08/2018 HUR-TURGH-39 Vaccine ( - season) 2023 12/12/2020, 05/23/2020, 04/25/2020 [facility]-Influenza Vaccine (Season Ended) 2024 12/18/2021, 12/01/2016 [facility]-Pneumococcal Vaccine: 50+ Years Completed 12/20/2020, 10/08/2017, 01/13/2007 HPV Vaccines Aged Out No longer eligi ble based on patient's age to complete this topic [facility]-HIB Vaccines Aged Out No longer e ligible based on patient's age to complete this topic [facility]-Hepatitis A Vaccines Aged Out No longer eligible based on patient's age to complete this topic [facility]-IPV Vaccines Aged Out No longer e ligible based on patient's age to complete this topic [facility]-Rotavirus Vaccines Aged Out No lo nger eligible based on patient's age to complete this topic Insurance MEDICARE Care Teams Lumber Sorter Relationship Specialty Start Date End Date Osvaldo Ozuna MD PCP - General Family Medicine 09/03/22
--- OUTSIDE RECORDS SUMMARY | 2024-08-30 10:44 | XMS_ITS | Data Portability ---
Author Organization LINETTE HELIO Malhotra [place] [facility] Address [address] [address] [place] [address] Care Team Providers Care Global Program Manager Name Role Phone ANNIE JASMINE Primary Care Provider [phone] Assessment No assessment recorded. Plan of Treatment Reminders Order Date Submit Date Provider Last Modified By Organization Details Last Modified Time Details Appointments None recorded. Lab urinalysis panel, auto 2022 023 [facility], [address], [place], [address], 3 17:22:54 urinalysis panel, auto 2022 023 [facility], [address], [address], [place], [address], 3 09:50:50 urinalysis panel, auto 2022 023 [facility], [address], [address], [place], [address], 3 10:19:34 Referral None recorded. Procedures None recorded. Surgeries None recorded. Imaging None recorded. Medication Orders Bactrim 400 mg-80 mg tablet 2022 023 [facility], [address], [place], [address], 09:51:42 Bactrim 400 mg-80 mg tablet 2022 023 [facility], [address] [place], [address], 10:20:14 Patient TargetsNo targets recorded. Patient InstructionsNo instructions recorded. Reason for Referral None Reported. Results Created Date Observation Date Name Description Value Unit Range Abnormal Flag Note LastModifiedBy Organization Detail LastModifiedTime 09/16/1909/15/2022 urina lysis panel , auto Unknown Analyte Clean Catch Not Available [facility] [address], [place], [address], 09/15/2022 10:09:17 09/16/19 23 09/15/2022 urina lysis panel , auto Unknown Analyte Yellow Not Available [facility] [address] [place] [address] [address], [place], [address], 09/15/2022 10:09:17 09/16/19 23 09/15/2022 urina lysis panel , auto Unknown Analyte Clear Not Available [facility] [address] [place] [address] [address], [place], [address], 09/15/2022 10:09:17 09/16/19 23 09/15/2022 urina lysis panel , auto Unknown Analyte 1.010 Not Available [facility] [address], [address], 09/15/2022 10:09:17 09/16/19 23 09/15/2022 urina lysis panel , auto Unknown Analyte 6.0 Not Available [facility] [place] [address], [place], [address], 09/15/2022 10:09:17 09/16/19 23 09/15/2022 urina lysis panel , auto Unknown Analyte Negati ve Not Available [facility] [address], [place], [address], 09/15/2022 10:09:17 09/16/19 23 09/15/2022 urina lysis panel , auto Unknown Analyte Negati ve Not Available [facility] [address], [place], [address], 09/15/2022 10:09:17 09/16/19 23 09/15/2022 urina lysis panel , auto Unknown Analyte Negati ve Not Available [facility] [address], [place], [address], 09/15/2022 10:09:17 09/16/19 23 09/15/2022 urina lysis panel , auto Unknown Analyte Normal Not Available [facility] [address], [place], [address], 09/15/2022 10:09:17 09/16/19 23 09/15/2022 urina lysis panel , auto Unknown Analyte Negati ve Not Available [facility] [address], [place], [address], 09/15/2022 10:09:17 09/16/19 23 09/15/2022 urina lysis panel , auto Unknown Analyte Normal Not Available [facility] [address], [place], [address], 09/15/2022 10:09:17 09/16/19 23 09/15/2022 urina lysis panel , auto Unknown Analyte Negati ve Not Available [facility] [address], [place], [address], 09/15/2022 10:09:17 09/16/19 23 09/15/2022 urina lysis panel , auto Unknown Analyte Negati ve Not Available [facility] [address], [place], [address], 09/15/2022 10:09:17 10/15/19 23 10/14/2022 urina lysis panel , auto Unknown Analyte Clean Catch Not Available [facility] [address], [place], [address], 10/14/2022 09:37:57 10/15/19 23 10/14/2022 urina lysis panel , auto Unknown Analyte Yellow Not Available [facility] [address], [place], [address], 10/14/2022 09:37:57 10/15/19 23 10/14/2022 urina lysis panel , auto Unknown Analyte Clear Not Available [facility] [address], [place], [address], 10/14/2022 09:37:57 10/15/19 23 10/14/2022 urina lysis panel , auto Unknown Analyte 1.010 Not Available [facility] [address], [place], [address], 10/14/2022 09:37:57 10/15/19 23 10/14/2022 urina lysis panel , auto Unknown Analyte 6.0 Not Available [facility] [address], [place], [address], 10/14/2022 09:37:57 10/15/19 23 10/14/2022 urina lysis panel , auto Unknown Analyte Negati ve Not Available [facility] [address], [place], [address], 10/14/2022 09:37:57 10/15/19 23 10/14/2022 urina lysis panel , auto Unknown Analyte Negati ve Not Available [facility] [address], [place], [address], 10/14/2022 09:37:57 10/15/19 23 10/14/2022 urina lysis panel , auto Unknown Analyte Negati ve Not Available [facility] [address], [place], [address], 10/14/2022 09:37:57 10/15/19 23 10/14/2022 urina lysis panel , auto Unknown Analyte Normal Not Available [facility] [address], [place], [address], 10/14/2022 09:37:57 10/15/1910/14/2022 urina lysis panel , auto Unknown Analyte Negati ve Not Available [facility] [address], [place], [address], 10/14/2022 09:37:57 10/15/19 23 10/14/2022 urina lysis panel , auto Unknown Analyte Normal Not Available [facility] [address], [place], [address], 10/14/2022 09:37:57 10/15/19 23 10/14/2022 urina lysis panel , auto Unknown Analyte Negati ve Not Available [facility] [address], [place], [address], 10/14/2022 09:37:57 10/15/1910/14/2022 urina lysis panel , auto Unknown Analyte Negati ve Not Available [facility] [address], [place], [address], 10/14/2022 09:37:57 11/13/19 23 11/12/2022 urina lysis panel , auto Unknown Analyte Clean Catch Not Available [facility] [address], [place], [address], 11/12/2022 17:08:25 11/13/19 23 11/12/2022 urina lysis panel , auto Unknown Analyte Yellow Not Available [facility] [address], [place], [address], 11/12/2022 17:08:25 11/13/19 23 11/12/2022 urina lysis panel , auto Unknown Analyte Clear Not Available [facility] [address], [place], [address], 11/12/2022 17:08:25 11/13/19 23 11/12/2022 urina lysis panel , auto Unknown Analyte 1.010 Not Available [facility] [address], [place], [address], 11/12/2022 17:08:25 11/13/19 23 11/12/2022 urina lysis panel , auto Unknown Analyte 1.003- 1.035 Not Available [facility] [address], [place], [address], 11/12/2022 17:08:25 11/13/19 23 11/12/2022 urina lysis panel , auto Unknown Analyte 6.0 Not Available [facility] [address], [place], [address], 11/12/2022 17:08:25 11/13/19 23 11/12/2022 urina lysis panel , auto Unknown Analyte 5.0-8. 0 Not Available [facility] [address], [place], [address], 11/12/2022 17:08:25 11/13/19 23 11/12/2022 urina lysis panel , auto Unknown Analyte Negati ve Not Available [facility] [address], [place], [address], 11/12/2022 17:08:25 11/13/19 23 11/12/2022 urina lysis panel , auto Unknown Analyte Negati ve Not Available [facility] [address], [place], [address], 11/12/2022 17:08:25 11/13/19 23 11/12/2022 urina lysis panel , auto Unknown Analyte Negati ve Not Available [facility] [address], [place], [address], 11/12/2022 17:08:25 11/13/19 23 11/12/2022 urina lysis panel , auto Unknown Analyte Negati ve Not Available [facility] [address], [place], [address], 11/12/2022 17:08:25 11/13/19 23 11/12/2022 urina lysis panel , auto Unknown Analyte Negati ve Not Available [facility] [address], [place], [address], 11/12/2022 17:08:25 11/13/19 23 11/12/2022 urina lysis panel , auto Unknown Analyte Negati ve Not Available [facility] [address], [place], [address], 11/12/2022 17:08:25 11/13/19 23 11/12/2022 urina lysis panel , auto Unknown Analyte Normal Not Available [facility] [address], [place], [address], 11/12/2022 17:08:25 11/13/19 23 11/12/2022 urina lysis panel , auto Unknown Analyte Normal Not Available [facility] [address], [place], [address], 11/12/2022 17:08:25 11/13/19 23 11/12/2022 urina lysis panel , auto Unknown Analyte Negati ve Not Available [facility] [address], [place], [address], 11/12/2022 17:08:25 11/13/19 23 11/12/2022 urina lysis panel , auto Unknown Analyte Negati ve Not Available [facility] [address], [place], [address], 11/12/2022 17:08:25 11/13/19 23 11/12/2022 urina lysis panel , auto Unknown Analyte Normal Not Available [facility] [address], [place], [address], 11/12/2022 17:08:25 11/13/19 23 11/12/2022 urina lysis panel , auto Unknown Analyte Normal 1 mg/dl Not Available [facility] [address], [place], [address], 11/12/2022 17:08:25 11/13/19 23 11/12/2022 urina lysis panel , auto Unknown Analyte Negati ve Not Available [facility] [address], [place], [address], 11/12/2022 17:08:25 11/13/19 23 11/12/2022 urina lysis panel , auto Unknown Analyte Negati ve Not Available [facility] [address], [place], [address], 11/12/2022 17:08:25 11/13/19 23 11/12/2022 urina lysis panel , auto Unknown Analyte Negati ve Not Available [facility] [address], [place], [address], 11/12/2022 17:08:25 11/13/19 23 11/12/2022 urina lysis panel , auto Unknown Analyte Negati ve Not Available [facility] [address], [place], [address], 11/12/2022 17:08:25 Result Notes None recorded. Problems No Known Problems Procedures Surgical History Date Name Laterality Status Provider Name and Address Organization Details Recorded Time 09/16/19 23 Post Void Residual; Catheter completed Vanna Kohli [facility] 09/15/2022 10:09:27 Hysterectomy completed Vanna Kohli [facility] 09/15/2022 10:07:17 Tubal Ligation completed Vanna Kohli [facility] 09/15/2022 10:07:26 Neck Surgery completed Vanna Kohli [facility] 09/15/2022 10:07:33 Imaging Results None recorded. Procedure Notes None recorded. Medical Equipment None Reported. Allergies Allergen ID Allergen Name Allergen Category Reaction Reaction Severity Criticality Documentation Date Start Date Code Code System Note Provider Name and Address Organization Details Recorded Time [id number] Omnicef medicatio n Not available Not available Not available 09/15/2022 81009 RxNorm Vanna Kohli [facility] 3 10:05:39 Medications Name Sig Start Date Stop [...] Updated DateTime 09/15/2022 162.56 cm 27.6 kg/m2 45646.37 g Vanna Kohli [facility] 09/15/2022 09:53:37 Date Recorded Body height Body mass index (BMI) Body weight Provider Name and Address Organization Details Last Updated DateTime 10/14/2022 162.56 cm 27.6 kg/m2 95396.37 g Vanna Kohli [facility] 10/14/2022 09:36:46 Date Recorded Body height Body mass index (BMI) Body weight Provider Name and Address Organization Details Last Updated DateTime 11/12/2022 162.56 cm 27.6 kg/m2 24051.37 g Celeste Pierre [facility] 11/12/2022 17:08:18 Social History Question Answer Notes LastModified by Apportable Details LastModified Time Tobacco Smoking Status [facility]22 10:06:46 What Is Your Relationship Status? [email or web address] Information not available 09/15/2022 Has Tobacco Cessation Counseling Been Provided? No [email or web address] Information not available 09/15/2022 Sex: Unknown Functional Status Question Answer Note LastModified by Organizat ion Details LastModified Time Do you or have you ever used any other forms of tobacco or nicotine? No [email or web address] Information not available 09/15/2022 What is your level of alcohol consumption? None Information not available 09/15/2022 Are you currently employed? No Retired [email or web address] Information not available 09/15/2022 Mental Status None recorded. Family History Nothing [...] SNOMED-CT Code Diagnosis ICD10 Code Diagnosis Note [id number] QM_[facility] [address] 06/01/2016 14:36:52 06/01/2016 14:36:52 [id number] MD NOELLE WOODARD [facility] [address] [place] [address] 09/15/2022 09:13:14 09/15/2022 10:15:33 Recurrent urinary tract infection [id number] N39.0 [id number] WALI GALAN MD [facility] [address] [place] [address] 10/14/2022 09:09:02 10/14/2022 09:35:01 Recurrent urinary tract infection [id number] N39.0 [id number] WALI GALAN MD [facility] [address] [place] [address] 11/12/2022 16:54:44 11/13/2022 05:04:49 Urinary tract infectious disease [id number] N39.0 Health Concerns Section Related Observation LastModified by Organization Detai ls LastModified Time None Recorded Concern Status LastModified by Organization Details LastModified Time None Recorded Advance Directives Directive None Recorded Payers Insurance Date Sequence Insurance Name Policy Number Policy Villegas Covered Member ID Villegas Member ID Guarantor Name 10/31/2022 2 UNSPECIFIED REMIT PAYOR Macey Sutton 02/24/2023 2 [employer] - PLAN F (MEDICARE SUPPLEMENT) Macey Sutton [id number] Macey Sutton 11/14/2022 2 FAMILY LIFE (MEDICARE SUPPLEMENT) Macey Sutton [id number] Macey Sutton 11/12/2022 1 MEDICARE-MD (MEDICARE) Macey Sutton [id number] Macey Sutton Notes Date Note Type Note [...] this with low-dose antibiotics WALI GALAN MD [address] [place] [address], [address], [facility] 09/15/2022 10:20:36 10/14/2022 text/html She has been taking the Bactrim twice daily. She is asymptomatic. There is no sign of recurrent bladder infection. There is no back or abdominal pain. There is no hematuria or dysuria. She is emptying her bladder without any difficulty. We will cut this back to a daily dose WALI GALAN MD [address] [place] [address] [place], [address], [facility] 10/14/2022 09:51:10 11/12/2022 text/html She [...] we will give her something besides Bactrim WALI GALAN MD [address] [place], [address], [facility] 11/12/2022 17:23:11 OBGyn Episode No OBEpisode recorded.
== END 2024-08-28 23:59 | disposition home or self-care (01) ==
LOC: LAB.DROPOF 08-30 10:40
PROVIDERS: PCP Family Medicine; Visit Provider Family Medicine
DX: E03.9 Hypothyroidism, unspecified (principal)
CPT/HCPCS: 80053; 84443; 85025

== ENCOUNTER 2024-09-06 13:50 | Outpatient (CLI) | payer MEDICARE, OTHER, SELFPAY ==
--- OUTSIDE RECORDS SUMMARY | 2024-09-06 13:53 | XMS_ITS | Clinical Summary ---
Author Organization [facility] Address [address] [place] [address] Care Team Providers Care Health Science Instructor Name Role Phone Osvaldo Ozuna MD Primary [...] or (1 - 1-dose 75+ series) 09/08/2018 [id number] Vaccine (4 - 2023- season) 2023 12/12/2020, 05/23/2020, 04/25/2020 [facility]-Influenza Vaccine (#1) 10/30/202412/18, 12/01/2016 [facility]-Pneumococcal Vaccine: 50+ Years Completed 12/20/2020, [...] complete this topic Insurance MEDICARE Care Teams Health Science Instructor Relationship Specialty Start Date End Date Osvaldo Ozuna MD PCP - General Family Medicine 09/03/22
--- OUTSIDE RECORDS SUMMARY | 2024-09-06 13:53 | XMS_ITS | Data Portability ---
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 Plan of Treatment Reminders Order Date Submit Date Provider Last Modified By Organization Details Last Modified Time Details Appointments None recorded. Lab urinalysis panel, auto 2022 023 [facility], [address], [address], [place], [address], 3 17:22:54 urinalysis panel, auto 2022 023 [facility], [address], [address], [place], [address], 3 09:50:50 urinalysis panel, auto 2022 023 [facility], [address], [address], [place], [address], 3 10:19:34 Referral None recorded. Procedures None recorded. Surgeries None recorded. Imaging None recorded. Medication Orders Bactrim 400 mg-80 mg tablet 2022 023 [facility], [address], [place], [address], 09:51:42 Bactrim 400 mg-80 mg tablet 2022 023 [facility], [address] [place], [address], 10:20:14 Patient TargetsNo targets recorded. Patient InstructionsNo instructions recorded. Reason for Referral None Reported. Results Created Date Observation Date Name Description Value Unit Range Abnormal Flag Note LastModifiedBy Organization Detail LastModifiedTime 09/16/1909/15/2022 urina lysis panel , auto Unknown Analyte Clean Catch Not Available [facility] [address], [place], [address], 09/15/2022 10:09:17 09/16/19 23 09/15/2022 urina lysis panel , auto Unknown Analyte Yellow Not Available [facility] [address] [place] [address] [address], [place], [address], 09/15/2022 10:09:17 09/16/19 23 09/15/2022 urina lysis panel , auto Unknown Analyte Clear Not Available [facility] [address] [place] [address] [address], [place], [address], 09/15/2022 10:09:17 09/16/19 23 09/15/2022 urina lysis panel , auto Unknown Analyte 1.010 Not Available [facility] [address], [address], 09/15/2022 10:09:17 09/16/19 23 09/15/2022 urina lysis panel , auto Unknown Analyte 6.0 Not Available [facility] [place] [address], [place], [address], 09/15/2022 10:09:17 09/16/19 23 09/15/2022 urina lysis panel , auto Unknown Analyte Negati ve Not Available [facility] [address], [place], [address], 09/15/2022 10:09:17 09/16/19 23 09/15/2022 urina lysis panel , auto Unknown Analyte Negati ve Not Available [facility] [address], [place], [address], 09/15/2022 10:09:17 09/16/19 23 09/15/2022 urina lysis panel , auto Unknown Analyte Negati ve Not Available Critical [facility] hospital[facility] [address], [place], [address], 09/15/2022 10:09:17 09/16/19 23 09/15/2022 urina lysis panel , auto Unknown Analyte Normal Not Available [facility] [address], [place], [address], 09/15/2022 10:09:17 09/16/19 23 09/15/2022 urina lysis panel , auto Unknown Analyte Negati ve Not Available [facility] [address], [place], [address], 09/15/2022 10:09:17 09/16/19 23 09/15/2022 urina lysis panel , auto Unknown Analyte Normal Not Available [facility] [address], [place], [address], 09/15/2022 10:09:17 09/16/19 23 09/15/2022 urina lysis panel , auto Unknown Analyte Negati ve Not Available Critical [facility] hospital[facility] [address], [place], [address], 09/15/2022 10:09:17 09/16/19 23 09/15/2022 urina lysis panel , auto Unknown Analyte Negati ve Not Available [facility] [address], [place], [address], 09/15/2022 10:09:17 10/15/19 23 10/14/2022 urina lysis panel , auto Unknown Analyte Clean Catch Not Available [facility] [address], [place], [address], 10/14/2022 09:37:57 10/15/19 23 10/14/2022 urina lysis panel , auto Unknown Analyte Yellow Not Available [facility] [address], [place], [address], 10/14/2022 09:37:57 10/15/19 23 10/14/2022 urina lysis panel , auto Unknown Analyte Clear Not Available [facility] [address], [place], [address], 10/14/2022 09:37:57 10/15/19 23 10/14/2022 urina lysis panel , auto Unknown Analyte 1.010 Not Available [facility] [address], [place], [address], 10/14/2022 09:37:57 10/15/19 23 10/14/2022 urina lysis panel , auto Unknown Analyte 6.0 Not Available [facility] [address], [place], [address], 10/14/2022 09:37:57 10/15/19 23 10/14/2022 urina lysis panel , auto Unknown Analyte Negati ve Not Available [facility] [address], [place], [address], 10/14/2022 09:37:57 10/15/19 23 10/14/2022 urina lysis panel , auto Unknown Analyte Negati ve Not Available [facility] [address], [place], [address], 10/14/2022 09:37:57 10/15/19 23 10/14/2022 urina lysis panel , auto Unknown Analyte Negati ve Not Available [facility] [address], [place], [address], 10/14/2022 09:37:57 10/15/19 23 10/14/2022 urina lysis panel , auto Unknown Analyte Normal Not Available [facility] [address], [place], [address], 10/14/2022 09:37:57 10/15/1910/14/2022 urina lysis panel , auto Unknown Analyte Negati ve Not Available [facility] [address], [place], [address], 10/14/2022 09:37:57 10/15/19 23 10/14/2022 urina lysis panel , auto Unknown Analyte Normal Not Available [facility] [address], [place], [address], 10/14/2022 09:37:57 10/15/19 23 10/14/2022 urina lysis panel , auto Unknown Analyte Negati ve Not Available [facility] [address], [place], [address], 10/14/2022 09:37:57 10/15/1910/14/2022 urina lysis panel , auto Unknown Analyte Negati ve Not Available [facility] [address], [place], [address], 10/14/2022 09:37:57 11/13/19 23 11/12/2022 urina lysis panel , auto Unknown Analyte Clean Catch Not Available [facility] [address], [place], [address], 11/12/2022 17:08:25 11/13/19 23 11/12/2022 urina lysis panel , auto Unknown Analyte Yellow Not Available [facility] [address], [place], [address], 11/12/2022 17:08:25 11/13/19 23 11/12/2022 urina lysis panel , auto Unknown Analyte Clear Not Available [facility] [address], [place], [address], 11/12/2022 17:08:25 11/13/19 23 11/12/2022 urina lysis panel , auto Unknown Analyte 1.010 Not Available [facility] [address], [place], [address], 11/12/2022 17:08:25 11/13/19 23 11/12/2022 urina lysis panel , auto Unknown Analyte 1.003- 1.035 Not Available [facility] [address], [place], [address], 11/12/2022 17:08:25 11/13/19 23 11/12/2022 urina lysis panel , auto Unknown Analyte 6.0 Not Available [facility] [address], [place], [address], 11/12/2022 17:08:25 11/13/19 23 11/12/2022 urina lysis panel , auto Unknown Analyte 5.0-8. 0 Not Available [facility] [address], [place], [address], 11/12/2022 17:08:25 11/13/19 23 11/12/2022 urina lysis panel , auto Unknown Analyte Negati ve Not Available [facility] [address], [place], [address], 11/12/2022 17:08:25 11/13/19 23 11/12/2022 urina lysis panel , auto Unknown Analyte Negati ve Not Available [facility] [address], [place], [address], 11/12/2022 17:08:25 11/13/19 23 11/12/2022 urina lysis panel , auto Unknown Analyte Negati ve Not Available [facility] [address], [place], [address], 11/12/2022 17:08:25 11/13/19 23 11/12/2022 urina lysis panel , auto Unknown Analyte Negati ve Not Available [facility] [address], [place], [address], 11/12/2022 17:08:25 11/13/19 23 11/12/2022 urina lysis panel , auto Unknown Analyte Negati ve Not Available [facility] [address], [place], [address], 11/12/2022 17:08:25 11/13/19 23 11/12/2022 urina lysis panel , auto Unknown Analyte Negati ve Not Available [facility] [address], [place], [address], 11/12/2022 17:08:25 11/13/19 23 11/12/2022 urina lysis panel , auto Unknown Analyte Normal Not Available [facility] [address], [place], [address], 11/12/2022 17:08:25 11/13/19 23 11/12/2022 urina lysis panel , auto Unknown Analyte Normal Not Available [facility] [address], [place], [address], 11/12/2022 17:08:25 11/13/19 23 11/12/2022 urina lysis panel , auto Unknown Analyte Negati ve Not Available [facility] [address], [place], [address], 11/12/2022 17:08:25 11/13/19 23 11/12/2022 urina lysis panel , auto Unknown Analyte Negati ve Not Available [facility] [address], [place], [address], 11/12/2022 17:08:25 11/13/19 23 11/12/2022 urina lysis panel , auto Unknown Analyte Normal Not Available [facility] [address], [place], [address], 11/12/2022 17:08:25 11/13/19 23 11/12/2022 urina lysis panel , auto Unknown Analyte Normal 1 mg/dl Not Available [facility] [address], [place], [address], 11/12/2022 17:08:25 11/13/19 23 11/12/2022 urina lysis panel , auto Unknown Analyte Negati ve Not Available [facility] [address], [place], [address], 11/12/2022 17:08:25 11/13/19 23 11/12/2022 urina lysis panel , auto Unknown Analyte Negati ve Not Available [facility] [address], [place], [address], 11/12/2022 17:08:25 11/13/19 23 11/12/2022 urina lysis panel , auto Unknown Analyte Negati ve Not Available [facility] [address], [place], [address], 11/12/2022 17:08:25 11/13/19 23 11/12/2022 urina lysis panel , auto Unknown Analyte Negati ve Not Available [facility] [address], [place], [address], 11/12/2022 17:08:25 Result Notes None recorded. Problems No Known Problems Procedures Surgical History Date Name Laterality Status Provider Name and Address Organization Details Recorded Time 09/16/19 23 Post Void Residual; Catheter completed Vanna Kohli [facility] 09/15/2022 10:09:27 Hysterectomy completed Vanna Kohli [facility] 09/15/2022 10:07:17 Tubal Ligation completed Vanna Kohli [facility] 09/15/2022 10:07:26 Neck Surgery completed Vanna Kohli [facility] 09/15/2022 10:07:33 Imaging Results None recorded. Procedure Notes None recorded. Medical Equipment None Reported. Allergies Allergen ID Allergen Name Allergen Category Reaction Reaction Severity Criticality Documentation Date Start Date Code Code System Note Provider Name and Address Organization Details Recorded Time [id number] Omnicef medicatio n Not available Not available Not available 09/15/2022 27631 RxNorm Vanna Kohli [facility] 3 10:05:39 Medications Name Sig Start Date [...] Updated DateTime 09/15/2022 162.56 cm 27.6 kg/m2 58265.37 g Vanna Kohli [facility] 09/15/2022 09:53:37 Date Recorded Body height Body mass index (BMI) Body weight Provider Name and Address Organization Details Last Updated DateTime 10/14/2022 162.56 cm 27.6 kg/m2 98211.37 g Vanna Kohli [facility] 10/14/2022 09:36:46 Date Recorded Body height Body mass index (BMI) Body weight Provider Name and Address Organization Details Last Updated DateTime 11/12/2022 162.56 cm 27.6 kg/m2 65136.37 g Celeste Pierre [facility] 11/12/2022 17:08:18 Social History Question Answer Notes LastModified by [employer] Details LastModified Time Tobacco Smoking Status [facility] 10:06:46 What Is Your Relationship Status? [email or web address] Information not available 09/15/2022 Has Tobacco Cessation Counseling Been Provided? No [email or web address] Information not available 09/15/2022 Sex: Unknown Functional Status Question Answer Note LastModified by Organizat ion Details LastModified Time Do you or have you ever used any other forms of tobacco or nicotine? No Information not available 09/15/2022 What is your level of alcohol consumption? None [email or web address] Information not available 09/15/2022 Are you currently employed? No Retired [email or web address] Information not available 09/15/2022 Mental Status None recorded. Family History Nothing Reported. Medical History Condition Response Allergies/Hayfever Y Anxiety Disorder Y Anemia Y False Teeth Y Sleep Apnea Y Hepatitis Y Heart Disease Y Depression Y Asthma Y Gynecological HistoryNo gynecological history recorded. Obstetrics History GPAL:G 0 P 0 0 0 0 Past Encounters Encounter ID Performer Location Encounter Start Date Encounter Closed Date Diagnosis/Indication Diagnosis SNOMED-CT Code Diagnosis ICD10 Code Diagnosis Note [id number] [place] [address] 06/01/2016 14:36:52 06/01/2016 14:36:52 [id number] MD NOELLE WO[facility]ARD [facility] [address] [place] [address] 09/15/2022 09:13:14 09/15/2022 10:15:33 Recurrent urinary tract infection 801946815 N39.0 [id number] AWLI GALAN MD [facility] [address] [place] [address] 10/14/2022 09:09:02 10/14/2022 09:35:01 Recurrent urinary tract infection 850954771 N39.0 [id number] WALI GALAN MD [facility] [address] [facility] [address] [address] 11/12/2022 16:54:44 11/13/2022 05:04:49 Urinary tract infectious disease 87899113 N39.0 Health Concerns Section Related Observation LastModified by Organization Detai ls LastModified Time None Recorded Concern Status LastModified by Organization Details LastModified Time None Recorded Advance Directives Directive None Recorded Payers Insurance Date Sequence Insurance Name Policy Number Policy Villegas Covered Member ID Villegas Member ID Guarantor Name 10/31/2022 2 UNSPECIFIED REMIT PAYOR Macey Sutton 02/24/2023 2 [employer] (MEDICARE SUPPLEMENT) Macey Sutton [id number] Macey Sutton 11/14/2022 2 [employer] (MEDICARE SUPPLEMENT) Macey Sutton [id number] Macey Sutton 11/12/2022 1 [place] Macey Sutton [id number] Macey Sutton Notes Date Note Type Note [...] this with low-dose antibiotics WALI GALAN MD [address] [place] [address], [address], [facility] 09/15/2022 10:20:36 10/14/2022 text/html She has been taking the Bactrim twice daily. She is asymptomatic. There is no sign of recurrent bladder infection. There is no back or abdominal pain. There is no hematuria or dysuria. She is emptying her bladder without any difficulty. We will cut this back to a daily dose WALI GALAN MD [address] [place] [address] [place], [address], [facility] 10/14/2022 09:51:10 11/12/2022 text/html She has been [...] her something besides Bactrim WALI GALAN MD [address] [place], [address], [facility] 11/12/2022 17:23:11 OBGyn Episode No OBEpisode recorded.
--- NOTE | 2024-09-06 14:15 | MM_ITS ---
PROCEDURE INFORMATION: Exam: MG Bilateral Screening 3D Mammography Exam date and time: 09/06/2024 2:29 PM Age: 78 years old Clinical indication: Screening examination TECHNIQUE: Imaging protocol: Bilateral Screening tomosynthesis and 2D mammography including computer-aided detection (CAD) when performed. COMPARISON: 1. MG MM DIG SCREENING MAMM BI W/CAD 08/13/2023 2:15 PM 2. MG MM DIG SCREENING MAMM BI W/CAD 07/31/2022 10:29 AM FINDINGS: MAMMOGRAPHY: Breast composition: There are scattered areas of fibroglandular density. Mass: None. Architectural distortion: None. Calcifications: No suspicious calcifications. Asymmetric density: None. Skin thickening: None. Axillary adenopathy: None. IMPRESSION: No mammographic evidence of malignancy. Annual screening is recommended unless otherwise clinically indicated. ASSESSMENT: BI-RADS Category 1: Negative.
== END 2024-09-06 23:59 | disposition home or self-care (01) ==
LOC: RAD 13:51
PROVIDERS: PCP Family Medicine; Visit Provider Family Medicine
DX: Z12.31 Encounter for screening mammogram for malignant neoplasm of breast (principal); R92.323 Mammographic fibroglandular density, bilateral breasts
CPT/HCPCS: 77063; 77067

== ENCOUNTER 2024-10-04 19:35 | Outpatient (CLI) | payer MEDICARE, OTHER, SELFPAY ==
--- OUTSIDE RECORDS SUMMARY | 2024-10-04 19:39 | XMS_ITS | Clinical Summary ---
[facility] Organization [facility] Address [address] [place] [address] Care Team Providers Care Casino Worker Name Role Phone Osvaldo Ozuna MD Primary Care Provider +1- [phone] Allergies Active Allergy Reactions Criticality Noted Date Comments Cefdinir Unknown - Low Severity Low 12/10/2022 Medications metoprolol succinate XL (TOPROL-XL) 25 MG 24 hr tablet 1 tablet. Takes 1/2 pill nightly 3 Active ondansetron ODT (ZOFRAN-ODT) 4 MG disintegrating tablet 3 Active Cholecalciferol (Vitamin D3) 25 MCG (1000 UT) chewable tablet Chew 2 capsules Daily. Active citalopram (CeleXA) 20 MG tablet Take 2 tablets by mouth Daily. Takes 2 tablets nightly 3 Active clopidogrel (PLAVIX) 75 MG tablet Take 1 tablet every day by oral route. Active isosorbide mononitrate (IMDUR) 30 MG 24 hr tablet Take 1 tablet every day by oral route. Active bisacodyl (DULCOLAX) 5 MG EC tablet Take 1 tablet by mouth Daily As Needed for Constipation . Active aspirin 81 MG EC tablet Take 1 tablet by mouth Daily. Active Cranberry 250 MG capsule Take 1 tablet by mouth Daily. Active nitroglycerin (NITROSTAT) 0.4 MG SL tabletIndications:C oronary artery disease involving resighini coronary artery of resighini heart without angina pectoris 1 under the tongue as needed for angina, may repeat q5mins for up three doses 100 tablet 4 Active Synthroid 125 MCG tablet 4 Active rosuvastatin (CRESTOR) 5 MG tabletIndications:C oronary artery disease involving resighini coronary artery of resighini heart without angina pectoris Take 1 tablet by mouth Daily. 30 tablet 11 4 Active esomeprazole (nexIUM) 20 MG capsule Take 1 capsule by mouth Every Morning Before Breakfast. 5 Active Active Problems Problem Noted Date Diagnosed Date Bilateral carotid artery stenosis 07/08/2023 Assessment & Plan (07/08/2023 4:45 PM EDT): Noted history of bilateral carotid stenosis that was mild in 2019. She has had no follow-up in 5 years. Plan: Carotid duplex for further evaluation Acute recurrent frontal sinusitis 06/17/2023 Assessment & Plan (06/17/2023 4:33 PM EDT): She also has complaints of sinus drainage, tenderness worse on the right frontal. Her post nasal drip causes a cough at night, but no chest congestion. Drainage has turned green about 3 days ago. She denies any fever. She reports she had some similar to this back in October and responded well to antibiotics and a steroid injection. Plan: Azithromycin and follow-up with her PCP if not improved Fatigue 06/17/2023 Assessment & Plan (11/11/2023 12:02 PM EDT): She reports that her fatigue is stable and she thinks somewhat improved. She reports that she was able to can 200 jars of corn and her endurance was better than last year. She reports she continues to work with her PCP on her thyroid and vitamin D levels and had blood work to recheck those yesterday. She feels like this is much better. She completed a nuclear stress test June 2023 for further evaluation of her fatigue and increased shortness of air but this study showed no evidence of ischemia. She is encouraged to continue to watch the symptom and follow-up if worsening or increase in symptoms. Assessment & Plan (07/08/2023 4:40 PM EDT): She reports that her main complaint is just increased fatigue over the last 6 months. She is getting tired doing housework such as mopping or sweeping or walking 150 feet to the mailbox. She completed labs at her PCP and she reports that her vitamin D level and TSH level was low. Her PCP adjusted her thyroid medication and her vitamin D supplement. PCP is following this. She has completed a nuclear stress test. This is low risk with no evidence of ischemia. Assessment & Plan (06/17/2023 4:42 PM EDT): She reports an increase in fatigue x 6 months. She is getting so tired doing her housework such as mopping or sweeping or walking 150 feet to the mailbox that she will have to stop Plan: Check labs Check a nuclear stress test Coronary artery disease invo lving resighini coronary artery of resighini heart without angina pectoris 12/10/2022 Assessment & Plan (05/18/2024 4:46 PM EDT): She has a known history of CAD with angioplasty to the LAD. This artery was too small to stent. She reports that other than being 78-year-old fatigue and shortness of air that she relates more to allergies and congestion that she has been feeling very well. The symptoms are stable and not worsening or increasing. Last nuclear stress test June 2023 no evidence of ischemia. Overall low risk study. She is on medical management for her CAD and we plan to continue the following: -Aspirin -Plavix -Isosorbide mono -Metoprolol -Low-dose statin as this is all she can tolerate Orders given for labs CBC CMP and lipids Assessment & Plan (11/11/2023 12:09 PM EDT): Known history of CAD seen on heart cath in 2014. She had a angioplasty to the LAD. The artery was too small to stent. She reports that her complaint of fatigue and shortness of air are stable and may be slightly improved. Symptoms stable to slightly improved. Last nuclear stress test was completed in June 2023 and this had no evidence of ischemia. Overall low risk study. She is to continue on her medical management: -Aspirin -Plavix -Isosorbide mono -Metoprolol -Statin has been restarted. She is tolerating a low-dose. Assessment & Plan (07/08/2023 4:44 PM EDT): Known history of coronary artery disease. Last heart cath was 2014 with stent angioplasty to the LAD. This artery was too small to stent. She has had an increased complaint of fatigue and shortness of air x 6 months. Nuclear stress test completed for further evaluation and this is a low risk study with no evidence of ischemia. PCP completed labs. Noted CBC and CMP and lipids are within normal limits. LDL noted 97 with a goal of less than 100. She is to continue on her medical management: -Aspirin -Plavix -I Sorbide mono -Metoprolol -We discussed why she is not on a statin. She reports that in the past Lipitor caused musculoskeletal pain. She reports she was on Crestor but she cannot remember why she stopped this medication. We are going to restart a statin at a low dose. Follow-up for coronary artery disease in about 4 months Assessment & Plan (06/17/2023 4:42 PM EDT): Known history of coronary artery disease. CAD: [facility] 09/2014 showing severe one- vessel disease 70% LAD with angioplasty (artery too small for stent) Her last nuclear stress test was 05/10/2018 showing no reversible ischemia. She has an increased complaint of fatigue and shortness of air x 6 months. She is on medical management including: -Aspirin -Plavix -Isorbide mono -Metoprolol Noted she is not on any statin therapy. Noted she has not completed recent fasting lipids and she is given an order today. Plan: Nuclear stress test for further evaluation for possible anginal equivalent. She is unable to ambulate the treadmill due to shortness of air and fatigue. Check labs Follow-up after testing Assessment & Plan (12/10/2022 5:00 PM EDT): Known history of coronary artery disease. Her symptoms are stable. She is on medical management including: -Aspirin -Plavix -Isosorbide mono -Metoprolol Plan to continue medical management of coronary artery disease. Noted that there is not a statin on her medication list. We will check with PCP to see if he is prescribing statin therapy and check for her last lipid profile. She reports that was completed at her family doctor's office. We will revisit this after reviewing her note and labs. Plan 6-month follow-up visit or sooner for any increase of symptoms. Central sleep apnea 12/10/2022 Assessment & Plan (05/18/2024 4:43 PM EDT): Known history of severe sleep apnea. Baseline AHI 30 that increases to 45 in supine position. He has been ordered an ASV device. Unfortunately she has had a skin cancer removed from the end of her nose and she cannot tolerate a mask. She reports that she has tried a few times to get her mask back on but this area is very tender and painful. We discussed risk of untreated sleep apnea We discussed if possible to restart her use back. We discussed if she is not able to restart her PAP if she would want to consider an inspire device but she reports she is not interested in any surgery at the age of 78. No she is encouraged lateral sleep position, head of bed elevated and restart if possible Assessment & Plan (11/11/2023 12:10 PM EDT): Baseline AHI is 30 that increased to 45 in supine position. This is severe sleep apnea. She is on an ASV device. Download is reviewed with good control and good compliance. She is benefiting from her ASV device. We plan to continue ASV. She reports that she is very dry at night and noted that her humidifier is set on a level 3. She is advised to contact her DME company for assistance to adjusting her humidifier to a level 4. She is encouraged not to run the device out of water. Patient verbalized understanding. She has a current prescription for her supplies at her DME of choice. Assessment & Plan (06/17/2023 4:34 PM EDT): Baseline AHI is 30/45 supine. This is severe sleep apnea. She is on ASV device. Download is reviewed with good control and good compliance. She is benefiting from the ASV device with plan to continue ASV. Prescription for PAP supplies from the DME of her choice. Assessment & Plan (12/10/2022 4:59 PM EDT): Baseline AHI is 30/45 supine. This is severe sleep apnea. She is on an ASV device. Download is reviewed with good control and good compliance. She is benefiting from ASV device and we plan to continue ASV. Prescription for PAP supplies from the DME of her choice. Immunizations Immunization Administration Dates Next Due 31-influenza Vac Quardvalent Preservativ 017 COVID-19 (MODERNA) 1st,2nd,3 rd Dose Monovalent 12/12/2020,05/23/2020,04/25/2020 Fluzone High-Dose 65+YRS 12/20/2020,11/22/2019 Fluzone High-Dose 65+yrs 12/18/2021 Pneumococcal Conjugate 13-Valent (PCV13) 021 Pneumococcal Polysaccharide (PPSV23) 10/08/2017, 01/13/2007 Family History Medical History Relation Name Comments Heart failure Father Stroke Mother Relation Name Status Comments Brother 1 Alive Brother 2 4 Father (Age 70) Mother (Age 86) Sister 1 Alive Sister 2 (Age 3) Sister 3 (Age 0) Sister 4 Alive Social History Tobacco Use Types Packs/Day Years Used Date Smoking Tobacco: Former Cigarettes 0.3 10 1 983 - 1992 Passive Smoke Exposure: Past Smokeless Tobacco: Never Tobacco Cessation:Counseling Given: No Alcohol Use Standard Drinks/Week Comments Never 0 (1 standard drink = 0.6 oz pur e alcohol) Comments Unknown Sex and Gender Information Value Date Recorded Sex Assigned at Not on file Legal Sex Female 10:06 AM EDT Gender Identity Not on file Sexual Orientation Not on file Last Filed Vital Signs Vital Sign Reading Time Taken Comments Blood Pressure 112/64 05/18/2024 11:30 AM EDT Pulse 67 05/18/2024 11:30 AM EDT Temperature - - Respiratory Rate - - Oxygen Saturation 96% 11/11/2023 9:49 AM EDT Inhaled Oxygen Concentration - - Weight 76 kg (167 lb 8 oz) 05/18/2024 11:30 AM E DT Height 162.6 cm (5' 4 ) 11/11/2023 9:49 AM EDT Body Mass Index 28.75 11/11/2023 9:49 AM EDT Plan of Treatment Upcoming Encounters Date Type Department Care Team (Late st Contact Info) Description 11/23/2024 11:15 AM EDT Office Visit [facility] [address] [place] [address] Senora, Britney W, SUPERVISOR COMPONENT ASSEMBLER [address] [place] [address] [place] [address] Health Maintenance Due Date Last Done Comments DXA SCAN 1945 TDAP/TD VACCINES (1 - Tdap) 09/08/1962 ZOSTER VACCINE (1 of 2) 09/08/1993 RSV Vaccine - Adults (1 - 1- dose 75+ series) 09/08/2018 ANNUAL WELLNESS VISIT 08/20/2022 COVID-19 Vaccine (4 - 2023-2 5 season) 2023 12/12/2020, 05/23/2020, 04/25/2020 INFLUENZA VACCINE 11/29/2024 12/28/2023, , 12/18/2021, Additional history exists Pneumococcal Vaccine 50+ Completed 021, 10/08/2017, 01/13/2007 Insurance MEDICARE A & B Member Subscriber Plan / Payer (Ef fective 2005-Present) Name:Macey Sutton Member ID:[id number] Relation to Subscriber:Self Name:SuttonLetysy Subscriber ID:[id number] Payer ID:[id number] Group ID:Not on file Type:Not on file Address: [facility] [id number] [place] [id number] [facility] Care Teams Casino Worker Relationship Specialty Start Date End Date Osvaldo Ozuna MD [address] [place] [address] PCP - General Family Medicine 10/21/22
--- OUTSIDE RECORDS SUMMARY | 2024-10-04 19:39 | XMS_ITS | Clinical Summary ---
Author Organization [facility] Address [address] [place] [address] Care Team Providers Care Seo Strategist Name Role Phone Osvaldo Ozuna MD Primary [...] [facility]-Bone Density Scan 1945 [facility]-Depression Screening 1945 [facility]-/Child/Adol SDOH Screenings 1945 [facility]- SDOH Screenings 09/08/1961 [facility]-Adult SDOH Screenings 09/08/1961 [facility]-DTaP,Tdap,and Td Vaccines (1 - Tdap) 09/08/1962 [facility]-Zoster Vaccines (1 of 2) 09/08/1993 [facility]-RSV Vaccine: 60+ Years or (1 - 1-dose 75+ series) 09/08/2018 [id number] Vaccine (4 - 2023- season) 2023 12/12/2020, [...] complete this topic Insurance MEDICARE Care Teams Seo Strategist Relationship Specialty Start Date End Date Osvaldo Ozuna MD PCP - General Family Medicine 09/03/22
[2024-10-04 21:43] LABS: Thyroid Stimulating Hormone 10.60 uIU/mL (0.465-4.68)
== END 2024-10-04 23:59 | disposition home or self-care (01) ==
LOC: LAB.DROPOF 19:37
PROVIDERS: PCP Family Medicine; Visit Provider Family Medicine
DX: E03.9 Hypothyroidism, unspecified (principal)
CPT/HCPCS: 84443

== ENCOUNTER 2024-12-25 11:37 | Outpatient (CLI) | payer MEDICARE, OTHER, SELFPAY ==
[2024-12-25 19:44] LABS: Thyroid Stimulating Hormone 0.23 uIU/mL (0.465-4.68)
--- OUTSIDE RECORDS SUMMARY | 2024-12-26 11:32 | XMS_ITS | Clinical Summary ---
Author Organization [facility] Address [address] [place] [address] Care Team Providers Care Engineering Librarian Name Role Phone Osvaldo Ozuna MD Primary [...] or (1 - 1-dose 75+ series) 09/08/2018 [id number] Vaccine (4 - 2024- season) 2024 12/12/2020, 05/23/2020, 04/25/2020 [facility]-Influenza Vaccine (#1) 10/30/202412/18, [...] complete this topic Insurance MEDICARE Care Teams Engineering Librarian Relationship Specialty Start Date End Date Osvaldo Ozuna MD PCP - General Family Medicine 09/03/22
--- OUTSIDE RECORDS SUMMARY | 2024-12-26 11:32 | XMS_ITS | Clinical Summary ---
Author Organization [facility] Address [address] [place] [address] Care Team Providers Care Elementary Classroom Teacher Name Role Phone Osvaldo Ozuna MD Primary Care Provider +1- [phone] Allergies Active Allergy Reactions Criticality Noted Date [...] MG SL tabletIndications:C oronary artery disease involving mechoopda coronary artery of mechoopda heart without angina pectoris 1 under the tongue as needed for angina, may repeat q5mins for up three doses 100 tablet 4 Active Synthroid 125 MCG tablet 4 Active esomeprazole (nexIUM) 20 MG capsule Take 1 capsule by mouth Every Morning Before Breakfast. 5 Active rosuvastatin (CRESTOR) 5 MG tabletIndications:C oronary artery disease involving mechoopda coronary artery of mechoopda heart without angina pectoris Take 1 tablet by mouth Daily. 90 tablet 3 5 Active Active Problems Problem Noted Date Diagnosed Date Bilateral carotid artery stenosis 07/08/2023 Assessment & Plan (07/08/2023 4:45 PM EDT): Noted history of bilateral carotid stenosis that was mild in 2018. She has had no follow-up in 5 [...] stress test Coronary artery disease invo lving mechoopda coronary artery of mechoopda heart without angina pectoris 12/10/2022 Assessment & [...] Known history of coronary artery disease. CAD: [facility] 09/2014 showing severe one- vessel disease [...] supplies from the DME of her choice. Encounters Date Type Department Care Team Description 12/05/[address] [facility] [address] [place] [address] Britney Schmidt APRN SEIVERS - SCHEDULING 10/25/[address] [facility] [address] [place] [address] Haleigh Brito APRN Med Refill from Last 3 Months Immunizations Immunization Administration Dates Next Due 31-influenza [...] Care Team (Late st Contact Info) Description 12/28/2024 12:30 PM EDT Office Visit [facility] [address] [place] [address] Kathy Dobson, X RAY PHYSICIAN [address] [place] [address] 03/08/2025 11:30 AM EST Office Visit [facility] [address] [place] [address] Britney Schmidt, X RAY PHYSICIAN [address] [place] [address] Health Maintenance Due Date Last Done Comments DXA SCAN 1943 TDAP/TD VACCINES (1 - Tdap) 09/08/1962 ZOSTER VACCINE (1 of 2) 09/08/1993 RSV Vaccine - Adults (1 - 1- dose 75+ series) 09/08/2018 ANNUAL WELLNESS VISIT 08/20/2022 INFLUENZA VACCINE 09/29/2024 12/28/2023, , 12/18/2021, Additional history exists COVID-19 Vaccine (4 - 2024-2 6 season) 2024 12/12/2020, 05/23/2020, 04/25/2020 Pneumococcal Vaccine 50+ Completed 021, 10/08/2017, 01/13/2007 Insurance MEDICARE A & B [employer] Care Teams Elementary Classroom Teacher Relationship Specialty Start Date End Date Osvaldo Ozuna MD [address] [place] [address] PCP - General Family Medicine 10/21/22
--- OUTSIDE RECORDS SUMMARY | 2024-12-26 11:32 | XMS_ITS | Encounter Summary ---
[facility] Address [address] [place] [id number] Care Team Providers Care Naturopathic Oncology Provider Name Role Phone Osvaldo Ozuna MD Primary Care Provider +1- [phone] Reason for Visit * Reason Onset Date Comments SEIVERS - SCHEDULING 12/05/2024 Encounter Details Date Type Department Care Team (Late st Contact Info) Description 12/05/2024 Telephone [facility] [address] [place] [address] SeBritney melendez, DIRECTOR DRUG SAFETY [address] [place] [id number] SEIVERS - SCHEDULING Social History Tobacco Use Types Packs/Day Years Used Date Smoking Tobacco: Former Cigarettes 0.3 10 983 - 1992 Passive Smoke Exposure: Past Smokeless Tobacco: Never Alcohol Use Standard Drinks/Week Comments Never 0 (1 standard drink = 0.6 oz pur e alcohol) Comments Unknown Sex and Gender Information Value Date Recorded Sex Assigned at Not on file Legal Sex Female 10:06 AM EDT Gender Identity Not on file Sexual Orientation Not on file documented as of this encounter Miscellaneous Notes * Telephone Encounter - Lenora Machado RegSched Rep - 12/05/2024 10:11 AM EDT Caller: Macey Sutton Relationship to patient: Self Best call back number: Telephone Information: Chief complaint: NO CARDIAC SYMPTOMS, HIATAL HERNIA IS BOTHERING HER. WOULD LIKE TO BE CHECKED OUT BY CARDIO. Type of visit: FOLLOW UP Requested date: DEC 26- If rescheduling, when is the original appointment: 11/23, PT CANCELLED AND WAS UNABLE TO MAKE IT. Additional notes:SCHEDULED FIRST AVAILABLE AND ADDED TO THE WAIT LIST. FIRST AVAILABLE ISNT UNTIL 02/05. WILLING TO SEE ANYONE IN OFFICE. documented in this encounter Plan of Treatment Upcoming Encounters Date Type Department Care Team (Late st Contact Info) Description 12/28/2024 12:30 PM EDT Office Visit [facility] [address] [place] [address] Kathy Dobson, DIRECTOR DRUG SAFETY [address] [place], [place] [id number] 03/08/2025 11:30 AM EST Office Visit [facility] [address] [place] [address] Britney Schmidt, DIRECTOR DRUG SAFETY [address] [place] [address] [place] [address] documented as of this encounter Visit Diagnoses Not on filedocumented in this encounter Care Teams Naturopathic Oncology Provider Relationship Specialty Start Date End Date Osvaldo Ozuna MD [address] [place] [address] PCP - General Family Medicine 10/21/22 documented as of this encounter
== END 2024-12-25 23:59 ==
LOC: LAB.DROPOF 12-26 11:26
PROVIDERS: PCP Family Medicine; Visit Provider Family Medicine
DX: E03.9 Hypothyroidism, unspecified (principal)
CPT/HCPCS: 84443

== ENCOUNTER 2025-02-14 15:36 | Emergency (ER) | payer MEDICARE, OTHER, SELFPAY ==
--- OUTSIDE RECORDS SUMMARY | 2024-12-28 11:30 | XMS_ITS | Encounter Summary ---
[facility] Address [address] [place] [address] Care Team Providers Care Executive Director Global Brand Marketing Name Role Phone Osvaldo Ozuna MD Primary Care Provider [phone] Reason for Referral * Diagnostic Imaging (Routine) - Closed Specialty Diagnoses / Procedures Referred By Contac t Referred To Contact Diagnoses Diastolic dysfunction Procedures Adult Transthoracic Echo Complete W/ Cont if Necessary Per Protocol Kathy Dobson APRN [address] [place] [address] Phone: tel: fax: [facility] [address] [place] [address] Phone: tel: fax: Referral ID Status Reason Start Date Expiration Date Visits Re quested Visits Authorized [id number] Closed 12/28/2024 03/29/2026 1 1 Reason for Visit * Reason Comments Coronary Artery Disease Sleep Apnea Has not used PAP mac lori in months Encounter Details Date Type Department Care Team (Late st Contact Info) Description 12/28/2024 12:30 PM EDT Office Visit [facility] [address] [place] [address] [place] [address] Kathy Dobson APRN [address] [place] [address] Coronary artery disease involving shoalwater coronary artery of shoalwater heart without angina pectoris (Primary Dx); Central sleep apnea; Mixed hyperlipidemia; Diastolic dysfunction Social History Tobacco Use Types Packs/Day Years Used Date Smoking Tobacco: Former Cigarettes 0.3 10 1992 Passive Smoke Exposure: Past Smokeless Tobacco: Never Alcohol Use Standard Drinks/Week Comments Never 0 (1 standard drink = 0.6 oz pur e alcohol) Comments Unknown Sex and Gender Information Value Date Recorded Sex Assigned at Not on file Legal Sex Female 10:06 AM EDT Gender Identity Not on file Sexual Orientation Not on file documented as of this encounter Last Filed Vital Signs Vital Sign Reading Time Taken Comments Blood Pressure 116/70 12/28/2024 12:15 PM EDT Pulse 67 12/28/2024 12:15 PM EDT Temperature - - Respiratory Rate - - Oxygen Saturation 93% 12/28/2024 12:15 PM EDT Inhaled Oxygen Concentration - - Weight 75.3 kg (166 lb) 12/28/2024 12:15 PM EDT Height 162.6 cm (5' 4 ) 12/28/2024 12:15 PM EDT Body Mass Index 28.49 12/28/2024 12:15 PM EDT documented in this encounter Progress Notes * Kathy Dobson APRN - 12/28/2024 12:30 PM EDTAssociated Problem(s): Coronary artery disease involving shoalwater coronary artery of shoalwater heart with out angina pectoris {Coronary Artery Disease (OPTIONAL):71646} * Kathy Dobson APRN - 12/28/2024 12:30 PM EDTAssociated Problem(s): Central sleep apnea * Kathy Dobson APRN - 12/28/2024 12:30 PM EDTAssociated Problem(s): Mixed hyperlipidemia {Hyperlipidemia A/P Block (Optional):7524016434} * Kathy Dobson APRN - 12/28/2024 12:30 PM EDTAssociated Problem(s): Diastolic dysfunction Orders: Adult Transthoracic Echo Complete W/ Cont if Necessary Per Protocol; Future * Kathy Dobson APRN - 12/28/2024 12:30 PM EDTAssociated Order(s): ECG 12 Lead Post-Procedure Diagnose(s): Coronary artery disease involving shoalwater coronary artery of shoalwater heart without angina pectoris Images from the original note were not included. [facility] Provider Note Date: 12/28/2024 Name: Macey Sutton : 1945 PCP: Osvaldo Ozuna MD Chief Complaint Patient presents with Coronary Artery Disease Sleep Apnea Has not used PAP machine in months Subjective History of Present Illness History of Present Illness The patient is an 79-year-old female for follow up of CAD, Central Sleep Apnea, and Hyperlipidemia.She is accompanied by her daughter. Patient reports she seen a surgeon Dr Rajiv Avina on Wednesday at the [facility] regarding her hiatal hernia. She reports experiencing chest discomfort associated with her hernia, which also exacerbates her shortness of breath. The hernia is located at the diaphragm, causing choking sensations and difficulty swallowing her food. Unable to use her PAP device at this time r/t hernia, stateswhen she lies down hernia pushes up more and causes her breathing difficulty. She has not required the use of nitroglycerin for chest pain. There is no swelling in the lower extremities or dizziness reported. She has not yet received a scheduled date for her surgery. She reports persistent stomach discomfort, which is exacerbated after eating. States the hiatal hernia is making her miserable. Sleep and cardiac history: Sleep apnea AHI 30/45 supine on 04/16/2011 Titration study 06/20/2013 did not fully correct on BiPAP. Last titration study 09/25/2020 with complex sleep titrated to ASV OFF: Current sleep apnea therapy: ASV device minimum EPAP 8 maximum EPAP 15, minimum pressure support 0 and maximum pressure support 15 CAD: [facility] 09/2014 showing severe one-vessel disease 70% LAD with angioplasty (artery too small for stent) Nuclear stress test 07/01/23 no evidence of ischemia PAD: Bilateral lower extremity arterial duplex 2018-waveforms triphasic to biphasic with right CHLOE 1.04 and left CHLOE 1.01 Last echo: 09/02/22 @ [facility]. ECHO 02/02/2022 EF 55 to 60%, mild Aortic regurg and MR, mild elevated RSVP, abnormal diastolic function 05/12/2018 bilateral carotid duplex mild Allergies Allergen Reactions Cefdinir Unknown - Low Severity Current Outpatient Medications: aspirin 81 MG EC tablet, Take 1 tablet by mouth Daily., Disp: , Rfl: Cholecalciferol (Vitamin D3) 25 MCG (1000 UT) chewable tablet, Chew 2 capsules Daily., Disp: , Rfl: citalopram (CeleXA) 20 MG tablet, Take 2 tablets by mouth Daily. Takes 2 tablets nightly, Disp: , Rfl: clopidogrel (PLAVIX) 75 MG tablet, Take 1 tablet every day by oral route., Disp: , Rfl: Cranberry 250 MG capsule, Take 1 tablet by mouth Daily., Disp: , Rfl: esomeprazole (nexIUM) 20 MG capsule, Take 1 capsule by mouth Every Morning Before Breakfast., Disp:, Rfl: isosorbide mononitrate (IMDUR) 30 MG 24 hr tablet, Take 1 tablet every day by oral route., Disp: , Rfl: levocetirizine (XYZAL) 5 MG tablet, Take 1 tablet by mouth Every Evening., Disp: , Rfl: metoprolol succinate XL (TOPROL-XL) 25 MG 24 hr tablet, 1 tablet. Takes 1/2 pill nightly, Disp: , Rfl: nitroglycerin (NITROSTAT) 0.4 MG SL tablet, 1 under the tongue as needed for angina, may repeat q5mins for up three doses, Disp: 100 tablet, Rfl: 0 ondansetron ODT (ZOFRAN-ODT) 4 MG disintegrating tablet, , Disp: , Rfl: rosuvastatin (CRESTOR) 5 MG tablet, Take 1 tablet by mouth Daily., Disp: 90 tablet, Rfl: 3 Synthroid 125 MCG tablet, , Disp: , Rfl: Past Medical History: Diagnosis Date Asthma Central sleep apnea Coronary artery disease GERD (gastroesophageal reflux disease) Hyperlipidemia Hypertension Hypothyroidism Mitral stenosis Restless leg syndrome Sleep apnea Past Surgical History: Procedure Laterality Date APPENDECTOMY BLADDER SUSPENSION CATARACT EXTRACTION HYSTERECTOMY NECK SURGERY NOSE SURGERY N/A skin cancer Family History Problem Relation Name Age of Onset Stroke Mother Heart failure Father Social History Socioeconomic History Marital status: Number of children: 4 Tobacco Use Smoking status: Former Current packs/day: 0.00 Average packs/day: 0.3 packs/day for 10.0 years (2.5 ttl pk-yrs) Types: Cigarettes Start date: 1982 Quit date: 1992 Years since quittin.8 Passive exposure: Past Smokeless tobacco: Never Vaping Use Vaping status: Never Used Substance and Sexual Activity Alcohol use: Never Drug use: Never Sexual activity: Defer Objective Vital Signs: BP 116/70 Pulse 67 Ht 162.6 cm (64 ) Wt 75.3 kg (166 lb) SpO2 93% BMI 28.49 kg/m?? Estimated body mass index is 28.49 kg/m?? as calculated from the following: Height as of this encounter: 162.6 cm (64 ). Weight as of this encounter: 75.3 kg (166 lb). Physical Exam Constitutional: Appearance: Normal appearance. She is well-developed. HENT: Head: Normocephalic and atraumatic. Nose: Nose normal. Mouth/Throat: Mouth: Mucous membranes are moist. Eyes: General: No scleral icterus. Pupils: Pupils are equal, round, and reactive to light. Neck: Vascular: No carotid bruit. Cardiovascular: Rate and Rhythm: Normal rate and regular rhythm. Pulses: Normal pulses. Radial pulses are 2+ on the right side and 2+ on the left side. Dorsalis pedis pulses are 2+ on the right side and 2+ on the left side. Posterior tibial pulses are 2+ on the right side and 2+ on the left side. Heart sounds: Normal heart sounds. No murmur heard. Pulmonary: Effort: Pulmonary effort is normal. Breath sounds: Normal breath sounds. No wheezing or rhonchi. Abdominal: General: Bowel sounds are normal. Musculoskeletal: Right lower leg: No edema. Left lower leg: No edema. Skin: General: Skin is warm and dry. Capillary Refill: Capillary refill takes less than 2 seconds. Coloration: Skin is not cyanotic. Nails: There is no clubbing. Neurological: Mental Status: She is alert and oriented to person, place, and time. Motor: No weakness. Gait: Gait normal. Psychiatric: Mood and Affect: Mood normal. Behavior: Behavior normal. Behavior is cooperative. Thought Content: Thought content normal. Cognition and Memory: Memory normal. ECG 12 Lead Date/Time: 12/28/2024 12:51 PM Performed by: Kathy Dobson APRN Authorized by: Kathy Dobson APRN Comparison: compared with previous ECG from 07/18/2024 Comparison to previous ECG: Sinus rhythm, nonspecific T wave abnormality Rhythm: sinus rhythm Rate: normal BPM: 60 QRS axis: normal Other findings: T wave abnormality Clinical impression: non-specific ECG Comments: Sinus rhythm, nonspecific T wave abnormality Results Labs - Cholesterol levels: 04/2024, Normal Assessment and Plan Assessment & Plan Coronary artery disease involving shoalwater coronary artery of shoalwater heart without angina pectoris Central sleep apnea Mixed hyperlipidemia Diastolic dysfunction Orders: Adult Transthoracic Echo Complete W/ Cont if Necessary Per Protocol; Future Assessment & Plan Coronary Artery Disease - EKG updated and reviewed - Continue medical management with aspirin 81 mg daily, Plavix 75 mg daily, Imdur 30 mg daily, metoprolol 25 mg daily, and rosuvastatin 5 mg daily 2. Central Sleep Apnea - Patient unable to wear her PAP device r/t hiatal hernia. 3. Mixed Hyperlipidemia - Lipid panel on 05/22/2024 revealed LDL 61, cholesterol 155, triglycerides 142 - Continue rosuvastatin 5 mg daily 4. Diastolic Dysfunction - Last echo on 09/02/2022 revealed abnormal diastolic dysfunction. Will update echo Follow-up: Follow up in 6 months. Recommendations: Report if any new/changing symptoms immediately, Sleep risks reviewed (driving, medical, sleep , sedating agents), and Sleep hygiene discussed Follow Up Return in about 6 months (around 06/28/2025) for Next scheduled follow up. Patient or patient community engagement representative verbalized consent for the use of Ambient Listening during the visit with Kathy Dobson APRN for chart documentation. 12/28/2024 12:40 EDT Kathy Dobson APRN Cardiology and Sleep Psychiatric 12/28/2024 Please note that this explicitly excludes time spent on other separate billable services such as performing procedures or test interpretation, when applicable. documented in this encounter Plan of Treatment Upcoming Encounters Date Type Department Care Team (Late st Contact Info) Description 02/20/2025 10:00 AM EST Office Visit [facility] [address] [place] [address] Kathy Dobson APRN [address] [place] [address] documented as of this encounter Procedures Procedure Name Priority Date/Time Associated Diagnosis Comments ECG 12-LEAD Routine 12/28/2024 Coronary artery disease involving shoalwater coronary artery of shoalwater heart without angina pectoris documented in this encounter Results * ECHO COMPLETE W/ DOPPLER AND COLOR FLOW (01/01/2025 9:15 AM EST) EF(MOD-bp) 59.5 % LVIDd 4.9 cm LVIDs 3.4 cm IVSd 0.94 cm LVPWd 1.12 cm FS 29.7 % IVS/LVPW 0.84 cm ESV(cubed) 40.4 ml LV Sys Vol (BSA corrected) 16.9 cm2 EDV(cubed) 116.2 ml LV Noe Vol (BSA corrected) 45.0 cm2 LV mass(C)d 181.8 grams LVOT area 3.8 cm2 LVOT diam 2.20 cm EDV(MOD-sp2) 69.3 ml EDV(MOD-sp4) 81.4 ml ESV(MOD-sp2) 32.1 ml ESV(MOD-sp4) 30.5 ml SV(MOD-sp2) 37.2 ml SV(MOD-sp4) 50.9 ml SVi(MOD-SP2) 20.6 ml/m2 SVi(MOD-SP4) 28.2 ml/m2 SVi (LVOT) 46.9 ml/m2 EF(MOD-sp2) 53.7 % EF(MOD-sp4) 62.5 % MV E max guicho 65.2 cm/sec MV A max guicho 78.4 cm/sec MV dec time 0.25 sec MV E/A 0.83 IVRT 153.0 ms LA ESV Index (BP) 23.2 ml/m2 Med Peak E' Guicho 5.2 cm/sec Lat Peak E' Guicho 6.0 cm/sec TR max guicho 268.0 cm/sec Avg E/e' ratio 11.64 SV(LVOT) 84.8 ml RVIDd 2.8 cm RV Base 3.4 cm RV Mid 3.4 cm RV Length 6.3 cm TAPSE (>1.6) 1.98 cm RV S' 12.7 cm/sec LA dimension (2D) 3.4 cm LV V1 max 103.0 cm/sec LV V1 max PG 4.2 mmHg LV V1 mean PG 2.00 mmHg LV V1 VTI 22.3 cm Ao pk guicho 117.0 cm/sec Ao max PG 5.5 mmHg Ao mean PG 3.0 mmHg Ao V2 VTI 26.5 cm ROMEO(I,D) 3.2 cm2 Dimensionless Index 0.84 (DI) AI P1/2t 1,312 msec MV max PG 3.9 mmHg MV mean PG 1.00 mmHg MV V2 VTI 44.5 cm MV P1/2t 79.9 msec MVA(P1/2t) 2.8 cm2 MVA(VTI) 1.90 cm2 MV dec slope 254.5 cm/sec2 TR max PG 28.7 mmHg RVSP(TR) 31.7 mmHg RAP systole 3.0 mmHg PA V2 max 84.1 cm/sec Ao root diam 3.6 cm Sinus 3.7 cm Ascending aorta 3.5 cm Anatomical Region Laterality Modality Ultrasound Narrative 01/01/2025 5:20 PM EST Left ventricular systolic function is normal. Calculated left ventricular EF = 59.5% Left ventricular ejection fraction appears to be 56 - 60%. Left ventricular diastolic function is consistent with (grade I) impaired relaxation. Estimated right ventricular systolic pressure from tricuspid regurgitation is normal (<35 mmHg). Left Ventricle Left ventricular systolic function is normal. Calculated left ventricular EF = 59.5% Left ventricular ejection fraction appears to be 56 - 60%. Normal left ventricular cavity size and wall thickness noted. All left ventricular wall segments contract normally. Left ventricular diastolic function is consistent with (grade I) impaired relaxation. Right Ventricle Normal right ventricular cavity size, wall thickness, systolic function and septal motion noted. Left Atrium Normal left atrial size and volume noted. Right Atrium Normal right atrial cavity size noted. Mitral Valve Mild mitral annular calcification is present. There is mild calcification of the mitral valve posterior leaflet(s). Mild mitral valve regurgitation is present. No significant mitral valve stenosis is present. Tricuspid Valve The tricuspid valve is structurally normal with no significant stenosis present. Mild tricuspid valve regurgitation is present. Estimated right ventricular systolic pressure from tricuspid regurgitation is normal (<35 mmHg). Aortic Valve The aortic valve is abnormal in structure. The aortic valve exhibits sclerosis. There is mild calcification of the aortic valve. The aortic valve appears trileaflet. Trace to mild aortic valve regurgitation is present. No aortic valve stenosis is present. Pulmonic Valve The pulmonic valve is structurally normal with no significant stenosis present. There is trace to mild pulmonic valve regurgitation present. Pericardium The pericardium is normal. There is no evidence of pericardial effusion. . Greater Vessels No dilation of the aortic root is present. No dilation of the sinuses of Valsalva is present. No dilation of the proximal aorta is present. No dilation of the ascending aorta is present. The aortic arch not well visualized. The descending aorta not well visualized. The inferior vena cava is normally sized. Normal IVC inspiratory collapse of greater than 50% noted. The main pulmonary artery is grossly normal. Study Quality The study is technically difficult for diagnosis. The quality of the study is limited with poor acoustic windows. Sinus bradycardia was the predominant rhythm observed during the procedure. Wall Scoring Score Index: 1.00 The left ventricular wall motion is normal. us Kathy Dobson APRN CV ECHO ORDERABLES Final R esult * ECG 12-LEAD (12/28/2024) Narrative 12/28/2024 Kathy Dobson APRN 12/28/2024 12:54 PM ECG 12 Lead Date/Time: 12/28/2024 12:51 PM Performed by: Kathy Dobson APRN Authorized by: Kathy Dobson APRN Comparison: compared with previous ECG from 07/18/2024 Comparison to previous ECG: Sinus rhythm, nonspecific T wave abnormality Rhythm: sinus rhythm Rate: normal BPM: 60 QRS axis: normal Other findings: T wave abnormality Clinical impression: non-specific ECG Comments: Sinus rhythm, nonspecific T wave abnormality Procedure Note Kathy Dobson APRN - 12/28/2024 12:30 PM EDT Images from the original note were not included. [facility] Provider Note Date: 12/28/2024 Name: Macey Sutton : 1945 PCP: Osvaldo Ozuna MD Chief Complaint Patient presents with Coronary Artery Disease Sleep Apnea Has not used PAP machine in months Subjective History of Present Illness History of Present Illness The patient is an 79-year-old female for follow up of CAD, Central SleepApnea, and Hyperlipidemia. She is accompanied by her daughter. Patient reports she seen a surgeon Dr Rajiv Avina on Wednesday [facility] her [facility]atal [facility]. She reportsexperiencing chest discomfort associated with her hernia, which alsoexacerbates her shortness of breath. The hernia is located at thediaphragm, causing choking sensations and difficulty swallowing her food.Unable to use her PAP device at this time r/t hernia, states when she liesdown hernia pushes up more and causes her breathing difficulty. She hasnot required the use of nitroglycerin for chest pain. There is no swellingin the lower extremities or dizziness reported. She has not yet received a scheduled date for her surgery. She reportspersistent stomach discomfort, which is exacerbated after eating. Statesthe hiatal hernia is making her miserable. Sleep and cardiac history: Sleep apnea AHI 30/45 supine on 04/16/2011 Titration study 06/20/2013 did not fully correct on BiPAP. Last titrationstudy 09/25/2020 with complex sleep titrated to ASV OFF: Current sleep apnea therapy: ASV device minimum EPAP 8 maximum EPAP15, minimum pressure support 0 and maximum pressure support 15 CAD: [facility] 09/2014 showing severe one-vessel disease 70% LAD with angioplasty(artery too small for stent) Nuclear stress test 07/01/23 no evidence of ischemia PAD: Bilateral lower extremity arterial duplex 2019-waveforms triphasic tobiphasic with right CHLOE 1.04 and left CHLOE 1.01 Last echo: 09/02/22 @ [facility]. ECHO 02/02/2022 EF 55 to 60%, mild Aortic regurg and MR, mild elevatedRSVP, abnormal diastolic function 05/12/2018 bilateral carotid duplex mild Allergies Allergen Reactions Cefdinir Unknown - Low Severity Current Outpatient Medications: aspirin 81 MG EC tablet, Take 1 tablet by mouth Daily., Disp: , Rfl: Cholecalciferol (Vitamin D3) 25 MCG (1000 UT) chewable tablet, Chew 2capsules Daily., Disp: , Rfl: citalopram (CeleXA) 20 MG tablet, Take 2 tablets by mouth Daily. Takes 2tablets nightly, Disp: , Rfl: clopidogrel (PLAVIX) 75 MG tablet, Take 1 tablet every day by oralroute., Disp: , Rfl: Cranberry 250 MG capsule, Take 1 tablet by mouth Daily., Disp: , Rfl: esomeprazole (nexIUM) 20 MG capsule, Take 1 capsule by mouth EveryMorning Before Breakfast., Disp: , Rfl: isosorbide mononitrate (IMDUR) 30 MG 24 hr tablet, Take 1 tablet everyday by oral route., Disp: , Rfl: levocetirizine (XYZAL) 5 MG tablet, Take 1 tablet by mouth EveryEvening., Disp: , Rfl: metoprolol succinate XL (TOPROL-XL) 25 MG 24 hr tablet, 1 tablet. Takes1/2 pill nightly, Disp: , Rfl: nitroglycerin (NITROSTAT) 0.4 MG SL tablet, 1 under the tongue as neededfor angina, may repeat q5mins for up three doses, Disp: 100 tablet, Rfl:0 ondansetron ODT (ZOFRAN-ODT) 4 MG disintegrating tablet, , Disp: , Rfl: rosuvastatin (CRESTOR) 5 MG tablet, Take 1 tablet by mouth Daily., Disp:90 tablet, Rfl: 3 Synthroid 125 MCG tablet, , Disp: , Rfl: Past Medical History: Diagnosis Date Asthma Central sleep apnea Coronary artery disease GERD (gastroesophageal reflux disease) Hyperlipidemia Hypertension Hypothyroidism Mitral stenosis Restless leg syndrome Sleep apnea Past Surgical History: Procedure Laterality Date APPENDECTOMY BLADDER SUSPENSION CATARACT EXTRACTION HYSTERECTOMY NECK SURGERY NOSE SURGERY N/A skin cancer Family History Problem Relation Name Age of Onset Stroke Mother Heart failure Father Social History Socioeconomic History Marital status: Number of children: 4 Tobacco Use Smoking status: Former Current packs/day: 0.00 Average packs/day: 0.3 packs/day for 10.0 years (2.5 ttl pk-yrs) Types: Cigarettes Start date: 1982 Quit date: 1992 Years since quittin.8 Passive exposure: Past Smokeless tobacco: Never Vaping Use Vaping status: Never Used Substance and Sexual Activity Alcohol use: Never Drug use: Never Sexual activity: Defer Objective Vital Signs: BP 116/70 Pulse 67 Ht 162.6 cm (64 ) Wt 75.3 kg (166 lb) UpR851% BMI 28.49 kg/m Estimated body mass index is 28.49 kg/m as calculated from thefollowing: Height as of this encounter: 162.6 cm (64 ). Weight as of this encounter: 75.3 kg (166 lb). Physical Exam Constitutional: Appearance: Normal appearance. She is well-developed. HENT: Head: Normocephalic and atraumatic. Nose: Nose normal. Mouth/Throat: Mouth: Mucous membranes are moist. Eyes: General: No scleral icterus. Pupils: Pupils are equal, round, and reactive to light. Neck: Vascular: No carotid bruit. Cardiovascular: Rate and Rhythm: Normal rate and regular rhythm. Pulses: Normal pulses. Radial pulses are 2+ on the right side and 2+ on the left side. Dorsalis pedis pulses are 2+ on the right side and 2+ on the leftside. Posterior tibial pulses are 2+ on the right side and 2+ on the leftside. Heart sounds: Normal heart sounds. No murmur heard. Pulmonary: Effort: Pulmonary effort is normal. Breath sounds: Normal breath sounds. No wheezing or rhonchi. Abdominal: General: Bowel sounds are normal. Musculoskeletal: Right lower leg: No edema. Left lower leg: No edema. Skin: General: Skin is warm and dry. Capillary Refill: Capillary refill takes less than 2 seconds. Coloration: Skin is not cyanotic. Nails: There is no clubbing. Neurological: Mental Status: She is alert and oriented to person, place, and time. Motor: No weakness. Gait: Gait normal. Psychiatric: Mood and Affect: Mood normal. Behavior: Behavior normal. Behavior is cooperative. Thought Content: Thought content normal. Cognition and Memory: Memory normal. ECG 12 Lead Date/Time: 12/28/2024 12:51 PM Performed by: Kathy Dobson APRN Authorized by: Kathy Dobson APRN Comparison: compared with previousECG from 07/18/2024 Comparison to previous ECG: Sinus rhythm, nonspecific T wave abnormality Rhythm: sinus rhythm Rate: normal BPM: 60 QRS axis: normal Other findings: T wave abnormality Clinical impression: non-specific ECG Comments: Sinus rhythm, nonspecific T wave abnormality Results Labs - Cholesterol levels: 04/2024, Normal Assessment and Plan Assessment & Plan Coronary artery disease involving shoalwater coronary artery of sho[place] heartwithout angina pectoris Central sleep apnea Mixed hyperlipidemia Diastolic dysfunction Orders: Adult Transthoracic Echo Complete W/ Cont if Necessary Per Protocol;Future Assessment & Plan Coronary Artery Disease - EKG updated and reviewed - Continue medical management with aspirin 81 mg daily, Plavix 75 mgdaily, Imdur 30 mg daily, metoprolol 25 mg daily, and rosuvastatin 5 mgdaily 2. Central Sleep Apnea - Patient unable to wear her PAP device r/t hiatal hernia. 3. Mixed Hyperlipidemia - Lipid panel on 05/22/2024 revealed LDL 61, cholesterol 155, [id number] - Continue rosuvastatin 5 mg daily 4. Diastolic Dysfunction - Last echo on 09/02/2022 revealed abnormal diastolic dysfunction. Willupdate echo Follow-up: Follow up in 6 months. Recommendations: Report if any new/changing symptoms immediately, Sleeprisks reviewed (driving, medical, sleep , sedating agents), and Sleephygiene discussed Follow Up Return in about 6 months (around 06/28/2025) for Next scheduled followup. Patient or patient community engagement representative verbalized consent for the use ofAmbient Listening during the visit with Kathy Dobson APRN for chartdocumentation. 12/28/2024 12:40 EDT Kathy Dobson APRN Cardiology and Sleep [facility] 12/28/2024 Please note that this explicitly excludes time spent on other separatebillable services such as performing procedures or test interpretation,when applicable. Kathy Dobson APRN ECG ORDERABLES Final Resu lt documented in this encounter Visit Diagnoses Diagnosis Coronary artery disease involving shoalwater coronary artery of shoalwater heart without angina pectoris- Primary Central sleep apnea Unspecified sleep apnea Mixed hyperlipidemia Diastolic dysfunction Unspecified heart disease Diastolic dysfunction Unspecified heart disease documented in this encounter Care Teams Executive Director Global Brand Marketing Relationship Specialty Start Date End Date Osvaldo Ozuna MD [address] [place] [address] PCP - General Family Medicine 10/21/22 documented as of this encounter
--- OUTSIDE RECORDS SUMMARY | 2025-01-01 08:30 | XMS_ITS | Encounter Summary ---
[facility] Organization [facility] Address [address] [place] [address] Care Team Providers Care Banquet Set Up Person Name Role Phone Osvaldo Ozuna MD Primary Care Provider [phone]- [phone] Reason for Visit * Diagnostic Imaging (Routine) - Closed Specialty Diagnoses / Procedures Referred By Contac t Referred To Contact Diagnoses Diastolic dysfunction Procedures Adult Transthoracic Echo Complete W/ Cont if Necessary Per Protocol Kathy Dobson APRN [address] [place] [address] Phone: tel: fax: [facility] [address] [place] [address] Phone: tel: fax: Referral ID Status Reason Start Date Expiration Date Visits Re quested Visits Authorized [id number] Closed 12/28/2024 03/29/2026 1 1 Encounter Details Date Type Department Care Team (Latest Contact Info) Description 01/01/2025 8:30 AM EST Ancillary Procedure [address] [place] [address] Diastolic dysfunction Social History Tobacco Use Types Packs/Day Years Used Date Smoking Tobacco: Former Cigarettes 0.3 10 1 - 1992 Passive Smoke Exposure: Past Smokeless [...] Sign Reading Time Taken Comments Blood Pressure 115/62 01/01/2025 8:27 AM EST Pulse - - Temperature - - Respiratory Rate - - Oxygen Saturation - - Inhaled Oxygen Concentration - - Weight 75.3 kg (166 lb) 01/01/2025 8:27 AM EST Height 162.6 cm (5' 4 ) 01/01/2025 8:27 AM EST Body Mass Index 28.49 01/01/2025 8:27 AM EST documented in this encounter Plan of Treatment Upcoming Encounters Date Type Department Care Team (Late st Contact Info) Description 02/20/2025 10:00 AM EST Office Visit [facility] [address] [place] [address] Kathy Dobson APRN [address] [place] [address] documented as of this encounter Procedures Procedure Name Priority Date/Time Associated Diagnosis Comments ECHO COMPLETE W/ DOPPLER AND COLOR FLOW Routine 01/01/2025 9:15 AM EST Diastolic dysfunction documented in this encounter Results * ECHO [...] The left ventricular wall motion is normal. Kathy Dobson APRN CV ECHO ORDERABLES Final R esult documented in this encounter Visit Diagnoses Diagnosis Diastolic dysfunction Unspecified heart disease documented in this encounter Care Teams Banquet Set Up Person Relationship Specialty Start Date End Date Osvaldo Ozuna MD [address] [place] [address] PCP - General Family Medicine 10/21/22 documented as of this encounter
--- OUTSIDE RECORDS SUMMARY | 2025-02-13 09:30 | XMS_ITS | Encounter Summary ---
Author Organization [facility] Address [address] [place] [address] Care Team Providers Care Manager Clinic Name Role Phone Osvaldo Ozuna MD Primary Care Provider Reina vailable Reason for Referral * Imaging (Routine) - Authorized Specialty Diagnoses / Procedures Referred By Zahira moon Referred To Contact Radiology Diagnoses Hiatal hernia Procedures [place] Upper GI Zahida Villareal APRN [address] [address] Phone: tel: fax: Referral ID Status Reason Start Date Expiration Date Visits Requested Visits Authorized [id number] Authorized Perform Procedure 08/15/2026 1 1 Reason for Visit * Reason Comments New Patient * Consultation (Routine) - Closed Specialty Diagnoses / Procedures Referred By Zahira moon Referred To Contact General Surgery Diagnoses Diaphragmatic hernia without obstruction or gangrene Referral ID Status Reason Start Date Expiration Date Visits Re quested Visits Authorized [id number] Closed 12/27/2024 06/28/2026 1 1 Encounter Details Date Type Department Care Team (Late st Contact Info) Description 02/13/2025 9:30 AM EST Office Visit [facility] General Surgery [address] [place] [address] Zahida Villareal APRN [address] [facility] [address] [place] [address] Hiatal hernia (Primary Dx); Coronary artery disease involving ely shoshone coronary artery of ely shoshone heart without angina pectoris; Platelet inhibition due to Plavix; Dizziness; Near syncope Social History Tobacco Use Types Packs/Day Years Used Date Smoking Tobacco: Never Passive Smoke Exposure: Never Smokeless Tobacco: Never Tobacco Cessation:Counseling Given: Not Answered Comments Unknown Sex and Gender Information Value Date Recorded Sex Assigned at Not on file Legal Sex Female 8:22 PM EDT Gender Identity Not on file Sexual Orientation Not on file documented as of this encounter Last Filed Vital Signs Vital Sign Reading Time Taken Comments Blood Pressure 131/78 02/13/2025 9:36 AM EST Pulse 65 02/13/2025 9:36 AM EST Temperature 36.4 C (97.5 F) 02/13/2025 9:36 AM EST Respiratory Rate 16 02/13/2025 9:36 AM EST Oxygen Saturation 98% 02/13/2025 9:36 AM EST Inhaled Oxygen Concentration - - Weight 75.5 kg (166 lb 6.4 oz) 02/13/2025 9:36 A M EST Height 159.8 cm (5' 2.9 ) 02/13/2025 9:36 AM EST Body Mass Index 29.57 02/13/2025 9:36 AM EST documented in this encounter Functional Status * Calculated C-SSRS Risk Score (Lifetime/Recent) Answer Date of Assessment Author No Risk Indicated 02/13/2025 9:35 AM EST Chastity Sherman * Question Answer Date of Assessment Author 1. Wish to be (Past 1 Month) No 025 9:35 AM EST Chastity Terrazas 2. Non-Specific Active Suici jia Thoughts (Past 1 Month) No 02/13/2025 9:35 AM EST Jamal Terrazas 6. Suicidal Behavior (Lifetime) No 9:35 AM EST Chastity Terrazas documented as of this encounter Miscellaneous Notes * Progress Notes - Zahida Villareal APRN - 02/13/2025 9:30 AM EST Subjective Reason for Visit: Chief Complaint Patient presents with New Patient Macey Sutton is a 79 y.o. female presenting in Consultation for hiatal hernia from Dominique Kimbrough APRN for surgical consult with Dr. Avina Ms. Sutton presents with a hiatal hernia that was diagnosed several years ago. Her primary complaints today are excessive abdominal gas, severe abdominal bloating, bowel issues including constipation and mucus in stool, occasional dysphagia with solids, and epigastric pain. She reports last week she had an episode of severe epigastric pain, dysphagia, and shortness of air after eating a hamburger. The symptoms dissipated a few hours later after having a bowel movement. Additional symptoms include nausea, vomiting, and chronic cough. She denies dysphagia with liquids. She currently takes Nexium 20 mg daily with moderate relief of acid reflux and heartburn. Additional medical history includes hypertension, hyperlipidemia, CAD with angioplasty to LAD 2015 (artery too small to stent), PAD, asthma, chronic anticoagulation with clopidogrel, tricuspid regurgitation, hypothyroidism, esophageal dysmotility, DAVID. The patient reports that in the last 2 months she has had 2 near syncopal episodes which have resulted in falls. She has not been evaluated for either of these episodes. Past Surgical History: Prior Surgical History for Hiatal Hernia or Reflux: no Currently experiencing heartburn, regurgitation, epigastric pain, solid dysphagia, and bloating. Denies liquid dysphagia. 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 Body mass index is 29.57 kg/m??. Non-smoker Medical/Surgical/Social/Family History Past Medical History[1] Surgical History[2] Social History[3] Family History[4] Family History[5] Current Medications[6] Allergies Cefdinir Review of Systems Constitutional: Positive for appetite change. Negative for unexpected weight change. HENT: Positive for trouble swallowing. Respiratory: Positive for apnea (intolerant to CPAP) and shortness of breath (worse over last 4 months). Cardiovascular: Positive for chest pain (epigastric). CAD Gastrointestinal: Positive for abdominal pain, constipation, nausea and vomiting. Negative for diarrhea. Neurological: Positive for dizziness (near sycopal episode 1 month ago) and light-headedness. Negative for seizures. Hematological: Plavix 02/13/2025 10:42 AM GERD Questionnaire Patient Status: New patient Have you had surgery in the past for hiatal hernia or reflux? N Heartburn Y Severity 5 Regurgitation Y Severity 7 Trouble swallowing solid foods Y Severity 7 Trouble swallowing liquids N Painful swallowing N Nausea Y Severity 8 Vomiting Y Severity 5 Bloating Y Severity 8 Epigastric/abdominal pain Y Severity 8 Hoarseness N Chronic Cough Y Severity 8 Diarrhea N Constipation Y Severity 7 Are you currently taking any antacid medications (proton pump inhibitors, H2 blockers, [id number] preparations)? Y Med 1. Nexium 20 mg Med 1 - Frequency of use Daily Med 2. Iberogast Med 2 - Frequency of use Twice/day Please select the type of diet you are currently eating or write in if none of the types of diets listed apply to you: Regular diet with no restrictions Do you drink carbonated beverages (Coke, Sprite, etc.)? N How often do you usually have a bowel movement? Every other day Do you use medications or other products to maintain bowel function, such as stool softeners, laxatives, suppositories? Y If yes, please write in product(s) used and frequency of use. Fiber therapy, digestive enzymes, Objective Visit Vitals BP 131/78 (BP Location: Right arm, Patient Position: Sitting) Pulse 65 Temp 36.4 ??C (97.5 ??F) (Temporal) Ht 1.598 m (5' 2.9 ) Wt 75.5 kg (166 lb 6.4 oz) SpO2 98% BMI 29.57 kg/m?? Physical Exam Constitutional: well developed, well nourished, and in no acute distress Eyes: equal, round, and reactive Ears, Nose, Throat: normal atraumatic, no neck masses Respiratory: Normal Effort, Normal Rate Abdomen: Non-distended. soft Genitourinary: not indicated Musculoskeletal: normal strength, tone, and muscle mass, no deformities Psychiatric: oriented to time, place and person, mood and affect are within normal limits Skin: [place], warm, well perfused Assessment/Plan Problem List Items Addressed This Visit Nervous Dizziness Respiratory Hiatal hernia - Primary Relevant Medications esomeprazole (NexIUM) [address] capsule Other Relevant Orders [place] Upper GI Circulatory Coronary artery disease involving ely shoshone coronary artery of ely shoshone heart without angina pectoris Relevant Medications clopidogrel (Plavix) 75 MG tablet isosorbide mononitrate ER (Imdur) 30 MG 24 hr tablet Metoprolol Succinate 25 MG capsule extended-release 24 hour sprinkle Near syncope Hematologic Platelet inhibition due to Plavix Relevant Medications clopidogrel (Plavix) 75 MG tablet Patient is a 79 y.o. female presenting with a hiatal hernia. Primary symptoms include excessive abdominal gas, severe abdominal bloating, bowel issues including constipation and mucus in stool, occasional dysphagia with solids, and epigastric pain. She also endorses nausea, vomiting, and chronic cough. She denies dysphagia with liquids. She currently takes Nexium 20 mg daily with moderate relief of heartburn and regurgitation. Due to a significant cardiac history and reports of recent near syncopal episodes, the patient willneed further evaluation with Cardiology. She will need cardiac clearance/risk stratification and instructions for holding Plavix. Today we have discussed the pathophysiology of Hiatal Hernia and reviewed the patient's known anatomy in drawings. We have discussed the need to evaluated the esophageal muscle function, esophageal length, determine if acid is refluxing into esophagus and evaluated the patient's anatomy with endoscopy. I will start with an upper GI to determine the size of the hernia and to assess for esophageal narrowing. I will call the patient's daughter to discuss results and any additional testing that is needed. We will then proceed with EGD and manometry, pH testing, and gastric emptying study if appropriate. I spent 55 minutes performing the following components of the encounter (on the day of the encounter): reviewing history, examining the patient, reviewing imaging and/or labs, communicating with other health gericare aide teacher, and entering clinical information in the EHR. Please note: This record may have been prepared using [employer] Direct voice recognition software. As a result, errors may occur in the text. When identified, these pathology secretary/transcriptionist errors have been corrected. While every attempt is made to correct errors during dictation, errors may still exist. [1] Past Medical History: Diagnosis Date Abnormal cardiac valve Acid reflux Hyperlipidemia Hypertension Thyroid disorder [2] Past Surgical History: Procedure Laterality Date BLADDER REPAIR CERVICAL SPINE SURGERY HYSTERECTOMY TUBAL LIGATION [3] Social History Tobacco Use Smoking status: Never Passive exposure: Never Smokeless tobacco: Never Vaping Use Vaping status: Never Used [4] Family History Problem Relation Name Age of Onset Stroke Mother Heart disease Father Cancer Sister Heart attack Brother [5] Family History Problem Relation Name Age of Onset Stroke Mother Heart disease Father Cancer Sister Heart attack Brother [6] Current Outpatient Medications Medication Sig Dispense Refill aspirin 81 MG EC tablet Take 1 tablet by mouth daily. cetirizine (ZyrTEC) 10 MG tablet Take 1 tablet by mouth daily. Cholecalciferol 25 MCG (1000 UT) chewable tablet Chew 2 capsules. citalopram (CeleXA) 20 MG tablet clopidogrel (Plavix) 75 MG tablet Take 1 tablet by mouth. CRANBERRY PO Take 1 tablet by mouth daily. esomeprazole (NexIUM) [address] capsule Take 1 capsule by mouth daily before breakfast. isosorbide mononitrate ER (Imdur) 30 MG 24 hr tablet Take 1 tablet by mouth. lactase (Lactaid) 3000 units tablet Take 1 tablet by mouth 3 times a day with meals. Metoprolol Succinate 25 MG capsule extended-release 24 hour sprinkle Take 0.5 capsules every day byoral route. Misc Natural Products (IBEROGAST PO) Take by mouth. polycarbophil (Fibercon) 625 MG tablet Take by mouth daily. rosuvastatin (Crestor) 5 MG tablet Take 1 tablet by mouth daily. Synthroid 125 MCG tablet No current facility-administered medications for this visit. documented in this encounter Plan of Treatment Upcoming Encounters Date Type Department Care Team (Late st Contact Info) Description 02/20/2025 10:30 AM EST Appointment [facility] Radiology [address] [place] [address] Scheduled Orders Name Type Priority Associated Diagnoses Orde r Schedule [place] Upper GI Imaging Routine Hiatal hernia Expected: 02/13/2025 (Approximate), Expires: 08/17/2026 documented as of this encounter Visit Diagnoses Diagnosis Hiatal hernia- Primary Diaphragmatic hernia without mention of obstruction or gangrene Coronary artery disease involving ely shoshone coronary artery of ely shoshone heart without angina pectoris Platelet inhibition due to Plavix Dizziness Dizziness and giddiness Near syncope documented in this encounter Additional Health Concerns Assessment Noted Time A fall risk assessment has been complete d for the patient 02/13/2025 9:35 AM EST A Body Mass Index follow-up plan has been documented for the patient 02/13/2025 10:49 AM EST documented as of this encounter Care Teams Manager Clinic Relationship Specialty Start Date End Date Osvaldo Ozuna MD PCP - General Family Medicine 09/03/22 documented as of this encounter
[2025-02-14] VITALS (7 sets, daily range): BP systolic 119–146; BP diastolic 57–112; PULSE 63–77; RESP 20; TEMP 36.7–36.8; O2SAT 90–96; BMI 27.8
--- NOTE | 2025-02-14 16:01 | ED_ITS ---
<Statement entered by Diana Perez DO - 02/14/25 21:09> I was consulted by the DNAIEL, and we discussed the complexity of the problems being addressed. I approved the treatment and management plan for this patient's care in the emergency department, thus performing a substantive portion of the medical decision making. Diana Perez DO Discharge Plan Disposition Patient Disposition: Home, Self-Care Condition: Good Prescriptions Prescriptions: No Action nitroglycerin 0.4 mg tablet, sublingual 0.4 mg buccal DAILY PRN (Reason: CHEST PAIN ) rosuvastatin 5 mg tablet 5 mg PO DAILY cetirizine [Zyrtec] 5 mg tablet 5 mg PO DAILY Qty: 30 3RF digestive enzymes Capsule 1 cap PO DAILY Rx Instructions: administer with food; swallow whole; do not crush/chew/dissolve/break/cut calcium polycarbophil [Fiber Laxative (ca polycarbo)] 625 mg tablet 1,250 mg PO DAILY Women's Daily Multivitamin 18-400 mg-mcg tablet 1 tab PO DAILY guaifenesin [Mucinex] 600 mg tablet extended release 12hr 600 mg PO BID Qty: 60 2RF Flonase Sensimist 27.5 mcg/actuation spray,suspension 2 spray intranasal DAILY Qty: 27.3 0RF Rx Instructions: into each nostril cranberry extract 250 mg capsule 250 mg PO DAILY Rx Instructions: administer with a meal cholecalciferol (vitamin D3) [Vitamin D3] 25 mcg (1,000 unit) capsule 25 mcg PO DAILY clopidogrel 75 mg tablet See Rx Instructions .ROUTE .COMPLEX Qty: 90 3RF Dose Instruction: TAKE 1 TABLET DAILY FOR 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 Rx Instructions: TAKE 1 TABLET DAILY FOR 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 metoprolol succinate 25 mg tablet extended release 24 hr 12.5 mg PO DAILY 90 Days Qty: 45 2RF citalopram 20 mg tablet See Rx Instructions .ROUTE .COMPLEX Qty: 180 3RF Dose Instruction: TAKE 2 TABLETS DAILY Rx Instructions: TAKE 2 TABLETS DAILY isosorbide mononitrate 30 mg tablet extended release 24 hr See Rx Instructions .ROUTE .COMPLEX Qty: 90 3RF Dose Instruction: TAKE 1 TABLET DAILY FOR HYPERTENSION Rx Instructions: TAKE 1 TABLET DAILY FOR HYPERTENSION levothyroxine 125 mcg tablet 125 mcg PO DAILY Qty: 90 3RF esomeprazole magnesium 20 mg capsule,delayed release(DR/EC) 20 mg PO DAILY 90 Days Qty: 90 0RF aspirin 81 MG tablet,delayed release (DR/EC) 81 mg PO DAILY Referrals Follow up/Referrals: Osvaldo Ozuna MD [Primary Care Provider, Internal Medicine] - See instructions Kandi Saavedra MD [Physician, Pulmonology] - See instructions Alvarado Mitchell MD [Staff Physician, General Surgery] - See instructions Activity Restrictions/Add. Instructions Additional Instructions/Restrictions: Please return to the emergency department with any worsening signs or symptoms. Please keep your follow-up with your cash register operator, general surgery team, PCP and animal laboratory helper as stated above. Please continue to take all your at home medication as prescribed. Clinical Impressions Clinical Impression: Hiatal hernia Instructions Patient Instructions: DI for Acute Abdominal Pain Print Language Print Language: Swiss Discharge ED Provider: Diana Perez General Adult HPI General Chief complaint: Abdominal Pain Stated complaint: abdominal pain Time Seen by Provider: 02/14/25 15:40 Mode of Arrival: Ambulatory Source of Information: Patient Description of Symptoms (Recalled from ER Triage Doc. by RN): patient presents to the ED for ongoing nausea and vomiting. patients abdomen looks swollen compared to normal, accoridng to family at baseline. patient stated she hasnt had a good bowel movement at home in days . she has a history of a hiataal diagnosed in 2023 by [facility]. History of Present Illness HPI narrative: 79-year-old female presents to the emergency department with abdominal pain, concern for hernia , has been going on for multiple months, patient saw general surgery clinic yesterday in [facility], states that they were not concerned about it , told that she had a hiatal hernia that was diagnosed in 2023 via endoscopy by GI physician at [facility]. Patient states that this is at the request of her PCP, patient states I try to get into my family doctors but could not. I told them what was going on and they requested that I get a CT scan ., Patient admits to nausea at times, no vomiting, does have history of constipation last bowel movement was this morning, denies any urinary symptomatology, denies any hematuria melena hematochezia hematemesis or hemoptysis, denies any fever chills chest pain, does have some shortness of breath and lightheadedness when ambulating, at times, patient states this been going on for quite some time is undergoing cardiology evaluation prior to possible surgical intervention for hiatal hernia for this. Patient denies no diarrhea. Other past medical history is consistent with GERD, CKD, hypothyroidism, degenerative disc disease, MDD/ALFRED, hyperlipidemia, prior surgical history of total hysterectomy, tubal ligation. Initial triage vitals are unremarkable. Please note that above description of symptoms, in this electronic medical record under categorization of recalled from ER triage doctor by RN are reflective of an initial nursing assessment, however, is not reflective of my full history and physical exam that was personally taken and clarified. Consequentially, this preceding description of symptoms, which may include the patient's categorized chief complaint in the EMR, do not reflect my personal clinical impression, and the ultimate description of history of present illness and patient stated complaints should be deferred to this section of the note. Unless stated otherwise or congruent with this section of the note, additional signs, symptoms, or incongruence should be interpreted as inaccurate with my clinical impression. Onset (ago): month(s) Related Data Home Medications ?Medication ?Instructions ?Recorded ?Confirmed aspirin 81 mg tablet,delayed 81 mg PO DAILY heart heal th 10/08/17 02/14/25 release cholecalciferol (vitamin D3) 25 25 mcg PO DAILY 02/14/25 mcg (1,000 unit) capsule (Vitamin D3) cranberry extract 250 mg capsule 250 mg PO DAILY 10/0702/14/25 nitroglycerin 0.4 mg sublingual 0.4 mg buccal DAILY ID N CHEST PAIN 06/25/23 01/22/25 tablet rosuvastatin 5 mg tablet 5 mg PO DAILY 03/16/2401/22 calcium polycarbophil 625 mg 1,250 mg PO DAILY 5 02/14/25 tablet (Fiber Laxative (calcium polycarbophil)) digestive enzymes 1 cap PO DAILY 09/19/2401/29 multivitamin-ferrous 1 tab PO DAILY 09/19/2412/31 fumarate-folic acid 18 mg-400 mcg tablet (Women's Daily Multivitamin) Previous Rx's ?Medication ?Instructions ?Recorded clopidogrel 75 mg tablet See Rx Instructions .Route 0 09/27/24 .COMPLEX #90 tabs metoprolol succinate 25 mg 12.5 mg (1/2 x 25 mg) PO DA GAYLA 10/03/24 tablet,extended release 24 hr Hypertension 90 days #45 tabs cetirizine 5 mg tablet (Zyrtec) 5 mg PO DAILY #30 tabs 10/16/24 citalopram 20 mg tablet See Rx Instructions .Route 1 .COMPLEX #180 tabs isosorbide mononitrate 30 mg See Rx Instructions .Rout e 12/25/24 tablet,extended release 24 hr .COMPLEX #90 tabs levothyroxine 125 mcg tablet 125 mcg PO DAILY #90 tabs 12/26/24 esomeprazole magnesium 20 mg 20 mg PO DAILY 90 days #9 0 caps 01/11/25 capsule,delayed release fluticasone furoate 27.5 2 spray intranasal DAILY #27 .3 mL 01/22/25 mcg/actuation nasal spray,suspension (Flonase Sensimist) guaifenesin 600 mg tablet, 600 mg PO BID #60 tabs 12/31 06/23 extended release 12 hr (Mucinex) Allergies Allergy/AdvReac Type Severity Reaction Status Date / Time cefdinir (From OMNICEF) Allergy Intermediate I-RASH Verified 01/22/25 10:50 sulfamethoxazole (From Allergy Rash Verified 01/22/25 10:50 Septra) trimethoprim (From Septra) Allergy Rash Verified 01/22/25 10:50 PFSH PFSH Disclaimer: The information contained in this section may have been updated after the patient was seen, as this information can be updated by other users. Medical History (Updated 02/14/25 @ 19:05 by DAVID Sánchez) Post-nasal drainage Chronic sinusitis Chronic GERD Esophageal dysmotility Hiatal hernia Maxillary sinusitis Cough Sinus congestion Dry mouth DAVID (obstructive sleep apnea) Hypothyroidism (acquired) Angina at rest Acute cystitis with hematuria Osteopenia after menopause Urinary urgency Cervical radiculopathy due to degenerative joint disease of spine Degenerative joint disease of cervical spine Surgical History History of sinus surgery History of appendectomy History of removal of ovarian cyst History of bladder surgery Previous back surgery History of hysterectomy Family History Mother Stroke Other Cancer Heart attack Social History Smoking Status: Never smoker second hand exposure: No alcohol intake: never substance use type: denies use current occupational status: retired Travel in the last 8 weeks?: None ([place]) household members: spouse housing: house current occupational exposures/hazards: No caffeine: No Have you lived/traveled outside US in past 30 days?: No Contact w/someone who lives/traveled outside US past 30 days?: No Exposure to someone with infectious disease in past 14 days?: No Do you have a fever (greater than 100.4 F or 38 C)?: No Have you tested positive for COVID-19?: No Exposed to someone with COVID-19 in past 14 days?: No Do you have a sore throat?: No Do you have a cough?: No Do you have any weakness?: No Do you have any diarrhea?: No Are you experiencing any unusual bleeding?: No Do you have any muscle aches/pain?: No Do you have any abdominal pain?: No Are you experiencing loss of taste or smell?: No Other Medical History Have you received the Flu Vaccine for this season: No Have you received the Pneumonia Vaccine: Yes ROS Obtained: Yes All systems reviewed & no additional complaints except as documented Physical Exam General General appearance: alert and in no apparent distress Head Head exam: atraumatic and normocephalic Eye Eye exam: Present PERRL and EOMI ENT ENT exam: Present mucous membranes moist Neck Neck exam: Present normal inspection Chest Chest inspection: Present normal inspection and symmetric chest wall rise Respiratory Respiratory exam: Present normal lung sounds bilaterally; Absent respiratory distress Cardiovascular Cardiovascular exam: Present regular rate and normal rhythm Abdominal Exam Abdominal exam: Present soft and tenderness; Absent guarding, rebound or rigidity Abdominal tenderness: Present diffuse Extremities Exam Extremities exam: Present normal inspection Neurological Exam Neurological exam: Present alert and oriented X3 Psychiatric Psychiatric exam: Present normal affect Skin Skin exam: Present warm and dry Medical Decision Making Medical Records Medical records reviewed: Yes I reviewed the patient's medical records. Screening: Per USPSTF and CDC recommendations, given the prevalence of disease in our region, it is our hospital?s policy to screen for HIV and viral Hepatitis for all patients aged 18 and over and those with ongoing risk factors. [place] Inquiry Pt receiving controlled substance: Yes [place] was queried for this patient: No Reason not queried -: Emergent pt cond-no time Risks and benefits of using a controlled substance: were discussed with pt by me Vital Signs: 02/14/25 15:51 02/14/25 16:00 02/14/25 16:30 Temperature 98.2 F Temperature Source Oral Pulse Rate 69 63 Pulse Rate [Right Radial] 77 Respiratory Rate 20 Blood Pressure 131/77 122/72 Blood Pressure [Right Arm] 146/71 H Blood Pressure Mean Blood Pressure Mean [Right Arm] 96 Blood Pressure Source [Right Arm] Automatic Cuff Blood Pressure Position [Right Arm] Sitting 02 Sat by Pulse Oximetry 93 L 94 L 96 Oxygen Delivery Method Room Air 02/14/25 17:00 02/14/25 17:30 02/14/25 18:01 Temperature Temperature Source Pulse Rate 67 69 Pulse Rate [Right Radial] Respiratory Rate Blood Pressure 119/57 L 120/67 144/112 H Blood Pressure [Right Arm] Blood Pressure Mean 122 Blood Pressure Mean [Right Arm] Blood Pressure Source [Right Arm] Blood Pressure Position [Right Arm] 02 Sat by Pulse Oximetry 93 L 93 L Oxygen Delivery Method Room Air Room Air Lab Data Lab results reviewed: Yes I reviewed the patient's lab results. Lab Results 02/14/25 16:01: WBC 7.3, RBC 4.42, Hgb 12.6, Hct 39.1, MCV 88.5, MCH 28.5, MCHC 32.2, RDW 12.9, Plt Count 326, MPV 9.7, Neut % (Auto) 49.9, Lymph % (Auto) 36.7, Davidson % (Auto) 10.0 H, Eos % (Auto) 2.1, Baso % (Auto) 0.7, Neut # (Auto) 3.6, Lymph # (Auto) 2.7, Davidson # (Auto) 0.7, Eos # (Auto) 0.2, Baso # (Auto) 0.1, S odium 132 L, Potassium 4.4, Chloride 105, Carbon Dioxide 23, Anion Gap 8.4, BUN 20 H, Creatinine 1.10 H, Estimated Creat Clear 47, Estimated GFR 48 L, Est GFR ( Amer) 58 L, Glucose 101 H, Calcium 8.9, Total Bilirubin 0.5, AST 34, ALT 13, Alkaline Phosphatase 61, Troponin I < 0.01, NT-Pro-B Natriuret Pep 103, Total Protein 8.9 H, Albumin 4.6, Globulin 4.3 H, Albumin/Globulin Ratio 1.1, Lipase 144 02/14/25 16:31: Lactate 0.7 02/14/25 16:45: Urine Color Yellow, Urine Appearance Clear, Urine pH 5.5, Ur Specific [place] <= 1.005, Urine Protein Negative, Urine Glucose (UA) Negative, Urine Ketones Negative, Urine Blood Negative, Urine Nitrate Negative, Urine Bilirubin Negative, Urine Urobilinogen 0.2, Ur Leukocyte Esterase Negative, Urine RBC None, Urine WBC None, Ur Squamous Epith Cells None, Urine Bacteria None 02/14/25 16:01 02/14/25 16:01 Orders (Tests/Meds): ED MEDICATIONS Generic Name Dose Route Start Last Admin Trade Name Freq PRN Reason Stop Dose Admin Sodium Chloride 10 ml 02/14/25 18:30 02/14/25 18:32 Sodium Chloride 0.9% 10ml Syr (Rad Only) IV 03/16/25 18:29 10 ml NEEDED PRN Administration Maintain IV Site Discontinued Medications Generic Name Dose Route Start Last Admin Trade Name Freq PRN Reason Stop Dose Admin Iopamidol 75 ml 02/14/25 16:51 02/14/25 16:52 Iopamidol-370 (76%);100ml Bottle IV 02/14/25 16:52 75 ml ONCE ONE Administration Iopamidol 70 ml 02/14/25 18:30 02/14/25 18:32 Iopamidol-370 (76%);100ml Bottle IV 02/14/25 18:31 70 ml ONCE ONE Administration Morphine Sulfate 2 mg 02/14/25 16:19 02/14/25 16:24 Morphine 2mg/Ml Syringe IV 02/14/25 16:20 2 mg ONCE ONE Administration Ondansetron HCl 4 mg 02/14/25 16:18 02/14/25 16:24 Ondansetron 4mg/2ml Vial IV 02/14/25 16:19 4 mg ONCE ONE Administration Sodium Chloride 10 ml 02/14/25 16:51 02/14/25 16:52 Sodium Chloride 0.9% 10ml Syr (Rad Only) IV 02/14/25 16:52 10 ml ONCE ONE Administration Sodium Chloride 50 ml 02/14/25 18:30 02/14/25 18:31 0.9 % Sodium Chloride 50 Ml Vial IV 12/17/25 18:31 50 ml ONCE ONE Administration ORDERS Category Date Time Status CT abdomen pelvis w con Stat Cat Scan 02/14/25 16:[address] angio chest PE protocol Stat Cat Scan 02/14/25 18:13 Completed Complete Blood Count Auto Diff Stat Lab 02/14/25 16:01 Completed Comprehensive Metabolic Panel Stat Lab 02/14/25 16:01 Completed Lactic Acid Stat Lab 02/14/25 16:31 Completed Lipase Stat Lab 02/14/25 16:01 Completed NT Pro Brain Natriuretic Pep. Stat Lab 02/14/25 16:01 Completed Troponin I Q3H Lab 02/14/25 21:15 Ordered Troponin I Q3H Lab 02/15/25 00:15 Ordered Troponin I Stat Lab 02/14/25 16:01 Completed Urinalysis and Microscopic Stat Lab 02/14/25 16:45 Completed Medical Decision Narrative: 79-year-old female presents to the emergency department with abdominal pain for months, nausea concern for hernia, differential diagnose include but not limited to, hernia, colitis, ileitis, malignancy, bowel obstruction, constipation, volvulus, pseudo colonic obstruction, among others. I discussed this patient's case with the attending physician Dr. Perez Will obtain basic laboratory studies, CT ab pelvis with contrast, lactic acid level lipase urinalysis will give 2 mg IV morphine and 4 mg IV Zofran for pain and nausea. CBC unremarkable CMP is noted for mild hyponatremia 132, BUN elevation at 20 creatinine elevation 1.1, appears to be baseline No lactic acidosis UA is grossly unremarkable I reviewed the patient's CT abdomen pelvis with contrast along with corresponding radiologic report, no acute abnormality did not find no evidence for hernia or bowel obstruction basilar paraseptal emphysema partially visualized, large hiatal hernia measuring 10 cm diameter, right paraesophageal lymph node measures 19 x 14 mm, stable right infrahilar lymph node appears stable measuring 2.8 cm, stable left adrenal adenoma, measures 18 mm, mild sigmoid diverticulosis. Of note, I was notified by nursing staff at approximately 6 PM, the patient ambulated the bathroom and did have quite significant dyspnea on exertion, and SpO2 dropped down to the 80s. I discussed this with patient and family bedside patient family states that the symptomatology been going on for quite some time, will obtain troponin, proBNP as well as EKG and CTA chest without contrast for further evaluation of this. Reviewed the patient's CTA chest without contrast on the corresponding radiologic report, no CT evidence of pulmonary embolism moderate mid to lower lung zone pulmonary edema identified there is peripheral coarsened interstitial markings central pulmonary fibrosis as well as some peripheral honeycombing with the dependent portion of the lungs, degree of fibrosis that is worse from prior CT scan, reactive appearing lymph nodes within the mediastinum identified, reactive appearing stable right infrahilar and right paraesophageal lymph nodes moderate to large hiatal hernia identified measuring 10 cm in diameter. Patient's troponin and proBNP are within normal limits. I discussed the results with the patient and family at bedside, patient family and agree with current discharge plan/treatment plan, has general surgery follow-up, has cardiology follow-up, will give the patient pulmonology follow- up. Strict ED return precautions were given. Patient is hemodynamically stable upon discharge, SpO2 at rest is 95 to 96% on room air. Critical Care Critical Care Time Critical Care Time: No
--- NOTE | 2025-02-14 16:18 | CT_ITS ---
PROCEDURE INFORMATION: Exam: CT Abdomen And Pelvis With Contrast Exam date and time: 02/14/2025 4:51 PM Age: 79 years old Clinical indication: Abdominal pain; Additional info: Abdominal pain, bloating concern for hernia TECHNIQUE: Imaging protocol: Computed tomography of the abdomen and pelvis with contrast. Radiation optimization: All CT scans at this facility use at least one of these dose optimization techniques: automated exposure control; mA and/or kV adjustment per patient size (includes targeted exams where dose is matched to clinical indication); or iterative reconstruction. Contrast material: ISOVUE; Contrast volume: 75 ml; Contrast route: IV; COMPARISON: CT ANGIO ABDOMEN PELVIS 11/13/2022 11:26 PM FINDINGS: Lungs: Basilar paraseptal emphysema partially visualized. Diaphragm: Large hiatal hernia measures 10 cm diameter. Liver: The liver appears within normal limits. Gallbladder and biliary ducts: The gallbladder is normal. There is no evidence of biliary ductal dilation. Pancreas: The pancreas is normal. Spleen: The spleen is normal. Adrenal glands: Stable left adrenal adenoma measures 18 mm. Kidneys and ureters: Normal. No hydronephrosis. Stomach and bowel: Mild sigmoid diverticulosis. Appendix: No evidence of appendicitis. Intraperitoneal space: No free air. No evidence for focal fluid collection or ascites. No evidence for omental thickening. Vasculature: Severe atherosclerotic calcifications of the aorta. Lymph nodes: Right paraesophageal lymph node measures 19 x 14 mm. Right infrahilar lymph node appears stable measuring 2.8 cm. Unremarkable. No pathologically enlarged lymph nodes are identified. Urinary bladder: The bladder appears within normal limits. No wall thickening. Reproductive: There has been a hysterectomy. Bones/joints: The regional skeletal structures appear within normal limits for age. Soft tissues: Unremarkable. IMPRESSION: 1. No acute abnormalities identified. No evidence for hernia or bowel obstruction. 2. Basilar paraseptal emphysema partially visualized. 3. Large hiatal hernia measures 10 cm diameter. 4. Right paraesophageal lymph node measures 19 x 14 mm. Stable. 5. Right infrahilar lymph node appears stable measuring 2.8 cm. 6. Stable left adrenal adenoma measures 18 mm. 7. Mild sigmoid diverticulosis.
[2025-02-14] MEDS: MORPHINE 2MG/ML SYRINGE 2 MG IV (16:24)
[2025-02-14] MEDS: ONDANSETRON 4MG/2ML VIAL 4 MG IV (16:24)
[2025-02-14 16:32] LABS: Hematocrit 39.1 % (37.0-47.0); Hemoglobin 12.6 g/dL (12.2-16.2); Immature Granulocytes % 0.6 %; Mean Corpuscular HGB Conc 32.2 g/dL (31.8-35.4); Mean Corpuscular Hemoglobin 28.5 pg (27.0-31.2); Mean Corpuscular Volume 88.5 fl (81-99); Nucleated Red Blood Cells % 0 %; Platelet Count 326 K/mm3 (142-424); Red Blood Count 4.42 M/mm3 (4.20-5.40); Red Cell Distribution Width-SD 41.8 fL; White Blood Count 7.3 K/mm3 (4.8-10.8)
[2025-02-14 16:34] LABS: Albumin Level 4.6 g/dl (3.5-5.0); Chloride 105 mmol/L (98-107); Potassium 4.4 mmoL/L (3.5-5.1); Sodium 132 mmol/L (136-145)
[2025-02-14 16:37] LABS: Alanine Aminotransferase 13 U/L (12-78); Albumin/Globulin Ratio 1.1 (1.1-1.8); Alkaline Phosphatase 61 U/L (38-126); Anion Gap 8.4 mEq/L (5-15); Aspartate Amino Transferase 34 U/L (14-36); Bilirubin,Total 0.5 mg/dl (0.2-1.3); Blood Urea Nitrogen 20 mg/dl (7-17); Calcium 8.9 mg/dl (8.4-10.2); Carbon Dioxide 23 mmol/L (22.0-30.0); Creatinine Clearance Estimated 47 mL/min (50-200); Creatinine,Serum 1.10 mg/dl (0.52-1.04); Estimated Glomerular Filt Rate 48 ml/min (>60); GFR (African American) 58 ML/MIN (>60); Globulin 4.3 g/dL (1.3-3.2); Glucose 101 mg/dl (74-100); Lipase 144 U/L (23-300); Total Protein,Serum 8.9 g/dl (6.3-8.2)
[2025-02-14] MEDS: IOPAMIDOL-370 (76%);100ML BOTTLE 75 ML IV (16:52)
[2025-02-14] MEDS: SODIUM CHLORIDE 0.9% 10ML SYR (RAD ONLY) 10 ML IV ×2 (16:52→18:32)
[2025-02-14 16:57] LABS: Microscopic, Urine URINE MICROSCOPIC (MICROSCOPIC)
[2025-02-14 17:00] LABS: Bilirubin,Urine Negative (Negative); Color,Urine YELLOW (Yellow); Glucose,Urine (UA) Negative (Negative); Ketones,Urine Negative (Negative); Leukocyte Esterase,Urine Negative (Negative); PH,Urine 5.5 (5.0-8.5); Protein,Urine Negative (Negative); Specific Gravity, Urine <= 1.005 (1.005-1.030); Urobilinogen,Urine 0.2 EU/dl (0.2)
--- OUTSIDE RECORDS SUMMARY | 2025-02-14 17:07 | XMS_ITS | Encounter Summary ---
[facility] Address [address] [place] [address] Care Team Providers Care Philosophy Faculty Name Role Phone Osvaldo Ozuna MD Primary Care Provider [phone]- [phone] Encounter Details Date Type Department Care Team (Latest Contact Info) Description 01/01/2025 Travel Social History Tobacco Use Types Packs/Day Years Used Date Smoking Tobacco: Former Cigarettes 0.3 10 983 1992 Passive Smoke Exposure: Past Smokeless Tobacco: Never Alcohol Use Standard Drinks/Week Comments Never 0 (1 standard drink = 0.6 oz pur e alcohol) Comments Unknown Sex and Gender Information Value Date Recorded Sex Assigned at Not on file Legal Sex Female 10:06 AM EDT Gender Identity Not on file Sexual Orientation Not on file documented as of this encounter Plan of Treatment Upcoming Encounters Date Type Department Care Team (Late st Contact Info) Description 02/20/2025 10:00 AM EST Office Visit [facility] [address] [place] [address] Kathy Dobson APRN [address] [place] [address] documented as of this encounter Visit Diagnoses Not on filedocumented in this encounter Care Teams Philosophy Faculty Relationship Specialty Start Date End Date Osvaldo Ozuna MD [address] [place] [address] [place] [address] PCP - General Family Medicine 10/21/22 documented as of this encounter
--- OUTSIDE RECORDS SUMMARY | 2025-02-14 17:07 | XMS_ITS | Encounter Summary ---
[facility] Address [address] [place] [id number] Care Team Providers Care Animal Surgeon Name Role Phone Osvaldo Ozuna MD Primary Care Provider [phone]- [phone] Encounter Details Date Type Department Care Team (Late st Contact Info) Description 02/13/2025 Telephone [facility] [address] [place] [address] Kathy Dobson APRN [address] [place] [id number] Social History Tobacco Use Types Packs/Day Years [...] encounter Miscellaneous Notes * Telephone Encounter - Airam Campos DAVID - 02/13/2025 11:00 AM EST Pt and daughter called stating patient has been experiencing dizziness's since December. Pt states she is still dizzy and has fell a couple of times. Pt stated she fell on thanksgiving. Pt states shehit her back but did not go to the hospital. She is scheduled for a follow up appointment with pj ahuja APRN on 02/20/25 @ 10 am. Pt was last seen in November. Pt also stated she is suppose to have an upcoming procedure for a hernia. I told patient Pj would have to address her current symptomsfirst. documented in this encounter Plan of Treatment Upcoming Encounters Date Type Department Care Team (Late st Contact Info) Description 02/20/2025 10:00 AM EST Office Visit [facility] [address] [place] [address] Kathy Dobson APRN [address] [place] [address] documented as of this encounter Visit Diagnoses Not on filedocumented in this encounter Care Teams Animal Surgeon Relationship Specialty Start Date End Date Osvaldo Ozuna MD [address] [place] [address] [facility] [place] [address] PCP - General Family Medicine 10/21/22 documented as of this encounter
--- OUTSIDE RECORDS SUMMARY | 2025-02-14 17:07 | XMS_ITS | Encounter Summary ---
[facility] Organization [facility] Address [address] [place] [address] Care Team Providers Care Box Machine Operator Name Role Phone Osvaldo Ozuna MD Primary Care Provider +1- [phone] Encounter Details Date Type Department Care Team (Late st Contact Info) Description 01/02/2025 Results Follow-Up [facility] [address] [place] [address] Ariana Villa MA Social History Tobacco Use Types Packs/Day Years Used Date Smoking Tobacco: Former Cigarettes 0.3 10 [id number] Passive Smoke Exposure: Past Smokeless Tobacco: Never [...] encounter Miscellaneous Notes * Telephone Encounter - Ariana Villa MA - 01/02/2025 11:24 AM EST PATIENT UNDERSTOOD. * Telephone Encounter - Ariana Villa MA - 01/02/2025 10:28 AM EST ----- Message from Kathy Dobson sent at 01/02/2025 9:04 AM EST ----- Please let patient know ECHO looks stable from previous. ----- Message ----- From: Sofia Trujillo MD Sent: 01/01/2025 5:20 PM EST To: Kathy Dobson APRN * Telephone Encounter - Ariana Villa MA - 01/02/2025 10:28 AM EST Called and spoke to patient, she understood. Patient ask if we was going to send her cardiac clearance. * Telephone Encounter - Ariana Villa MA - 01/02/2025 10:28 AM EST ----- Message from Kathy Dobson sent at 01/02/2025 9:04 AM EST ----- Please let patient know ECHO looks stable from previous. ----- Message ----- From: Sofia Trujillo MD Sent: 01/01/2025 5:20 PM EST To: Kathy Dobson APRN documented in this encounter Plan of Treatment Upcoming Encounters Date Type Department Care Team (Late st Contact Info) Description 02/20/2025 10:00 AM EST Office Visit [facility] [address] [place] [address] Kathy Dobson APRN [address] [place] [address] documented as of this encounter Visit Diagnoses Not on filedocumented in this encounter Care Teams Box Machine Operator Relationship Specialty Start Date End Date Osvaldo Ozuna MD [address] [facility] [address] PCP - General Family Medicine 10/21/22 documented as of this encounter
--- OUTSIDE RECORDS SUMMARY | 2025-02-14 17:07 | XMS_ITS | Encounter Summary ---
Author Organization [facility] Address [address] [place] [address] Care Team Providers Care Marketing Account Executive Name Role Phone Osvaldo Ozuna MD Primary Care Provider Reina vailable Reason for Referral * Consultation (Routine) - Closed Specialty Diagnoses / Procedures Referred By Zahira moon Referred To Contact General Surgery Diagnoses Diaphragmatic hernia without obstruction or gangrene Referral ID Status Reason Start Date Expiration Date Visits Re quested Visits Authorized [id number] Closed 12/27/2024 06/28/2026 1 1 Encounter Details Date Type Department Care Team (Late st Contact Info) Description 12/27/2024 Community Orders Community [facility] [address] [place] [address] Dominique Kimbrough APRN [address] [facility] [address] [place] [address] Diaphragmatic hernia without obstruction or gangrene (Primary Dx) Social History Tobacco Use Types Packs/Day Years Used Date Smoking Tobacco: Never Assessed Comments Unknown Sex and Gender Information Value Date Recorded Sex Assigned at Not on file Legal Sex Female 8:22 PM EDT Gender Identity Not on file Sexual Orientation Not on file documented as of this encounter Plan of Treatment Upcoming Encounters Date Type Department Care Team (Late Contact Info) Description 02/20/2025 10:30 AM EST Appointment [facility] [address] [place] [address] Scheduled Referrals Name Type Priority Associated Diagnoses Orde r Schedule Ambulatory Referral to General Surgery ([facility]) Outpatient Referral Routine Diaphragmatic hernia without obstruction or gangrene Ordered: 12/27/2024 documented as of this encounter Visit Diagnoses Diagnosis Diaphragmatic hernia without obstruction or gangrene- Primary Diaphragmatic hernia without mention of obstruction or gangrene documented in this encounter Care Teams Marketing Account Executive Relationship Specialty Start Date End Date Osvaldo Ozuna MD PCP - General Family Medicine 09/03/22 documented as of this encounter
--- OUTSIDE RECORDS SUMMARY | 2025-02-14 17:07 | XMS_ITS | Encounter Summary ---
Author Organization [facility] Address [address] [place] [id number] Care Team Providers Care Sewing Machine Mechanic Name Role Phone Osvaldo Ozuna MD Primary Care Provider +1- [phone] Reason for Visit * Reason Onset Date Comments SEIVERS - SCHEDULING 12/05/2024 Encounter Details Date Type Department Care Team (Late st Contact Info) Description 12/05/2024 Telephone [facility] [address] [place] [address] SeBritney melendez, PHOTOGRAPHIC HAND DEVELOPER [address] [place] [id number] SEIVERS - SCHEDULING Social History Tobacco Use [...] Description 02/20/2025 10:00 AM EST Office Visit [facility] [address] [place] [address] Kathy Dobson APRN [address] [place] [address] documented as of this encounter Visit Diagnoses Not on filedocumented in this encounter Care Teams Sewing Machine Mechanic Relationship Specialty Start Date End Date Osvaldo Ozuna MD [address] [place] [address] PCP - General Family Medicine 10/21/22 documented as of this encounter
--- OUTSIDE RECORDS SUMMARY | 2025-02-14 17:07 | XMS_ITS | Encounter Summary ---
Author Organization [facility] Address [address] [place] [id number] Care Team Providers Care Hospital Fellow Name Role Phone Osvaldo Ozuna MD Primary Care Provider Reina vailable Encounter Details Date Type Department Care Team (Latest Contact Info) Description 02/13/2025 Travel Social History Tobacco Use Types Packs/Day Years Used Date Smoking Tobacco: Never Passive Smoke Exposure: Never Smokeless Tobacco: Never Comments Unknown Sex and Gender Information Value Date Recorded Sex Assigned at Not on file Legal Sex Female 8:22 PM EDT Gender Identity Not on file Sexual Orientation Not on file documented as of this encounter Functional Status * Calculated C-SSRS Risk Score (Lifetime/Recent) Answer Date of Assessment Author No Risk Indicated 02/13/2025 9:35 AM Chastity Geller * Question Answer Date of Assessment Author 1. Wish to be (Past 1 Month) No 025 9:35 AM Chastity Kaye 2. Non-Specific Active Suici jia Thoughts (Past 1 Month) No 02/13/2025 9:35 AM Jamal Kaye 6. Suicidal Behavior (Lifetime) No 9:35 AM Chastity Kaye documented as of this encounter Plan of Treatment Upcoming Encounters Date Type Department Care Team (Late st Contact Info) Description 02/20/2025 10:30 AM EST Appointment [facility] [address] [place] [address] documented as of this encounter Visit Diagnoses Not on filedocumented in this encounter Additional Health Concerns Assessment Noted Time A fall risk assessment has been complete d for the patient 02/13/2025 9:35 AM EST A Body Mass Index follow-up plan has been documented for the patient 02/13/2025 10:49 AM EST documented as of this encounter Care Teams Hospital Fellow Relationship Specialty Start Date End Date Osvaldo Ozuna MD PCP - General Family Medicine 09/03/22 documented as of this encounter
--- OUTSIDE RECORDS SUMMARY | 2025-02-14 17:07 | XMS_ITS | Encounter Summary ---
Author Organization [facility] Address [address] [place] [address] Care Team Providers Care Landing Scaler Name Role Phone Osvaldo Ozuna MD Primary Care Provider +1- [phone] Encounter Details Date Type Department Care Team (Latest Contact Info) Description 12/28/2024 Travel Social History Tobacco Use Types Packs/Day Years Used Date Smoking Tobacco: Former Cigarettes 0.3 10 3 1992 Passive Smoke Exposure: Past Smokeless Tobacco: [...] 02/20/2025 10:00 AM EST Office Visit [facility] [address] [place] [address] Kathy Dobson APRN [address] [place] [address] documented as of this encounter Visit Diagnoses Not on filedocumented in this encounter Care Teams Landing Scaler Relationship Specialty Start Date End Date Osvaldo Ozuna MD [address] [place] [address] PCP - General Family Medicine 10/21/22 documented as of this encounter
--- OUTSIDE RECORDS SUMMARY | 2025-02-14 17:07 | XMS_ITS | Data Portability ---
Author Organization [facility] HELIO Pham HAYDEN CLOSED Address [address] [place] [address] Care Team Providers Care Mixer And Blender Name Role Phone ANNIE JASMINE Primary Care Provider [phone] Assessment No assessment recorded. Plan of Treatment Reminders Order Date Submit Date Provider Last Modified By Organization Details Last Modified Time Details Appointments None recorded. Lab urinalysis panel, auto 2022 023 [facility], [address], [address], [place], [address], 3 17:22:54 urinalysis panel, auto 2022 023 [facility], [address], [address], 3 09:50:50 urinalysis panel, auto 2022 023 [facility], [address], [address], 3 10:19:34 Referral None recorded. Procedures None recorded. Surgeries None recorded. Imaging None recorded. Medication Orders Bactrim 400 mg-80 mg tablet 2022 023 [facility], [address], [place], [address], 09:51:42 Bactrim 400 mg-80 mg tablet 2022 023 [facility], [address] [place], [address], 10:20:14 Patient TargetsNo targets recorded. Patient InstructionsNo instructions recorded. Reason for Referral None Reported. Results Created Date Observation Date Name Description Value Unit Range Abnormal Flag Note LastModifiedBy Organization Detail LastModifiedTime 09/16/1909/15/2022 urina lysis panel , auto Unknown Analyte Clean Catch Not Available [facility] [address] [place] [address], [address], 09/15/2022 10:09:17 09/16/19 23 09/15/2022 urina lysis panel , auto Unknown Analyte Yellow Not Available [facility] [address], [address], 09/15/2022 10:09:17 09/16/19 23 09/15/2022 urina lysis panel , auto Unknown Analyte Clear Not Available [facility] [address], [address], 09/15/2022 10:09:17 09/16/19 23 09/15/2022 urina lysis panel , auto Unknown Analyte 1.010 Not Available [facility] [address], [address], 09/15/2022 10:09:17 09/16/19 23 09/15/2022 urina lysis panel , auto Unknown Analyte 6.0 Not Available [facility] [address], [place], [address], 09/15/2022 10:09:17 09/16/19 23 09/15/2022 urina lysis panel , auto Unknown Analyte Negati ve Not Available [facility] [address] [place] [address] Rd [address], [place], [address], 09/15/2022 10:09:17 09/16/19 23 09/15/2022 urina lysis panel , auto Unknown Analyte Negati ve Not Available [facility] [address], [place], [address], 09/15/2022 10:09:17 09/16/19 23 09/15/2022 urina lysis panel , auto Unknown Analyte Negati ve Not Available [facility] [address], [place], [address], 09/15/2022 10:09:17 09/16/19 23 09/15/2022 urina lysis panel , auto Unknown Analyte Normal Not Available [facility] [address], [place], [address], 09/15/2022 10:09:17 09/16/19 23 09/15/2022 urina lysis panel , auto Unknown Analyte Negati ve Not Available [facility] [address] [place] [address] Rd [address], [place], [address], 09/15/2022 10:09:17 09/16/19 23 09/15/2022 urina lysis panel , auto Unknown Analyte Normal Not Available [facility] [address], [place], [address], 09/15/2022 10:09:17 09/16/19 23 09/15/2022 urina lysis panel , auto Unknown Analyte Negati ve Not Available [facility] [address], [place], [address], 09/15/2022 10:09:17 09/16/19 23 09/15/2022 urina lysis panel , auto Unknown Analyte Negati ve Not Available [facility] [address], [place], [address], 09/15/2022 10:09:17 10/15/19 23 10/14/2022 urina lysis panel , auto Unknown Analyte Clean Catch Not Available [facility] [address], [place], [address], 10/14/2022 09:37:57 10/15/19 23 10/14/2022 urina lysis panel , auto Unknown Analyte Yellow Not Available [facility] [address], [place], [address], 10/14/2022 09:37:57 10/15/19 23 10/14/2022 urina lysis panel , auto Unknown Analyte Clear Not Available [facility] [address], [place], [address], 10/14/2022 09:37:57 10/15/19 23 10/14/2022 urina lysis panel , auto Unknown Analyte 1.010 Not Available [facility] [address], [place], [address], 10/14/2022 09:37:57 10/15/19 23 10/14/2022 urina lysis panel , auto Unknown Analyte 6.0 Not Available [facility] [address] [place] [address] Rd [address], [place], [address], 10/14/2022 09:37:57 10/15/19 23 10/14/2022 urina lysis panel , auto Unknown Analyte Negati ve Not Available [facility] [address], [place], [address], 10/14/2022 09:37:57 10/15/1910/14/2022 urina lysis panel , auto Unknown Analyte Negati ve Not Available [facility] [address], [address], 10/14/2022 09:37:57 10/15/1910/14/2022 urina lysis panel , auto Unknown Analyte Negati ve Not Available [facility] [address] [place] [address] Rd [address], [place], [address], 10/14/2022 09:37:57 10/15/19 23 10/14/2022 urina lysis panel , auto Unknown Analyte Normal Not Available [facility] [address] [place] [address] Rd [address], [place], [address], 10/14/2022 09:37:57 10/15/1910/14/2022 urina lysis panel , auto Unknown Analyte Negati ve Not Available [facility] [address] [place] [address] Rd [address], [place], [address], 10/14/2022 09:37:57 10/15/19 23 10/14/2022 urina lysis panel , auto Unknown Analyte Normal Not Available [facility] [address], [place], [address], 10/14/2022 09:37:57 10/15/19 23 10/14/2022 urina lysis panel , auto Unknown Analyte Negati ve Not Available [facility] [address], [place], [address], 10/14/2022 09:37:57 10/15/1910/14/2022 urina lysis panel , auto Unknown Analyte Negati ve Not Available [facility] [address], [place], [address], 10/14/2022 09:37:57 11/13/19 23 11/12/2022 urina lysis panel , auto Unknown Analyte Clean Catch Not Available [facility] [address], [place], [address], 11/12/2022 17:08:25 11/13/19 23 11/12/2022 urina lysis panel , auto Unknown Analyte Yellow Not Available [facility] [address], [place], [address], 11/12/2022 17:08:25 11/13/19 23 11/12/2022 urina lysis panel , auto Unknown Analyte Clear Not Available [facility] [address], [address], 11/12/2022 17:08:25 11/13/19 23 11/12/2022 urina lysis panel , auto Unknown Analyte 1.010 Not Available [facility] [address], [place], [address], 11/12/2022 17:08:25 11/13/19 23 11/12/2022 urina lysis panel , auto Unknown Analyte 1.003- 1.035 Not Available [facility] [address], [place], [address], 11/12/2022 17:08:25 11/13/19 23 11/12/2022 urina lysis panel , auto Unknown Analyte 6.0 Not Available [facility] [address] [place] [address] Rd [address], [place], [address], 11/12/2022 17:08:25 11/13/19 23 11/12/2022 urina lysis panel , auto Unknown Analyte 5.0-8. 0 Not Available [facility] [address], [place], [address], 11/12/2022 17:08:25 11/13/19 23 11/12/2022 urina lysis panel , auto Unknown Analyte Negati ve Not Available [facility] [address], [place], [address], 11/12/2022 17:08:25 11/13/19 23 11/12/2022 urina lysis panel , auto Unknown Analyte Negati ve Not Available [facility] [address] [place] [address] [address], [place], [address], 11/12/2022 17:08:25 11/13/19 23 11/12/2022 urina lysis panel , auto Unknown Analyte Negati ve Not Available [facility] [address] [place] [address] [address], [place], [address], 11/12/2022 17:08:25 11/13/19 23 11/12/2022 urina lysis panel , auto Unknown Analyte Negati ve Not Available [facility] [address] [place] [address] [address], [place], [address], 11/12/2022 17:08:25 11/13/19 23 11/12/2022 urina lysis panel , auto Unknown Analyte Negati ve Not Available [facility] [address] [place] [address] [address], [place], [address], 11/12/2022 17:08:25 11/13/19 23 11/12/2022 urina lysis panel , auto Unknown Analyte Negati ve Not Available [facility] [address] [place] [address] [address], [place], [address], 11/12/2022 17:08:25 11/13/19 23 11/12/2022 urina lysis panel , auto Unknown Analyte Normal Not Available [facility] [address] [place] [address] [address], [place], [address], 11/12/2022 17:08:25 11/13/19 23 11/12/2022 urina lysis panel , auto Unknown Analyte Normal Not Available [facility] [address] [place] [address] [address], [place], [address], 11/12/2022 17:08:25 11/13/19 23 11/12/2022 urina lysis panel , auto Unknown Analyte Negati ve Not Available [facility] [address] [place] [address] [address], [place], [address], 11/12/2022 17:08:25 11/13/19 23 11/12/2022 urina lysis panel , auto Unknown Analyte Negati ve Not Available [facility] [address], [place], [address], 11/12/2022 17:08:25 11/13/19 23 11/12/2022 urina lysis panel , auto Unknown Analyte Normal Not Available [facility] [address] [place] [address] [address], [place], [address], 11/12/2022 17:08:25 11/13/19 23 11/12/2022 urina lysis panel , auto Unknown Analyte Normal 1 mg/dl Not Available [facility] [address] [place] [address] [address], [place], [address], 11/12/2022 17:08:25 11/13/19 23 11/12/2022 urina lysis panel , auto Unknown Analyte Negati ve Not Available [facility] [address], [place], [address], 11/12/2022 17:08:25 11/13/19 23 11/12/2022 urina lysis panel , auto Unknown Analyte Negati ve Not Available [facility] [address] [place] [address] [address], [place], [address], 11/12/2022 17:08:25 11/13/19 23 11/12/2022 urina lysis panel , auto Unknown Analyte Negati ve Not Available [facility] [address], [place], [address], 11/12/2022 17:08:25 11/13/19 23 11/12/2022 urina lysis panel , auto Unknown Analyte Negati ve Not Available [facility] [address], [place], [address], 11/12/2022 17:08:25 Result Notes None recorded. Problems No Known Problems Procedures Surgical History Date Name Laterality Status Provider Name and Address Organization Details Recorded Time 09/16/19 23 Post Void Residual; Catheter completed Vanna Kohli [facility] 09/15/2022 10:09:27 Hysterectomy completed Vanna Kohli [facility] 09/15/2022 10:07:17 Tubal Ligation completed Vanna Kohli [facility] 09/15/2022 10:07:26 Neck Surgery completed Vanna Kohli [facility] 09/15/2022 10:07:33 Imaging Results None recorded. Procedure Notes None recorded. Medical Equipment None Reported. Allergies Allergen ID Allergen Name Allergen Category Reaction Reaction Severity Criticality Documentation Date Start Date Code Code System Note Provider Name and Address Organization Details Recorded Time [id number] Omnicef medicatio n Not available Not available Not available 09/15/2022 75015 RxNorm Vanna Kohli [facility] 10:05:39 Medications Name Sig Start Date Stop [...] Updated DateTime 09/15/2022 162.56 cm 27.6 kg/m2 99429.37 g Vanna Kohli [facility] 09/15/2022 09:53:37 Date Recorded Body height Body mass index (BMI) Body weight Provider Name and Address Organization Details Last Updated DateTime 10/14/2022 162.56 cm 27.6 kg/m2 74222.37 g Vanna Kohli [facility] 10/14/2022 09:36:46 Date Recorded Body height Body mass index (BMI) Body weight Provider Name and Address Organization Details Last Updated DateTime 11/12/2022 162.56 cm 27.6 kg/m2 80224.37 g Celeste Pierre [facility] 11/12/2022 17:08:18 Social History Question Answer Notes LastModified by [employer] Details LastModified Time Tobacco Smoking Status [facility] 10:06:46 What Is Your Relationship Status? Information not available 09/15/2022 Has Tobacco Cessation Counseling Been Provided? No [email or web address] Information not available 09/15/2022 Sex: Unknown Functional Status Question Answer Note LastModified by Organizat ion Details LastModified Time Do you or have you ever used any other forms of tobacco or nicotine? No [email or web address] Information not available 09/15/2022 What is your level of alcohol consumption? None [email or web address] Information not available 09/15/2022 Are you currently employed? No Retired [email or web address] Information not available 09/15/2022 Mental Status None [...] Diagnosis SNOMED-CT Code Diagnosis ICD10 Code Diagnosis IMO Codes Diagnosis Note [id number] QM_[place] [address] 06/01/2016 14:36:52 06/01/2016 14:36:52 [id number] MD NOELLE WOODARD [facility] [address] [address] 09/15/2022 09:13:14 09/15/2022 10:15:33 Recurrent urinary tract infection 697685173 N39.0 [id number] MD NOELLE WOODARD [facility] [address] [address] 10/14/2022 09:09:02 10/14/2022 09:35:01 Recurrent urinary tract infection [id number] N39.0 [id number] WALI GALAN MD [facility] [address] [address] 11/12/2022 16:54:44 11/13/2022 05:04:49 Urinary tract infectious disease [id number] N39.0 Health Concerns Section Related Observation LastModified by Organization Detai ls LastModified Time None Recorded Concern Status LastModified by Organization Details LastModified Time None Recorded Advance Directives Directive None Recorded Payers Insurance Date Sequence Insurance Name Policy Number Policy Villegas Covered Member ID Villegas Member ID Guarantor Name 10/31/2022 2 UNSPECIFIED REMIT PAYOR Macey Sutton 02/24/2023 2 [place] [employer] - PLAN F (MEDICARE SUPPLEMENT) Macey Sutton [id number] Macey Sutton 11/14/2022 2 [employer] (MEDICARE SUPPLEMENT) Macey Sutton [id number] Macey Sutton 11/12/2022 1 [place] Macey Sutton [id number] Macey Sutton Notes Date Note Type Note Provider Name and Address Organization Details Recorded Time 09/15/2022 text/html 77-year-old female who was recently hospitalized for urosepsis. Has [...] this with low-dose antibiotics WALI GALAN MD [address] [place] [address], [address], [facility] 09/15/2022 10:20:36 10/14/2022 text/html She has been taking the Bactrim twice daily. She is asymptomatic. There is no sign of recurrent bladder infection. There is no back or abdominal pain. There is no hematuria or dysuria. She is emptying her bladder without any difficulty. We will cut this back to a daily dose WALI GALAN MD [address] [place] [address], [address], [facility] 10/14/2022 09:51:10 11/12/2022 text/html She [...] her something besides Bactrim WALI GALAN MD [address] [place] [address] [place], [address], [facility] 11/12/2022 17:23:11 OBGyn Episode No OBEpisode recorded.
--- OUTSIDE RECORDS SUMMARY | 2025-02-14 17:07 | XMS_ITS | Clinical Summary ---
[facility] Address [address] [place] [address] Care Team Providers Care Digital Watch Assembler Name Role Phone Osvaldo Ozuna MD Primary Care Provider +1- [phone] Allergies Active Allergy Reactions Criticality Noted Date [...] tablet every day by oral route. Active aspirin 81 MG EC tablet Take 1 tablet by mouth Daily. Active Cranberry 250 MG capsule Take 1 tablet by mouth Daily. Active nitroglycerin (NITROSTAT) 0.4 MG SL tabletIndications:C oronary artery disease involving lone pine coronary artery of lone pine heart without angina pectoris 1 under the tongue as needed for angina, may repeat q5mins for up three doses 100 tablet 4 Active Synthroid 125 MCG tablet 4 Active esomeprazole (nexIUM) 20 MG capsule Take 1 capsule by mouth Every Morning Before Breakfast. 5 Active rosuvastatin (CRESTOR) 5 MG tabletIndications:C oronary artery disease involving lone pine coronary artery of lone pine heart without angina pectoris Take 1 tablet by mouth Daily. 90 tablet 3 5 Active levocetirizine (XYZAL) 5 MG tablet Take 1 tablet by mouth Every Evening. 5 Active Active Problems Problem Noted Date Diagnosed Date Mixed hyperlipidemia 12/28/2024 Assessment & Plan (12/28/2024 12:54 PM EDT): {Hyperlipidemia A/P Block (Optional):[id number]} Diastolic dysfunction 12/28/2024 Assessment & Plan (12/28/2024 12:54 PM EDT): Orders: Adult Transthoracic Echo Complete W/ Cont if Necessary Per Protocol; Future Bilateral carotid artery stenosis 07/08/2023 Assessment & [...] stress test Coronary artery disease invo lving lone pine coronary artery of lone pine heart without angina pectoris 12/10/2022 Assessment & Plan (12/28/2024 12:54 PM EDT): {Coronary Artery Disease (OPTIONAL):57412} Assessment & Plan (05/18/2024 4:46 PM EDT): [...] Known history of coronary artery disease. CAD: [facility] 09/2014 showing severe one- vessel disease 70% [...] Central sleep apnea 12/10/2022 Assessment & Plan (12/28/2024 12:54 PM EDT): Assessment & Plan (05/18/2024 4:43 PM EDT): [...] 3. She is advised to contact her zanda for assistance to adjusting her humidifier to [...] Encounters Date Type Department Care Team Description 02/13/2025 Telephone [facility] [address] [place] [address] Kathy Dobson APRN 01/02/2025 Results Follow-Up [facility] [address] [place] [address] Ariana Villa MA 01/01/2025 8:30 AM EST Ancillary Procedure [facility] [address] [place] [address] Diastolic dysfunction 01/01/2025 Travel 12/28/2024 12:30 PM EDT Office Visit [facility] [address] [place] [address] Kathy Dobson, YOSHI Coronary artery disease involving lone pine coronary artery of lone pine heart without angina pectoris (Primary Dx); Central sleep apnea; Mixed hyperlipidemia; Diastolic dysfunction 12/28/2024 Travel 12/05/2024 Telephone [facility] [address] [place] [address] Senora, Britney Contreras APRN SE[facility]ERS - SCHEDULING from Last 3 Months Immunizations Immunization Administration [...] Smoking Tobacco: Former Cigarettes 0.3 10 1 1992 Passive Smoke Exposure: Past Smokeless Tobacco: [...] Pressure 115/62 01/01/2025 8:27 AM EST Pulse 67 12/28/2024 12:15 PM EDT Temperature - - Respiratory Rate - - Oxygen Saturation 93% 12/28/2024 12:15 PM EDT Inhaled Oxygen Concentration - - Weight 75.3 kg (166 lb) 01/01/2025 8:27 AM EST Height 162.6 cm (5' 4 ) 01/01/2025 8:27 AM EST Body Mass Index 28.49 01/01/2025 8:27 AM EST Plan of Treatment Upcoming Encounters Date Type Department Care Team (Late st Contact Info) Description 02/20/2025 10:00 AM EST Office Visit [facility] [address] [place] [address] Kathy Dobson APRN [address] [place] [address] [phone] (work) Health Maintenance Due Date Last Done Comments DXA SCAN 1945 TDAP/TD VACCINES (1 - Tdap) 09/08/1962 ZOSTER VACCINE (1 of 2) 09/08/1993 RSV Vaccine - Adults (1 - 1- dose 75+ series) 09/08/2018 ANNUAL WELLNESS VISIT 08/20/2022 COVID-19 Vaccine (4 - 2024-2 6 season) 2024 12/12/2020, 05/23/2020, 04/25/2020 LIPID PANEL 05/22/2025 05/22/2024, 06/25/2023 Pneumococcal Vaccine 50+ Completed 021, 10/08/2017, 01/13/2007 INFLUENZA VACCINE Completed 12/25/2024, , 12/21/2022, Additional history exists Procedures Procedure Name Priority Date/Time Associated Diagnosis Comments ECHO COMPLETE W/ DOPPLER AND COLOR FLOW Routine 01/01/2025 9:15 AM EST Diastolic dysfunction ECG 12-LEAD Routine 12/28/2024 Coronary artery disease involving lone pine coronary artery of lone pine heart without angina pectoris LIPID PANEL Routine 05/22/2024 Coronary artery disease involving lone pine coronary artery of lone pine heart without angina pectoris from Last 3 Months or Most Recently Relevant to Health Maintenance Results * ECHO COMPLETE W/ DOPPLER AND [...] surgeon Dr Rajiv Avina on Wednesday at [facility] regarding her hiatal hernia. She reportsexperiencing [...] 0 and maximum pressure support 15 CAD: [facility] 09/2014 showing severe one-vessel disease 70% LAD with angioplasty(artery too small for stent) Nuclear stress test 07/01/23 no evidence of ischemia PAD: Bilateral lower extremity arterial duplex 2018-waveforms triphasic tobiphasic with right CHLOE 1.04 and left CHLOE 1.01 Last echo: 09/02/22 @ [facility]. ECHO 02/02/2022 EF 55 to 60%, mild [...] (64 ) Wt 75.3 kg (166 lb) FcF614% BMI 28.49 kg/m Estimated body mass index [...] Assessment & Plan Coronary artery disease involving lone pine coronary artery of lone pine heartwithout angina pectoris Central sleep apnea Mixed [...] on 05/22/2024 revealed LDL 61, cholesterol 155, [id number] - Continue rosuvastatin 5 mg daily 4. Diastolic Dysfunction - Last echo on 09/02/2022 revealed abnormal diastolic dysfunction. Willupdate echo Follow-up: Follow up in 6 months. Recommendations: Report if any new/changing symptoms immediately, Sleeprisks reviewed (driving, medical, sleep , sedating agents), and Sleephygiene discussed Follow Up Return in about 6 months (around 06/28/2025) for Next scheduled followup. Patient or patient telephone services sales representative verbalized consent for the use ofAmbient Listening during the visit with Kathy Dobson APRN for chartdocumentation. 12/28/2024 12:40 EDT Kathy Dobson APRN Cardiology and Sleep [facility] 12/28/2024 Please note that this explicitly excludes time spent on other separatebillable services such as performing procedures or test interpretation,when applicable. us Kathy Kurtz Bronson RAILROAD BRAKE REPAIRER ECG ORDERABLES Final Resu lt * Lipid Panel (05/22/2024) Blood Haleigh Downing Brito RAILROAD BRAKE REPAIRER LAB BLOOD ORDERABLES Fi nal Result [facility]
[address] [place] [id number], from Last 3 Months or Most Recently Relevant to Health Maintenance Insurance MEDICARE A & B Member Subscriber Plan / Payer (Ef fective 2005-Present) Name:Macey Sutton Member ID:[id number] Relation to Subscriber:Self Name:Herman Macey Subscriber ID:[id number] Payer ID:[id number] Group ID:Not on file Type:Not on file Address: [facility] [id number] [address] Care Teams Digital Watch Assembler Relationship Specialty Start Date End Date Osvaldo Ozuna MD [address] [place] [address] PCP - General Family Medicine 10/21/22
--- OUTSIDE RECORDS SUMMARY | 2025-02-14 17:07 | XMS_ITS | Clinical Summary ---
Author Organization [facility] Address [address] [place] [address] Care Team Providers Care Watch Crystal Edge Grinder Name Role Phone Osvaldo Ozuna MD Primary Care Provider Reina vailable Allergies Active Allergy Reactions Criticality Noted Date Comments Cefdinir Other - please docum ent in the comment field Low 12/10/2022 Medications aspirin 81 MG EC tablet Take 1 tablet by mouth daily. Active Cholecalciferol 25 MCG (1000 UT) chewable tablet Chew 2 capsules. Active citalopram (CeleXA) 20 MG tablet 5 Active clopidogrel (Plavix) 75 MG tablet Take 1 tablet by mouth. Active CRANBERRY PO Take 1 tablet by mouth daily. Active esomeprazole (NexIUM) [address] capsule Take 1 capsule by mouth daily before breakfast. 5 Active isosorbide mononitrate ER (Imdur) 30 MG 24 hr tablet Take 1 tablet by mouth. Active Synthroid 125 MCG tablet Active Metoprolol Succinate 25 MG capsule extended-release 24 hour sprinkle Take 0.5 capsules every day by oral route. Active rosuvastatin (Crestor) 5 MG tablet Take 1 tablet by mouth daily. 5 Active cetirizine (ZyrTEC) 10 MG tablet Take 1 tablet by mouth daily. Active lactase (Lactaid) 3000 units tablet Take 1 tablet by mouth 3 times a day with meals. Active polycarbophil (Fibercon) 625 MG tablet Take by mouth daily. Active Misc Natural Products (IBEROGAST PO) Take by mouth. Active Active Problems Problem Noted Date Diagnosed Date Hiatal hernia 02/13/2025 Coronary artery disease invo lving tyonek coronary artery of tyonek heart without angina pectoris 02/13/2025 Platelet inhibition due to Plavix 02/13/2025 Dizziness 02/13/2025 Near syncope 02/13/2025 Encounters Date Type Department Care Team Description 02/13/2025 9:30 AM EST Office Visit [facility] General Surgery [address] [place] [address] Zahida Villareal APRN Hiatal hernia (Primary Dx); Coronary artery disease involving tyonek coronary artery of tyonek heart without angina pectoris; Platelet inhibition due to Plavix; Dizziness; Near syncope 02/13/2025 Travel 12/27/2024 Community Orders [facility] [address] [place] [address] Dominique Kimbrough APRN Diaphragmatic hernia without obstruction or gangrene (Primary Dx) from Last 3 Months Family History Medical History Relation Name Comments Heart attack Brother Heart disease Father Stroke Mother Cancer Sister Relation Name Status Comments Brother Father Mother Sister Social History Tobacco Use Types Packs/Day Years [...] Mass Index 29.57 02/13/2025 9:36 AM EST Plan of Treatment Upcoming Encounters Date Type Department Care Team (Late st Contact Info) Description 02/20/2025 10:30 AM EST Appointment [facility] [address] [place] [address] Health Maintenance Due Date Last Done Comments [facility]-Bone Density Scan 1945 [facility]-Depression Screening 1945 [facility]-Medicare Annual Wellness (AWV) 1945 [facility]-Infant/Child/Adol SDOH Screenings 1945 [facility]- SDOH Screenings 09/08/1961 [facility]-Adult SDOH Screenings 09/08/1961 [facility]-DTaP,Tdap,and Td Vaccines (1 - Tdap) 09/08/1962 [facility]-Zoster Vaccines (1 of 2) 09/08/1993 [facility]-RSV Vaccine: 60+ Years or (1 - 1-dose 75+ series) 09/08/2018 [id number] Vaccine ( - 2024- season) 2024 12/12/2020, 05/23/2020, 04/25/2020 [facility]-Pneumococcal Vaccine: 50+ Years Completed 12/20/2020, 10/08/2017, 01/13/2007 [facility]-Influenza Vaccine Completed 12/25/2024 , 12/28/2023, 12/21/2022, Additional history exists [facility]-Obesity Intervention Completed 02/13/2025 HPV Vaccines (No Doses Required) Completed [facility]-HIB Vaccines Aged Out No longer e [...] age to complete this topic Insurance MEDICARE [employer] SUPPLEMENT Care Teams Watch Crystal Edge Grinder Relationship Specialty Start Date End Date Osvaldo Ozuna MD PCP - General Family Medicine 09/03/22
--- NOTE | 2025-02-14 18:13 | CT_ITS ---
PROCEDURE INFORMATION: Exam: CTA Chest With Contrast Exam date and time: 02/14/2025 6:30 PM Age: 79 years old Clinical indication: Dyspnea; Additional info: Dyspnea on exertion TECHNIQUE: Imaging protocol: Computed tomographic angiography of the chest with contrast. Exam focused on the arteries. 3D rendering (Not supervised by radiologist): MIP and/or 3D reconstructed images were created by the technologist. Radiation optimization: All CT scans at this facility use at least one of these dose optimization techniques: automated exposure control; mA and/or kV adjustment per patient size (includes targeted exams where dose is matched to clinical indication); or iterative reconstruction. Contrast material: ISO; Contrast volume: 70 ml; Contrast route: INTRAVENOUS (IV); COMPARISON: CT ANGIO CHEST 11/13/2022 11:26 PM FINDINGS: Pulmonary arteries: No CT evidence for pulmonary embolism. Aorta: Unremarkable. No aortic aneurysm. No aortic dissection. Lungs: Moderate mid and lower lung zone pulmonary edema identified. There is peripheral coarsened interstitial markings consistent with pulmonary fibrosis as well with some peripheral honeycombing within the dependent portion of the lungs. Pleural spaces: Unremarkable. No pneumothorax. No pleural effusion. Heart: Unremarkable. No cardiomegaly. No pericardial effusion. Coronary arteries: Three-vessel coronary artery calcifications. Lymph nodes: Reactive appearing lymph nodes within the mediastinum identified also reactive appearing stable right infrahilar and right paraesophageal lymph nodes. Diaphragm: Moderate to large hiatal hernia identified measuring 10 cm diameter. Bones/joints: Unremarkable. No acute fracture. Soft tissues: Unremarkable. IMPRESSION: 1. No CT evidence for pulmonary embolism. 2. Moderate mid and lower lung zone pulmonary edema identified. There is peripheral coarsened interstitial markings consistent with pulmonary fibrosis as well with some peripheral honeycombing within the dependent portion of the lungs. Degree of fibrosis has worsened from the prior CT scan. 3. Reactive appearing lymph nodes within the mediastinum identified also reactive appearing stable right infrahilar and right paraesophageal lymph nodes. 4. Moderate to large hiatal hernia identified measuring 10 cm diameter.
[2025-02-14] MEDS: 0.9 % SODIUM CHLORIDE 50 ML VIAL IV (18:31)
[2025-02-14] MEDS: IOPAMIDOL-370 (76%);100ML BOTTLE 70 ML IV (18:32)
[2025-02-14 18:49] LABS: NT Pro Brain Natriuretic Pep. 103 pg/mL (0-450)
[2025-02-14 18:56] LABS: Troponin I < 0.01 ng/ml (0.00-0.034)
--- NOTE | 2025-02-14 19:15 | ECG_ITS ---
APPROVED REPORT Exam: Resting ECG HR:63 bpm ECG Measurements Heart Rate 63 AXES WY 195 P 28 QRSd 82 QRS -24 QT 388 T 64 QTc 394 Conclusion SINUS RHYTHM BORDERLINE LEFT AXIS DEVIATION [QRS AXIS < -20] NONSPECIFIC T-WAVE ABNORMALITY BORDERLINE ECG UNCONFIRMED REPORT Electronically signed by : YENIFER AMOS, 02/16/2025 06:59:30
== END 2025-02-14 19:23 | disposition home or self-care (01) ==
PROVIDERS: Physician Assistant; Emergency Provider Emergency Medicine; PCP Family Medicine
DX: R10.84 Generalized abdominal pain (principal); R09.02 Hypoxemia; K44.9 Diaphragmatic hernia without obstruction or gangrene; J84.112 Idiopathic pulmonary fibrosis; R11.0 Nausea
CPT/HCPCS: 71275; 74177; 80053; 81001; 83605; 83690; 83880; 84484; 85025; 93005; 96374; 96375; 99285; J2270; J2405; Q9967

== ENCOUNTER 2025-02-26 16:23 | Outpatient (CLI) | payer MEDICARE, OTHER, SELFPAY ==
--- OUTSIDE RECORDS SUMMARY | 2024-12-28 11:30 | XMS_ITS | Encounter Summary ---
[facility] Organization [facility] Address [address] [place] [address] Care Team Providers Care Supervisor Core Shop Name Role Phone Osvaldo Ozuna MD Primary Care Provider [phone]- [phone] Reason for Referral * Diagnostic Imaging (Routine) - Closed Specialty Diagnoses / Procedures Referred By Contac t Referred To Contact Diagnoses Diastolic dysfunction Procedures Adult Transthoracic Echo Complete W/ Cont if Necessary Per Protocol Kathy Dobson APRN [address] [place] [address] Phone: tel: fax: [facility] [address] [place] [address] Phone: tel: fax: Referral ID Status Reason Start Date Expiration Date Visits Re quested Visits Authorized [id number] Closed 12/28/2024 03/29/2026 1 1 Reason for Visit * Reason Comments Coronary Artery Disease Sleep Apnea Has not used PAP mac lori in months Encounter Details Date Type Department Care Team (Late st Contact Info) Description 12/28/2024 12:30 PM EDT Office Visit [facility] [address] [place] [address] [place] [address] Kathy Dobson APRN [address] [place] [address] Coronary artery disease involving apache coronary artery of apache heart without angina pectoris (Primary Dx); Central [...] PM EDTAssociated Problem(s): Coronary artery disease involving apache coronary artery of apache heart with out angina pectoris {Coronary Artery Disease (OPTIONAL):78801} * Kathy Dobson APRN - 12/28/2024 12:30 PM EDTAssociated Problem(s): Central sleep apnea * Kathy Dobson APRN - 12/28/2024 12:30 PM EDTAssociated Problem(s): Mixed hyperlipidemia {Hyperlipidemia A/P Block (Optional):7452110329} * Kathy Dobson APRN - 12/28/2024 12:30 PM EDTAssociated Problem(s): Diastolic dysfunction Orders: Adult Transthoracic Echo Complete W/ Cont if Necessary Per Protocol; Future * Kathy Dobson APRN - 12/28/2024 12:30 PM EDTAssociated Order(s): ECG 12 Lead Post-Procedure Diagnose(s): Coronary artery disease involving apache coronary artery of apache heart without angina pectoris Images from the [...] Avina on Wednesday at the [facility] regarding her hiatal hernia. She reports [...] 0 and maximum pressure support 15 CAD: [facility] 09/2014 showing severe one-vessel disease 70% LAD with angioplasty (artery too small for stent) Nuclear stress test 07/01/23 no evidence of ischemia PAD: Bilateral lower extremity arterial duplex 2018-waveforms triphasic to biphasic with right CHLOE 1.04 and left CHLOE 1.01 Last echo: 09/02/22 @ [facility]. ECHO 02/02/2022 EF 55 to 60%, mild [...] Assessment & Plan Coronary artery disease involving apache coronary artery of apache heart without angina pectoris Central sleep apnea [...] Next scheduled follow up. Patient or patient it sales representative verbalized consent for the use of Ambient Listening during the visit with Kathy Dobson APRN for chart documentation. 12/28/2024 12:40 EDT Katyh Dobson APRN Cardiology and Sleep [facility] 12/28/2024 Please note that this explicitly excludes time spent on other separate billable services such as performing procedures or test interpretation, when applicable. documented in this encounter Plan of Treatment Upcoming Encounters Date Type Department Care Team (Late st Contact Info) Description 03/13/2025 8:30 AM EST Office Visit [facility] [address] [place] [address] Kathy Dobson APRN [address] [place] [address] documented as of this encounter Procedures Procedure Name Priority Date/Time Associated Diagnosis Comments ECG 12-LEAD Routine 12/28/2024 Coronary artery disease involving apache coronary artery of apache heart without angina pectoris documented in this [...] surgeon Dr Rajiv Avina on Wednesday at [facility] regarding her hiatal hernia. She reportsexperiencing chest [...] 0 and maximum pressure support 15 CAD: [facility] 09/2014 showing severe one-vessel disease 70% LAD with angioplasty(artery too small for stent) Nuclear stress test 07/01/23 no evidence of ischemia PAD: Bilateral lower extremity arterial duplex 2019-waveforms triphasic tobiphasic with right CHLOE 1.04 and left CHLOE 1.01 Last echo: 09/02/22 @ [facility]. ECHO 02/02/2022 EF 55 to 60%, mild [...] (64 ) Wt 75.3 kg (166 lb) [id number]% BMI 28.49 kg/m Estimated body mass index [...] Assessment & Plan Coronary artery disease involving apache coronary artery of apache heartwithout angina pectoris Central sleep apnea Mixed [...] on 05/22/2024 revealed LDL 61, cholesterol 155, [id number] - Continue rosuvastatin 5 mg daily 4. Diastolic Dysfunction - Last echo on 09/02/2022 revealed abnormal diastolic dysfunction. Willupdate echo Follow-up: Follow up in 6 months. Recommendations: Report if any new/changing symptoms immediately, Sleeprisks reviewed (driving, medical, sleep , sedating agents), and Sleephygiene discussed Follow Up Return in about 6 months (around 06/28/2025) for Next scheduled followup. Patient or patient it sales representative verbalized consent for the use ofAmbient Listening during the visit with Kathy Dobson APRN for chartdocumentation. 12/28/2024 12:40 EDT Kathy Dobson APRN Cardiology and Sleep [facility] 12/28/2024 Please note that this explicitly excludes time spent on other separatebillable services such as performing procedures or test interpretation,when applicable. Kathy Dobson APRN ECG ORDERABLES Final Resu lt documented in this encounter Visit Diagnoses Diagnosis Coronary artery disease involving apache coronary artery of apache heart without angina pectoris- Primary Central sleep apnea Unspecified sleep apnea Mixed hyperlipidemia Diastolic dysfunction Unspecified heart disease Diastolic dysfunction Unspecified heart disease documented in this encounter Care Teams Supervisor Core Shop Relationship Specialty Start Date End Date Osvaldo Ozuna MD [address] [place] [address] PCP - General Family Medicine 10/21/22 documented as of this encounter
--- OUTSIDE RECORDS SUMMARY | 2025-01-01 08:30 | XMS_ITS | Encounter Summary ---
[facility] Organization [facility] Address [address] [place] [address] Care Team Providers Care Grinder Set Up Operator Jig Name Role Phone Osvaldo Ozuna MD Primary Care Provider +1- [phone] Reason for Visit * Diagnostic Imaging (Routine) - Closed Specialty Diagnoses / Procedures Referred By Contac t Referred To Contact Diagnoses Diastolic dysfunction Procedures Adult Transthoracic Echo Complete W/ Cont if Necessary Per Protocol Kathy Dobson APRN [address] [place] [address] Phone: tel: fax: [facility] [address] [place] [address] Phone: tel: fax: Referral ID Status Reason Start Date Expiration Date Visits Re quested Visits Authorized [id number] Closed 12/28/2024 03/29/2026 1 1 Encounter Details Date Type Department Care Team (Latest Contact Info) Description 01/01/2025 8:30 AM EST Ancillary Procedure [address] [place] [address] Diastolic dysfunction Social History Tobacco [...] Description 03/13/2025 8:30 AM EST Office Visit [facility] [address] [place] [address] Kathy Dobson APRN [address] [place] [address] documented as of this encounter [...] disease documented in this encounter Care Teams Grinder Set Up Operator Jig Relationship Specialty Start Date End Date Osvaldo Ozuna MD [address] [place] [address] PCP - General Family Medicine 10/21/22 documented as of this encounter
--- OUTSIDE RECORDS SUMMARY | 2025-02-13 09:30 | XMS_ITS | Encounter Summary ---
Author Organization [facility] Address [address] [place] [address] Care Team Providers Care Advertising Operations Manager Name Role Phone Osvaldo Ozuna MD Primary Care Provider Reina vailable Reason for Referral * Imaging (Routine) - Authorized Specialty Diagnoses / Procedures Referred By Zahira moon Referred To Contact Radiology Diagnoses Hiatal hernia Procedures [place] Upper GI Zahida Villareal APRN [address] [address] Phone: tel: fax: Referral ID Status Reason Start Date Expiration Date Visits Requested Visits Authorized [id number] Authorized Perform Procedure 08/15/2026 1 1 Reason for Visit * Reason Comments New Patient * Consultation (Routine) - Closed Specialty Diagnoses / Procedures Referred By Zahira moon Referred To Contact General Surgery Diagnoses Diaphragmatic hernia without obstruction or gangrene Referral ID Status Reason Start Date Expiration Date Visits Re quested Visits Authorized [id number] Closed 12/27/2024 06/28/2026 1 1 Encounter Details Date Type Department Care Team (Late st Contact Info) Description 02/13/2025 9:30 AM EST Office Visit [facility] General Surgery [address] [place] [address] Zahida Villareal APRN [address] [facility] [address] [place] [address] Hiatal hernia (Primary Dx); Coronary artery disease involving [place] coronary artery of [place] heart without angina pectoris; Platelet inhibition due [...] documented in this encounter Functional Status * BP Answer Date of Assessment Author 131/78 02/13/2025 9:36 AM Chastity Ocasio * Temp Answer Date of Assessment Author 97.5 02/13/2025 9:36 AM Chastity Ocasio * Temp src Answer Date of Assessment Author Temporal 02/13/2025 9:36 AM Chastity Ocasio * Pulse Answer Date of Assessment Author 65 02/13/2025 9:36 AM Chastity Ocasio * Resp Answer Date of Assessment Author 16 02/13/2025 9:36 AM Chastity Ocasio * SpO2 Answer Date of Assessment Author 98 02/13/2025 9:36 AM Chastity Ocasio * Height Answer Date of Assessment Author 62.9 02/13/2025 9:36 AM Chastity Ocasio * Weight Answer Date of Assessment Author 2662.4 02/13/2025 9:36 AM Chastity Ocasio * BMI (Calculated) Answer Date of Assessment Author 29.6 02/13/2025 9:36 AM Chastity Ocasio * Percent Excess Weight Loss Answer Date of Assessment Author 0 02/13/2025 9:36 AM Chastity Ocasio * Total Weight Change Percent Answer Date of Assessment Author 2222 02/13/2025 9:36 AM Chastity Ocasio * Weight Change Since Preop Answer Date of Assessment Author 75.46 02/13/2025 9:36 AM Chastity Ocasio * Initial Excess Weight Answer Date of Assessment Author -51.94 02/13/2025 9:36 AM Chastity Ocasio * IBW in lbs (Bariatric) Answer Date of Assessment Author 114.5 02/13/2025 9:36 AM Chastity Ocasio * Weight Change Since Last Visit Answer Date of Assessment Author 75.46 02/13/2025 9:36 AM Chastity Ocasio * IBW in kg (Bariatric) Answer Date of Assessment Author 51.94 02/13/2025 9:36 AM Chastity Ocasio * Percent of IBW Answer Date of Assessment Author 5,125.91 02/13/2025 9:36 AM Chastity Ocasio * EBW (kg) Answer Date of Assessment Author 2,660.93 02/13/2025 9:36 AM Chastity Ocasio * EBW (lbs) Answer Date of Assessment Author 2,655.24 02/13/2025 9:36 AM Chastity Ocasio * Weight Change 24 hrs Answer Date of Assessment Author .635 02/13/2025 9:36 AM Chastity Ocasio * BSA (Calculated - sq m) Answer Date of Assessment Author 1.83 02/13/2025 9:36 AM Chastity Ocasio * BMI (Calculated) Answer Date of Assessment Author 29.56 02/13/2025 9:36 AM Chastity Ocasio * BP Location Answer Date of Assessment Author Right arm 02/13/2025 9:36 AM Chastity Ocasio * IBW/kg (Calculated) Male Answer Date of Assessment Author 56.67 02/13/2025 9:36 AM Chastity Ocasio * IBW/kg (Calculated) Female Answer Date of Assessment Author 52.17 02/13/2025 9:36 AM Chastity Ocasio * Restart Vitals Timer Answer Date of Assessment Author Yes 02/13/2025 9:36 AM Chastity Ocasio * IBW/kg (Calculated) Answer Date of Assessment Author 52.17 02/13/2025 9:36 AM Chastity Ocasio * Calculated C-SSRS Risk Score (Lifetime/Recent) Answer Date of Assessment Author No Risk Indicated 02/13/2025 9:35 AM Chastity Geller * Weight in (lb) to have BMI = 25 Answer Date of Assessment Author 140.4 02/13/2025 9:36 AM Chastity Ocasio * BMI (Calculated) Answer Date of Assessment Author 29.6 02/13/2025 9:36 AM Chastity Ocasio * Percent Excess Weight Loss Answer Date of Assessment Author 0 02/13/2025 9:36 AM Chastity Ocasio * Weight Change Since Preop Answer Date of Assessment Author 75.48 02/13/2025 9:36 AM Chastity Ocasio * Initial Excess Weight Answer Date of Assessment Author -51.94 02/13/2025 9:36 AM Chastity Ocasio * IBW in kg (Bariatric) Answer Date of Assessment Author 51.94 02/13/2025 9:36 AM Chastity Ocasio * IBW in lb (Bariatric) Answer Date of Assessment Author 114.5 02/13/2025 9:36 AM Chastity Ocasio * Weight Change Since Last Visit Answer Date of Assessment Author 75.48 02/13/2025 9:36 AM Chastity Ocasio * Percent of IBW Answer Date of Assessment Author 145.33 02/13/2025 9:36 AM Chastity Ocasio * EBW (kg) Answer Date of Assessment Author 23.52 02/13/2025 9:36 AM Chastity Ocasio * EBW (lb) Answer Date of Assessment Author 51.9 02/13/2025 9:36 AM Chastity Ocasio * Current Symptoms Question Answer Date of Assessment Author Heartburn Yes 02/13/2025 10:42 AM EST Lear , Zahida L, SAND SCREENER OPERATOR Severity 5 02/13/2025 10:42 AM EST Lear , Zahida L, SAND SCREENER OPERATOR Regurgitation Yes 02/13/2025 10:42 AM EST Sunitha r, Zahida L, SAND SCREENER OPERATOR Severity 7 02/13/2025 10:42 AM EST Lear , Zahida L, SAND SCREENER OPERATOR Trouble swallowing solid foods Yes 02/13/2025 10:42 AM EST Lear, Zahida L, SAND SCREENER OPERATOR Severity 7 02/13/2025 10:42 AM EST Lear , Zahida L, SAND SCREENER OPERATOR Trouble swallowing liquids No 02/13/2025 10: 42 AM EST Lear, Zahida L, SAND SCREENER OPERATOR Painful swallowing No 02/13/2025 10:42 AM ES T Lear, Zahida L, SAND SCREENER OPERATOR Nausea Yes 02/13/2025 10:42 AM EST Lear , Zahida L, SAND SCREENER OPERATOR Severity 8 02/13/2025 10:42 AM EST Lear , Zahida L, SAND SCREENER OPERATOR Vomiting Yes 02/13/2025 10:42 AM EST Lear , Zahida L, SAND SCREENER OPERATOR Severity 5 02/13/2025 10:42 AM EST Lear , Zahida L, SAND SCREENER OPERATOR Bloating Yes 02/13/2025 10:42 AM EST Lear , Zahida L, SAND SCREENER OPERATOR Severity 8 02/13/2025 10:42 AM EST Lear , Zahida L, SAND SCREENER OPERATOR Epigastric/abdominal pain Yes 02/13/2025 10:4 2 AM EST Lear, Zahida L, SAND SCREENER OPERATOR Severity 8 02/13/2025 10:42 AM EST Lear , Zahida L, SAND SCREENER OPERATOR Hoarseness No 02/13/2025 10:42 AM EST Lear , Zahida L, SAND SCREENER OPERATOR Chronic Cough Yes 02/13/2025 10:42 AM EST Sunitha r, Zahida L, SAND SCREENER OPERATOR Severity 8 02/13/2025 10:42 AM EST Lear , Zahida L, SAND SCREENER OPERATOR Diarrhea No 02/13/2025 10:42 AM EST Lear , Zahida L, SAND SCREENER OPERATOR Constipation Yes 02/13/2025 10:42 AM EST Lear , Zahida L, SAND SCREENER OPERATOR Severity 7 02/13/2025 10:42 AM EST Lear , Zahida L, SAND SCREENER OPERATOR * Medications Question Answer Date of Assessment Author Med 1. Nexium 20 mg 02/13/2025 10:42 AM Zahida Hester APRN Med 1 - Frequency of use Daily 02/13/2025 10:42 AM Zahida Hester APRN Med 2. Iberogast 02/13/2025 10:42 AM Zahida Hester APRN Med 2 - Frequency of use Twice/day 02/13/2025 10:42 AM Zahida Hester APRN Are you currently taking any antacid medications (proton pump inhibitors, H2 blockers, [id number] preparations)? Yes 02/13/2025 10:42 AM Zahida Hester APRN * Current Dietary Habits Question Answer Date of Assessment Author Please select the type of diet you are currently eating or write in if none of the types of diets listed apply to you: Regular diet with no restrictions 02/13/2025 10:42 AM Zahida Hester APRN Do you drink carbonated beverages (Coke, Sprite, etc.)? No 02/13/2025 10:42 AM Zahida Hester APRN * Current Bowel Habits Question Answer Date of Assessment Author How often do you usually have a bowel movement? Every other day 02/13/2025 10:42 AM Zahida Hester APRN Do you use medications or other products to maintain bowel function, such as stool softeners, laxatives, suppositories? Yes 02/13/2025 10:42 AM Zahida Hester APRN If yes, please write in product(s) used and frequency of use. Fiber therapy, digestive enzymes, 02/13/2025 10:42 AM Zahida Hester APRN * Status and PSH Question Answer Date of Assessment Author Patient Status: New patient 02/13/2025 10:42 AM Zahida Lund APRN Have you had surgery in the past for hiatal hernia or reflux? No 02/13/2025 10:42 AM Zahida Hester APRN * Difference in Weight Since Last Visit Answer Date of Assessment Author 0.64 02/13/2025 9:36 AM Chastity Ocasio * Temp (in Celsius) for TATITLEK IV Answer Date of Assessment Author 36.4 02/13/2025 9:36 AM Chastity Ocasio * IBW/kg (Calculated) Answer Date of Assessment Author 52.17 02/13/2025 9:36 AM Chastity Ocasio * Adult Low Range Vt 6mL/kg Answer Date of Assessment Author 313.02 02/13/2025 9:36 AM Chastity Ocasio * Adult Moderate Range Vt 8mL/kg Answer Date of Assessment Author 417.36 02/13/2025 9:36 AM Chastity Ocasio * Adult High Range Vt 10mL/kg Answer Date of Assessment Author 521.7 02/13/2025 9:36 AM Chastity Ocasio * Pain Score Answer Date of Assessment Author 2 02/13/2025 9:36 AM Chastity Ocasio * Vitals Timer Question Answer Date of Assessment Author Restart Vitals Timer Yes 02/13/2025 9:36 AM Chastity Rainey * Patient Position Answer Date of Assessment Author Sitting 02/13/2025 9:36 AM Chastity Ocasio * Pain Screening/Additional Assessments Question Answer Date of Assessment Author Pain Screening/Assessments Pain Screening 02/13/2025 9 :36 AM Chastity Kaye * Pain Screening Answer Date of Assessment Author 0-10 02/13/2025 9:36 AM Chastity Ocasio * C-SSRS (Screener) Question Answer Date of Assessment Author Is patient awake, alert, and able/willing to answer questions appropriately? Yes 02/13/2025 9:35 AM Ximena Kaye 1. Wish to be (Past 1 Month) No 025 9:35 AM Chastity Kaye 2. Non-Specific Active Suici jia Thoughts (Past 1 Month) No 02/13/2025 9:35 AM Jamal Kaye 6. Suicidal Behavior (Lifetime) No 9:35 AM Chastity Kaye * BP Answer Date of Assessment Author 131/78 02/13/2025 9:36 AM Chastity Ocasio * Temp Answer Date of Assessment Author 97.5 02/13/2025 9:36 AM Chastity Ocasio * Temp src Answer Date of Assessment Author Temporal 02/13/2025 9:36 AM Chastity Ocasio * Pulse Answer Date of Assessment Author 65 02/13/2025 9:36 AM Chastity Ocasio * Resp Answer Date of Assessment Author 16 02/13/2025 9:36 AM Chastity Ocasio * SpO2 Answer Date of Assessment Author 98 02/13/2025 9:36 AM Chastity Ocasio * Height Answer Date of Assessment Author 62.9 02/13/2025 9:36 AM Chastity Ocasio * Weight Answer Date of Assessment Author 2662.4 02/13/2025 9:36 AM Chastity Ocasio * BSA (Calculated - sq m) Answer Date of Assessment Author 1.83 02/13/2025 9:36 AM Chastity Ocasio * BMI (Calculated) Answer Date of Assessment Author 29.56 02/13/2025 9:36 AM Chastity Ocasio * BP Location Answer Date of Assessment Author Right arm 02/13/2025 9:36 AM Chastity Ocasio * Restart Vitals Timer Answer Date of Assessment Author Yes 02/13/2025 9:36 AM Chastity Ocasio * Calculated C-SSRS Risk Score (Lifetime/Recent) Answer Date of Assessment Author No Risk Indicated 02/13/2025 9:35 AM Chastiyt Geller * Weight in (lb) to have BMI = 25 Answer Date of Assessment Author 140.4 02/13/2025 9:36 AM Chastity Ocasio * Pain Score Answer Date of Assessment Author 2 02/13/2025 9:36 AM Chastity Ocasio * Patient Position Answer Date of Assessment Author Sitting 02/13/2025 9:36 AM Chastity Ocasio * Learning Needs Screening Question Answer Date of Assessment Author Are there things (barriers) that make it harder for this patient to learn? No Barriers 02/13/2025 9:35 AM Ximena Kaye What is the best language to use for teaching this patient about his/her health? Belarusian 02/13/2025 9:35 AM Devin Kaye What format does this patient think is most helpful for learning? Listening;Reading;Dem onstration 02/13/2025 9:35 AM Chastity Kaye Primary Learner Patient 02/13/2025 9:35 AM Chastity Griffin * Readiness to Learn Question Answer Date of Assessment Author Readiness Acceptance 02/13/2025 9:35 AM Chastity Castillo * C-SSRS (Screener) Question Answer Date of Assessment Author Is patient awake, alert, and able/willing to answer questions appropriately? Yes 02/13/2025 9:35 AM Ximena Kaye 1. Wish to be (Past 1 Month) No 025 9:35 AM Chastity Kaye 2. Non-Specific Active Suici jia Thoughts (Past 1 Month) No 02/13/2025 9:35 AM Jamal Kaye 6. Suicidal Behavior (Lifetime) No 9:35 AM Chastity Kaye documented as of this encounter Mental Status * BP Answer Entry Date Author 131/78 02/13/2025 9:36 AM Chastity Ocasio * Temp Answer Entry Date Author 97.5 02/13/2025 9:36 AM Chastity Ocasio * Temp src Answer Entry Date Author Temporal 02/13/2025 9:36 AM Chastity Ocasio * Pulse Answer Entry Date Author 65 02/13/2025 9:36 AM Chastity Ocasio * Resp Answer Entry Date Author 16 02/13/2025 9:36 AM Chastity Ocasio * SpO2 Answer Entry Date Author 98 02/13/2025 9:36 AM Chastity Ocasio * Height Answer Entry Date Author 62.9 02/13/2025 9:36 AM Chastity Ocasio * Weight Answer Entry Date Author 2662.4 02/13/2025 9:36 AM Chastity Ocasio * BMI (Calculated) Answer Entry Date Author 29.6 02/13/2025 9:36 AM Chastity Ocasio * Percent Excess Weight Loss Answer Entry Date Author 0 02/13/2025 9:36 AM Chastity Ocasio * Total Weight Change Percent Answer Entry Date Author 22202/13/2025 9:36 AM Chastity Ocasio * Weight Change Since Preop Answer Entry Date Author 75.46 02/13/2025 9:36 AM Chastity Ocasio * Initial Excess Weight Answer Entry Date Author -51.94 02/13/2025 9:36 AM Chastity Ocasio * IBW in lbs (Bariatric) Answer Entry Date Author 114.5 02/13/2025 9:36 AM Chastity Ocasio * Weight Change Since Last Visit Answer Entry Date Author 75.46 02/13/2025 9:36 AM Chastity Ocasio * IBW in kg (Bariatric) Answer Entry Date Author 51.94 02/13/2025 9:36 AM Chastity Ocasoi * Percent of IBW Answer Entry Date Author 5,125.91 02/13/2025 9:36 AM Chastity Ocasio * EBW (kg) Answer Entry Date Author 2,660.93 02/13/2025 9:36 AM Chastity Ocasio * EBW (lbs) Answer Entry Date Author 2,655.24 02/13/2025 9:36 AM Chastity Ocsaio * Weight Change 24 hrs Answer Entry Date Author .635 02/13/2025 9:36 AM Chastity Ocasio * BSA (Calculated - sq m) Answer Entry Date Author 1.83 02/13/2025 9:36 AM Chastity Ocasio * BMI (Calculated) Answer Entry Date Author 29.56 02/13/2025 9:36 AM Chastity Ocasio * BP Location Answer Entry Date Author Right arm 02/13/2025 9:36 AM Chastity Ocasio * IBW/kg (Calculated) Male Answer Entry Date Author 56.67 02/13/2025 9:36 AM Chastity Ocasio * IBW/kg (Calculated) Female Answer Entry Date Author 52.17 02/13/2025 9:36 AM Chastity Ocasio * Restart Vitals Timer Answer Entry Date Author Yes 02/13/2025 9:36 AM Chastity Ocasio * IBW/kg (Calculated) Answer Entry Date Author 52.17 02/13/2025 9:36 AM Chastity Ocasio * Calculated C-SSRS Risk Score (Lifetime/Recent) Answer Entry Date Author No Risk Indicated 02/13/2025 9:35 AM Chastity Geller * Restart Pain Assessment Timer Answer Entry Date Author Yes 02/13/2025 9:36 AM Chastity Ocasio * Weight in (lb) to have BMI = 25 Answer Entry Date Author 140.4 02/13/2025 9:36 AM Chastity Ocasio * BMI (Calculated) Answer Entry Date Author 29.6 02/13/2025 9:36 AM Chastity Ocasio * Percent Excess Weight Loss Answer Entry Date Author 0 02/13/2025 9:36 AM Chastity Ocasio * Weight Change Since Preop Answer Entry Date Author 75.48 02/13/2025 9:36 AM Chastity Ocasio * Initial Excess Weight Answer Entry Date Author -51.94 02/13/2025 9:36 AM Chastity Ocasio * IBW in kg (Bariatric) Answer Entry Date Author 51.94 02/13/2025 9:36 AM Chastity Ocasio * IBW in lb (Bariatric) Answer Entry Date Author 114.5 02/13/2025 9:36 AM Chastity Ocasio * Weight Change Since Last Visit Answer Entry Date Author 75.48 02/13/2025 9:36 AM Chastity Ocasio * Percent of IBW Answer Entry Date Author 145.33 02/13/2025 9:36 AM Chastity Ocasio * EBW (kg) Answer Entry Date Author 23.52 02/13/2025 9:36 AM Chastity Ocasio * EBW (lb) Answer Entry Date Author 51.9 02/13/2025 9:36 AM Chastity Ocasio * Difference in Weight Since Last Visit Answer Entry Date Author 0.64 02/13/2025 9:36 AM Chastity Ocasio * Temp (in Celsius) for TATITLEK IV Answer Entry Date Author 36.4 02/13/2025 9:36 AM Chastity Ocasio * IBW/kg (Calculated) Answer Entry Date Author 52.17 02/13/2025 9:36 AM Chastity Ocasio * Adult Low Range Vt 6mL/kg Answer Entry Date Author 313.02 02/13/2025 9:36 AM Chastity Ocasio * Adult Moderate Range Vt 8mL/kg Answer Entry Date Author 417.36 02/13/2025 9:36 AM Chastity Ocasio * Adult High Range Vt 10mL/kg Answer Entry Date Author 521.7 02/13/2025 9:36 AM Chastity Ocasio * Pain Score Answer Entry Date Author 2 02/13/2025 9:36 AM Chastity Ocasio * Vitals Timer Question Answer Entry Date Author Restart Vitals Timer Yes 02/13/2025 9:36 AM Chastity Rainey * Patient Position Answer Entry Date Author Sitting 02/13/2025 9:36 AM Chastity Ocasio * Pain Screening Answer Entry Date Author 0-10 02/13/2025 9:36 AM Chastity Ocasio * C-SSRS (Screener) Question Answer Entry Date Author Is patient awake, alert, and able/willing to answer questions appropriately? Yes 02/13/2025 9:35 AM Ximena Kaye 1. Wish to be (Past 1 Month) No 025 9:35 AM Chastity Kaye 2. Non-Specific Active Suici jia Thoughts (Past 1 Month) No 02/13/2025 9:35 AM Jamal Kaye 6. Suicidal Behavior (Lifetime) No 9:35 AM Chastity Kaye documented in this encounter Miscellaneous Notes * Progress Notes - Zahida Villareal APRN - 02/13/2025 9:30 AM EST Subjective Reason for Visit: Chief Complaint Patient presents with New Patient Macey S Sutton is a 79 y.o. female presenting [...] antacid medications (proton pump inhibitors, H2 blockers, fuoq-jba-hurifzq preparations)? Y Med 1. Nexium 20 mg [...] and affect are within normal limits Skin: [place], warm, well perfused Assessment/Plan Problem List Items Addressed This Visit Nervous Dizziness Respiratory Hiatal hernia - Primary Relevant Medications esomeprazole (NexIUM) [address] capsule Other Relevant Orders [place] Upper GI Circulatory Coronary artery disease involving [place] coronary artery of [place] heart without angina pectoris Relevant Medications clopidogrel [...] imaging and/or labs, communicating with other health care technician, and entering clinical information in the EHR. Please note: This record may have been prepared using [employer] Direct voice recognition software. As a result, errors may occur in the text. When identified, these fitness and wellness director errors have been corrected. While every attempt [...] Care Team (Late st Contact Info) Description 03/06/2025 9:30 AM EST Appointment [facility] Radiology [address] [place] [phone] Scheduled Orders Name Type Priority Associated Diagnoses Orde r Schedule [place] Upper GI Imaging Routine Hiatal hernia Expected: 02/13/2025 (Approximate), Expires: 08/17/2026 documented as of this encounter Visit Diagnoses Diagnosis Hiatal hernia- Primary Diaphragmatic hernia without mention of obstruction or gangrene Coronary artery disease involving [place] coronary artery of [place] heart without angina pectoris Platelet inhibition due to Plavix Dizziness Dizziness and giddiness Near syncope documented in this encounter Additional Health Concerns Assessment Noted Time A fall risk assessment has been complete d for the patient 02/13/2025 9:35 AM EST A Body Mass Index follow-up plan has been documented for the patient 02/13/2025 10:49 AM EST documented as of this encounter Care Teams Advertising Operations Manager Relationship Specialty Start Date End Date Osvaldo Ozuna MD PCP - General Family Medicine 09/03/22 documented as of this encounter
--- OUTSIDE RECORDS SUMMARY | 2025-02-26 16:26 | XMS_ITS | Encounter Summary ---
Author Organization [facility] Address [address] [place] [address] Care Team Providers Care Campus Recruiter Name Role Phone Osvaldo Ozuna MD Primary Care Provider Reina vailable Reason for Referral * Consultation (Routine) - Closed Specialty Diagnoses / Procedures Referred By Zahira moon Referred To Contact General Surgery Diagnoses Diaphragmatic hernia without obstruction or gangrene Referral ID Status Reason Start Date Expiration Date Visits Re quested Visits Authorized [id number] Closed 12/27/2024 06/28/2026 1 1 Encounter Details Date Type Department Care Team (Late st Contact Info) Description 12/27/2024 Community Orders Community Practice [address] [place] [address] Dominique Kimbrough APRN [address] [facility] [address] [place] [address] Diaphragmatic hernia without obstruction or gangrene (Primary [...] Department Care Team (Late Contact Info) Description 03/06/2025 9:30 AM EST Appointment [facility] [address] [place] [address] Scheduled Referrals Name Type Priority Associated Diagnoses Orde r Schedule Ambulatory Referral to General Surgery ([facility]) Outpatient Referral Routine Diaphragmatic hernia without obstruction or gangrene Ordered: 12/27/2024 documented as of this encounter Visit Diagnoses Diagnosis Diaphragmatic hernia without obstruction or gangrene- Primary Diaphragmatic hernia without mention of obstruction or gangrene documented in this encounter Care Teams Campus Recruiter Relationship Specialty Start Date End Date Osvaldo Ozuna MD PCP - General Family Medicine 09/03/22 documented as of this encounter
--- OUTSIDE RECORDS SUMMARY | 2025-02-26 16:26 | XMS_ITS | Encounter Summary ---
Author Organization [facility] Address [address] [place] [address] Care Team Providers Care Barrel Raiser Helper Name Role Phone Osvaldo Ozuna MD Primary [...] as of this encounter Functional Status * Communicable Disease Screening Question Answer Date of Assessment Author Have you been in contact wit h someone who was sick? No / Unsure 02/13/2025 9:17 AM Shan Stevenson Do you have any of the following new or worsening symptoms? None of these 02/13/2025 9:17 AM Shan Stevenson * Travel Screening Question Answer Date of Assessment Author Have you traveled internatio neeru or domestically in the last month? No 02/13/2025 9:17 AM Shan Monte documented as of this encounter Mental Status * Communicable Disease Screening Question Answer Entry Date Author Have you been in contact wit h someone who was sick? No / Unsure 02/13/2025 9:17 AM Shan Stevenson Do you have any of the following new or worsening symptoms? None of these 02/13/2025 9:17 AM Shan Stevenson * Travel Screening Question Answer Entry Date Author Have you traveled internatio neeru or domestically in the last month? No 02/13/2025 9:17 AM Shan Monte documented in this encounter Plan of Treatment Upcoming Encounters Date Type Department Care Team (Late st Contact Info) Description 03/06/2025 9:30 AM EST Appointment [facility] [address] [place] [address] documented as of this encounter Visit Diagnoses Not on filedocumented in this encounter Additional Health Concerns Assessment Noted Time A fall risk assessment has been complete d for the patient 02/13/2025 9:35 AM EST A Body Mass Index follow-up plan has been documented for the patient 02/13/2025 10:49 AM EST documented as of this encounter Care Teams Barrel Raiser Helper Relationship Specialty Start Date End Date Osvaldo Ozuna MD PCP - General Family Medicine 09/03/22 documented as of this encounter
--- OUTSIDE RECORDS SUMMARY | 2025-02-26 16:26 | XMS_ITS | Encounter Summary ---
[facility] Address [address] [place] [id number] Care Team Providers Care Early Head Start Teacher Name Role Phone Osvaldo Ozuna MD Primary Care Provider +1- [phone] Encounter Details Date Type Department Care Team (Late st Contact Info) Description 02/13/2025 Telephone [facility] CARDIOLOG[facility] [address] [place] [address] Kathy Dobson APRN [address] [place] [id number] Social History Tobacco Use Types Packs/Day Years [...] Description 03/13/2025 8:30 AM EST Office Visit [facility] [address] [place] [address] Kathy Dobson APRN [address] [place] [address] documented as of this encounter Visit Diagnoses Not on filedocumented in this encounter Care Teams Early Head Start Teacher Relationship Specialty Start Date End Date Osvaldo Ozuna MD [address] [facility] [place] [address] PCP - General Family Medicine 10/21/22 documented as of this encounter
--- OUTSIDE RECORDS SUMMARY | 2025-02-26 16:26 | XMS_ITS | Clinical Summary ---
Author Organization [facility] Address [address] [place] [address] Care Team Providers Care Hairspring Staker Name Role Phone Osvaldo Ozuna MD Primary [...] hernia 02/13/2025 Coronary artery disease invo lving saxman coronary artery of saxman heart without angina pectoris 02/13/2025 Platelet inhibition due to Plavix 02/13/2025 Dizziness 02/13/2025 Near syncope 02/13/2025 Encounters Date Type Department Care Team Description 02/13/2025 9:30 AM EST Office Visit [facility] General Surgery [address] [place] [address] Zahida Villareal APRN Hiatal hernia (Primary Dx); Coronary artery disease involving saxman coronary artery of saxman heart without angina pectoris; Platelet inhibition due to Plavix; Dizziness; Near syncope 02/13/2025 Travel 12/27/2024 Community Orders Community Practice [address] [place] [address] Dominique Kimbrough APRN Diaphragmatic hernia without obstruction [...] AM EST Appointment [facility] [address] [place] [address] Health Maintenance Due Date Last Done Comments [facility]-Bone Density Scan 1945 [facility]-Depression Screening 1945 [facility]-Medicare Annual Wellness (AWV) 1945 [facility]-Infant/Child/Adol SDOH Screenings 1943 [facility]- SDOH Screenings 09/08/1961 [facility]-Adult SDOH Screenings 09/08/1961 [facility]-DTaP,Tdap,and Td Vaccines (1 - Tdap) 09/08/1962 [facility]-Zoster Vaccines (1 of 2) 09/08/1993 [facility]-RSV Vaccine: 60+ Years or (1 - 1-dose 75+ series) 09/08/2018 [id number] Vaccine ( - 2024- season) 2024 12/12/2020, [...] age to complete this topic [place] [address] [employer] MED[employer] SUPPLEMENT Care Teams Hairspring Staker Relationship Specialty Start Date End Date Osvaldo Ozuna MD PCP - General Family Medicine 09/03/22
--- OUTSIDE RECORDS SUMMARY | 2025-02-26 16:27 | XMS_ITS | Encounter Summary ---
[facility] Organization [facility] Address [address] [place] [address] Care Team Providers Care Skiver Heel Tap Name Role Phone Osvaldo Ozuna MD Primary Care Provider +1- [phone] Encounter Details Date Type Department Care Team (Late st Contact Info) Description 01/02/2025 Results Follow-Up [facility] [address] [place] [address] Ariana Villa MA Social History Tobacco Use [...] Description 03/13/2025 8:30 AM EST Office Visit [facility] C[facility] [address] [place] [address] Kathy Dobson APRN [address] [place] [address] documented as of this encounter Visit Diagnoses Not on filedocumented in this encounter Care Teams Skiver Heel Tap Relationship Specialty Start Date End Date Osvaldo Ozuna MD [address] [facility] [address] PCP - General Family Medicine 10/21/22 documented as of this encounter
--- OUTSIDE RECORDS SUMMARY | 2025-02-26 16:27 | XMS_ITS | Encounter Summary ---
[facility] [address] [place] [id number] Care Team Providers Care Dietary Server Name Role Phone Osvaldo Ozuna MD Primary Care Provider +1- [phone] Reason for Visit * Reason Onset Date Comments SEIVERS - SCHEDULING 12/05/2024 Encounter Details Date Type Department Care Team (Late st Contact Info) Description 12/05/2024 Telephone [facility] CARDIOLOG[facility] [address] [place] [address] SeBritney melendez, CLINIC OFFICE ASSISTANT [address] [place] [id number] SEIVERS - SCHEDULING Social History Tobacco Use [...] Description 03/13/2025 8:30 AM EST Office Visit [facility] CARDIOLOG[facility] [address] [place] [address] Kathy Dobson APRN [address] [place] [address] documented as of this encounter Visit Diagnoses Not on filedocumented in this encounter Care Teams Dietary Server Relationship Specialty Start Date End Date Osvaldo Ozuna MD [address] [place] [address] PCP - General Family Medicine 10/21/22 documented as of this encounter
--- OUTSIDE RECORDS SUMMARY | 2025-02-26 16:27 | XMS_ITS | Encounter Summary ---
[facility] Address [address] [place] [address] Care Team Providers Care Commercial Glazier Name Role Phone Osvaldo Ozuna MD Primary Care Provider +1- [phone] Encounter Details Date Type Department Care Team [...] Description 03/13/2025 8:30 AM EST Office Visit [facility] CARDIOLOGY [address] [place] [address] Kathy Dobson APRN [address] [place] [address] documented as of this encounter Visit Diagnoses Not on filedocumented in this encounter Care Teams Commercial Glazier Relationship Specialty Start Date End Date Osvaldo Ozuna MD [address] [place] [address] PCP - General Family Medicine 10/21/22 documented as of this encounter
--- OUTSIDE RECORDS SUMMARY | 2025-02-26 16:27 | XMS_ITS | Encounter Summary ---
[facility] Address [address] [place] [address] Care Team Providers Care Case Checker Name Role Phone Osvaldo Ozuna MD Primary Care Provider [phone]- [phone] Encounter Details Date Type Department Care Team [...] Description 03/13/2025 8:30 AM EST Office Visit [facility] [address] [place] [address] Kathy Dobson APRN [address] [place] [address] documented as of this encounter Visit Diagnoses Not on filedocumented in this encounter Care Teams Case Checker Relationship Specialty Start Date End Date Osvaldo Ozuna MD [address] [place] [address] PCP - General Family Medicine 10/21/22 documented as of this encounter
--- OUTSIDE RECORDS SUMMARY | 2025-02-26 16:27 | XMS_ITS | Clinical Summary ---
Author Organization [facility] Address [address] [place] [address] Care Team Providers Care Concrete Saw Operator Name Role Phone Osvaldo Ozuna MD Primary Care Provider [phone]- [phone] Allergies Active Allergy Reactions Criticality Noted Date [...] MG SL tabletIndications:C oronary artery disease involving [place] coronary artery of [place] heart without angina pectoris 1 under the tongue as needed for angina, may repeat q5mins for up three doses 100 tablet 4 Active Synthroid 125 MCG tablet 4 Active esomeprazole (nexIUM) 20 MG capsule Take 1 capsule by mouth Every Morning Before Breakfast. 5 Active rosuvastatin (CRESTOR) 5 MG tabletIndications:C oronary artery disease involving [place] coronary artery of [place] heart without angina pectoris Take 1 tablet by mouth Daily. 90 tablet 3 5 Active levocetirizine (XYZAL) 5 MG tablet Take 1 tablet by mouth Every Evening. 5 Active Active Problems Problem Noted Date Diagnosed Date Mixed hyperlipidemia 12/28/2024 Assessment & Plan (12/28/2024 12:54 PM EDT): {Hyperlipidemia A/P Block (Optional):0970592123} Diastolic dysfunction 12/28/2024 Assessment & Plan (12/28/2024 [...] stress test Coronary artery disease invo lving [place] coronary artery of [place] heart without angina pectoris 12/10/2022 Assessment & Plan (12/28/2024 12:54 PM EDT): {Coronary Artery Disease (OPTIONAL):68920} Assessment & Plan (05/18/2024 4:46 PM EDT): [...] Known history of coronary artery disease. CAD: [facility] 09/2014 showing severe one- vessel disease [...] 3. She is advised to contact her [employer] for assistance to adjusting her humidifier to [...] Type Department Care Team Description 02/13/2025 Telephone [facility] [address] [place] [address] Kathy Dobson APRN 01/02/2025 Results Follow-Up [facility] [address] [place] [address] Ariana Villa MA 01/01/2025 8:30 AM EST Ancillary Procedure [facility] [address] [place] [address] Diastolic dysfunction 01/01/2025 Travel 12/28/2024 12:30 PM EDT Office Visit [facility] [address] [place] [address] Kathy Dobson, YOSHI Coronary artery disease involving [place] coronary artery of [place] heart without angina pectoris (Primary Dx); Central sleep apnea; Mixed hyperlipidemia; Diastolic dysfunction 12/28/2024 Travel 12/05/2024 Telephone [facility] [address] [place] [address] Senora, Britney Contreras APRN [facility] - SCHEDULING [...] Description 03/13/2025 8:30 AM EST Office Visit [facility] [address] [place] [address] Kathy Dobson APRN [address] [place] [address] [phone] (work) Health Maintenance Due Date Last Done [...] 12-LEAD Routine 12/28/2024 Coronary artery disease involving [place] coronary artery of [place] heart without angina pectoris LIPID PANEL Routine 05/22/2024 Coronary artery disease involving [place] coronary artery of [place] heart without angina pectoris from Last 3 [...] surgeon Dr Rajiv Avina on Wednesday at [facility] regarding her hiatal hernia. She [...] 0 and maximum pressure support 15 CAD: [facility] 09/2014 showing severe one-vessel disease 70% LAD with angioplasty(artery too small for stent) Nuclear stress test 07/01/23 no evidence of ischemia PAD: Bilateral lower extremity arterial duplex 2018-waveforms triphasic tobiphasic with right CHLOE 1.04 and left CHLOE 1.01 Last echo: 09/02/22 @ [facility]. ECHO 02/02/2022 EF 55 to 60%, [...] (64 ) Wt 75.3 kg (166 lb) XfP910% BMI 28.49 kg/m Estimated body mass index [...] Assessment & Plan Coronary artery disease involving [place] coronary artery of [place] heartwithout angina pectoris Central sleep apnea Mixed [...] on 05/22/2024 revealed LDL 61, cholesterol 155, [id number] - Continue rosuvastatin 5 mg daily 4. Diastolic Dysfunction - Last echo on 09/02/2022 revealed abnormal diastolic dysfunction. Willupdate echo Follow-up: Follow up in 6 months. Recommendations: Report if any new/changing symptoms immediately, Sleeprisks reviewed (driving, medical, sleep , sedating agents), and Sleephygiene discussed Follow Up Return in about 6 months (around 06/28/2025) for Next scheduled followup. Patient or patient reimbursement representative verbalized consent for the use ofAmbient Listening during the visit with Kathy Dobson APRN for chartdocumentation. 12/28/2024 12:40 EDT Kathy Dobson APRN Cardiology and Sleep [facility] 12/28/2024 Please note that this explicitly excludes time spent on other separatebillable services such as performing procedures or test interpretation,when applicable. us Kathy Kurtz Bronson CODING COMPLIANCE MANAGER ECG ORDERABLES Final Resu lt * Lipid Panel (05/22/2024) Blood Haleigh Downing Brito CODING COMPLIANCE MANAGER LAB BLOOD ORDERABLES Fi nal Result [facility]
[address] [place] [id number], from Last 3 Months or Most Recently Relevant to Health Maintenance Insurance MEDICARE A & B Member Subscriber Plan / Payer (Ef fective 2005-Present) Name:Macey Sutton Member ID:[id number] Relation to Subscriber:Self Name:Herman Macey Subscriber ID:[id number] Payer ID:[id number] Group ID:Not on file Type:Not on file Address: [facility] [id number] [address] Care Teams Concrete Saw Operator Relationship Specialty Start Date End Date Osvaldo Ozuna MD [address] [place] [address] PCP - General Family Medicine 10/21/22
[2025-02-28 15:30] LABS: Antinuclear Antibodies (ANA) Negative (Negative)
== END 2025-02-26 23:59 | disposition home or self-care (01) ==
LOC: LAB 16:25
PROVIDERS: PCP Family Medicine; Visit Provider Internal Medicine Pulmonary Disease
DX: J84.9 Interstitial pulmonary disease, unspecified (principal)
CPT/HCPCS: 36415; 86200